=== PATIENT | female | born 1960 | race Two or more races ===

== ENCOUNTER 2017-05-04 17:28 | Emergency (ER) | payer SELFPAY, OTHER ==
[2017-05-04] MEDS: ASPIRIN CHEWABLE 81 MG TABLET. PO (17:45)
[2017-05-04 18:30] LABS: ADD MAN DIFF? NO
[2017-05-04 18:33] LABS: BASO # 0.1 x10^3/uL (0.0-0.2); BASO % 1 % (0-3); EOS # 0.3 x10^3/uL (0.0-0.7); EOS % 4 % (0-3); HEMATOCRIT 32.4 % (36.0-47.0); HEMOGLOBIN 11.3 g/dL (12.0-15.5); LYMPH # 1.3 x10^3/uL (1.0-4.8); LYMPH % 18 % (24-48); MEAN CORPUSCULAR HEMOGLOBIN 32 pg (25-35); MEAN CORPUSCULAR HGB CONC 35 g/dL (31-37); MEAN CORPUSCULAR VOLUME 91 fL (79-100); MONO # 0.4 x10^3/uL (0.0-1.1); MONO % 5 % (0-9); NEUT # 5.5 x10^3uL (1.8-7.7); NEUT % 72 % (31-73); PLATELET COUNT 215 x10^3/uL (140-400); RED BLOOD COUNT 3.54 x10^6/uL (3.50-5.40); WHITE BLOOD COUNT 7.6 x10^3/uL (4.0-11.0)
[2017-05-04 18:48] LABS: ANION GAP 10 (6-14); BLOOD UREA NITROGEN 53 mg/dL (7-20); BUN/CREATININE RATIO 44 (6-20); CALCIUM 8.2 mg/dL (8.5-10.1); CARBON DIOXIDE 27 mmol/L (21-32); CHLORIDE 103 mmol/L (98-107); CREATININE 1.2 mg/dL (0.6-1.0); GFR 46.5; GLUCOSE 301 mg/dL (70-99); POTASSIUM 4.1 mmol/L (3.5-5.1); SODIUM 140 mmol/L (136-145)
[2017-05-04 18:53] LABS: TROPONINI 0.022 ng/mL (0.000-0.055)
[2017-05-04 18:54] LABS: ALBUMIN 2.7 g/dL (3.4-5.0); ALBUMIN/GLOBULIN RATIO 0.9 (1.0-1.7); ALK PHOS 125 U/L (46-116); ALT (SGPT) 17 U/L (14-59); AST (SGOT) 15 U/L (15-37); TOTAL BILIRUBIN 0.2 mg/dL (0.2-1.0); TOTAL PROTEIN 5.6 g/dL (6.4-8.2)
[2017-05-04] MEDS: IV NORMAL SALINE 1000ML BAG 1,000 ML IV ×2 (19:06→20:45)
[2017-05-04] MEDS: INSULIN REGULAR 100 UNIT/ML 10ML VIAL. IV (20:44)
[2017-05-04] MEDS ORDERED: DEXTROSE 50% 25 GM / 50ML DISP.SYRIN. IV (22:14)
[2017-05-04] MEDS: DEXTROSE 50% 25 GM / 50ML DISP.SYRIN. IV (22:18)
[2017-05-05 04:47] LABS: POC GLUCOSE 52 mg/dL (70-99)
[2017-05-05 04:47] LABS: POC GLUCOSE 234 mg/dL (70-99)
== END 2017-05-04 22:53 | disposition home or self-care (01) ==
LOC: ER 17:28
DX: E86.0 Dehydration (principal); R05 Cough; R79.89 Other specified abnormal findings of blood chemistry; R07.89 Other chest pain; E11.65 Type 2 diabetes mellitus with hyperglycemia; F41.9 Anxiety disorder, unspecified; I25.10 Atherosclerotic heart disease of native coronary artery without angina pectoris; I11.0 Hypertensive heart disease with heart failure; I50.9 Heart failure, unspecified; E78.00 Pure hypercholesterolemia, unspecified; E03.9 Hypothyroidism, unspecified; F32.9 Major depressive disorder, single episode, unspecified; Z95.0 Presence of cardiac pacemaker; Z95.5 Presence of coronary angioplasty implant and graft; Z88.8 Allergy status to other drugs, medicaments and biological substances
CPT/HCPCS: 36415; 71045; 80053; 82962; 84484; 85025; 93005; 96361; 96374; 96375; 99285-25; J1815; J7030; J7042

== ENCOUNTER → 2017-06-05 | Outpatient (CLI) | payer OTHER | END | disposition home or self-care (01) | LOC: ECHO 07:59 | DX: I25.5 Ischemic cardiomyopathy (principal); I34.0 Nonrheumatic mitral (valve) insufficiency; I27.20 Pulmonary hypertension, unspecified; I51.7 Cardiomegaly | CPT/HCPCS: 93306 ==

== ENCOUNTER → 2018-01-01 | Outpatient (CLI) | payer OTHER ==
[2017-12-21 15:05] VITALS: BP 153/67
[~2018-01-01] MED LIST: ALBU2.5V5 NEB; AMOX1TAB61 PO; ASPI-612 PO; ATOR40TA59 PO; ATORVASTATIN CA80 MG PO; Aspirin PO; CARV3.12 PO; CARV6.252 PO; CHOL500045 PO; CLIN300C8 PO; CLOP75TA PO; FERR325T72 PO; FLUO20CA8 PO; FLUT16SP NS; FURO-68 PO; GABA-586 PO; GABA600T2; GLIM4TAB2 PO; HYDR-963 PO; INDO50CA5 PO; INSU100I13 SQ; LEVO150T5; LEVO175T2 PO; LEVO200T PO; LEVO200T5 PO; LOSA1TAB22 PO; LOSA25TA5 PO; Lisinopril PO; MELO15TA23 PO; METF10007 PO; METH4TAB2 PO; METO5TAB4 PO; NITR0.4T22 SL; PANT40TA5 PO; POTA10TA12; POTA10TA31 PO; PRAS10TA9 PO; SULF1TAB23 PO; TICA90TA PO
[2018-01-01 15:23] LABS: CALCIUM 8.1 mg/dL (8.5-10.1); CREATININE 1.4 mg/dL (0.6-1.0); GFR 38.8; POTASSIUM 4.6 mmol/L (3.5-5.1)
== END | disposition home or self-care (01) ==
LOC: LAB 14:37
PROVIDERS: ATTEND Nurse Practitioner
DX: I13.0 Hypertensive heart and chronic kidney disease with heart failure and stage 1 through stage 4 chronic kidney disease, or unspecified chronic kidney disease (principal); I50.43 Acute on chronic combined systolic (congestive) and diastolic (congestive) heart failure; N18.3 Chronic kidney disease, stage 3 (moderate); E11.649 Type 2 diabetes mellitus with hypoglycemia without coma; E11.42 Type 2 diabetes mellitus with diabetic polyneuropathy; E11.65 Type 2 diabetes mellitus with hyperglycemia; E11.40 Type 2 diabetes mellitus with diabetic neuropathy, unspecified; E11.22 Type 2 diabetes mellitus with diabetic chronic kidney disease; E78.5 Hyperlipidemia, unspecified; F32.9 Major depressive disorder, single episode, unspecified; F41.1 Generalized anxiety disorder; J44.0 Chronic obstructive pulmonary disease with (acute) lower respiratory infection; J44.1 Chronic obstructive pulmonary disease with (acute) exacerbation; Z82.49 Family history of ischemic heart disease and other diseases of the circulatory system; Z83.3 Family history of diabetes mellitus; Z88.8 Allergy status to other drugs, medicaments and biological substances; Z87.891 Personal history of nicotine dependence; Z79.84 Long term (current) use of oral hypoglycemic drugs; Z79.4 Long term (current) use of insulin; Z79.02 Long term (current) use of antithrombotics/antiplatelets
CPT/HCPCS: 36415; 80048; 83880

== ENCOUNTER → 2018-08-01 | Outpatient (CLI) | payer OTHER ==
[2018-06-07 11:00] VITALS: BP 146/70
[~2018-08-01] MED LIST changes: +APIX5TAB PO; +CARV25TA PO; +CARV6.2511 PO; -CARV6.252 PO; +CHOL100013 PO; +COLE1TAB PO; +FERR325T14 PO; +FOLI1TAB16 PO; -GABA-586 PO; +GABA300C18 PO; -GABA600T2; +GABA600T7; +HYDR-3135 PO; -HYDR-963 PO; -LOSA25TA5 PO; +LOSA25TA54 PO; +RIVA20TA2 PO; +SACU1TAB4 PO; +TORS20TA PO; +TRIA1TAB3 PO
[2018-08-01 16:08] LABS: BASO % 1 % (0-3); EOS # 0.2 x10^3/uL (0.0-0.7); EOS % 5 % (0-3); HEMATOCRIT 24.8 % (36.0-47.0); HEMOGLOBIN 8.4 g/dL (12.0-15.5); LYMPH % 27 % (24-48); MEAN CORPUSCULAR HEMOGLOBIN 30 pg (25-35); MEAN CORPUSCULAR HGB CONC 34 g/dL (31-37); MEAN CORPUSCULAR VOLUME 89 fL (79-100); MONO # 0.2 x10^3/uL (0.0-1.1); MONO % 6 % (0-9); NEUT # 2.3 x10^3uL (1.8-7.7); NEUT % 61 % (31-73); PLATELET COUNT 176 x10^3/uL (140-400); RED BLOOD COUNT 2.77 x10^6/uL (3.50-5.40); RED CELL DISTRIBUTION WIDTH 17.1 % (11.5-14.5); WHITE BLOOD COUNT 3.7 x10^3/uL (4.0-11.0)
[2018-08-01 16:22] LABS: CALCIUM 8.1 mg/dL (8.5-10.1); CREATININE 1.9 mg/dL (0.6-1.0); GFR 27.2; MAGNESIUM 2.1 mg/dL (1.8-2.4); POTASSIUM 3.9 mmol/L (3.5-5.1)
== END | disposition home or self-care (01) ==
LOC: LAB 15:41
PROVIDERS: ATTEND Family Medicine
DX: I13.0 Hypertensive heart and chronic kidney disease with heart failure and stage 1 through stage 4 chronic kidney disease, or unspecified chronic kidney disease (principal); N18.3 Chronic kidney disease, stage 3 (moderate); I50.42 Chronic combined systolic (congestive) and diastolic (congestive) heart failure
CPT/HCPCS: 36415; 80048; 83735; 85025

== ENCOUNTER 2018-08-10 17:20 | Inpatient (IN) | payer OTHER ==
[~2018-08-10] VITALS: Ht 165.1 cm; Wt 81.9 kg
[~2018-08-10 17:20] MED LIST changes: -RIVA20TA2 PO
--- NOTE | 2018-08-10 17:50 | RAD ---
CHEST AP ONLY History: CHEST PAIN Comparison: 06/04/2018 Findings: Single view of the chest is submitted. Pericardial cardiac silhouette is again enlarged. There is dual lead left electronic cardiac device. There is no pneumothorax. There is no lobar consolidation or significant pleural fluid. Impression: 1. There is again enlargement of the pericardial cardiac silhouette. Electronically signed by: Corey Wagner MD (08/10/2018 5:47 PM) [id number]
[2018-08-10 18:02] LABS: BASO % 1 % (0-3); EOS # 0.2 x10^3/uL (0.0-0.7); EOS % 5 % (0-3); HEMATOCRIT 25.2 % (36.0-47.0); HEMOGLOBIN 8.5 g/dL (12.0-15.5); LYMPH # 0.9 x10^3/uL (1.0-4.8); LYMPH % 23 % (24-48); MEAN CORPUSCULAR HEMOGLOBIN 31 pg (25-35); MEAN CORPUSCULAR HGB CONC 34 g/dL (31-37); MEAN CORPUSCULAR VOLUME 91 fL (79-100); MONO # 0.2 x10^3/uL (0.0-1.1); MONO % 4 % (0-9); NEUT # 2.6 x10^3uL (1.8-7.7); NEUT % 67 % (31-73); PLATELET COUNT 167 x10^3/uL (140-400); RED BLOOD COUNT 2.78 x10^6/uL (3.50-5.40); RED CELL DISTRIBUTION WIDTH 16.9 % (11.5-14.5); WHITE BLOOD COUNT 3.9 x10^3/uL (4.0-11.0)
[2018-08-10 18:11] LABS: CALCIUM 8.3 mg/dL (8.5-10.1); CREATININE 1.5 mg/dL (0.6-1.0); GFR 35.8; POTASSIUM 4.9 mmol/L (3.5-5.1); PROTHROMBIN TIME PATIENT 13.3 SEC (11.7-14.0)
[2018-08-10 18:16] LABS: ALBUMIN 2.2 g/dL (3.4-5.0); DIRECT BILIRUBIN 0.1 mg/dL (0.0-0.2); TOTAL BILIRUBIN 0.1 mg/dL (0.2-1.0); TOTAL PROTEIN 5.6 g/dL (6.4-8.2)
[2018-08-10] MEDS ORDERED: NITROGLYCERIN OINT 1 GM PACKET. TP ONE (19:15)
[2018-08-10] MEDS ORDERED: fentaNYL PF VIAL 100 MCG/2 ML VIAL IV ONE (19:15)
[2018-08-10] MEDS ORDERED: BUMETANIDE 1 MG/4 ML VIAL. IV ONE (19:15)
--- NOTE | 2018-08-10 19:24 | PHYS DOC ---
Past Medical History Past Medical History: Anxiety, CAD, CHF, Depression, Diabetes-Type II, High Cholesterol, Hypertension, Hypothyroid, Other Additional Past Medical Histor: cardiomyopathy, PACER/ DEFIB Past Surgical History: Angioplasty, , Pacemaker, Tubal ligation, Other Additional Past Surgical Histo: heart stents Alcohol Use: None Drug Use: None Adult General Chief Complaint Chief Complaint: CHEST PAIN HPI HPI Patient is a 57 year old female who presents with chest pain shortness of breath. She states the pain started this morning after she woke up and was doing some chores around her house. The chest pain is located substernally and is sharp in nature. There is no radiation. Throughout the day with chest pain has waxed and waned over this evening at the point where with becoming more constant nausea secondary to the emergency department. Nothing makes her chest pain better or worse. Her shortness of breath is worsened by exertion and lying down flat. Sitting up improves or shortness of breath. Patient denies any fevers , chills, lightheadedness, or dizziness. Patient is reporting a headache. Review of Systems Review of Systems Constitutional: Denies fever or chills Eyes: Denies change in vision or eye pain. HENT: Denies nasal congestion or sore throat Respiratory: Reports shortness of breath. Denies cough. Cardiovascular: Reports chest pain. Denies palpitations. GI: Denies abdominal pain, nausea, vomiting. : Denies dysuria or hematuria Musculoskeletal: Denies back pain or joint pain Integument: Denies rash or skin lesions Neurologic: Reports headache. Denies focal weakness. Complete systems were reviewed and found to be within normal limits, except as documented in this note. Current Medications Current Medications Current Medications Medications (Trade) Dose Ordered Sig/Carlos Start Time Stop Time Status Last Admin Dose Admin Bumetanide (Bumex) 0.5 mg 1X ONCE 08/10/18 19:15 08/10/18 19:16 DC 08/10/18 19:32 0.5 MG Fentanyl Citrate (Fentanyl 2ml Vial) 50 mcg 1X ONCE 08/10/18 19:15 08/10/18 19:16 DC 08/10/18 19:15 50 MCG Nitroglycerin (Nitro-Bid Oint) 0.5 inch 1X ONCE 08/10/18 19:15 08/10/18 19:16 DC 08/10/18 19:37 0.5 INCH Allergies Allergies Allergies Coded Allergies Type Severity Reaction Last Updated Verified lisinopril Adverse Reaction Mild COUGH 11/28/16 Yes Physical Exam Physical Exam Constitutional: Well developed, well nourished, no acute distress. HENT: Normocephalic, atraumatic, oropharynx moist. Eyes: EOMI, right eye conjunctival hemorrhage, no discharge Neck: Normal range of motion, supple. Cardiovascular:Heart rate regular rhythm, no murmur Lungs & Thorax: Crackles in right upper and lower lung field, left lung cooper clear to auscultation. Abdomen: Bowel sounds normal, soft, no tenderness. Skin: Warm, dry, no erythema. Back: No tenderness, no CVA tenderness. Extremities: Bilateral leg tenderness, bilateral 3+ pitting edema Neurologic: Alert and oriented X 3, normal motor function, normal sensory function, no focal deficits noted, cranial nerves II through XII grossly intact bilaterally. Psychologic: Affect normal, mood normal. Current Patient Data Vital Signs Vital Signs Date Time Temp Pulse Resp B/P (MAP) Pulse Ox O2 Delivery O2 Flow Rate FiO2 08/10/18 19:15 20 08/10/18 17:30 98.1 67 157/69 (98) 93 Room Air 98.1 Lab Values Laboratory Tests Test 08/10/18 17:48 White Blood Count 3.9 x10^3/uL (4.0-11.0) L Red Blood Count 2.78 x10^6/uL (3.50-5.40) L Hemoglobin 8.5 g/dL (12.0-15.5) L Hematocrit 25.2 % (36.0-47.0) L Mean Corpuscular Volume 91 fL (79-100) Mean Corpuscular Hemoglobin 31 pg (25-35) Mean Corpuscular Hemoglobin Concent 34 g/dL (31-37) Red Cell Distribution Width 16.9 % (11.5-14.5) H Platelet Count 167 x10^3/uL (140-400) Neutrophils (%) (Auto) 67 % (31-73) Lymphocytes (%) (Auto) 23 % (24-48) L Monocytes (%) (Auto) 4 % (0-9) Eosinophils (%) (Auto) 5 % (0-3) H Basophils (%) (Auto) 1 % (0-3) Neutrophils # (Auto) 2.6 x10^3uL (1.8-7.7) Lymphocytes # (Auto) 0.9 x10^3/uL (1.0-4.8) L Monocytes # (Auto) 0.2 x10^3/uL (0.0-1.1) Eosinophils # (Auto) 0.2 x10^3/uL (0.0-0.7) Basophils # (Auto) 0.0 x10^3/uL (0.0-0.2) Prothrombin Time 13.3 SEC (11.7-14.0) Prothrombin Time INR 1.0 (0.8-1.1) PTT 31 SEC (24-38) Sodium Level 134 mmol/L (136-145) L Potassium Level 4.9 mmol/L (3.5-5.1) Chloride Level 101 mmol/L (98-107) Carbon Dioxide Level 29 mmol/L (21-32) Anion Gap 4 (6-14) L Blood Urea Nitrogen 39 mg/dL (7-20) H Creatinine 1.5 mg/dL (0.6-1.0) H Estimated GFR (Cockcroft-Gault) 35.8 Glucose Level 372 mg/dL (70-99) H Calcium Level 8.3 mg/dL (8.5-10.1) L Total Bilirubin 0.1 mg/dL (0.2-1.0) L Direct Bilirubin 0.1 mg/dL (0.0-0.2) Aspartate Amino Transferase (AST) 22 U/L (15-37) Alanine Aminotransferase (ALT) 23 U/L (14-59) Alkaline Phosphatase 122 U/L (46-116) H Troponin I Quantitative 0.017 ng/mL (0.000-0.055) NL-Noy-L-Type Natriuretic Peptide 82434 pg/mL (0-124) H Total Protein 5.6 g/dL (6.4-8.2) L Albumin 2.2 g/dL (3.4-5.0) L Lipase 85 U/L (73-393) Laboratory Tests 08/10/18 17:48 Laboratory Tests 08/10/18 17:48 EKG EKG EKG at 1730, normal sinus rhythm with a rate of 70 bpm, no ST elevation or signs of ischemia. Radiology/Procedures Radiology/Procedures PROCEDURE: CHEST AP ONLY CHEST AP ONLY History: CHEST PAIN Comparison: 06/04/2018 Findings: Single view of the chest is submitted. Pericardial cardiac silhouette is again enlarged. There is dual lead left electronic cardiac device. There is no pneumothorax. There is no lobar consolidation or significant pleural fluid. Impression: 1. There is again enlargement of the pericardial cardiac silhouette. Electronically signed by: Maria Esther Miles MD (08/10/2018 5:47 PM) [place] [id number] DICTATED and SIGNED BY: MARIA ESTHER MILES MD PROCEDURE: CT HEAD WO CONTRAST CT head without contrast: Reason for examination: Headache. On blood thinners. Axial images were obtained through the brain. No contrast was administered. Exposure: One or more of the following individualized dose reduction techniques were utilized for this examination: 1. Automated exposure control 2. Adjustment of the mA and/or kV according to patient size 3. Use of iterative reconstruction technique. Ventricular systems are symmetric and not abnormally dilated. No midline shift is seen. There is no evidence of intracranial hemorrhage, infarct, mass or edema. No abnormalities of seen at the orbits. The paranasal sinuses and mastoid air cells are clear. No acute abnormality seen in the skull. IMPRESSION: No acute intracranial abnormality evident. Electronically signed by: Veronica Benjamin MD (08/10/2018 7:38 PM) [facility] DICTATED and SIGNED BY: VERONICA BENJAMIN MD Course & Med Decision Making Course & Med Decision Making 57-year-old female sent to the emergency department for chest pain shortness of breath. She does have history of CHF and PEs which she is currently on Xarelto. In addition she is complaining of a headache. Due to blood thinners and headache. CT of head was performed. On physical exam patient had 3+ bilateral pitting edema. Labs and imaging obtained and posted to chart. Symptomatically treatment provided with interval improvement. Chest x-ray demonstrated dilated heart. CT was negative for acute bleed. Due to shortness of breath and edema patient likely benefit from admission. Patient requiring admission for further evaluation and treatment. Discussed with (hospitalist) who is in agreement with admission. Discussed findings and plan with patient and family, who acknowledge understanding and agreement. [] Dragon Disclaimer Dragon Disclaimer This electronic medical record was generated, in whole or in part, using a voice recognition dictation system. Departure Departure Impression: Primary Impression: CHF exacerbation Disposition: 09 ADMITTED INPATIENT Condition: GUARDED Referrals: MELODIE VALLES MD (PCP) Problem Qualifiers Primary Impression: CHF exacerbation Heart failure type: unspecified Qualified Codes: I50.9 - Heart failure, unspecified MELODIE DUONG DO Aug 10, 2018 19:24
[2018-08-10] MEDS ORDERED: fentaNYL PF VIAL 100 MCG/2 ML VIAL IV PRN (19:30)
[2018-08-10] MEDS ORDERED: DEXTROSE 50% 25 GM / 50ML DISP.SYRIN. IV PRN ×2 (19:30→21:30)
[2018-08-10] MEDS ORDERED: ONDANSETRON PF 4 MG/2 ML VIAL. IV PRN (19:30)
--- NOTE | 2018-08-10 19:41 | RAD ---
CT head without contrast: Reason for examination: Headache. On blood thinners. Axial images were obtained through the brain. No contrast was administered. Exposure: One or more of the following individualized dose reduction techniques were utilized for this examination: 1. Automated exposure control 2. Adjustment of the mA and/or kV according to patient size 3. Use of iterative reconstruction technique. Ventricular systems are symmetric and not abnormally dilated. No midline shift is seen. There is no evidence of intracranial hemorrhage, infarct, mass or edema. No abnormalities of seen at the orbits. The paranasal sinuses and mastoid air cells are clear. No acute abnormality seen in the skull. IMPRESSION: No acute intracranial abnormality evident. Electronically signed by: Veronica Coleman MD (08/10/2018 7:38 PM) [facility]
--- NOTE | 2018-08-10 20:10 | NUR ---
Pt arrival to floor from ER at this time via bed. Pt oriented to unit settings, unit routines, plan of care, high fall risk precautions. Pt verbalizes understanding. Pt c/o shortness of air, increased lower extremity swelling for one week. Pt family at bedside. Pt denies pain. Pt items and call light in reach.
[2018-08-10 20:45] VITALS: BP 165/64
[2018-08-10] MEDS ORDERED: RIVA20TA2 PO (21:07)
[2018-08-10] MEDS ORDERED: VALSARTAN PO SCH (21:45)
[2018-08-10] MEDS ORDERED: SACUBITRIL PO SCH (21:45)
[2018-08-10] MEDS: CARVEDILOL 12.5 MG TABLET. PO SCH (22:00)
[2018-08-10] MEDS ORDERED: metFORMIN 500 MG TABLET PO SCH (22:00)
[2018-08-10] MEDS: COLESTIPOL HCL 1 GM TABLET PO SCH (22:04)
[2018-08-10] MEDS: POTASSIUM CHLORIDE 10 MEQ TABLET.ER. PO SCH (22:04)
[2018-08-10] MEDS: metFORMIN 500 MG TABLET PO SCH (22:04)
[2018-08-10] MEDS: SACUBITRIL/VALSARTAN 49/51MG TABLET. PO SCH (22:06)
[2018-08-10] MEDS: TORSEMIDE 20 MG TABLET. PO SCH (22:07)
[2018-08-10] MEDS: ATORVASTATIN CALCIUM 40 MG TABLET. PO SCH (22:07)
[2018-08-10] MEDS: GABAPENTIN 300 MG CAPSULE. PO SCH (22:07)
[2018-08-10] MEDS: INSULIN GLARGINE 300 UNITS/3 ML INSULN.PEN. SQ SCH (22:12)
[2018-08-10 23:39] VITALS: BP 153/78
[2018-08-11 03:50] VITALS: BP 145/64
[2018-08-11 07:42] VITALS: BP 139/66
[2018-08-11] MEDS ORDERED: POTASSIUM CHLORIDE 10 MEQ TABLET.ER. PO SCH (08:00)
[2018-08-11] MEDS: POTASSIUM CHLORIDE 10 MEQ TABLET.ER. PO SCH ×2 (08:00→17:22)
[2018-08-11] MEDS ORDERED: INSULIN LISPRO 300 UNITS/3 ML INSULN.PEN. SQ SCH (08:00)
[2018-08-11] MEDS ORDERED: metFORMIN 500 MG TABLET PO SCH (08:00)
[2018-08-11] MEDS ORDERED: CARVEDILOL 12.5 MG TABLET. PO SCH (08:00)
[2018-08-11] MEDS ORDERED: ALBUTEROL SULFATE 2.5 MG/3 ML NEBU. NEB PRN (08:30)
[2018-08-11] MEDS ORDERED: NITROGLYCERIN SUBLINGUAL 0.4 MG BOTTLE OF 25. SL PRN (08:30)
[2018-08-11] MEDS ORDERED: DEXTROSE 50% 25 GM / 50ML DISP.SYRIN. IV PRN (08:45)
[2018-08-11] MEDS ORDERED: FUROSEMIDE 40 MG/4 ML VIAL. IVP ONE (08:45)
--- NOTE | 2018-08-11 08:46 | PDOC1 ---
History and Physical Date of Admission Date of Admission 08/10/18 Identification/Chief Complaint Chief Complaint Shortness of breath Source Source: Patient History of Present Illness History of Present Illness Pt states that she has had increased shortness of breath over the past 2 days. She has had increased cough with clear sputum for the past week. Denies any significant swelling. She says that she "just hasn't felt good". Denies fevers or chills. Has slight sore throat and runny nose with clear drainage. Past Medical History Cardiovascular: CAD, CHF, HTN, Hyperlipidemia, Other Pulmonary: COPD CENTRAL NERVOUS SYSTEM: Periperal neuropathy GI: No pertinent hx Heme/Onc: Anemia NOS Hepatobiliary: No pertinent hx Psych: Anxiety, Depression Rheumatologic: No pertinent hx Infectious disease: No pertinent hx ENT: No pertinent hx Renal/: Chronic renal insuff Endocrine: Diabetes, Hypothyroidism Dermatology: No pertinent hx Past Surgical History Past Surgical History: Pacemaker, Cataract Removal, Other Family History Family History: Diabetes, Hypertension Social History Smoke: Quit ALCOHOL: none Drugs: None Current Medications Current Medications Current Medications Medications (Trade) Dose Ordered Sig/Carlos Start Time Stop Time Status Last Admin Dose Admin Atorvastatin Calcium (Lipitor) 80 mg QHS 08/10/18 22:00 08/10/18 22:07 80 MG Bumetanide (Bumex) 0.5 mg 1X ONCE 08/10/18 19:15 08/10/18 19:16 DC 08/10/18 19:32 0.5 MG Carvedilol (Coreg) 12.5 mg BIDWMEALS 08/10/18 22:00 08/10/18 22:00 12.5 MG Colestipol HCl (Colestid) 2 gm BID 08/10/18 22:00 08/10/18 22:04 2 GM Dextrose (Dextrose 50%-Water Syringe) 12.5 gm PRN Q15MIN PRN 08/10/18 21:30 UNV Fentanyl Citrate (Fentanyl 2ml Vial) 50 mcg Q2HR PRN 08/10/18 19:30 08/11/18 19:29 Gabapentin (Neurontin) 300 mg TID 08/10/18 22:00 08/10/18 22:07 300 MG Insulin Glargine (Lantus) 5 units QHS 08/10/18 22:00 08/10/18 22:12 5 UNITS Insulin Human Lispro (HumaLOG) 0-5 UNITS TIDWMEALS 08/11/18 08:00 Cancel Metformin HCl (Glucophage) 1,000 mg BIDWMEALS 08/10/18 22:00 08/10/18 22:04 1,000 MG Nitroglycerin (Nitro-Bid Oint) 0.5 inch 1X ONCE 08/10/18 19:15 08/10/18 19:16 DC 08/10/18 19:37 0.5 INCH Non-Formulary Medication (Sacubitril/ Valsartan (Entresto 97 mg-103 mg Tablet)) 1 each BID 08/10/18 21:45 UNV Ondansetron HCl (Zofran) 4 mg PRN Q8HRS PRN 08/10/18 19:30 08/11/18 19:29 Potassium Chloride (Klor-Con) 10 meq BIDWMEALS 08/10/18 22:00 08/10/18 22:04 10 MEQ Sacubitril/ Valsartan (Entresto 49 Mg-51 Mg) 2 tab BID 08/10/18 22:00 08/10/18 22:06 2 TAB Torsemide (Demadex) 20 mg [id number] 08/10/18 22:00 08/10/18 22:07 20 MG Allergies Allergies Allergies Coded Allergies Type Severity Reaction Last Updated Verified lisinopril Adverse Reaction Mild COUGH 11/28/16 Yes ROS Review of System CONSTITUTIONAL: No fever or chills EYES: No recent changes SKIN: No rash or itching CARDIOVASCULAR: No chest pain, syncope, palpitations, or edema RESPIRATORY: + SOB or cough GASTROINTESTINAL: No nausea, vomiting or abdominal pain NEUROLOGICAL: No weakness, +headaches ENDOCRINE: No cold or heat intolerance GENITOURINARY: No urgency or frequency of urination MUSCULOSKELETAL: No back pain or joint pain LYMPHATICS: No enlarged lymph nodes PSYCHIATRIC: No anxiety or depression Physical Exam Physical Exam GEN.: No apparent distress. Alert and oriented. Drowsy, falling asleep but arousable. HEENT: Head is normocephalic, atraumatic NECK: Supple. LUNGS: rhonchi throughout. HEART: RRR, S1, S2 present. Peripheral pulses intact ABDOMEN: Soft, nontender. Positive bowel sounds. EXTREMITIES: Without any cyanosis, 2+ pitting edema LE bilaterally NEUROLOGIC: Normal speech, normal tone PSYCHIATRIC: Normal affect, normal mood. SKIN: No ulcerations Vitals Vitals Vital Signs Date Time Temp Pulse Resp B/P (MAP) Pulse Ox O2 Delivery O2 Flow Rate FiO2 08/11/18 07:42 98.1 63 16 139/66 (90) 84 Room Air 98.1 08/10/18 23:39 2.0 Labs Labs Laboratory Tests Test 08/10/18 17:48 08/10/18 21:10 08/10/18 21:21 08/11/18 01:00 White Blood Count 3.9 x10^3/uL (4.0-11.0) Red Blood Count 2.78 x10^6/uL (3.50-5.40) Hemoglobin 8.5 g/dL (12.0-15.5) Hematocrit 25.2 % (36.0-47.0) Mean Corpuscular Volume 91 fL (79-100) Mean Corpuscular Hemoglobin 31 pg (25-35) Mean Corpuscular Hemoglobin Concent 34 g/dL (31-37) Red Cell Distribution Width 16.9 % (11.5-14.5) Platelet Count 167 x10^3/uL (140-400) Neutrophils (%) (Auto) 67 % (31-73) Lymphocytes (%) (Auto) 23 % (24-48) Monocytes (%) (Auto) 4 % (0-9) Eosinophils (%) (Auto) 5 % (0-3) Basophils (%) (Auto) 1 % (0-3) Neutrophils # (Auto) 2.6 x10^3uL (1.8-7.7) Lymphocytes # (Auto) 0.9 x10^3/uL (1.0-4.8) Monocytes # (Auto) 0.2 x10^3/uL (0.0-1.1) Eosinophils # (Auto) 0.2 x10^3/uL (0.0-0.7) Basophils # (Auto) 0.0 x10^3/uL (0.0-0.2) Prothrombin Time 13.3 SEC (11.7-14.0) Prothromb Time International Ratio 1.0 (0.8-1.1) Activated Partial Thromboplast Time 31 SEC (24-38) Sodium Level 134 mmol/L (136-145) Potassium Level 4.9 mmol/L (3.5-5.1) Chloride Level 101 mmol/L (98-107) Carbon Dioxide Level 29 mmol/L (21-32) Anion Gap 4 (6-14) Blood Urea Nitrogen 39 mg/dL (7-20) Creatinine 1.5 mg/dL (0.6-1.0) Estimated GFR (Cockcroft-Gault) 35.8 Glucose Level 372 mg/dL (70-99) Calcium Level 8.3 mg/dL (8.5-10.1) Total Bilirubin 0.1 mg/dL (0.2-1.0) Direct Bilirubin 0.1 mg/dL (0.0-0.2) Aspartate Amino Transf (AST/SGOT) 22 U/L (15-37) Alanine Aminotransferase (ALT/SGPT) 23 U/L (14-59) Alkaline Phosphatase 122 U/L (46-116) Troponin I Quantitative 0.017 ng/mL (0.000-0.055) < 0.017 ng/mL (0.000-0.055) 0.021 ng/mL (0.000-0.055) DE-Asq-E-Type Natriuretic Peptide 63233 pg/mL (0-124) Total Protein 5.6 g/dL (6.4-8.2) Albumin 2.2 g/dL (3.4-5.0) Lipase 85 U/L (73-393) Glucose (Fingerstick) 318 mg/dL (70-99) Test 08/11/18 07:38 Glucose (Fingerstick) 206 mg/dL (70-99) Laboratory Tests Test 08/10/18 17:48 08/10/18 21:10 08/10/18 21:21 08/11/18 01:00 White Blood Count 3.9 x10^3/uL (4.0-11.0) Red Blood Count 2.78 x10^6/uL (3.50-5.40) Hemoglobin 8.5 g/dL (12.0-15.5) Hematocrit 25.2 % (36.0-47.0) Mean Corpuscular Volume 91 fL (79-100) Mean Corpuscular Hemoglobin 31 pg (25-35) Mean Corpuscular Hemoglobin Concent 34 g/dL (31-37) Red Cell Distribution Width 16.9 % (11.5-14.5) Platelet Count 167 x10^3/uL (140-400) Neutrophils (%) (Auto) 67 % (31-73) Lymphocytes (%) (Auto) 23 % (24-48) Monocytes (%) (Auto) 4 % (0-9) Eosinophils (%) (Auto) 5 % (0-3) Basophils (%) (Auto) 1 % (0-3) Neutrophils # (Auto) 2.6 x10^3uL (1.8-7.7) Lymphocytes # (Auto) 0.9 x10^3/uL (1.0-4.8) Monocytes # (Auto) 0.2 x10^3/uL (0.0-1.1) Eosinophils # (Auto) 0.2 x10^3/uL (0.0-0.7) Basophils # (Auto) 0.0 x10^3/uL (0.0-0.2) Prothrombin Time 13.3 SEC (11.7-14.0) Prothromb Time International Ratio 1.0 (0.8-1.1) Activated Partial Thromboplast Time 31 SEC (24-38) Sodium Level 134 mmol/L (136-145) Potassium Level 4.9 mmol/L (3.5-5.1) Chloride Level 101 mmol/L (98-107) Carbon Dioxide Level 29 mmol/L (21-32) Anion Gap 4 (6-14) Blood Urea Nitrogen 39 mg/dL (7-20) Creatinine 1.5 mg/dL (0.6-1.0) Estimated GFR (Cockcroft-Gault) 35.8 Glucose Level 372 mg/dL (70-99) Calcium Level 8.3 mg/dL (8.5-10.1) Total Bilirubin 0.1 mg/dL (0.2-1.0) Direct Bilirubin 0.1 mg/dL (0.0-0.2) Aspartate Amino Transf (AST/SGOT) 22 U/L (15-37) Alanine Aminotransferase (ALT/SGPT) 23 U/L (14-59) Alkaline Phosphatase 122 U/L (46-116) Troponin I Quantitative 0.017 ng/mL (0.000-0.055) < 0.017 ng/mL (0.000-0.055) 0.021 ng/mL (0.000-0.055) WR-Dgl-E-Type Natriuretic Peptide 09420 pg/mL (0-124) Total Protein 5.6 g/dL (6.4-8.2) Albumin 2.2 g/dL (3.4-5.0) Lipase 85 U/L (73-393) Glucose (Fingerstick) 318 mg/dL (70-99) Test 08/11/18 07:38 Glucose (Fingerstick) 206 mg/dL (70-99) VTE Prophylaxis Ordered VTE Prophylaxis Devices: Yes VTE Pharmacological Prophylaxi: Yes Assessment/Plan Assessment/Plan Pt is a 57yo female admitted for acute respiratory failure 2/2 CHF exacerbation 1)Acute respiratory failure- 2/2 combined systolic/diastolic CHF exacerbation. Cardiology consulted in ER. Pt resumed on home medications of Entresto 97/ 103mg BID, Torsemide 20mg BID, Metolazone 5mg qday. Will give a dose of IV Lasix 2)COPD- pt started on albuterol treatments as needed 3)HTN- moderately controlled. Pt on above medications; will resume Carvedilol 12.5mg BID, Dyazide 25/37.5mg qday 4)Hx of PE- pt continued on Xarelto 20mg. Did not receive dose last night, will give dose this morning and then resume evening administration 5)DM2- poorly controlled. Pt currently resumed on Metformin 1000mg BID and Lantus 5units QHS. Will have SSI available. 6)HLD- pt continued on Atorvastatin 80mg 7)Hypothyroidism- recently not at goal. For now continue levothyroxine 200mcg daily 8)Anemia- chronic, stable. No active bleeding. Pt continued on Ferrous Sulfate 9)Hx CAD 10)Hyponatremia- mild, CTM 11)CKD- Cr essentially stable. CTM 12)PEM- moderate LORENZO MARTINES MD Aug 11, 2018 08:46
[2018-08-11] MEDS: PANTOPRAZOLE 40 MG TABLET.DR. PO SCH (08:57)
[2018-08-11] MEDS: FOLIC ACID 1 MG TABLET. PO SCH (08:57)
[2018-08-11] MEDS: GABAPENTIN 300 MG CAPSULE. PO SCH ×3 (08:57→21:07)
[2018-08-11] MEDS: ASPIRIN ENTERIC COATED 81 MG TABLET.DR. PO SCH (08:58)
[2018-08-11] MEDS: FERROUS SULFATE 325 MG TABLET. PO SCH (08:58)
[2018-08-11] MEDS ORDERED: COLESTIPOL HCL 1 GM TABLET PO SCH (09:00)
[2018-08-11] MEDS ORDERED: GABAPENTIN 300 MG CAPSULE. PO SCH (09:00)
[2018-08-11] MEDS: SACUBITRIL/VALSARTAN 49/51MG TABLET. PO SCH ×2 (09:00→21:08)
[2018-08-11] MEDS ORDERED: SACUBITRIL/VALSARTAN 49/51MG TABLET. PO SCH (09:00)
[2018-08-11] MEDS ORDERED: TORSEMIDE 20 MG TABLET. PO SCH (09:00)
[2018-08-11] MEDS: TORSEMIDE 20 MG TABLET. PO SCH (09:00)
[2018-08-11] MEDS: CARVEDILOL 12.5 MG TABLET. PO SCH ×2 (09:00→17:22)
[2018-08-11] MEDS: metFORMIN 500 MG TABLET PO SCH ×2 (09:01→17:21)
[2018-08-11] MEDS: metOLazone 2.5 MG TABLET PO SCH (09:01)
[2018-08-11] MEDS: LEVOTHYROXINE 100 MCG TABLET PO SCH (09:01)
[2018-08-11] MEDS: TRIAMTERENE/HCTZ 37.5/25MG TABLET. PO SCH (09:01)
[2018-08-11] MEDS: INSULIN LISPRO 300 UNITS/3 ML INSULN.PEN. SQ SCH ×3 (09:07→17:34)
[2018-08-11] MEDS: COLESTIPOL HCL 1 GM TABLET PO SCH ×2 (10:01→21:07)
--- NOTE | 2018-08-11 11:13 | NUR ---
FACULTY CO-SIGN I have reviewed the documentation by clinical nursing coordinator: Addendum: 08/11/18 at 1114 by GAL COREA RN Amended: Links added.
[2018-08-11 11:22] VITALS: BP 159/70
[2018-08-11] MEDS: ANTI-COAG MONITOR BY PHARMACY. MC PRN (13:09)
--- NOTE | 2018-08-11 14:58 | EKG ---
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
[2018-08-11 15:13] VITALS: BP 161/74
--- NOTE | 2018-08-11 16:15 | PDOC2 ---
CARDIOLOGY CONSULT NOTE CHEIF COMPLAINT: Shortness of air HPI: 57-year-old woman coming into the hospital with dyspnea. She has known multiple chronic comorbidities. Today upon examination she was quite somnolent but arousable and history was limited. She reported shortness of breath but otherwise denied any chest pain. PMHX: 1. Coronary artery disease status post PCI to the circumflex and LAD 2. Ischemic cardio myopathy with ejection fraction of 40-45% on echocardiogram in 2019 3. Hypertension 4. Dyslipidemia 5. COPD 6. History of pulmonary embolus on chronic anticoagulation SOCHX: Prior tobacco abuse. Has not smoked since 2016. No alcohol or illicit drug use. She has poor dietary compliance as she was noted to have fast food with high salt load in her room despite being admitted for acute heart failure. FAMHX: Noncontributory CURRENT MEDS: Pertinent medications include: 1. Metolazone 2. Maxide 3. Aspirin 81 mg daily 4.Rivaroxaban 20mg daily 5. Entresto 49/51 mg bid 6. Torsemide 20 g by mouth twice a day 7. Carvedilol 12.5 g twice a day 8. Atorvastatin 80 mg daily ALLERGIES: Allergies Coded Allergies Type Severity Reaction Last Updated Verified lisinopril Adverse Reaction Mild COUGH 11/28/16 Yes ROS: Unable to be obtained due to the patient's somnolence PHYSICAL EXAM: Vital Signs: Vital Signs Date Time Temp Pulse Resp B/P (MAP) Pulse Ox O2 Delivery O2 Flow Rate FiO2 08/11/18 15:13 95.1 65 16 161/74 (103) 95 Room Air 95.1 08/10/18 23:39 2.0 I & O Intake and Output 08/11/18 06:59 Output Total 1200 ml Balance -1200 ml Output Urine Total 1200 ml Physical Exam: GEN.: No apparent distress. Alert and oriented. HEENT: Head is normocephalic, atraumatic NECK: Supple. LUNGS: Bilateral and expiratory wheezing HEART: RRR, S1, S2 present. Peripheral pulses intact ABDOMEN: Soft, nontender. Positive bowel sounds. EXTREMITIES: Without any cyanosis., Notable for 2+ pitting edema SKIN: No ulcerations DIAGNOSTIC TESTING: Cardiac enzymes are negative Creatinine 1.5 Hemoglobin 8.5 BNP 10,000 ASSESSMENT: 1. Acute on chronic systolic and diastolic heart fair with elevated BNP and lower extremity edema: Likely related to dietary noncompliance 2. Probable acute on chronic COPD exacerbation, etiology is unclear 3. Uncontrolled hypertension 4. Dyslipidemia 5. Coronary artery disease status post PCI 6. Anemia of chronic disease with a hemoglobin of 8.5 7. History of pulmonary embolus on chronic anticoagulation 8. s/p dual chamber [employer] ICD for ICMP PLAN: 1. Change to IV diuretics, plan for lasix IV with metolazone. Close monitoring of renal function. 2. Continue metolazone and other meds. May need to uptitrate Entresto based on her BP's. 3. w/u of somnolence per PCP. Will f/u tomorrow. GIRISH DURAN MD Aug 11, 2018 16:15
[2018-08-11] MEDS: RIVAROXABAN 10 MG TABLET. PO SCH (17:22)
[2018-08-11] MEDS: FUROSEMIDE 40 MG/4 ML VIAL. IVP SCH (17:24)
[2018-08-11 19:55] VITALS: BP 169/74
[2018-08-11] MEDS ORDERED: ATORVASTATIN CALCIUM 40 MG TABLET. PO SCH (21:00)
[2018-08-11] MEDS ORDERED: INSULIN GLARGINE 300 UNITS/3 ML INSULN.PEN. SQ SCH (21:00)
[2018-08-11] MEDS: ATORVASTATIN CALCIUM 40 MG TABLET. PO SCH (21:07)
[2018-08-11] MEDS: INSULIN GLARGINE 300 UNITS/3 ML INSULN.PEN. SQ SCH (21:11)
[2018-08-11] MEDS ORDERED: ACETAMINOPHEN 325 MG TABLET. PO PRN (21:30)
[2018-08-11] MEDS: ACETAMINOPHEN 325 MG TABLET. PO PRN (21:40)
[2018-08-11 23:25] VITALS: BP 140/63
[2018-08-12 03:00] VITALS: BP 129/61
[2018-08-12 04:01] LABS: BASO % 1 % (0-3); EOS # 0.2 x10^3/uL (0.0-0.7); EOS % 5 % (0-3); HEMATOCRIT 23.6 % (36.0-47.0); LYMPH # 1.2 x10^3/uL (1.0-4.8); LYMPH % 25 % (24-48); MEAN CORPUSCULAR HEMOGLOBIN 31 pg (25-35); MEAN CORPUSCULAR HGB CONC 34 g/dL (31-37); MEAN CORPUSCULAR VOLUME 92 fL (79-100); MONO # 0.3 x10^3/uL (0.0-1.1); MONO % 6 % (0-9); NEUT # 3.1 x10^3uL (1.8-7.7); NEUT % 64 % (31-73); PLATELET COUNT 153 x10^3/uL (140-400); RED BLOOD COUNT 2.58 x10^6/uL (3.50-5.40); RED CELL DISTRIBUTION WIDTH 16.5 % (11.5-14.5); WHITE BLOOD COUNT 4.9 x10^3/uL (4.0-11.0)
[2018-08-12 04:19] LABS: ALBUMIN 1.8 g/dL (3.4-5.0); ALBUMIN/GLOBULIN RATIO 0.6 (1.0-1.7); CALCIUM 8.4 mg/dL (8.5-10.1); CREATININE 1.3 mg/dL (0.6-1.0); GFR 42.2; POTASSIUM 4.6 mmol/L (3.5-5.1); TOTAL BILIRUBIN 0.1 mg/dL (0.2-1.0); TOTAL PROTEIN 4.8 g/dL (6.4-8.2)
[2018-08-12] MEDS: LEVOTHYROXINE 100 MCG TABLET PO SCH (06:02)
[2018-08-12 07:51] VITALS: BP 145/67
[2018-08-12] MEDS: INSULIN LISPRO 300 UNITS/3 ML INSULN.PEN. SQ SCH ×3 (08:00→17:30)
[2018-08-12] MEDS: ANTI-COAG MONITOR BY PHARMACY. MC PRN (08:01)
[2018-08-12] MEDS: FOLIC ACID 1 MG TABLET. PO SCH (08:21)
[2018-08-12] MEDS: TRIAMTERENE/HCTZ 37.5/25MG TABLET. PO SCH (08:22)
[2018-08-12] MEDS: POTASSIUM CHLORIDE 10 MEQ TABLET.ER. PO SCH ×2 (08:22→17:22)
[2018-08-12] MEDS: COLESTIPOL HCL 1 GM TABLET PO SCH ×2 (08:22→21:17)
[2018-08-12] MEDS: metOLazone 2.5 MG TABLET PO SCH (08:23)
[2018-08-12] MEDS: metFORMIN 500 MG TABLET PO SCH ×2 (08:23→17:22)
[2018-08-12] MEDS: GABAPENTIN 300 MG CAPSULE. PO SCH ×3 (08:23→21:17)
[2018-08-12] MEDS: ASPIRIN ENTERIC COATED 81 MG TABLET.DR. PO SCH (08:24)
[2018-08-12] MEDS: FERROUS SULFATE 325 MG TABLET. PO SCH (08:24)
[2018-08-12] MEDS: SACUBITRIL/VALSARTAN 49/51MG TABLET. PO SCH ×2 (08:24→21:17)
[2018-08-12] MEDS: CARVEDILOL 12.5 MG TABLET. PO SCH ×2 (08:25→17:25)
[2018-08-12] MEDS: PANTOPRAZOLE 40 MG TABLET.DR. PO SCH (08:25)
[2018-08-12] MEDS: FUROSEMIDE 40 MG/4 ML VIAL. IVP SCH ×2 (08:27→14:34)
--- NOTE | 2018-08-12 09:00 | PDOC ---
SUBJECTIVE Subjective Pt feeling better this morning. Breathing has improved as has her cough. Swelling is still present but has improved some. Pt requesting to go home. Discussed that currently she is still on oxygen. Would need to get oxygen titrated and clearance from Cardiology before leaving. OBJECTIVE Vital Signs Vital Signs Date Time Temp Pulse Resp B/P (MAP) Pulse Ox O2 Delivery O2 Flow Rate FiO2 08/12/18 08:25 72 145/67 08/12/18 08:24 73 145/67 08/12/18 07:51 97.9 76 20 145/67 (93) 94 Room Air 97.9 08/12/18 05:17 Nasal Cannula 2.0 08/12/18 05:14 90 Nasal Cannula 2.0 08/12/18 03:00 97.7 78 22 129/61 (83) 85 Room Air 97.7 08/11/18 23:25 97.9 68 21 140/63 (88) 91 Nasal Cannula 2.0 97.9 08/11/18 21:08 70 169/74 08/11/18 20:00 Nasal Cannula 2.0 08/11/18 19:55 97.7 70 18 169/74 (105) 100 Room Air 97.7 08/11/18 17:22 66 163/72 08/11/18 15:13 95.1 65 16 161/74 (103) 95 Room Air 95.1 08/11/18 11:22 97.9 64 16 159/70 (99) 100 Room Air 97.9 08/11/18 09:00 64 174/77 08/11/18 09:00 64 174/77 I & O Intake and Output 08/12/18 06:59 Intake Total 490 ml Output Total 750 ml Balance -260 ml Intake Oral 490 ml Output Urine Total 750 ml PHYSICAL EXAM Physical Exam GEN.: No apparent distress. Alert and oriented HEENT: Head is normocephalic, atraumatic NECK: Supple. LUNGS: regular breathing rate and effort, CTAB HEART: RRR, S1, S2 present. Peripheral pulses intact ABDOMEN: Soft, nontender. Positive bowel sounds. EXTREMITIES: Without any cyanosis, 2+ pitting edema LE bilaterally NEUROLOGIC: Normal speech, normal tone PSYCHIATRIC: Normal affect, normal mood. SKIN: No ulcerations ASSESSMENT/PLAN Assessment/Plan Pt is a 57yo female admitted for acute respiratory failure 2/2 CHF exacerbation 1)Acute respiratory failure- 2/2 combined systolic/diastolic CHF exacerbation. Cardiology following. Improved. Pt currently getting IV Lasix 40mg BID and home medications of Entresto 97/103mg BID, Metolazone 5mg qday. Torsemide DC' d. 2)COPD- pt has albuterol as needed 3)HTN- moderately controlled with above medications and Carvedilol 12.5mg BID, Dyazide 25/37.5mg qday 4)Hx of PE- pt continued on Xarelto 20mg. Did not receive dose last night, will give dose this morning and then resume evening administration 5)DM2- recent HbA1C shows poor control but decent control of sugars during hospitalization. Resumed on Metformin 1000mg BID and Lantus 5units QHS. has SSI available. 6)HLD- pt continued on Atorvastatin 80mg 7)Hypothyroidism- recently not at goal. For now continue levothyroxine 200mcg daily 8)Anemia- chronic, stable. No active bleeding. Pt continued on Ferrous Sulfate 9)Hx CAD 10)Hyponatremia- mild, resolved 11)CKD- Cr essentially stable. CTM 12)PEM- moderate COMMENT Lab Laboratory Tests Test 08/11/18 10:43 08/11/18 16:41 08/11/18 20:47 08/12/18 03:15 Glucose (Fingerstick) 227 mg/dL (70-99) 266 mg/dL (70-99) 206 mg/dL (70-99) White Blood Count 4.9 x10^3/uL (4.0-11.0) Red Blood Count 2.58 x10^6/uL (3.50-5.40) Hemoglobin 8.0 g/dL (12.0-15.5) Hematocrit 23.6 % (36.0-47.0) Mean Corpuscular Volume 92 fL (79-100) Mean Corpuscular Hemoglobin 31 pg (25-35) Mean Corpuscular Hemoglobin Concent 34 g/dL (31-37) Red Cell Distribution Width 16.5 % (11.5-14.5) Platelet Count 153 x10^3/uL (140-400) Neutrophils (%) (Auto) 64 % (31-73) Lymphocytes (%) (Auto) 25 % (24-48) Monocytes (%) (Auto) 6 % (0-9) Eosinophils (%) (Auto) 5 % (0-3) Basophils (%) (Auto) 1 % (0-3) Neutrophils # (Auto) 3.1 x10^3uL (1.8-7.7) Lymphocytes # (Auto) 1.2 x10^3/uL (1.0-4.8) Monocytes # (Auto) 0.3 x10^3/uL (0.0-1.1) Eosinophils # (Auto) 0.2 x10^3/uL (0.0-0.7) Basophils # (Auto) 0.0 x10^3/uL (0.0-0.2) Sodium Level 142 mmol/L (136-145) Potassium Level 4.6 mmol/L (3.5-5.1) Chloride Level 107 mmol/L (98-107) Carbon Dioxide Level 32 mmol/L (21-32) Anion Gap 3 (6-14) Blood Urea Nitrogen 36 mg/dL (7-20) Creatinine 1.3 mg/dL (0.6-1.0) Estimated GFR (Cockcroft-Gault) 42.2 BUN/Creatinine Ratio 28 (6-20) Glucose Level 133 mg/dL (70-99) Calcium Level 8.4 mg/dL (8.5-10.1) Total Bilirubin 0.1 mg/dL (0.2-1.0) Aspartate Amino Transf (AST/SGOT) 17 U/L (15-37) Alanine Aminotransferase (ALT/SGPT) 15 U/L (14-59) Alkaline Phosphatase 99 U/L (46-116) Total Protein 4.8 g/dL (6.4-8.2) Albumin 1.8 g/dL (3.4-5.0) Albumin/Globulin Ratio 0.6 (1.0-1.7) Test 08/12/18 07:22 Glucose (Fingerstick) 123 mg/dL (70-99) LORENZO MARTINES MD Aug 12, 2018 09:00
[2018-08-12 11:08] VITALS: BP 171/77
--- NOTE | 2018-08-12 11:26 | PDOC ---
CARDIOLOGY PROGRESS NOTE SUBJECTIVE: Denies any chest pain. States she feels better and wants to go home. Does have dyspnea with exertion OBJECTIVE: Vital SIgns: Vital Signs Date Time Temp Pulse Resp B/P (MAP) Pulse Ox O2 Delivery O2 Flow Rate FiO2 08/12/18 11:08 98.4 69 16 171/77 (108) 88 Room Air 98.4 08/12/18 05:17 2.0 I & O Intake and Output 08/12/18 06:59 Intake Total 490 ml Output Total 750 ml Balance -260 ml Intake Oral 490 ml Output Urine Total 750 ml Objective: GEN.: No apparent distress. Alert and oriented. HEENT: Head is normocephalic, atraumatic NECK: Supple. LUNGS: Mild wheezing HEART: RRR, S1, S2 present. Peripheral pulses intact ABDOMEN: Soft, nontender. Positive bowel sounds. EXTREMITIES: 1+ edema bilaterally NEUROLOGIC: Normal speech, normal tone PSYCHIATRIC: Normal affect, normal mood. SKIN: No ulcerations CURRENT MEDICATIONS: Current Medications Medications (Trade) Dose Ordered Sig/Carlos Start Time Stop Time Status Last Admin Dose Admin Acetaminophen (Tylenol) 650 mg PRN Q6HRS PRN 08/11/18 21:30 08/11/18 21:40 650 MG Albuterol Sulfate (Ventolin Neb Soln) 2.5 mg PRN Q4HRS PRN 08/11/18 08:30 08/12/18 05:14 2.5 MG Aspirin (Ecotrin) 81 mg [id number] 08/11/18 09:00 08/12/18 08:24 81 MG Atorvastatin Calcium (Lipitor) 80 mg QHS 08/10/18 22:00 08/11/18 21:07 80 MG Bumetanide (Bumex) 0.5 mg 1X ONCE 08/10/18 19:15 08/10/18 19:16 DC 08/10/18 19:32 0.5 MG Carvedilol (Coreg) 12.5 mg BIDWMEALS 08/10/18 22:00 08/12/18 08:25 12.5 MG Colestipol HCl (Colestid) 2 gm BID 08/10/18 22:00 08/12/18 08:22 2 GM Dextrose (Dextrose 50%-Water Syringe) 12.5 gm PRN Q15MIN PRN 08/11/18 08:45 Fentanyl Citrate (Fentanyl 2ml Vial) 50 mcg Q2HR PRN 08/10/18 19:30 08/11/18 19:29 DC Ferrous Sulfate (Feosol) 325 mg DAILY 08/11/18 09:00 08/12/18 08:24 325 MG Folic Acid (Folic Acid) 1 mg DAILY 08/11/18 09:00 08/12/18 08:21 1 MG Furosemide (Lasix) 40 mg BID92 08/11/18 16:30 08/12/18 08:27 40 MG Gabapentin (Neurontin) 300 mg TID 08/10/18 22:00 08/12/18 08:23 300 MG Info (Anti-Coagulation Monitoring By Pharmacy) 1 each PRN DAILY PRN 08/11/18 13:15 08/12/18 08:01 1 EACH Insulin Glargine (Lantus) 5 units QHS 08/10/18 22:00 08/11/18 21:11 5 UNITS Insulin Human Lispro (HumaLOG) 0-5 UNITS TIDWMEALS 08/11/18 09:00 08/11/18 17:34 4 UNITS Levothyroxine Sodium (Synthroid) 200 mcg DAILY06 08/11/18 08:30 08/12/18 06:02 200 MCG Metformin HCl (Glucophage) 1,000 mg BIDWMEALS 08/10/18 22:00 08/12/18 08:23 1,000 MG Metolazone (Zaroxolyn) 5 mg DAILY 08/11/18 09:00 08/12/18 08:23 5 MG Nitroglycerin (Nitro-Bid Oint) 0.5 inch 1X ONCE 08/10/18 19:15 08/10/18 19:16 DC 08/10/18 19:37 0.5 INCH Nitroglycerin (Nitrostat) 0.4 mg PRN Q5MIN PRN 08/11/18 08:30 Non-Formulary Medication (Sacubitril/ Valsartan (Entresto 97 mg-103 mg Tablet)) 1 each BID 08/10/18 21:45 UNV Ondansetron HCl (Zofran) 4 mg PRN Q8HRS PRN 08/10/18 19:30 08/11/18 19:29 DC Pantoprazole Sodium (Protonix) 40 mg DAILYAC 08/11/18 09:00 08/12/18 08:25 40 MG Potassium Chloride (Klor-Con) 10 meq BIDWMEALS 08/10/18 22:00 08/12/18 08:22 10 MEQ Rivaroxaban (Xarelto) 20 mg DAILYWSUP 08/11/18 17:00 08/11/18 17:22 20 MG Sacubitril/ Valsartan (Entresto 49 Mg-51 Mg) 2 tab BID 08/10/18 22:00 08/12/18 08:24 2 TAB Torsemide (Demadex) 20 mg BID94 08/10/18 22:00 08/11/18 16:12 DC 08/11/18 09:00 20 MG Triamterene/HCTZ (Maxzide 37.5/ 25mg) 1 tab DAILY 08/11/18 09:00 08/12/18 08:22 1 TAB DIAGNOSTIC TESTING: Hemoglobin, creatinine are not significantly changed compared to admission. Chronic anemia noted ASSESSMENT: 1. Acute on chronic systolic and diastolic heart fair with elevated BNP and lower extremity edema: Likely related to dietary noncompliance 2. Probable acute on chronic COPD exacerbation, etiology is unclear 3. Uncontrolled hypertension 4. Dyslipidemia 5. Coronary artery disease status post PCI 6. Anemia of chronic disease with a hemoglobin of 8.5 7. History of pulmonary embolus on chronic anticoagulation 8. s/p dual chamber [employer] [place] ICD for ICMP PLAN: 1. Will continue current medical therapy with close monitoring of her blood pressure and volume status. If she really wants to go home later on would plan for ambulatory Pulse ox measurement and change back to torsemide 50 mg twice a day on discharge with close follow-up on an outpatient basis 2. May need addition BP agents depending on trends, she has labile BP's. May benefit from amlodipine 5mg daily upon discharge. Supportive care. GIRISH DURAN MD Aug 12, 2018 11:26
[2018-08-12 15:39] VITALS: BP 158/73
[2018-08-12] MEDS: RIVAROXABAN 10 MG TABLET. PO SCH (17:22)
[2018-08-12 20:06] VITALS: BP 178/79
[2018-08-12] MEDS: ATORVASTATIN CALCIUM 40 MG TABLET. PO SCH (21:17)
[2018-08-12] MEDS: INSULIN GLARGINE 300 UNITS/3 ML INSULN.PEN. SQ SCH (21:28)
[2018-08-12 23:00] VITALS: BP 145/67
[2018-08-13] MEDS: ACETAMINOPHEN 325 MG TABLET. PO PRN (02:33)
[2018-08-13 02:36] VITALS: BP 154/67
[2018-08-13] MEDS: LEVOTHYROXINE 100 MCG TABLET PO SCH (06:46)
[2018-08-13 07:00] VITALS: BP 177/72
[2018-08-13 07:49] LABS: CALCIUM 8.3 mg/dL (8.5-10.1); CREATININE 1.2 mg/dL (0.6-1.0); GFR 46.3; POTASSIUM 4.9 mmol/L (3.5-5.1)
[2018-08-13] MEDS: metOLazone 2.5 MG TABLET PO SCH (09:05)
[2018-08-13] MEDS: TRIAMTERENE/HCTZ 37.5/25MG TABLET. PO SCH (09:05)
[2018-08-13] MEDS: metFORMIN 500 MG TABLET PO SCH (09:05)
[2018-08-13] MEDS: ASPIRIN ENTERIC COATED 81 MG TABLET.DR. PO SCH (09:05)
[2018-08-13] MEDS: FERROUS SULFATE 325 MG TABLET. PO SCH (09:06)
[2018-08-13] MEDS: COLESTIPOL HCL 1 GM TABLET PO SCH (09:06)
[2018-08-13] MEDS: SACUBITRIL/VALSARTAN 49/51MG TABLET. PO SCH (09:06)
[2018-08-13] MEDS: GABAPENTIN 300 MG CAPSULE. PO SCH (09:07)
[2018-08-13] MEDS: FOLIC ACID 1 MG TABLET. PO SCH (09:07)
[2018-08-13] MEDS: PANTOPRAZOLE 40 MG TABLET.DR. PO SCH (09:07)
[2018-08-13] MEDS: CARVEDILOL 12.5 MG TABLET. PO SCH (09:07)
[2018-08-13] MEDS: POTASSIUM CHLORIDE 10 MEQ TABLET.ER. PO SCH (09:08)
[2018-08-13] MEDS: FUROSEMIDE 40 MG/4 ML VIAL. IVP SCH (09:09)
[2018-08-13] MEDS: INSULIN LISPRO 300 UNITS/3 ML INSULN.PEN. SQ SCH ×2 (09:15→12:00)
--- NOTE | 2018-08-13 09:54 | NUR ---
report given to COLETTE Santoyo
[2018-08-13 11:00] VITALS: BP 168/73
--- NOTE | 2018-08-13 12:36 | PDOC ---
COLLEEN MAURER ALANNA 08/13/18 1236: CARDIO Progress Notes Date and Time Date of Service 08/13/18 Time of Evaluation 1210 Subjective Subjective: No Chest Pain, No shortness of breath, No Palpitations Vitals Vitals Vital Signs Date Time Temp Pulse Resp B/P (MAP) Pulse Ox O2 Delivery O2 Flow Rate FiO2 08/13/18 11:00 98.0 73 18 168/73 (104) 99 Nasal Cannula 2.0 98.0 Weight Weight [ ] Input and Output Intake and Output Intake and Output 08/13/18 07:00 Intake Total 2300 ml Output Total 4900 ml Balance -2600 ml Intake Oral 2300 ml Output Urine Total 4900 ml Laboratory Labs Laboratory Tests Test 08/12/18 17:22 08/12/18 21:18 08/13/18 06:30 08/13/18 08:35 Glucose (Fingerstick) 178 mg/dL (70-99) 200 mg/dL (70-99) 221 mg/dL (70-99) Hemoglobin 8.1 g/dL (12.0-15.5) Sodium Level 140 mmol/L (136-145) Potassium Level 4.9 mmol/L (3.5-5.1) Chloride Level 105 mmol/L (98-107) Carbon Dioxide Level 29 mmol/L (21-32) Anion Gap 6 (6-14) Blood Urea Nitrogen 32 mg/dL (7-20) Creatinine 1.2 mg/dL (0.6-1.0) Estimated GFR (Cockcroft-Gault) 46.3 Glucose Level 239 mg/dL (70-99) Calcium Level 8.3 mg/dL (8.5-10.1) Physical Exam HEENT: Neck Supple W Full Motion Chest: Symmetric LUNGS: Clear to Auscultation Heart: S1S2, RRR Abdomen: Soft N/T Extremities: Other (trace bilateral LE edema ) Neurology: alert, oriented, follow commands Assessment Assessment 1. Acute on chronic systolic CHF; good UOP with Lasix/metolazone. Appears compensated 2. ICM s/p AICD ([employer] [place]) 3. CAD: stents in 06/2016, stable 4. Hypertension; labile 5. Diabetes, II; as per PCP 6. Hyperlipidemia; statin 7. CKD 8. History of PE on chronic anticoagulation Recommendations Increase Coreg Continue Entresto/ heart failure optimization Secondary prevention measures; ASA, Plavix, BB Continue with 2L FR and daily wt along with 2Gm Na diet Resume oral diuresis upon discharge Follow up with Dr. Darling as scheduled. ZEFERINO DARLING MD 08/13/182049: CARDIO Progress Notes Assessment Assessment Patient seen and examined. Agree with APPEALS COORDINATOR's assessment and plan. Acute on chronic systolic HF better compensated CAD status stable Continue current meds and follow up in one month COLLEEN MAURER APRN Aug 13, 2018 12:36 ZEFERINO DARLING MD Aug 13, 2018 20:50
[2018-08-13] MEDS: ANTI-COAG MONITOR BY PHARMACY. MC PRN (12:44)
--- NOTE | 2018-08-13 13:45 | NUR ---
DISCHARGE INSTRUCTIONS GIVEN TO PATIENT AND FAMILY. PIV AND HEART MONITOR REMOVED. ESCORTED PATIETNT PER WHEELCHAIR INTO A PRIVATE VEHICLE.
--- NOTE | 2018-08-13 13:52 | NUR ---
SS following for discharge planning. SS reviewed pt chart. Pt is from home. Discharge order on the chart for home with self care. No discharge needs noted at this time.
--- NOTE | 2018-08-13 18:24 | DS ---
DATE OF DISCHARGE: 08/13/2018 ADMIT DIAGNOSES: 1. Acute on chronic respiratory failure. 2. Acute on chronic combined systolic, diastolic congestive heart failure. 3. Pulmonary hypertension. 4. Type 2 diabetes. 5. Hypothyroidism. 6. Hypertension. HISTORY OF PRESENT ILLNESS AND HOSPITAL COURSE: This patient is a 57-year-old female with ongoing recurrent episodes of congestive heart failure, admitted with increasing shortness of breath and found to have a very high BNP and chest x-ray with evidence of cardiac enlargement and congestive heart failure. She was treated and diuresed well over 3 liters during hospital stay and was back to baseline; therefore, plan is to discharge the patient to home. No medication changes were made, although the patient was instructed to proceed with dietary discretion, avoiding high salt foods and excess water intake. The patient admits to dietary indiscretion prior to this admission. DISCHARGE MEDICATIONS: The patient will be discharged on the following medications: Aspirin 81 mg daily, atorvastatin 80 mg daily, Coreg 12.5 mg daily, vitamin D 2000 International Units daily, Colestid 2 grams b.i.d., iron 325 mg daily, folic acid 1 mg daily, gabapentin 300 mg t.i.d., Lantus 5 units at bedtime, Synthroid 200 mcg daily, metformin 1000 mg b.i.d., metolazone 5 mg daily, nitroglycerin p.r.n. sublingual, pantoprazole 40 mg daily, potassium 10 mEq daily, Xarelto 20 mg daily, Entresto 97/103 mg b.i.d., Demadex 20 mg b.i.d. Dyazide, triamterene/hydrochlorothiazide 37.5/25 one daily. DISCHARGE INSTRUCTIONS: She will follow up in the office in 1 week for continued care. Discharge weight is listed at 180 pounds. MELODIE VALLES MD DR: REESE/kit JOB#: [id number] / [id number]
== END 2018-08-13 13:35 | disposition home or self-care (01) | DRG 291 ==
LOC: ER 17:20 → 2 SOUTH 19:20
PROVIDERS: ADMIT Family Medicine; ATTEND Family Medicine
DX: I13.0 Hypertensive heart and chronic kidney disease with heart failure and stage 1 through stage 4 chronic kidney disease, or unspecified chronic kidney disease (principal); I50.43 Acute on chronic combined systolic (congestive) and diastolic (congestive) heart failure; J96.00 Acute respiratory failure, unspecified whether with hypoxia or hypercapnia; E87.1 Hypo-osmolality and hyponatremia; E44.0 Moderate protein-calorie malnutrition; I42.9 Cardiomyopathy, unspecified; D63.8 Anemia in other chronic diseases classified elsewhere; E03.9 Hypothyroidism, unspecified; E11.22 Type 2 diabetes mellitus with diabetic chronic kidney disease; E78.00 Pure hypercholesterolemia, unspecified; E78.5 Hyperlipidemia, unspecified; I25.10 Atherosclerotic heart disease of native coronary artery without angina pectoris; J44.9 Chronic obstructive pulmonary disease, unspecified; F32.9 Major depressive disorder, single episode, unspecified; F41.9 Anxiety disorder, unspecified; Z79.01 Long term (current) use of anticoagulants; N18.9 Chronic kidney disease, unspecified; Z79.84 Long term (current) use of oral hypoglycemic drugs; Z79.899 Other long term (current) drug therapy; Z82.49 Family history of ischemic heart disease and other diseases of the circulatory system; Z86.711 Personal history of pulmonary embolism; Z91.11 Patient's noncompliance with dietary regimen; Z95.5 Presence of coronary angioplasty implant and graft; Z95.810 Presence of automatic (implantable) cardiac defibrillator; Z83.3 Family history of diabetes mellitus; Z98.51 Tubal ligation status; Z88.8 Allergy status to other drugs, medicaments and biological substances; Z68.30 Body mass index [BMI] 30.0-30.9, adult; I27.20 Pulmonary hypertension, unspecified
CPT/HCPCS: 36415; 70450; 71045; 80048; 80053; 80076; 82962; 83690; 83880; 84484; 85018; 85025; 85610; 85730; 93005; 94640; 96374; 96375; J1815; J1940; J3010; J3490; J7613; 99285-25

== ENCOUNTER 2018-11-26 18:04 | Inpatient (IN) | payer OTHER ==
[~2018-11-26] VITALS: Ht 152.4 cm; Wt 82.1 kg
[~2018-11-26 18:04] MED LIST changes: -PANT40TA5 PO; +PANT40TA77 PO; +RIVA20TA2 PO
[2018-11-26] MEDS ORDERED: NITROGLYCERIN OINT 1 GM PACKET. TP ONE (19:15)
[2018-11-26] MEDS ORDERED: ASPIRIN CHEWABLE 81 MG TABLET. PO ONE (19:15)
[2018-11-26 19:32] LABS: BASO % 1 % (0-3); EOS # 0.2 x10^3/uL (0.0-0.7); EOS % 5 % (0-3); HEMATOCRIT 22.1 % (36.0-47.0); HEMOGLOBIN 7.6 g/dL (12.0-15.5); LYMPH % 31 % (24-48); MEAN CORPUSCULAR HEMOGLOBIN 31 pg (25-35); MEAN CORPUSCULAR HGB CONC 34 g/dL (31-37); MEAN CORPUSCULAR VOLUME 91 fL (79-100); MONO # 0.2 x10^3/uL (0.0-1.1); MONO % 5 % (0-9); NEUT % 59 % (31-73); PLATELET COUNT 159 x10^3/uL (140-400); RED BLOOD COUNT 2.43 x10^6/uL (3.50-5.40); RED CELL DISTRIBUTION WIDTH 16.9 % (11.5-14.5); WHITE BLOOD COUNT 3.4 x10^3/uL (4.0-11.0)
[2018-11-26 19:34] LABS: BILIRUBIN,URINE NEGATIVE (NEG); CLARITY,URINE CLEAR; COLOR,URINE YELLOW; NITRITE,URINE NEGATIVE (NEG); PH,URINE 7.5; PROTEIN,URINE >=300 mg/dL (NEG-TRACE); UROBILINOGEN,URINE 0.2 mg/dL (0.2 mg/dL)
[2018-11-26 19:42] LABS: BACTERIA,URINE FEW /HPF (0-FEW); SQUAMOUS EPITHELIAL CELL,UR MOD /LPF; WBC,URINE OCC /HPF (0-4)
[2018-11-26 19:45] LABS: CALCIUM 8.1 mg/dL (8.5-10.1); CREATININE 2.1 mg/dL (0.6-1.0); GFR 24.2; POTASSIUM 4.3 mmol/L (3.5-5.1)
[2018-11-26 19:59] LABS: ALBUMIN 2.2 g/dL (3.4-5.0); ALBUMIN/GLOBULIN RATIO 0.6 (1.0-1.7); TOTAL BILIRUBIN 0.2 mg/dL (0.2-1.0); TOTAL PROTEIN 5.7 g/dL (6.4-8.2)
--- NOTE | 2018-11-26 20:00 | RAD ---
RIGHT LOWER EXTREMITY ULTRASOUND WITH DOPPLER 11/26/2018 7:34 PM Clinical Information: Right leg injury 2 weeks 0. Comparison: November 27, 2017. Technique: Multiple grayscale, color Doppler, and spectral Doppler sonographic images of the lower extremity venous structures were obtained. Findings: The right common femoral, femoral, and popliteal veins exhibit normal compression, respiratory phasicity, and augmentation. No intraluminal thrombi are identified. Color Doppler flow is demonstrated in the right posterior tibial vein. Greater saphenous vein is patent. Extensive right lower extremity septation edema is identified. Impression: 1. No evidence of deep venous thrombosis. Electronically signed by: Luanne Cameron MD (11/26/2018 7:57 PM) [facility]
[2018-11-26] MEDS ORDERED: NITROGLYCERIN PREMIX 250 ML IV ONE (20:30)
[2018-11-26] MEDS ORDERED: BUMETANIDE 1 MG/4 ML VIAL. IV ONE (21:00)
--- NOTE | 2018-11-26 21:08 | PHYS DOC ---
Past Medical History Past Medical History: Anxiety, CAD, CHF, Depression, Diabetes-Type II, High Cholesterol, Hypertension, Hypothyroid, Other Additional Past Medical Histor: cardiomyopathy, PACER/ DEFIB (CAROL VILLEGAS APRN) Past Surgical History: Angioplasty, , Pacemaker, Tubal ligation, Other Additional Past Surgical Histo: heart stents (CAROL VILLEGAS APRN) Alcohol Use: None Drug Use: None (CAROL VILLEGAS APRN) Adult General Chief Complaint Chief Complaint: SHORTNESS OF BREATH HPI HPI 58-year-old female presents to ER for complaints of shortness of air, bilateral lower extremity swelling, and chest pain. Patient reports she's been having a nonproductive cough and mid chest pain which goes into her back. Patient reports symptoms have been gradually worsening over the past 2 weeks. She states she did have a mechanical fall 2 weeks ago and since has had right knee pain. Patient denies striking her head or having any head or neck pain. Patient states she has history of CHF and feels like the swelling in her upper and lower body has increased over the past week. Patient denies fever, urinary symptoms, nausea or vomiting, or recent travel. Patient states she is on Xarelto daily and has history of PE. Pt denies smoking hx. (CAROL VILLEGAS APRN) Review of Systems Review of Systems Constitutional: Denies fever or chills. Reports gen. fatigue/weakness Eyes: Denies change in visual acuity, redness, or eye pain [] HENT: Denies nasal congestion or sore throat [] Respiratory: Reports nonprod. cough with SOA Cardiovascular: Reports CP into mid back GI: Denies abdominal pain, nausea, vomiting, bloody stools or diarrhea [] : Denies dysuria or hematuria [] Musculoskeletal: Reports mid back pain with bilat. LE swelling. Rt knee pain Integument: Denies rash or skin lesions [] Neurologic: Denies headache, focal weakness or sensory changes [] Endocrine: Denies polyuria or polydipsia [] All other systems were reviewed and found to be within normal limits, except as documented in this note. (CAROL VILLEGAS APRN) Current Medications Current Medications Current Medications Medications (Trade) Dose Ordered Sig/Carlos Start Time Stop Time Status Last Admin Dose Admin Aspirin (Children'S Aspirin) 324 mg 1X ONCE 11/26/18 19:15 11/26/18 19:18 DC 11/26/18 19:34 324 MG Nitroglycerin (Nitro-Bid Oint) 1 inch 1X ONCE 11/26/18 19:15 11/26/18 19:18 DC 11/26/18 19:35 1 INCH (KATTY CHAPMAN MD) Allergies Allergies Allergies Coded Allergies Type Severity Reaction Last Updated Verified lisinopril Adverse Reaction Mild COUGH 11/28/16 Yes (KATTY CHAPMAN MD) Physical Exam Physical Exam Constitutional: Well developed, well nourished, moderate distress, non-toxic appearance. Fatigued appearance HENT: Normocephalic, atraumatic, mucous membranes pink/dry, no oral exudates, nose normal. [] Eyes: Pupils equal, conjunctiva normal, no discharge. [] Neck: Normal range of motion, no tenderness, supple, no stridor. [] Cardiovascular: Heart rate regular rhythm, no murmur [] Lungs & Thorax: Crackles/coarse lung sounds bilat. upper lung cooper- diminished in bases. Resp. labored/equal. Abdomen: Bowel sounds normal, soft, no tenderness/rigidity, no masses, no pulsatile masses. [] Skin: Warm, dry, no erythema, no rash. [] Back: No tenderness, no CVA tenderness. [] Extremities: No cyanosis, no clubbing, ROM intact decreased bilat. LEs with edema- 3+ bilat. Rt LE does appear >lt LE. Tender on palp. rt anterior/posterior knee- no palp. deformity/visible injury. Neurologic: Alert and oriented X 3, normal motor function, normal sensory function, no focal deficits noted. [] Psychologic: Affect normal, judgement normal, mood normal. [] (DELVINT,CAROL Barone APRN) Current Patient Data Vital Signs Vital Signs Date Time Temp Pulse Resp B/P (MAP) Pulse Ox O2 Delivery O2 Flow Rate FiO2 11/26/18 20:18 78 23 211/95 (133) 91 BiPAP/CPAP 11/26/18 19:55 2.0 11/26/18 18:28 99.2 99.2 (KATTY CHAPMAN MD) Lab Values Laboratory Tests Test 11/26/18 18:39 White Blood Count 3.4 x10^3/uL (4.0-11.0) L Red Blood Count 2.43 x10^6/uL (3.50-5.40) L Hemoglobin 7.6 g/dL (12.0-15.5) L Hematocrit 22.1 % (36.0-47.0) L Mean Corpuscular Volume 91 fL (79-100) Mean Corpuscular Hemoglobin 31 pg (25-35) Mean Corpuscular Hemoglobin Concent 34 g/dL (31-37) Red Cell Distribution Width 16.9 % (11.5-14.5) H Platelet Count 159 x10^3/uL (140-400) Neutrophils (%) (Auto) 59 % (31-73) Lymphocytes (%) (Auto) 31 % (24-48) Monocytes (%) (Auto) 5 % (0-9) Eosinophils (%) (Auto) 5 % (0-3) H Basophils (%) (Auto) 1 % (0-3) Neutrophils # (Auto) 2.0 x10^3/uL (1.8-7.7) Lymphocytes # (Auto) 1.0 x10^3/uL (1.0-4.8) Monocytes # (Auto) 0.2 x10^3/uL (0.0-1.1) Eosinophils # (Auto) 0.2 x10^3/uL (0.0-0.7) Basophils # (Auto) 0.0 x10^3/uL (0.0-0.2) D-Dimer (Jewell) 1.13 ug/mlFEU (0.00-0.50) H Urine Collection Type Void Urine Color Yellow Urine Clarity Clear Urine pH 7.5 Urine Specific [place] 1.020 Urine Protein >=300 mg/dL (NEG-TRACE) Urine Glucose (UA) 500 mg/dL (NEG) Urine Ketones (Stick) Negative mg/dL (NEG) Urine Blood Moderate (NEG) Urine Nitrite Negative (NEG) Urine Bilirubin Negative (NEG) Urine Urobilinogen Dipstick 0.2 mg/dL (0.2 mg/dL) Urine Leukocyte Esterase Negative (NEG) Urine RBC 6-10 /HPF (0-2) Urine WBC Occ /HPF (0-4) Urine Squamous Epithelial Cells Mod /LPF Urine Bacteria Few /HPF (0-FEW) Sodium Level 142 mmol/L (136-145) Potassium Level 4.3 mmol/L (3.5-5.1) Chloride Level 107 mmol/L (98-107) Carbon Dioxide Level 28 mmol/L (21-32) Anion Gap 7 (6-14) Blood Urea Nitrogen 37 mg/dL (7-20) H Creatinine 2.1 mg/dL (0.6-1.0) H Estimated GFR (Cockcroft-Gault) 24.2 BUN/Creatinine Ratio 18 (6-20) Glucose Level 331 mg/dL (70-99) H Lactic Acid Level 0.9 mmol/L (0.4-2.0) Calcium Level 8.1 mg/dL (8.5-10.1) L Total Bilirubin 0.2 mg/dL (0.2-1.0) Aspartate Amino Transferase (AST) 23 U/L (15-37) Alanine Aminotransferase (ALT) 22 U/L (14-59) Alkaline Phosphatase 135 U/L (46-116) H Troponin I Quantitative 0.026 ng/mL (0.000-0.055) FT-Vnm-X-Type Natriuretic Peptide 7678 pg/mL (0-124) H Total Protein 5.7 g/dL (6.4-8.2) L Albumin 2.2 g/dL (3.4-5.0) L Albumin/Globulin Ratio 0.6 (1.0-1.7) L Laboratory Tests 11/26/18 18:39 Laboratory Tests 11/26/18 18:39 (KATTY CHAPMAN MD) EKG EKG EKG obtained 11/26/18 at [address] Chapman Sinus rhythm T wave abnorm Rate 71 No STEMI (CAROL VILLEGAS APRN) Radiology/Procedures Radiology/Procedures PROCEDURE: VENOUS LOWER EXTREMITY RIGHT RIGHT LOWER EXTREMITY ULTRASOUND WITH DOPPLER 11/26/2018 7:34 PM Clinical Information: Right leg injury 2 weeks 0. Comparison: November 27, 2017. Technique: Multiple grayscale, color Doppler, and spectral Doppler sonographic images of the lower extremity venous structures were obtained. Findings: The right common femoral, femoral, and popliteal veins exhibit normal compression, respiratory phasicity, and augmentation. No intraluminal thrombi are identified. Color Doppler flow is demonstrated in the right posterior tibial vein. Greater saphenous vein is patent. Extensive right lower extremity septation edema is identified. Impression: 1. No evidence of deep venous thrombosis. Electronically signed by: Jennifer Lomeli MD (11/26/2018 7:57 PM) [facility] DICTATED and SIGNED BY: JENNIFER LOMELI MD DATE: 11/26/181956 (CAROL VILLEGAS APRN) Course & Med Decision Making Course & Med Decision Making Pertinent Labs and Imaging studies reviewed. (See chart for details) Dr. Chapman viewed pt's rt knee xray- concerns for nondisplaced patella fx vs bipartite patella final radiology read pending. Pt placed in knee immobilizer. Will consult orthopedics with admit orders. Neg. US for DVT. Pt's chest xray viewed by Dr. Chapman- increased pulm. congestion when compared to prior imaging in pt's records. Patient's BNP at 7678 which is improved [place] 08/[place] [address]. Pt's renal function elevated with Cr up at 2.1- last results from 08/13 was 1.2. EKG with no acute ST elevation/STEMI and troponin 0.026. Pt with chronic anemia. WBCs 3.4 lactic acid was normal limits 0.9. 2015: Staff report patient had sudden onset of increased labored breathing. Upon arrival to the patient's room found patient in moderate distress with labored respirations. Dr. Chapman came to room with this provider. Pt was placed on Bipap and had nitro gtt started with BP 210 systolic. Pt with Bipap on had improved breathing and was less distressed. Spoke with Dr. Cardenas, lunch wagon operator for pt's PCP Dr. Morgan. With pt's elevated renal function order placed for Bumex 1mg IV. Pt will be admitted to ICU for further monitoring/care. (CAROL VILLEGAS APRN) Course & Med Decision Making attestaition: i saw the patient at 2014 with patricia. bipap and nitrodrip ordered seems like flash pulm edema most likely. reeval 9 pm, improved resp effort on bipap, nitro at 10, titrating by home furnishings sales representative bp 190 down from 210, pt moer stable. patricia discussed further dx and tx lpan with primary team. Critical care time was 35 minutes exclusive of procedures. (KATTY CHAPMAN MD) Dragon Disclaimer Dragon Disclaimer This electronic medical record was generated, in whole or in part, using a voice recognition dictation system. (CAROL VILLEGAS APRN) Departure Departure Impression: Primary Impression: CHF exacerbation Additional Impression: Pulmonary edema Disposition: ADMITTED INPATIENT Admitting Physician: Bartolo Morgan (CAROL VILLEGAS APRN) Condition: GUARDED Referrals: BARTOLO MORGAN MD (PCP) Problem Qualifiers CAROL VILLEGAS APRN Nov 26, 2018 21:08 KATTY CHAPMAN MD Nov 26, 2018 21:11
[2018-11-26 22:00] VITALS: BP 183/86
[2018-11-26 22:15] VITALS: BP 165/89
[2018-11-26 22:30] VITALS: BP 176/97
[2018-11-26 22:45] VITALS: BP 156/87
[2018-11-26 23:00] VITALS: BP 157/95
[2018-11-26] MEDS ORDERED: NITROGLYCERIN PREMIX 250 ML IV PRN (23:45)
[2018-11-27] VITALS (17 sets, daily range): BP systolic 127–185; BP diastolic 62–89
[2018-11-27] MEDS: INSULIN GLARGINE 300 UNITS/3 ML INSULN.PEN. SQ SCH ×2 (00:15→20:35)
[2018-11-27 04:38] LABS: BASO % 1 % (0-3); EOS # 0.3 x10^3/uL (0.0-0.7); EOS % 5 % (0-3); LYMPH # 1.2 x10^3/uL (1.0-4.8); LYMPH % 20 % (24-48); MEAN CORPUSCULAR HEMOGLOBIN 31 pg (25-35); MEAN CORPUSCULAR HGB CONC 34 g/dL (31-37); MEAN CORPUSCULAR VOLUME 92 fL (79-100); MONO # 0.3 x10^3/uL (0.0-1.1); MONO % 4 % (0-9); NEUT # 4.3 x10^3/uL (1.8-7.7); NEUT % 70 % (31-73); PLATELET COUNT 139 x10^3/uL (140-400); RED BLOOD COUNT 2.23 x10^6/uL (3.50-5.40); RED CELL DISTRIBUTION WIDTH 17.3 % (11.5-14.5); WHITE BLOOD COUNT 6.1 x10^3/uL (4.0-11.0)
[2018-11-27 04:44] LABS: HEMATOCRIT 20.4 % (36.0-47.0); HEMOGLOBIN 6.9 g/dL (12.0-15.5)
--- NOTE | 2018-11-27 04:50 | NUR ---
Called Dr. Cardenas regarding critical Hgb of 6.9. Dr Cardenas alerted of above information and stated that she will look at it when she sees the pt in the AM. Pt currently stable will continue to monitor.
--- NOTE | 2018-11-27 07:24 | EKG ---
[facility] [address] [place] [address] Test Date: 2018-11-26 Test Time: 18:30:07 Pat Name: ALEXANDRE GONZALES Department: Room: Gender: F [employer]: : 1960 Requested By: CAROL VILLEGAS Order Number: [id number] Reading MD: Measurements Intervals [place] Rate: 71 P: 37 OK: 178 QRS: 26 QRSD: 90 T: -15 QT: 396 QTc: 435 Interpretive Statements SINUS RHYTHM T ABNORMALITY IN INFERIOR LEADS ABNORMAL ECG RI6.01 Unconfirmed report No previous ECG available for comparison
[2018-11-27 07:52] LABS: ALBUMIN 1.9 g/dL (3.4-5.0); ALBUMIN/GLOBULIN RATIO 0.6 (1.0-1.7); CALCIUM 7.9 mg/dL (8.5-10.1); CREATININE 1.7 mg/dL (0.6-1.0); GFR 30.9; POTASSIUM 4.4 mmol/L (3.5-5.1); TOTAL BILIRUBIN 0.2 mg/dL (0.2-1.0); TOTAL PROTEIN 5.2 g/dL (6.4-8.2)
--- NOTE | 2018-11-27 08:11 | RAD ---
CHEST AP ONLY Clinical Indication: Shortness of air, right leg swelling. Comparison: AP chest August 10, 2018. Findings: Stable left chest dual-chamber ICD. Moderate cardio medically stable. There are increased interstitial markings. No lobar consolidation. There is no pneumothorax. No obvious pleural effusion is appreciated. No acute bone abnormality. IMPRESSION: Findings suggest mild CHF. Electronically signed by: Kavon Harris MD (11/27/2018 8:08 AM) [id number]
[2018-11-27] MEDS ORDERED: ALBUTEROL SULFATE 2.5 MG/3 ML NEBU. NEB PRN ×2 (08:15)
[2018-11-27] MEDS ORDERED: IV DEXTROSE 5% 250 ML BAG. IV PRN ×2 (08:15)
[2018-11-27] MEDS ORDERED: DEXTROSE 50% 25 GM / 50ML DISP.SYRIN. IV PRN ×2 (08:15)
--- NOTE | 2018-11-27 08:21 | RAD ---
KNEE RIGHT 3V Clinical Indication: Right knee pain since fall 2 weeks ago. Comparison: None. Findings: There is tricompartmental arthropathy, severe in the patellofemoral compartment. There is vertical lucency of the patella, presumably a bipartite patella. A nondisplaced fracture would be unusual but cannot be entirely excluded. There is moderate joint effusion. Mild prepatellar soft tissue swelling. There is diffuse subcutaneous edema. Arterial calcifications are noted. IMPRESSION: 1. Moderate joint effusion. 2. Severe patellofemoral arthropathy. 3. 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 Nondisplaced fracture cannot be excluded. Electronically signed by: Kavon Harris MD (11/27/2018 8:18 AM) [id number]
[2018-11-27] MEDS: SACUBITRIL/VALSARTAN 49/51MG TABLET. PO SCH ×2 (08:56→20:31)
[2018-11-27] MEDS: CARVEDILOL 12.5 MG TABLET. PO SCH ×2 (08:57→18:01)
[2018-11-27] MEDS: GABAPENTIN 300 MG CAPSULE. PO SCH ×3 (08:57→20:31)
[2018-11-27] MEDS: FERROUS SULFATE 325 MG TABLET. PO SCH (08:57)
[2018-11-27] MEDS ORDERED: metOLazone 2.5 MG TABLET PO SCH (09:00)
[2018-11-27] MEDS ORDERED: TORSEMIDE 20 MG TABLET. PO SCH (09:00)
--- NOTE | 2018-11-27 09:20 | PDOC2 ---
IZZY MORENO BUSINESS OBJECTS CONSULTANT 11/27/18 0920: CARDIAC CONSULT DATE OF CONSULT Date of Consult DATE: 11/27/18 TIME: 09:00 REASON FOR CONSULT Reason for Consult: elevated trop, HTN REFERRING PHYSICIAN Referring Physician: Ronald SOURCE Source: Chart review, Patient HISTORY OF PRESENT ILLNESS HISTORY OF PRESENT ILLNESS This is a pleasant 58 yo female admitted for complains of shortness of breath. This has been more in the last 3-4 days with increased leg swelling. He has been having occasional wheeze and nonproductive cough. also has been having occasional chest tightness and some palpitations. No nausea or vomiting. She has not been checking her BG since her glucometer broke 5 days ago. She does not check her wt nor check her BP. She has been taking her medications regularly including her xarelto from past PE. She did fall over a week ago and has been noted with right patellar fracture. No associated syncope nor dizzy spells at that point. She is compliant with her fluid and Na intake. PAST MEDICAL HISTORY Past Medical History Cardiovascular: CAD (multiple PCI/NIGEL to OM, diagonal and LAD), CHF (systolic), HTN, Hyperlipidemia, Other (ischemic CMP with LVEF ~ 40%) Pulmonary: COPD, PE GI: No pertinent hx Heme/Onc: Anemia NOS Hepatobiliary: No pertinent hx Psych: Anxiety, Depression Musculoskeletal: Osteoarthritis Rheumatologic: No pertinent hx Infectious disease: No pertinent hx ENT: No pertinent hx Renal/: Chronic renal insuff Endocrine: Diabetes (with peripheral neuropathy), Hypothyroidism Dermatology: No pertinent hx PAST SURGICAL HISTORY Past Surgical History [facility] AICD, Cataract Removal, Other (I & D left buttock) FAMILY HISTORY Family History noncontributory SOCIAL HISTORY Smoke: Quit (2016) ALCOHOL: none Drugs: None Lives: with Family CURRENT MEDICATIONS CURRENT MEDICATIONS Current Medications Medications (Trade) Dose Ordered Sig/Carlos Route PRN Reason Start Time Stop Time Status Last Admin Dose Admin Aspirin (Children'S Aspirin) 324 mg 1X ONCE PO 11/26/18 19:15 11/26/18 19:18 DC 11/26/18 19:34 Nitroglycerin (Nitro-Bid Oint) 1 inch 1X ONCE TP 11/26/18 19:15 11/26/18 19:18 DC 11/26/18 19:35 Nitroglycerin/ Dextrose 250 ml @ 0 mls/hr 1X ONCE IV 11/26/18 20:30 11/26/18 20:31 DC 11/26/18 20:34 Bumetanide (Bumex) 1 mg 1X ONCE IV 11/26/18 21:00 11/26/18 21:01 DC 11/26/18 20:45 Insulin Glargine (Lantus) 5 units QHS SQ 11/27/18 00:15 11/27/18 00:15 Torsemide (Demadex) 20 mg [id number] PO 11/27/18 09:00 11/27/18 08:57 Metolazone (Zaroxolyn) 5 mg BID PO 11/27/18 09:00 11/27/18 08:57 Carvedilol (Coreg) 25 mg BIDWMEALS PO 11/27/18 09:00 11/27/18 08:57 Sacubitril/ Valsartan (Entresto 49 Mg-51 Mg) 2 tab BID PO 11/27/18 09:00 11/27/18 08:57 Gabapentin (Neurontin) 300 mg TID PO 11/27/18 09:00 11/27/18 08:57 Ferrous Sulfate (Feosol) 325 mg DAILYWBKFT PO 11/27/18 08:00 11/27/18 08:57 ALLERGIES ALLERGIES: Coded Allergies: lisinopril (Verified Adverse Reaction, Mild, COUGH, 11/28/16) caused cough ROS Review of System 14 point ROS evaluated with pertinent positives noted per HPI PHYSICAL EXAM General: Alert, Oriented X3, Cooperative, No acute distress HEENT: Atraumatic, Mucous membr. moist/pink Lungs: Other (diffuse expiratory wheeze) Heart: Regular rate (SR), Normal S1, Normal S2, Other (s4) Abdomen: Soft, No tenderness Extremities: No cyanosis, Other (3+ bilateral LE pitting edema) Skin: No breakdown, No significant lesion Neuro: Normal speech, Sensation intact Psych/Mental Status: Mental status NL, Other (flat affect) MUSCULOSKELETAL: Osteoarthritic changes both hands, Other (right leg immobilizer) VITALS/I&O VITALS/I&O: Vital Signs Date Time Temp Pulse Resp B/P (MAP) Pulse Ox O2 Delivery O2 Flow Rate FiO2 11/27/18 08:57 73 146/82 11/27/18 08:00 Nasal Cannula 3.0 11/27/18 08:00 18 96 11/27/18 07:00 98.8 98.8 I & O 11/26/18 11/26/18 11/27/18 15:00 23:00 07:00 Intake Total 32.24 ml Output Total 800 ml Balance -767.76 ml LABS Lab: Laboratory Tests Test 11/26/18 18:39 11/27/18 00:14 11/27/18 04:15 11/27/18 06:35 White Blood Count 3.4 x10^3/uL (4.0-11.0) L 6.1 x10^3/uL (4.0-11.0) Red Blood Count 2.43 x10^6/uL (3.50-5.40) L 2.23 x10^6/uL (3.50-5.40) L Hemoglobin 7.6 g/dL (12.0-15.5) L 6.9 g/dL (12.0-15.5) *L Hematocrit 22.1 % (36.0-47.0) L 20.4 % (36.0-47.0) *L Mean Corpuscular Volume 91 fL (79-100) 92 fL (79-100) Mean Corpuscular Hemoglobin 31 pg (25-35) 31 pg (25-35) Mean Corpuscular Hemoglobin Concent 34 g/dL (31-37) 34 g/dL (31-37) Red Cell Distribution Width 16.9 % (11.5-14.5) H 17.3 % (11.5-14.5) H Platelet Count 159 x10^3/uL (140-400) 139 x10^3/uL (140-400) L Neutrophils (%) (Auto) 59 % (31-73) 70 % (31-73) Lymphocytes (%) (Auto) 31 % (24-48) 20 % (24-48) L Monocytes (%) (Auto) 5 % (0-9) 4 % (0-9) Eosinophils (%) (Auto) 5 % (0-3) H 5 % (0-3) H Basophils (%) (Auto) 1 % (0-3) 1 % (0-3) Neutrophils # (Auto) 2.0 x10^3/uL (1.8-7.7) 4.3 x10^3/uL (1.8-7.7) Lymphocytes # (Auto) 1.0 x10^3/uL (1.0-4.8) 1.2 x10^3/uL (1.0-4.8) Monocytes # (Auto) 0.2 x10^3/uL (0.0-1.1) 0.3 x10^3/uL (0.0-1.1) Eosinophils # (Auto) 0.2 x10^3/uL (0.0-0.7) 0.3 x10^3/uL (0.0-0.7) Basophils # (Auto) 0.0 x10^3/uL (0.0-0.2) 0.0 x10^3/uL (0.0-0.2) D-Dimer (Jewell) 1.13 ug/mlFEU (0.00-0.50) H Urine Collection Type Void Urine Color Yellow Urine Clarity Clear Urine pH 7.5 Urine Specific [place] 1.020 Urine Protein >=300 mg/dL (NEG-TRACE) Urine Glucose (UA) 500 mg/dL (NEG) Urine Ketones (Stick) Negative mg/dL (NEG) Urine Blood Moderate (NEG) Urine Nitrite Negative (NEG) Urine Bilirubin Negative (NEG) Urine Urobilinogen Dipstick 0.2 mg/dL (0.2 mg/dL) Urine Leukocyte Esterase Negative (NEG) Urine RBC 6-10 /HPF (0-2) Urine WBC Occ /HPF (0-4) Urine Squamous Epithelial Cells Mod /LPF Urine Bacteria Few /HPF (0-FEW) Sodium Level 142 mmol/L (136-145) 140 mmol/L (136-145) Potassium Level 4.3 mmol/L (3.5-5.1) 4.4 mmol/L (3.5-5.1) Chloride Level 107 mmol/L (98-107) 109 mmol/L (98-107) H Carbon Dioxide Level 28 mmol/L (21-32) 22 mmol/L (21-32) Anion Gap 7 (6-14) 9 (6-14) Blood Urea Nitrogen 37 mg/dL (7-20) H 41 mg/dL (7-20) H Creatinine 2.1 mg/dL (0.6-1.0) H 1.7 mg/dL (0.6-1.0) H Estimated GFR (Cockcroft-Gault) 24.2 30.9 BUN/Creatinine Ratio 18 (6-20) 24 (6-20) H Glucose Level 331 mg/dL (70-99) H 240 mg/dL (70-99) H Lactic Acid Level 0.9 mmol/L (0.4-2.0) Calcium Level 8.1 mg/dL (8.5-10.1) L 7.9 mg/dL (8.5-10.1) L Total Bilirubin 0.2 mg/dL (0.2-1.0) 0.2 mg/dL (0.2-1.0) Aspartate Amino Transferase (AST) 23 U/L (15-37) 19 U/L (15-37) Alanine Aminotransferase (ALT) 22 U/L (14-59) 16 U/L (14-59) Alkaline Phosphatase 135 U/L (46-116) H 111 U/L (46-116) Troponin I Quantitative 0.026 ng/mL (0.000-0.055) CH-Rrz-T-Type Natriuretic Peptide 7678 pg/mL (0-124) H Total Protein 5.7 g/dL (6.4-8.2) L 5.2 g/dL (6.4-8.2) L Albumin 2.2 g/dL (3.4-5.0) L 1.9 g/dL (3.4-5.0) L Albumin/Globulin Ratio 0.6 (1.0-1.7) L 0.6 (1.0-1.7) L Glucose (Fingerstick) 320 mg/dL (70-99) H 206 mg/dL (70-99) H Laboratory Tests 11/26/18 18:39 11/27/18 04:15 Laboratory Tests 11/26/18 18:39 11/27/18 04:15 ASSESSMENT/PLAN ASSESSMENT/PLAN 1. Malignant HTN 2. Acute on chronic combined diastolic/systolic CHF: potentially induced by uncontrolled HTN 3. Chest pain: due to above and bronchospasm 4. Hx of ICM 5. BRAD on CKD: possibly stage 3 6. Protein malnutrition 7. Anemia of chronic disease: Hgb 6.9 possible contributing hemarthroses 8. Right patellar fracture and joint effusion: ortho consulted 9. Traumatic mechanical fall: as noted above. No definitive associated syncope/presyncope 10. CAD; prior stents. clinically stable. 11. DM2/HLP 12. Hx of PE: on home xarelto 13. Noncompliance: does not check BP, wt and glucometer broke 5 days ago. 14. AICD in situ: [facility] Recommendations 1. TTE, TSH, lipids 2. Continue secondary prevention measures 3. Will benefit from transfusion given her significant comorbid conditions 4. Continue BP regimen and lasix therapy. Supportive care 5. May need to hold xarelto. 6. Interrogate device ZEFERINO GOMEZ MD 11/28/18 1231: CARDIAC CONSULT ASSESSMENT/PLAN ASSESSMENT/PLAN Patient seen and examined 11/27/18. Agree with ADVERTISING SALES MANAGER's assessment and plan. Acute on chronic diastolic heart failure secondary to combination of u ncontrolled hypertension and anemia Continue diuresis CAD status clinically stable Agree with AICD interrogation Thank you for your consultation IZZY MORENO APRN Nov 27, 2018 09:20 ZEFERINO GOMEZ MD Nov 28, 2018 12:31
[2018-11-27] MEDS: metOLazone 2.5 MG TABLET PO SCH (09:30)
[2018-11-27 09:47] LABS: CHOLESTEROL/HDL RATIO 3.2
--- NOTE | 2018-11-27 09:49 | PDOC2 ---
CONSULT Date of Consult Date of Consult DATE: 11/27/18 TIME: 09:32 Reason for Consult Reason for Consult: "Acute CKD" Source Source: Chart review History of Present Illness Reason for Visit: Pt is a 56 yo female admitted for complains of shortness of breath. This has been more in the last 3-4 days with increased leg swelling. He has been having occasional wheeze and nonproductive cough. also has been having occasional chest tightness and some palpitations. No nausea or vomiting.She has been taking her medications regularly including her xarelto from past PE. She did fall over a week ago and has been noted with right patellar fracture. No associated syncope nor dizzy spells at that point. Per Home med list on multiple diuretics Triam/HCTZ, Torsemide, and Metolazone. On ARB as well PMhx significant for CAD s/p multiple stent placements,DM ,CKD 3 , HTN , Chronic combined systolic and diastolic congestive heart failure, Ischemic cardiomyopathy. Past Medical History Cardiovascular: CAD, CHF, HTN, Hyperlipidemia, Other Pulmonary: COPD CENTRAL NERVOUS SYSTEM: Periperal neuropathy GI: No pertinent hx Heme/Onc: Anemia NOS Hepatobiliary: No pertinent hx Psych: Anxiety, Depression Musculoskeletal: Osteoarthritis Rheumatologic: No pertinent hx Infectious disease: No pertinent hx Renal/: Chronic renal insuff Endocrine: Diabetes, Hypothyroidism Past Surgical History Past Surgical History: Pacemaker, Cataract Removal, Other Family History Family History: Diabetes, Hypertension Social History Quit (2016) ALCOHOL: none Drugs: None Lives: with Family Current Medications Current Medications Current Medications Aspirin (Children'S Aspirin) 324 mg 1X ONCE PO Last administered on 11/26/18at 19:34; Start 11/26/18 at 19:15; Stop 11/26/18 at 19:18; Status DC Nitroglycerin (Nitro-Bid Oint) 1 inch 1X ONCE TP Last administered on 11/26/18at 19:35; Start 11/26/18 at 19:15; Stop 11/26/18 at 19:18; Status DC Nitroglycerin/ Dextrose 250 ml @ 0 mls/hr 1X ONCE IV Last administered on 11/26/18at 20:34; Start 11/26/18 at 20:30; Stop 11/27/18 at 09:24; Status DC Bumetanide (Bumex) 1 mg 1X ONCE IV Last administered on 11/26/18at 20:45; Start 11/26/18 at 21:00; Stop 11/26/18 at 21:01; Status DC Nitroglycerin/ Dextrose 250 ml @ 1.5 mls/hr CONT PRN IV SEE I/O RECORD; Start 11/26/18 at 23:45 Acetaminophen/ Hydrocodone Bitart (Lortab 7.5/325) 1 tab PRN Q6HRS PRN PO SEVERE PAIN 7-10; Start 11/26/18 at 23:45 Insulin Glargine (Lantus) 5 units QHS SQ Last administered on 11/27/18 00:15; Start 11/27/18 at 00:15 Torsemide (Demadex) 20 mg BID94 PO Last administered on 11/27/18 08:57; Start 11/27/18 at 09:00; Stop 11/27/18 at 09:24; Status DC Metolazone (Zaroxolyn) 5 mg BID PO Last administered on 11/27/18 08:57; Start 11/27/18 at 09:00; Stop 11/27/18 at 09:24; Status DC Carvedilol (Coreg) 25 mg BIDWMEALS PO Last administered on 11/27/18 08:57; Start 11/27/18 at 09:00 Sacubitril/ Valsartan (Entresto 49 Mg-51 Mg) 2 tab BID PO Last administered on 11/27/18 08:57; Start 11/27/18 at 09:00 Rivaroxaban (Xarelto) 20 mg DAILYWSUP PO ; Start 11/27/18 at 17:00 Atorvastatin Calcium (Lipitor) 80 mg QHS PO ; Start 11/27/18 at 21:00 Gabapentin (Neurontin) 300 mg TID PO Last administered on 11/27/18 08:57; Start 11/27/18 at 09:00 Ferrous Sulfate (Feosol) 325 mg DAILYWBKFT PO Last administered on 11/27/18 08:57; Start 11/27/18 at 08:00 Albuterol Sulfate (Ventolin Neb Soln) 2.5 mg PRN Q6HRS PRN NEB SHORTNESS OF BREATH Last administered on 11/27/18 09:04; Start 11/27/18 at 08:15 Insulin Human Lispro (HumaLOG) 0-5 UNITS TIDWMEALS SQ ; Start 11/27/18 at 12:00 Dextrose (Dextrose 50%-Water Syringe) 12.5 gm PRN Q15MIN PRN IV SEE COMMENTS; Start 11/27/18 at 08:15 Dextrose 250 ml PRN Q15MIN PRN IV SEE COMMENTS; Start 11/27/18 at 08:15 Albuterol Sulfate (Ventolin Neb Soln) 2.5 mg PRN Q6HRS PRN NEB SHORTNESS OF BREATH; Start 11/27/18 at 08:15; Status UNV Insulin Human Lispro (HumaLOG) 0-5 UNITS TIDWMEALS SQ ; Start 11/27/18 at 12:00; Status UNV Dextrose (Dextrose 50%-Water Syringe) 12.5 gm PRN Q15MIN PRN IV SEE COMMENTS; Start 11/27/18 at 08:15; Status UNV Dextrose 250 ml PRN Q15MIN PRN IV SEE COMMENTS; Start 11/27/18 at 08:15; Status UNV Metolazone (Zaroxolyn) 5 mg DAILY PO ; Start 11/27/18 at 09:30 Furosemide (Lasix) 40 mg BID94 IVP ; Start 11/27/18 at 16:00 Hydralazine HCl (Apresoline Inj) 10 mg PRN Q4HRS PRN IVP ELEVATED BP, SEE COMMENTS; Start 11/27/18 at 09:30 Active Scripts Active Vitamin D (Cholecalciferol (Vitamin D3)) 1,000 Unit Capsule 2,000 Unit PO DAILY 30 Days Aspirin Ec (Aspirin) 81 Mg Tablet.dr 81 Mg PO DAILYWBKFT Lantus Solostar (Insulin Glargine,Hum.rec.anlog) 100 Unit/1 Ml Insuln.pen 5 Unit SQ QHS Synthroid (Levothyroxine Sodium) 200 Mcg Tablet 1 Tab PO DAILY Pantoprazole Sodium 40 Mg Tablet. 40 Mg PO DAILYAC Reported Xarelto (Rivaroxaban) 20 Mg Tablet 20 Mg PO DAILY Demadex (Torsemide) 20 Mg Tablet 20 Mg PO BID NITROGLYCERIN SubLingual (Nitroglycerin) 0.4 Mg Tab.subl 0.4 Mg SL PRN Q5MIN PRN Ferrous Sulfate 325 Mg Tablet 1 Tab PO DAILY Folic Acid 1 Mg Tablet 1 Tab PO DAILY Colestid (Colestipol Hcl) 1 Gm Tablet 2 Gm PO BID Metolazone 5 Mg Tablet 5 Mg PO DAILY Triamterene-Hctz 37.5-25 Mg Tb (Triamterene/Hydrochlorothiazid) 1 Each Tablet 1 Tab PO DAILY Coreg (Carvedilol) 25 Mg Tablet 12.5 Mg PO BIDWMEALS Entresto 97 mg-103 mg Tablet (Sacubitril/Valsartan) 1 Each Tablet 1 Each PO BID Atorvastatin Calcium 80 Mg Tablet 1 Tab PO QHS Gabapentin (Gabapentin) 300 Mg Capsule 300 Mg PO TID Potassium Chloride 10 Meq Tab.er.prt 1 Tab PO BID Metformin Hcl 1,000 Mg Tablet 1 Tab PO BID Allergies Allergies: Coded Allergies: lisinopril (Verified Adverse Reaction, Mild, COUGH, 11/28/16) caused cough ROS Review of System Per HPI Physical Exam Physical Exam General: Alert, Oriented X3, Cooperative, No acute distress HEENT: Atraumatic, Mucous membr. moist/pink Lungs: Other (diffuse expiratory wheeze) Heart: Regular rate (SR), Normal S1, Normal S2, Other (s4) Abdomen: Soft, No tenderness Skin: No rash Neuro: Normal speech, Sensation intact No mahmood Vital Signs Vital Signs Date Time Temp Pulse Resp B/P (MAP) Pulse Ox O2 Delivery O2 Flow Rate FiO2 11/27/18 09:05 94 Nasal Cannula 3.0 11/27/18 09:00 70 18 142/80 (100) 11/27/18 07:00 98.8 98.8 Assessment & Plan BARD - Cardiorenal Improving renal function Denies NSAID use Supportive care, monitor, Strict i/o, daily wt(standing if possible) CKD stage 3- baseline 1.3-1.5 Pt states has never seen a multifocal lens inspector Microscopic hematuria - No casts reported no prior UA in pmc records proteinuria +, suspect 2/2 to DM , also on Xarelto Will get renal US CHF- On IV Furosemide Mild congestion on Cxr Per cardiology DM-per primary HTN stable, home meds Anemia- Drop in Hgb Per primary Labs Labs Laboratory Tests Test 11/26/18 18:39 11/27/18 00:14 11/27/18 04:15 11/27/18 06:35 White Blood Count 3.4 x10^3/uL (4.0-11.0) 6.1 x10^3/uL (4.0-11.0) Red Blood Count 2.43 x10^6/uL (3.50-5.40) 2.23 x10^6/uL (3.50-5.40) Hemoglobin 7.6 g/dL (12.0-15.5) 6.9 g/dL (12.0-15.5) Hematocrit 22.1 % (36.0-47.0) 20.4 % (36.0-47.0) Mean Corpuscular Volume 91 fL (79-100) 92 fL (79-100) Mean Corpuscular Hemoglobin 31 pg (25-35) 31 pg (25-35) Mean Corpuscular Hemoglobin Concent 34 g/dL (31-37) 34 g/dL (31-37) Red Cell Distribution Width 16.9 % (11.5-14.5) 17.3 % (11.5-14.5) Platelet Count 159 x10^3/uL (140-400) 139 x10^3/uL (140-400) Neutrophils (%) (Auto) 59 % (31-73) 70 % (31-73) Lymphocytes (%) (Auto) 31 % (24-48) 20 % (24-48) Monocytes (%) (Auto) 5 % (0-9) 4 % (0-9) Eosinophils (%) (Auto) 5 % (0-3) 5 % (0-3) Basophils (%) (Auto) 1 % (0-3) 1 % (0-3) Neutrophils # (Auto) 2.0 x10^3/uL (1.8-7.7) 4.3 x10^3/uL (1.8-7.7) Lymphocytes # (Auto) 1.0 x10^3/uL (1.0-4.8) 1.2 x10^3/uL (1.0-4.8) Monocytes # (Auto) 0.2 x10^3/uL (0.0-1.1) 0.3 x10^3/uL (0.0-1.1) Eosinophils # (Auto) 0.2 x10^3/uL (0.0-0.7) 0.3 x10^3/uL (0.0-0.7) Basophils # (Auto) 0.0 x10^3/uL (0.0-0.2) 0.0 x10^3/uL (0.0-0.2) D-Dimer (Jewell) 1.13 ug/mlFEU (0.00-0.50) Urine Collection Type Void Urine Color Yellow Urine Clarity Clear Urine pH 7.5 Urine Specific [place] 1.020 Urine Protein >=300 mg/dL (NEG-TRACE) Urine Glucose (UA) 500 mg/dL (NEG) Urine Ketones (Stick) Negative mg/dL (NEG) Urine Blood Moderate (NEG) Urine Nitrite Negative (NEG) Urine Bilirubin Negative (NEG) Urine Urobilinogen Dipstick 0.2 mg/dL (0.2 mg/dL) Urine Leukocyte Esterase Negative (NEG) Urine RBC 6-10 /HPF (0-2) Urine WBC Occ /HPF (0-4) Urine Squamous Epithelial Cells Mod /LPF Urine Bacteria Few /HPF (0-FEW) Sodium Level 142 mmol/L (136-145) 140 mmol/L (136-145) Potassium Level 4.3 mmol/L (3.5-5.1) 4.4 mmol/L (3.5-5.1) Chloride Level 107 mmol/L (98-107) 109 mmol/L (98-107) Carbon Dioxide Level 28 mmol/L (21-32) 22 mmol/L (21-32) Anion Gap 7 (6-14) 9 (6-14) Blood Urea Nitrogen 37 mg/dL (7-20) 41 mg/dL (7-20) Creatinine 2.1 mg/dL (0.6-1.0) 1.7 mg/dL (0.6-1.0) Estimated GFR (Cockcroft-Gault) 24.2 30.9 BUN/Creatinine Ratio 18 (6-20) 24 (6-20) Glucose Level 331 mg/dL (70-99) 240 mg/dL (70-99) Lactic Acid Level 0.9 mmol/L (0.4-2.0) Calcium Level 8.1 mg/dL (8.5-10.1) 7.9 mg/dL (8.5-10.1) Total Bilirubin 0.2 mg/dL (0.2-1.0) 0.2 mg/dL (0.2-1.0) Aspartate Amino Transf (AST/SGOT) 23 U/L (15-37) 19 U/L (15-37) Alanine Aminotransferase (ALT/SGPT) 22 U/L (14-59) 16 U/L (14-59) Alkaline Phosphatase 135 U/L (46-116) 111 U/L (46-116) Troponin I Quantitative 0.026 ng/mL (0.000-0.055) VG-Udc-E-Type Natriuretic Peptide 7678 pg/mL (0-124) Total Protein 5.7 g/dL (6.4-8.2) 5.2 g/dL (6.4-8.2) Albumin 2.2 g/dL (3.4-5.0) 1.9 g/dL (3.4-5.0) Albumin/Globulin Ratio 0.6 (1.0-1.7) 0.6 (1.0-1.7) Glucose (Fingerstick) 320 mg/dL (70-99) 206 mg/dL (70-99) Thyroid Stimulating Hormone (TSH) 43.373 uIU/mL (0.358-3.74) Test 11/27/18 08:48 Glucose (Fingerstick) 171 mg/dL (70-99) Laboratory Tests Test 11/26/18 18:39 11/27/18 00:14 11/27/18 04:15 11/27/18 06:35 White Blood Count 3.4 x10^3/uL (4.0-11.0) 6.1 x10^3/uL (4.0-11.0) Red Blood Count 2.43 x10^6/uL (3.50-5.40) 2.23 x10^6/uL (3.50-5.40) Hemoglobin 7.6 g/dL (12.0-15.5) 6.9 g/dL (12.0-15.5) Hematocrit 22.1 % (36.0-47.0) 20.4 % (36.0-47.0) Mean Corpuscular Volume 91 fL (79-100) 92 fL (79-100) Mean Corpuscular Hemoglobin 31 pg (25-35) 31 pg (25-35) Mean Corpuscular Hemoglobin Concent 34 g/dL (31-37) 34 g/dL (31-37) Red Cell Distribution Width 16.9 % (11.5-14.5) 17.3 % (11.5-14.5) Platelet Count 159 x10^3/uL (140-400) 139 x10^3/uL (140-400) Neutrophils (%) (Auto) 59 % (31-73) 70 % (31-73) Lymphocytes (%) (Auto) 31 % (24-48) 20 % (24-48) Monocytes (%) (Auto) 5 % (0-9) 4 % (0-9) Eosinophils (%) (Auto) 5 % (0-3) 5 % (0-3) Basophils (%) (Auto) 1 % (0-3) 1 % (0-3) Neutrophils # (Auto) 2.0 x10^3/uL (1.8-7.7) 4.3 x10^3/uL (1.8-7.7) Lymphocytes # (Auto) 1.0 x10^3/uL (1.0-4.8) 1.2 x10^3/uL (1.0-4.8) Monocytes # (Auto) 0.2 x10^3/uL (0.0-1.1) 0.3 x10^3/uL (0.0-1.1) Eosinophils # (Auto) 0.2 x10^3/uL (0.0-0.7) 0.3 x10^3/uL (0.0-0.7) Basophils # (Auto) 0.0 x10^3/uL (0.0-0.2) 0.0 x10^3/uL (0.0-0.2) D-Dimer (Jewell) 1.13 ug/mlFEU (0.00-0.50) Urine Collection Type Void Urine Color Yellow Urine Clarity Clear Urine pH 7.5 Urine Specific [place] 1.020 Urine Protein >=300 mg/dL (NEG-TRACE) Urine Glucose (UA) 500 mg/dL (NEG) Urine Ketones (Stick) Negative mg/dL (NEG) Urine Blood Moderate (NEG) Urine Nitrite Negative (NEG) Urine Bilirubin Negative (NEG) Urine Urobilinogen Dipstick 0.2 mg/dL (0.2 mg/dL) Urine Leukocyte Esterase Negative (NEG) Urine RBC 6-10 /HPF (0-2) Urine WBC Occ /HPF (0-4) Urine Squamous Epithelial Cells Mod /LPF Urine Bacteria Few /HPF (0-FEW) Sodium Level 142 mmol/L (136-145) 140 mmol/L (136-145) Potassium Level 4.3 mmol/L (3.5-5.1) 4.4 mmol/L (3.5-5.1) Chloride Level 107 mmol/L (98-107) 109 mmol/L (98-107) Carbon Dioxide Level 28 mmol/L (21-32) 22 mmol/L (21-32) Anion Gap 7 (6-14) 9 (6-14) Blood Urea Nitrogen 37 mg/dL (7-20) 41 mg/dL (7-20) Creatinine 2.1 mg/dL (0.6-1.0) 1.7 mg/dL (0.6-1.0) Estimated GFR (Cockcroft-Gault) 24.2 30.9 BUN/Creatinine Ratio 18 (6-20) 24 (6-20) Glucose Level 331 mg/dL (70-99) 240 mg/dL (70-99) Lactic Acid Level 0.9 mmol/L (0.4-2.0) Calcium Level 8.1 mg/dL (8.5-10.1) 7.9 mg/dL (8.5-10.1) Total Bilirubin 0.2 mg/dL (0.2-1.0) 0.2 mg/dL (0.2-1.0) Aspartate Amino Transf (AST/SGOT) 23 U/L (15-37) 19 U/L (15-37) Alanine Aminotransferase (ALT/SGPT) 22 U/L (14-59) 16 U/L (14-59) Alkaline Phosphatase 135 U/L (46-116) 111 U/L (46-116) Troponin I Quantitative 0.026 ng/mL (0.000-0.055) MQ-Frr-A-Type Natriuretic Peptide 7678 pg/mL (0-124) Total Protein 5.7 g/dL (6.4-8.2) 5.2 g/dL (6.4-8.2) Albumin 2.2 g/dL (3.4-5.0) 1.9 g/dL (3.4-5.0) Albumin/Globulin Ratio 0.6 (1.0-1.7) 0.6 (1.0-1.7) Glucose (Fingerstick) 320 mg/dL (70-99) 206 mg/dL (70-99) Thyroid Stimulating Hormone (TSH) 43.373 uIU/mL (0.358-3.74) Test 11/27/18 08:48 Glucose (Fingerstick) 171 mg/dL (70-99) Review All relevant outside records, renal labs, imaging studies, telemetry/EKG's were reviewed. Images Images CxR-- Findings suggest mild CHF. JOSE EDUARDO MEJIA MD Nov 27, 2018 09:49
--- NOTE | 2018-11-27 10:31 | PDOC2 ---
CONSULT Date of Consult Date of Consult DATE: 11/27/18 TIME: 10:31 Reason for Consult Reason for Consult: right knee "crack" on x ray Identification/Chief Complaint Chief Complaint multiple reasons for hospitalization, mostly SOB. Source Source: Chart review, Patient History of Present Illness Reason for Visit: 58 year old admitted with CHF exacerbation. States that she bumped her knee recently and it's more swollen. No severe fall or injury to cause a fracture. Had had underlying chronic knee pain and notices valgus malalignment. In knee immobilizer initially for exam, but said she was much more comfortable when I removed the knee immobilizer. Past Medical History Cardiovascular: CAD, CHF, HTN, Hyperlipidemia, Other Pulmonary: COPD CENTRAL NERVOUS SYSTEM: Periperal neuropathy GI: No pertinent hx Heme/Onc: Anemia NOS Hepatobiliary: No pertinent hx Psych: Anxiety, Depression Musculoskeletal: Osteoarthritis Rheumatologic: No pertinent hx Infectious disease: No pertinent hx Renal/: Chronic renal insuff Endocrine: Diabetes, Hypothyroidism Past Surgical History Past Surgical History: Pacemaker, Cataract Removal, Other Family History Family History: Diabetes, Hypertension Social History Quit (2016) ALCOHOL: none Drugs: None Lives: with Family Current Medications Current Medications Current Medications Aspirin (Children'S Aspirin) 324 mg 1X ONCE PO Last administered on 11/26/18at 19:34; Start 11/26/18 at 19:15; Stop 11/26/18 at 19:18; Status DC Nitroglycerin (Nitro-Bid Oint) 1 inch 1X ONCE TP Last administered on 11/26/18at 19:35; Start 11/26/18 at 19:15; Stop 11/26/18 at 19:18; Status DC Nitroglycerin/ Dextrose 250 ml @ 0 mls/hr 1X ONCE IV Last administered on 11/26/18at 20:34; Start 11/26/18 at 20:30; Stop 11/27/18 at 09:24; Status DC Bumetanide (Bumex) 1 mg 1X ONCE IV Last administered on 11/26/18at 20:45; Start 11/26/18 at 21:00; Stop 11/26/18 at 21:01; Status DC Nitroglycerin/ Dextrose 250 ml @ 1.5 mls/hr CONT PRN IV SEE I/O RECORD; Start 11/26/18 at 23:45 Acetaminophen/ Hydrocodone Bitart (Lortab 7.5/325) 1 tab PRN Q6HRS PRN PO SEVERE PAIN 7-10; Start 11/26/18 at 23:45 Insulin Glargine (Lantus) 5 units QHS SQ Last administered on 11/27/18at 00:15; Start 11/27/18 at 00:15 Torsemide (Demadex) 20 mg BID94 PO Last administered on 11/27/18at 08:57; Start 11/27/18 at 09:00; Stop 11/27/18 at 09:24; Status DC Metolazone (Zaroxolyn) 5 mg BID PO Last administered on 11/27/18at 08:57; Start 11/27/18 at 09:00; Stop 11/27/18 at 09:24; Status DC Carvedilol (Coreg) 25 mg BIDWMEALS PO Last administered on 11/27/18at 08:57; Start 11/27/18 at 09:00 Sacubitril/ Valsartan (Entresto 49 Mg-51 Mg) 2 tab BID PO Last administered on 11/27/18at 08:57; Start 11/27/18 at 09:00 Rivaroxaban (Xarelto) 20 mg DAILYWSUP PO ; Start 11/27/18 at 17:00 Atorvastatin Calcium (Lipitor) 80 mg QHS PO ; Start 11/27/18 at 21:00 Gabapentin (Neurontin) 300 mg TID PO Last administered on 11/27/18at 08:57; Start 11/27/18 at 09:00 Ferrous Sulfate (Feosol) 325 mg DAILYWBKFT PO Last administered on 11/27/18at 08:57; Start 11/27/18 at 08:00 Albuterol Sulfate (Ventolin Neb Soln) 2.5 mg PRN Q6HRS PRN NEB SHORTNESS OF BREATH Last administered on 11/27/18at 09:04; Start 11/27/18 at 08:15 Insulin Human Lispro (HumaLOG) 0-5 UNITS TIDWMEALS SQ ; Start 11/27/18 at 12:00 Dextrose (Dextrose 50%-Water Syringe) 12.5 gm PRN Q15MIN PRN IV SEE COMMENTS; Start 11/27/18 at 08:15 Dextrose 250 ml PRN Q15MIN PRN IV SEE COMMENTS; Start 11/27/18 at 08:15 Albuterol Sulfate (Ventolin Neb Soln) 2.5 mg PRN Q6HRS PRN NEB SHORTNESS OF BREATH; Start 11/27/18 at 08:15; Status UNV Insulin Human Lispro (HumaLOG) 0-5 UNITS TIDWMEALS SQ ; Start 11/27/18 at 12:00; Status UNV Dextrose (Dextrose 50%-Water Syringe) 12.5 gm PRN Q15MIN PRN IV SEE COMMENTS; Start 11/27/18 at 08:15; Status UNV Dextrose 250 ml PRN Q15MIN PRN IV SEE COMMENTS; Start 11/27/18 at 08:15; Status UNV Metolazone (Zaroxolyn) 5 mg DAILY PO ; Start 11/27/18 at 09:30 Furosemide (Lasix) 40 mg BID94 IVP ; Start 11/27/18 at 16:00 Hydralazine HCl (Apresoline Inj) 10 mg PRN Q4HRS PRN IVP ELEVATED BP, SEE COMMENTS; Start 11/27/18 at 09:30 Active Scripts Active Vitamin D (Cholecalciferol (Vitamin D3)) 1,000 Unit Capsule 2,000 Unit PO DAILY 30 Days Aspirin Ec (Aspirin) 81 Mg Tablet. 81 Mg PO DAILYWBKFT Lantus Solostar (Insulin Glargine,Hum.rec.anlog) 100 Unit/1 Ml Insuln.pen 5 Unit SQ QHS Synthroid (Levothyroxine Sodium) 200 Mcg Tablet 1 Tab PO DAILY Pantoprazole Sodium 40 Mg Tablet. 40 Mg PO DAILYAC Reported Xarelto (Rivaroxaban) 20 Mg Tablet 20 Mg PO DAILY Demadex (Torsemide) 20 Mg Tablet 20 Mg PO BID NITROGLYCERIN SubLingual (Nitroglycerin) 0.4 Mg Tab.subl 0.4 Mg SL PRN Q5MIN PRN Ferrous Sulfate 325 Mg Tablet 1 Tab PO DAILY Folic Acid 1 Mg Tablet 1 Tab PO DAILY Colestid (Colestipol Hcl) 1 Gm Tablet 2 Gm PO BID Metolazone 5 Mg Tablet 5 Mg PO DAILY Triamterene-Hctz 37.5-25 Mg Tb (Triamterene/Hydrochlorothiazid) 1 Each Tablet 1 Tab PO DAILY Coreg (Carvedilol) 25 Mg Tablet 12.5 Mg PO BIDWMEALS Entresto 97 mg-103 mg Tablet (Sacubitril/Valsartan) 1 Each Tablet 1 Each PO BID Atorvastatin Calcium 80 Mg Tablet 1 Tab PO QHS Gabapentin (Gabapentin) 300 Mg Capsule 300 Mg PO TID Potassium Chloride 10 Meq Tab.er.prt 1 Tab PO BID Metformin Hcl 1,000 Mg Tablet 1 Tab PO BID Allergies Allergies: Coded Allergies: lisinopril (Verified Adverse Reaction, Mild, COUGH, 11/28/16) caused cough Physical Exam General: Alert, Cooperative, No acute distress, Other (resting in ICU bed. Appears fatigued, but no acute SOB currently.) HEENT: Atraumatic Lungs: Normal air movement Heart: Regular rate Extremities: Other (There is RLE edema greater than LLE edema. The right knee has mild valgus malalignment most consistent with chronic osteoarthritis. There is an abrasion at the distal lateral patella, superficial without drainage or bleeding and with hardly a break in the skin. Mostly mild ecchymosis and trace eschar. Knee effusion on exam, not particulary warm, most consistent with inflammatory effusion. The patella is minimally tender and the defect is slightly palpable but nontender consistent with bipartite patella. Distal cap refill normal. No knee erythema. Mild tenderness most consistent with hemarth rosis or possible OA flare. Distal motor function intact. ROM 0-90 degrees. Extensor mechanism intact. ) Neuro: Normal tone, Sensation intact Psych/Mental Status: Mood NL Vitals VITALS Vital Signs Date Time Temp Pulse Resp B/P (MAP) Pulse Ox O2 Delivery O2 Flow Rate FiO2 11/27/18 10:00 72 16 127/64 (85) 92 Nasal Cannula 3.0 11/27/18 07:00 98.8 98.8 Labs Labs Laboratory Tests Test 11/26/18 18:39 11/27/18 00:14 11/27/18 04:15 11/27/18 06:35 White Blood Count 3.4 x10^3/uL (4.0-11.0) 6.1 x10^3/uL (4.0-11.0) Red Blood Count 2.43 x10^6/uL (3.50-5.40) 2.23 x10^6/uL (3.50-5.40) Hemoglobin 7.6 g/dL (12.0-15.5) 6.9 g/dL (12.0-15.5) Hematocrit 22.1 % (36.0-47.0) 20.4 % (36.0-47.0) Mean Corpuscular Volume 91 fL (79-100) 92 fL (79-100) Mean Corpuscular Hemoglobin 31 pg (25-35) 31 pg (25-35) Mean Corpuscular Hemoglobin Concent 34 g/dL (31-37) 34 g/dL (31-37) Red Cell Distribution Width 16.9 % (11.5-14.5) 17.3 % (11.5-14.5) Platelet Count 159 x10^3/uL (140-400) 139 x10^3/uL (140-400) Neutrophils (%) (Auto) 59 % (31-73) 70 % (31-73) Lymphocytes (%) (Auto) 31 % (24-48) 20 % (24-48) Monocytes (%) (Auto) 5 % (0-9) 4 % (0-9) Eosinophils (%) (Auto) 5 % (0-3) 5 % (0-3) Basophils (%) (Auto) 1 % (0-3) 1 % (0-3) Neutrophils # (Auto) 2.0 x10^3/uL (1.8-7.7) 4.3 x10^3/uL (1.8-7.7) Lymphocytes # (Auto) 1.0 x10^3/uL (1.0-4.8) 1.2 x10^3/uL (1.0-4.8) Monocytes # (Auto) 0.2 x10^3/uL (0.0-1.1) 0.3 x10^3/uL (0.0-1.1) Eosinophils # (Auto) 0.2 x10^3/uL (0.0-0.7) 0.3 x10^3/uL (0.0-0.7) Basophils # (Auto) 0.0 x10^3/uL (0.0-0.2) 0.0 x10^3/uL (0.0-0.2) D-Dimer (Jewell) 1.13 ug/mlFEU (0.00-0.50) Urine Collection Type Void Urine Color Yellow Urine Clarity Clear Urine pH 7.5 Urine Specific Atkins 1.020 Urine Protein >=300 mg/dL (NEG-TRACE) Urine Glucose (UA) 500 mg/dL (NEG) Urine Ketones (Stick) Negative mg/dL (NEG) Urine Blood Moderate (NEG) Urine Nitrite Negative (NEG) Urine Bilirubin Negative (NEG) Urine Urobilinogen Dipstick 0.2 mg/dL (0.2 mg/dL) Urine Leukocyte Esterase Negative (NEG) Urine RBC 6-10 /HPF (0-2) Urine WBC Occ /HPF (0-4) Urine Squamous Epithelial Cells Mod /LPF Urine Bacteria Few /HPF (0-FEW) Sodium Level 142 mmol/L (136-145) 140 mmol/L (136-145) Potassium Level 4.3 mmol/L (3.5-5.1) 4.4 mmol/L (3.5-5.1) Chloride Level 107 mmol/L (98-107) 109 mmol/L (98-107) Carbon Dioxide Level 28 mmol/L (21-32) 22 mmol/L (21-32) Anion Gap 7 (6-14) 9 (6-14) Blood Urea Nitrogen 37 mg/dL (7-20) 41 mg/dL (7-20) Creatinine 2.1 mg/dL (0.6-1.0) 1.7 mg/dL (0.6-1.0) Estimated GFR (Cockcroft-Gault) 24.2 30.9 BUN/Creatinine Ratio 18 (6-20) 24 (6-20) Glucose Level 331 mg/dL (70-99) 240 mg/dL (70-99) Lactic Acid Level 0.9 mmol/L (0.4-2.0) Calcium Level 8.1 mg/dL (8.5-10.1) 7.9 mg/dL (8.5-10.1) Total Bilirubin 0.2 mg/dL (0.2-1.0) 0.2 mg/dL (0.2-1.0) Aspartate Amino Transf (AST/SGOT) 23 U/L (15-37) 19 U/L (15-37) Alanine Aminotransferase (ALT/SGPT) 22 U/L (14-59) 16 U/L (14-59) Alkaline Phosphatase 135 U/L (46-116) 111 U/L (46-116) Troponin I Quantitative 0.026 ng/mL (0.000-0.055) < 0.017 ng/mL (0.000-0.055) NI-Ncm-B-Type Natriuretic Peptide 7678 pg/mL (0-124) Total Protein 5.7 g/dL (6.4-8.2) 5.2 g/dL (6.4-8.2) Albumin 2.2 g/dL (3.4-5.0) 1.9 g/dL (3.4-5.0) Albumin/Globulin Ratio 0.6 (1.0-1.7) 0.6 (1.0-1.7) Glucose (Fingerstick) 320 mg/dL (70-99) 206 mg/dL (70-99) Triglycerides Level 61 mg/dL (0-150) Cholesterol Level 179 mg/dL (0-200) LDL Cholesterol, Calculated 111 mg/dL (0-100) VLDL Cholesterol, Calculated 12 mg/dL (0-40) Non-HDL Cholesterol Calculated 123 mg/dL (0-129) HDL Cholesterol 56 mg/dL (40-60) Cholesterol/HDL Ratio 3.2 Thyroid Stimulating Hormone (TSH) 43.373 uIU/mL (0.358-3.74) Test 11/27/18 08:48 Glucose (Fingerstick) 171 mg/dL (70-99) Laboratory Tests Test 11/26/18 18:39 11/27/18 00:14 11/27/18 04:15 11/27/18 06:35 White Blood Count 3.4 x10^3/uL (4.0-11.0) 6.1 x10^3/uL (4.0-11.0) Red Blood Count 2.43 x10^6/uL (3.50-5.40) 2.23 x10^6/uL (3.50-5.40) Hemoglobin 7.6 g/dL (12.0-15.5) 6.9 g/dL (12.0-15.5) Hematocrit 22.1 % (36.0-47.0) 20.4 % (36.0-47.0) Mean Corpuscular Volume 91 fL (79-100) 92 fL (79-100) Mean Corpuscular Hemoglobin 31 pg (25-35) 31 pg (25-35) Mean Corpuscular Hemoglobin Concent 34 g/dL (31-37) 34 g/dL (31-37) Red Cell Distribution Width 16.9 % (11.5-14.5) 17.3 % (11.5-14.5) Platelet Count 159 x10^3/uL (140-400) 139 x10^3/uL (140-400) Neutrophils (%) (Auto) 59 % (31-73) 70 % (31-73) Lymphocytes (%) (Auto) 31 % (24-48) 20 % (24-48) Monocytes (%) (Auto) 5 % (0-9) 4 % (0-9) Eosinophils (%) (Auto) 5 % (0-3) 5 % (0-3) Basophils (%) (Auto) 1 % (0-3) 1 % (0-3) Neutrophils # (Auto) 2.0 x10^3/uL (1.8-7.7) 4.3 x10^3/uL (1.8-7.7) Lymphocytes # (Auto) 1.0 x10^3/uL (1.0-4.8) 1.2 x10^3/uL (1.0-4.8) Monocytes # (Auto) 0.2 x10^3/uL (0.0-1.1) 0.3 x10^3/uL (0.0-1.1) Eosinophils # (Auto) 0.2 x10^3/uL (0.0-0.7) 0.3 x10^3/uL (0.0-0.7) Basophils # (Auto) 0.0 x10^3/uL (0.0-0.2) 0.0 x10^3/uL (0.0-0.2) D-Dimer (Jewell) 1.13 ug/mlFEU (0.00-0.50) Urine Collection Type Void Urine Color Yellow Urine Clarity Clear Urine pH 7.5 Urine Specific Atkins 1.020 Urine Protein >=300 mg/dL (NEG-TRACE) Urine Glucose (UA) 500 mg/dL (NEG) Urine Ketones (Stick) Negative mg/dL (NEG) Urine Blood Moderate (NEG) Urine Nitrite Negative (NEG) Urine Bilirubin Negative (NEG) Urine Urobilinogen Dipstick 0.2 mg/dL (0.2 mg/dL) Urine Leukocyte Esterase Negative (NEG) Urine RBC 6-10 /HPF (0-2) Urine WBC Occ /HPF (0-4) Urine Squamous Epithelial Cells Mod /LPF Urine Bacteria Few /HPF (0-FEW) Sodium Level 142 mmol/L (136-145) 140 mmol/L (136-145) Potassium Level 4.3 mmol/L (3.5-5.1) 4.4 mmol/L (3.5-5.1) Chloride Level 107 mmol/L (98-107) 109 mmol/L (98-107) Carbon Dioxide Level 28 mmol/L (21-32) 22 mmol/L (21-32) Anion Gap 7 (6-14) 9 (6-14) Blood Urea Nitrogen 37 mg/dL (7-20) 41 mg/dL (7-20) Creatinine 2.1 mg/dL (0.6-1.0) 1.7 mg/dL (0.6-1.0) Estimated GFR (Cockcroft-Gault) 24.2 30.9 BUN/Creatinine Ratio 18 (6-20) 24 (6-20) Glucose Level 331 mg/dL (70-99) 240 mg/dL (70-99) Lactic Acid Level 0.9 mmol/L (0.4-2.0) Calcium Level 8.1 mg/dL (8.5-10.1) 7.9 mg/dL (8.5-10.1) Total Bilirubin 0.2 mg/dL (0.2-1.0) 0.2 mg/dL (0.2-1.0) Aspartate Amino Transf (AST/SGOT) 23 U/L (15-37) 19 U/L (15-37) Alanine Aminotransferase (ALT/SGPT) 22 U/L (14-59) 16 U/L (14-59) Alkaline Phosphatase 135 U/L (46-116) 111 U/L (46-116) Troponin I Quantitative 0.026 ng/mL (0.000-0.055) < 0.017 ng/mL (0.000-0.055) YE-Lan-V-Type Natriuretic Peptide 7678 pg/mL (0-124) Total Protein 5.7 g/dL (6.4-8.2) 5.2 g/dL (6.4-8.2) Albumin 2.2 g/dL (3.4-5.0) 1.9 g/dL (3.4-5.0) Albumin/Globulin Ratio 0.6 (1.0-1.7) 0.6 (1.0-1.7) Glucose (Fingerstick) 320 mg/dL (70-99) 206 mg/dL (70-99) Triglycerides Level 61 mg/dL (0-150) Cholesterol Level 179 mg/dL (0-200) LDL Cholesterol, Calculated 111 mg/dL (0-100) VLDL Cholesterol, Calculated 12 mg/dL (0-40) Non-HDL Cholesterol Calculated 123 mg/dL (0-129) HDL Cholesterol 56 mg/dL (40-60) Cholesterol/HDL Ratio 3.2 Thyroid Stimulating Hormone (TSH) 43.373 uIU/mL (0.358-3.74) Test 11/27/18 08:48 Glucose (Fingerstick) 171 mg/dL (70-99) Images Images Report reviewed, images independently reviewed. Osteoarthritis and effusion. Probable bipartite patella. The edges of the lucency in the patella seemed well circumscribed. [facility] [address] [facility] [place] [address] IMAGING REPORT Signed PATIENT: ALEXANDRE GONZALES ACCOUNT: [id number] MRN#: [id number] : 1960 LOCATION: [address] [place] [address] AGE: 58 SEX: F EXAM STATUS: ADM IN ORD. PHYSICIAN: CAROL VILLEGAS APRN REASON: rt knee pain since fall 2 wks ago PROCEDURE: KNEE RIGHT 3V KNEE RIGHT 3V Clinical Indication: Right knee pain since fall 2 weeks ago. Comparison: None. Findings: There is tricompartmental arthropathy, severe in the patellofemoral compartment. There is vertical lucency of the patella, presumably a bipartite patella. A nondisplaced fracture would be unusual but cannot be entirely excluded. There is moderate joint effusion. Mild prepatellar soft tissue swelling. There is diffuse subcutaneous edema. Arterial calcifications are noted. IMPRESSION: 1. Moderate joint effusion. 2. Severe patellofemoral arthropathy. 3. 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 Nondisplaced fracture cannot be excluded. Electronically signed by: Kavon Harris MD (11/27/2018 8:18 AM) [id number] DICTATED and SIGNED BY: KAVON HARRIS MD DATE: 11/27/18 0818 Assessment/Plan Assessment/Plan Diagnosis: Right knee effusion, knee contusion, bipartite patella, osteoarthritis right knee, and probable hemarthrosis (vs inflammatory OA fluid) I recommend aspiration and likely cortisone injection. I will hold on injection if aspirated fluid shows fat droplets (fracture) or purulence (infection) but I suspect this will be a hemarthrosis. I will DC the knee immobilizer. I don't believe she has a patella fracture based on exam and my review of the x-rays. Procedure 11/27/18. Time out performed with RN. Written consent obtained. Skin of right knee joint prepared with alcohol, then chlorhexidine. Skin anesthesia with 1% lidocaine. Aspiration of joint with 16 gauge needle, retrieved 80 mL of yellow transparent synovial fluid (consistent with osteoarthritis flare), and then injected with 80 mg Depo Medrol and 2 mL of 1% lidocaine through the same needle. The patient tolerated the procedure well. A Band Aid was placed. She may WBAT and I gave a verbal order to DC knee immobilizer. SRINIVASA ALEJANDRE MD Nov 27, 2018 10:31
[2018-11-27] MEDS ORDERED: LIDOCAINE 1% Multi-Dose 20 ML VIAL. INJ ONE (11:00)
[2018-11-27] MEDS ORDERED: methylPREDNISolone ACETATE 80 MG/ML VIAL. IM ONE (11:00)
--- NOTE | 2018-11-27 11:22 | NUR ---
dr moreira seen pt. cancelled vq scan. dr osborne seen pt. . injected pts right knee after aspirating 80 cc from right knee. pt without any mobility restrictions. knee immobilizer removed.
--- NOTE | 2018-11-27 11:30 | CONS ---
DATE OF CONSULTATION: PULMONARY CONSULTATION ATTENDING PHYSICIAN: Bartolo Morgan MD REASON FOR CONSULTATION: Dyspnea and respiratory failure. HISTORY OF PRESENT ILLNESS: The patient is a 58-year-old female who has been a smoker for 30 years, quit about 3 years ago. She has history of bipdfrxd-pp-bpor probability V/Q scan in May of this year with no DVT and has been on Xarelto since then. She also has cardiomyopathy with an EF of 40-45%. She was brought into the hospital with increasing shortness of breath. She has a mild dry cough. No fever, no chills. She has increased lower extremity edema. The patient had some nonspecific chest pain as well. The patient had no headaches, no nausea, no vomiting, no diarrhea. She has more swelling in her right knee joint than the left. She states that she probably may have bumped her right knee. I have reviewed the patient's chest x-ray and it is consistent with mild interstitial edema and cardiomegaly. The patient remains on her Xarelto. Her hemoglobin was 6.9. D-dimer was 1.1. I have been asked to see her for further evaluation. Orthopedic has been consulted for joint effusion as well. PAST MEDICAL HISTORY: History of anxiety, history of CAD with stents in the past, history of cardiomyopathy, history of CHF, depression, type 2 diabetes, hypertension, dyslipidemia, hypothyroidism, history of pacemaker, history of defibrillator, history of pulmonary embolism with moderate to high probability V/Q scan in May of this year with no DVT. PAST SURGICAL HISTORY: Angioplasty, , pacemaker, tubal ligation, and stents. ALLERGIES: LISINOPRIL. REVIEW OF SYSTEMS: A 12-point review of systems obtained. Pertinent positives discussed in my history of present illness, otherwise noncontributory. All systems that were negative, were reviewed as well. MEDICATIONS: All reviewed, as listed in the MRAD. FAMILY HISTORY: Noncontributory to lungs. SOCIAL HISTORY: Smoked for 30 years before quitting 3 years ago. PHYSICAL EXAMINATION: VITAL SIGNS: Blood pressure is stable. She is on 3 liters with saturation 92%. HEENT: Sclerae nonicteric. NECK: Supple. LUNGS: With few crackles at the bases posteriorly. CARDIOVASCULAR: With a regular rate. ABDOMEN: Soft, obese. EXTREMITIES: Bilateral pitting edema. There is more swelling on the right knee joint than the left knee joint. LABORATORY DATA: Labs are reviewed. D-dimer 1.1. Her TSH is 43. BUN is 41 and a creatinine of 1.7, sodium 140. ProBNP 7678. Albumin is 1.9. White cell count 6.1, hemoglobin 6.9, and platelets are 139. IMPRESSION: 1. Acute hypoxic respiratory failure secondary to multifactorial etiologies and likely contributed by acute on chronic systolic heart failure. She has underlying chronic obstructive pulmonary disease without causing any exacerbation. She has anemia, which is probably contributed to her dyspnea as well. 2. The patient with cardiomyopathy with an ejection fraction of 40-45%. Cardiomegaly seen on chest x-ray. I suspect her ejection fraction may have decreased and a repeat echo has been ordered. 3. History of pulmonary embolism by abnormal V/Q scan, [id number] probability in May of this year with no deep venous thrombosis. She has been on Xarelto since then. Now, she has anemia while on Xarelto. I would hold off on repeating the V/Q scan until congestive heart failure is resolved. The indication for the repeat V/Q scan would be to document resolution of previously seen pulmonary embolism. 4. No evidence of deep venous thrombosis yesterday's venous Dopplers of the lower extremity. 5. Severe protein-calorie malnutrition. 6. Underlying suspected chronic obstructive pulmonary disease from 30 years of tobacco use. 7. Right knee joint effusion, suspect hemarthrosis. Ortho has been consulted for drainage. 8. Chronic kidney disease. May have an acute component. 9. Anemia, could be blood loss into the right knee joint. 10. Suspected obstructive sleep apnea. She does have dozing off during the day, never had formal sleep study. RECOMMENDATIONS: 1. Continue with present oxygen. 2. Diuresis and follow chest x-ray. 3. Obtain echocardiogram. 4. Follow Cardiology recommendations. 5. We will add scheduled DuoNebs. 6. Continue Xarelto while keeping a close eye on her hemoglobin. May have to hold it for 24 hours until knee drainage is done to rule out hemarthrosis. 7. Order a V/Q scan once chest x-ray has shown resolution of the CHF, just to document resolution of the previously seen PE. 8. Improved nutritional status. 9. Discussed with Dr. Regis Snow. Discussed with RN. We will follow along with you. 10. Sleep study as an outpatient. Critical care time 37 minutes. OWEN JACKSON MD DR: YAMILA/kit JOB#: [id number] / [id number]
[2018-11-27] MEDS ORDERED: INSULIN LISPRO 300 UNITS/3 ML INSULN.PEN. SQ SCH (12:00)
--- NOTE | 2018-11-27 12:29 | CARD ---
MR#: [id number] Date of Study: 11/27/2018 Ordering Physician: IZZY MORENO, Referring Physician: MELODIE VALLES Tech: Ainsley Santoyo RDCS APPROVED REPORT EXAM: Two-dimensional and M-mode echocardiogram with Doppler and color Doppler. Other Information Quality : Good INDICATION Cardiomyopathy Congestive Heart Failure Pacemaker 2D DIMENSIONS RVDd2.9 (2.9-3.5cm)Left Atrium(2D)3.9 (1.6-4.0cm) IVSd1.2 (0.7-1.1cm)Aortic Root(2D)2.9 (2.0-3.7cm) LVDd5.3 (3.9-5.9cm)LVOT Diameter2.1 (1.8-2.4cm) PWd1.0 (0.7-1.1cm)LVDs4.6 (2.5-4.0cm) FS (%) 20.0 %SV39.3 ml LVEF(%)40.0 (>50%) Aortic Valve AoV Peak Wes.209.4cm/sAoV VTI37.7cm AO Peak GR.17.5mmHgLVOT VTI 27.74cm AO Mean GR.9mmHgAVA (VTI)2.50cm2 AI P 1/2 Qizg404el Mitral Valve MV E Ubgvdzvy244.1cm/sMV DECEL [id number] MV A Mgkxonyi314.6cm/sE/A Ratio1.2 TDI Lateral E' P. V5.28cm/sMedial E' P. V4.76cm/s E/Lateral E'24.6E/Medial E'27.3 Tricuspid Valve TR P. Komckwkt892px/sRAP [id number] TR Peak Gr.44irBaCDYL27yaNp Pulmonary Vein S1 Qamrsxtq78.5cm/sS2 Vdgdwcyl15.97cm/s D2 Reckoxza74.0cm/s LEFT VENTRICLE The left ventricle is normal size. There is mild concentric left ventricular hypertrophy. Left ventri elizabet systolic function is mildly to moderately impaired. The Ejection Fraction is 40-45%. There is mathew bal hypokinesis of the left ventricle. Septal motion suggestive of conduction defect. Transmitral Dop pler flow pattern is Grade II-pseudonormal filling dynamics. RIGHT VENTRICLE The right ventricle is normal size. The right ventricular systolic function is normal. There is a pac emaker lead in the right ventricle. ATRIA The left atrium size is normal. The right atrium size is normal. A pacemaker is seen in the right atr ium consistent with history. The interatrial septum is intact with no evidence for an atrial septal d efect or patent foramen ovale as noted on 2-D or Doppler imaging. AORTIC VALVE The aortic valve is calcified but opens well. Doppler and Color Flow revealed trace aortic regurgitat ion. There is no significant aortic valvular stenosis. MITRAL VALVE The mitral valve is calcified but opens well. There is no evidence of mitral valve prolapse. There is no mitral valve stenosis. Doppler and Color-flow revealed mild mitral regurgitation. TRICUSPID VALVE The tricuspid valve is normal in structure and function. Doppler and Color Flow revealed mild to mode rate tricuspid regurgitation. There is moderate pulmonary hypertension. The PA pressure was estimated at 47 mmHg. There is no tricuspid valve stenosis. PULMONIC VALVE The pulmonic valve is not well visualized. Doppler and Color Flow revealed trace to mild pulmonic prince vular regurgitation. There is no pulmonic valvular stenosis. GREAT VESSELS The aortic root is normal in size. The ascending aorta is normal in size. The IVC is dilated and colette apses >50% with inspiration. PERICARDIAL EFFUSION There is a trace circumferential pericardial effusion. Critical Notification Critical Value: No <Conclusion> Left ventricle systolic function is mildly to moderately impaired. The Ejection Fraction is 40-45%. There is global hypokinesis of the left ventricle. Septal motion suggestive of conduction defect. There is a pacemaker lead in the right ventricle. Doppler and Color Flow revealed mild to moderate tricuspid regurgitation. There is moderate pulmonary hypertension. The PA pressure was estimated at 47 mmHg. There is a trace circumferential pericardial effusion. Signed by : Moisés Marquez, Electronically Approved : 11/27/2018 12:29:06
[2018-11-27] MEDS: INSULIN LISPRO 300 UNITS/3 ML INSULN.PEN. SQ SCH ×2 (12:38→18:14)
--- NOTE | 2018-11-27 14:39 | RAD ---
EXAM: Renal sonogram. HISTORY: Hematuria. TECHNIQUE: Sonographic imaging of the kidneys and bladder was performed. COMPARISON: None. FINDINGS: The right kidney measures 11.5 cm aplw-kn-iflb. Left kidney measures 11.0 cm qpba-df-npxs. There is a prominent right renal pelvis. No solid or cystic renal lesion is seen. The bladder is unremarkable. The ureteral jets are both seen. The inferior vena cava and aorta are partially obscured due to bowel gas. IMPRESSION: 1. Prominent right renal pelvis. This may be due to an extra renal pelvis or mild hydronephrosis. 2. Otherwise, sonographically unremarkable kidneys. Electronically signed by: Marysol Fenton MD (11/27/2018 2:36 PM) [facility]
--- NOTE | 2018-11-27 15:15 | NUR ---
SS following for discharge planning. SS reviewed pt chart. Pt is from home and is currently requiring oxygen. No discharge needs noted at this time. SS will continue to follow for discharge planning.
[2018-11-27] MEDS ORDERED: RIVAROXABAN 10 MG TABLET. PO SCH (17:00)
[2018-11-27] MEDS: FUROSEMIDE 40 MG/4 ML VIAL. IVP SCH (18:01)
[2018-11-27] MEDS: ATORVASTATIN CALCIUM 40 MG TABLET. PO SCH (20:31)
[2018-11-27] MEDS ORDERED: INSULIN LISPRO 300 UNITS/3 ML INSULN.PEN. SQ ONE (21:00)
[2018-11-27] MEDS ORDERED: INSULIN GLARGINE 300 UNITS/3 ML INSULN.PEN. SQ ONE (21:00)
[2018-11-27] MEDS: HYDROcodone/APAP 7.5/325MG 1 TAB TABLET PO PRN (22:09)
[2018-11-27 23:12] LABS: HEMOGLOBIN A1C 10.2 % (4.8-5.6)
[2018-11-28 03:30] VITALS: BP 144/67
[2018-11-28 06:57] LABS: RED BLOOD COUNT 2.29 x10^6/uL (3.50-5.40); RED CELL DISTRIBUTION WIDTH 16.9 % (11.5-14.5); WHITE BLOOD COUNT 5.2 x10^3/uL (4.0-11.0)
[2018-11-28 07:00] VITALS: BP 159/74
[2018-11-28 07:04] LABS: HEMATOCRIT 20.7 % (36.0-47.0)
[2018-11-28 07:11] LABS: CREATININE 1.6 mg/dL (0.6-1.0); GFR 33.1; POTASSIUM 4.2 mmol/L (3.5-5.1)
--- NOTE | 2018-11-28 08:59 | RAD ---
EXAM: Chest, single view. HISTORY: Congestive heart failure. COMPARISON: 11/26/2018 FINDINGS: A frontal view of the chest is obtained. There is stable diffuse infiltrate due to congestion. There are stable small left greater than right pleural effusions. There is stable cardia megaly. There is a cardiac pacemaker defibrillator with leads unchanged in position. No pneumothorax is seen. IMPRESSION: Stable pulmonary congestion with small pleural effusions and cardiomegaly. Electronically signed by: Marysol Fenton MD (11/28/2018 8:56 AM) [place] [id number]
[2018-11-28] MEDS: FUROSEMIDE 40 MG/4 ML VIAL. IVP SCH ×2 (09:00→17:25)
[2018-11-28] MEDS: GABAPENTIN 300 MG CAPSULE. PO SCH ×3 (09:00→21:14)
[2018-11-28] MEDS: SACUBITRIL/VALSARTAN 49/51MG TABLET. PO SCH ×2 (09:01→21:15)
[2018-11-28] MEDS: FERROUS SULFATE 325 MG TABLET. PO SCH (09:01)
[2018-11-28] MEDS: metOLazone 2.5 MG TABLET PO SCH (09:01)
[2018-11-28] MEDS: CARVEDILOL 12.5 MG TABLET. PO SCH ×2 (09:02→17:23)
--- NOTE | 2018-11-28 09:06 | PDOC1 ---
History and Physical Past Medical History Cardiovascular: CAD, CHF, HTN, Hyperlipidemia, Other Pulmonary: COPD CENTRAL NERVOUS SYSTEM: Periperal neuropathy GI: No pertinent hx Heme/Onc: Anemia NOS Hepatobiliary: No pertinent hx Psych: Anxiety, Depression Rheumatologic: No pertinent hx Infectious disease: No pertinent hx Renal/: Chronic renal insuff Endocrine: Diabetes, Hypothyroidism Past Surgical History Past Surgical History: Pacemaker, Cataract Removal, Other Family History Family History: Diabetes, Hypertension Social History Smoke: Quit (2016) ALCOHOL: none Drugs: None Current Problem List Problem List Problems Medical Problems: (1) Acute respiratory failure with hypoxia Status: Acute (2) Anemia Status: Chronic (3) Cardiomyopathy Status: Chronic (4) CKD (chronic kidney disease) Status: Chronic (5) Severe protein-calorie malnutrition Status: Chronic Current Medications Current Medications Current Medications Medications (Trade) Dose Ordered Sig/Carlos Start Time Stop Time Status Last Admin Dose Admin Acetaminophen/ Hydrocodone Bitart (Lortab 7.5/325) 1 tab PRN Q6HRS PRN 11/26/18 23:45 11/27/18 22:14 1 TAB Albuterol Sulfate (Ventolin Neb Soln) 2.5 mg PRN Q6HRS PRN 11/27/18 08:15 UNV Albuterol/ Ipratropium (Duoneb) 3 ml RTQID 11/28/18 09:00 Aspirin (Children'S Aspirin) 324 mg 1X ONCE 11/26/18 19:15 11/26/18 19:18 DC 11/26/18 19:34 324 MG Atorvastatin Calcium (Lipitor) 80 mg QHS 11/27/18 21:00 11/27/18 20:35 80 MG Bumetanide (Bumex) 1 mg 1X ONCE 11/26/18 21:00 11/26/18 21:01 DC 11/26/18 20:45 1 MG Carvedilol (Coreg) 25 mg BIDWMEALS 11/27/18 09:00 11/28/18 09:02 25 MG Dextrose 250 ml PRN Q15MIN PRN 11/27/18 08:15 UNV Dextrose (Dextrose 50%-Water Syringe) 12.5 gm PRN Q15MIN PRN 11/27/18 08:15 UNV Ferrous Sulfate (Feosol) 325 mg DAILYWBKFT 11/27/18 08:00 11/28/18 09:02 325 MG Furosemide (Lasix) 40 mg BID94 11/27/18 16:00 11/28/18 09:02 40 MG Gabapentin (Neurontin) 300 mg TID 11/27/18 09:00 11/28/18 09:02 300 MG Hydralazine HCl (Apresoline Inj) 10 mg PRN Q4HRS PRN 11/27/18 09:30 Insulin Glargine (Lantus) 10 units 1X ONCE 11/27/18 21:00 11/27/18 21:01 DC 11/27/18 22:14 10 UNITS Insulin Human Lispro (HumaLOG) 0-7 UNITS TIDWMEALS 11/28/18 08:00 Lidocaine HCl (Lidocaine 1% 20ml Vial) 20 ml 1X ONCE 11/27/18 11:00 11/27/18 11:01 DC 11/27/18 11:11 20 ML Methylprednisolone Acetate (DEPO-Medrol 80MG VIAL) 80 mg 1X ONCE 11/27/18 11:00 11/27/18 11:01 DC 11/27/18 11:11 80 MG Metolazone (Zaroxolyn) 5 mg DAILY 11/27/18 09:30 11/28/18 09:02 5 MG Nitroglycerin (Nitro-Bid Oint) 1 inch 1X ONCE 11/26/18 19:15 11/26/18 19:18 DC 11/26/18 19:35 1 INCH Nitroglycerin/ Dextrose 250 ml @ 1.5 mls/hr CONT PRN 11/26/18 23:45 Rivaroxaban (Xarelto) 20 mg DAILYWSUP 11/27/18 17:00 11/27/18 11:21 DC Sacubitril/ Valsartan (Entresto 49 Mg-51 Mg) 2 tab BID 11/27/18 09:00 11/28/18 09:02 2 TAB Torsemide (Demadex) 20 mg BID94 11/27/18 09:00 11/27/18 09:24 DC 11/27/18 08:57 20 MG Allergies Allergies Allergies Coded Allergies Type Severity Reaction Last Updated Verified lisinopril Adverse Reaction Mild COUGH 11/28/16 Yes ROS Review of System CONSTITUTIONAL: No fever or chills EYES: No recent changes SKIN: No rash or itching CARDIOVASCULAR: No chest pain, syncope, palpitations, or edema RESPIRATORY: No SOB or cough GASTROINTESTINAL: No nausea, vomiting or abdominal pain NEUROLOGICAL: No headaches or weakness ENDOCRINE: No cold or heat intolerance GENITOURINARY: No urgency or frequency of urination MUSCULOSKELETAL: No back pain or joint pain LYMPHATICS: No enlarged lymph nodes PSYCHIATRIC: No anxiety or depression Physical Exam Physical Exam GEN.: No apparent distress. Alert and oriented. HEENT: Head is normocephalic, atraumatic NECK: Supple. LUNGS: Clear to auscultation. HEART: RRR, S1, S2 present. Peripheral pulses intact ABDOMEN: Soft, nontender. Positive bowel sounds. EXTREMITIES: Without any cyanosis. NEUROLOGIC: Normal speech, normal tone PSYCHIATRIC: Normal affect, normal mood. SKIN: No ulcerations Vitals Vitals Vital Signs Date Time Temp Pulse Resp B/P (MAP) Pulse Ox O2 Delivery O2 Flow Rate FiO2 11/28/18 09:02 69 159/74 11/28/18 07:00 97.6 20 91 Nasal Cannula 3.0 97.6 Labs Labs Laboratory Tests Test 11/26/18 18:39 11/26/18 22:01 11/27/18 00:14 11/27/18 04:15 White Blood Count 3.4 x10^3/uL (4.0-11.0) 6.1 x10^3/uL (4.0-11.0) Red Blood Count 2.43 x10^6/uL (3.50-5.40) 2.23 x10^6/uL (3.50-5.40) Hemoglobin 7.6 g/dL (12.0-15.5) 6.9 g/dL (12.0-15.5) Hematocrit 22.1 % (36.0-47.0) 20.4 % (36.0-47.0) Mean Corpuscular Volume 91 fL (79-100) 92 fL (79-100) Mean Corpuscular Hemoglobin 31 pg (25-35) 31 pg (25-35) Mean Corpuscular Hemoglobin Concent 34 g/dL (31-37) 34 g/dL (31-37) Red Cell Distribution Width 16.9 % (11.5-14.5) 17.3 % (11.5-14.5) Platelet Count 159 x10^3/uL (140-400) 139 x10^3/uL (140-400) Neutrophils (%) (Auto) 59 % (31-73) 70 % (31-73) Lymphocytes (%) (Auto) 31 % (24-48) 20 % (24-48) Monocytes (%) (Auto) 5 % (0-9) 4 % (0-9) Eosinophils (%) (Auto) 5 % (0-3) 5 % (0-3) Basophils (%) (Auto) 1 % (0-3) 1 % (0-3) Neutrophils # (Auto) 2.0 x10^3/uL (1.8-7.7) 4.3 x10^3/uL (1.8-7.7) Lymphocytes # (Auto) 1.0 x10^3/uL (1.0-4.8) 1.2 x10^3/uL (1.0-4.8) Monocytes # (Auto) 0.2 x10^3/uL (0.0-1.1) 0.3 x10^3/uL (0.0-1.1) Eosinophils # (Auto) 0.2 x10^3/uL (0.0-0.7) 0.3 x10^3/uL (0.0-0.7) Basophils # (Auto) 0.0 x10^3/uL (0.0-0.2) 0.0 x10^3/uL (0.0-0.2) D-Dimer (Jewell) 1.13 ug/mlFEU (0.00-0.50) Urine Collection Type Void Urine Color Yellow Urine Clarity Clear Urine pH 7.5 Urine Specific Kiester 1.020 Urine Protein >=300 mg/dL (NEG-TRACE) Urine Glucose (UA) 500 mg/dL (NEG) Urine Ketones (Stick) Negative mg/dL (NEG) Urine Blood Moderate (NEG) Urine Nitrite Negative (NEG) Urine Bilirubin Negative (NEG) Urine Urobilinogen Dipstick 0.2 mg/dL (0.2 mg/dL) Urine Leukocyte Esterase Negative (NEG) Urine RBC 6-10 /HPF (0-2) Urine WBC Occ /HPF (0-4) Urine Squamous Epithelial Cells Mod /LPF Urine Bacteria Few /HPF (0-FEW) Sodium Level 142 mmol/L (136-145) 140 mmol/L (136-145) Potassium Level 4.3 mmol/L (3.5-5.1) 4.4 mmol/L (3.5-5.1) Chloride Level 107 mmol/L (98-107) 109 mmol/L (98-107) Carbon Dioxide Level 28 mmol/L (21-32) 22 mmol/L (21-32) Anion Gap 7 (6-14) 9 (6-14) Blood Urea Nitrogen 37 mg/dL (7-20) 41 mg/dL (7-20) Creatinine 2.1 mg/dL (0.6-1.0) 1.7 mg/dL (0.6-1.0) Estimated GFR (Cockcroft-Gault) 24.2 30.9 BUN/Creatinine Ratio 18 (6-20) 24 (6-20) Glucose Level 331 mg/dL (70-99) 240 mg/dL (70-99) Lactic Acid Level 0.9 mmol/L (0.4-2.0) Calcium Level 8.1 mg/dL (8.5-10.1) 7.9 mg/dL (8.5-10.1) Total Bilirubin 0.2 mg/dL (0.2-1.0) 0.2 mg/dL (0.2-1.0) Aspartate Amino Transf (AST/SGOT) 23 U/L (15-37) 19 U/L (15-37) Alanine Aminotransferase (ALT/SGPT) 22 U/L (14-59) 16 U/L (14-59) Alkaline Phosphatase 135 U/L (46-116) 111 U/L (46-116) Troponin I Quantitative 0.026 ng/mL (0.000-0.055) < 0.017 ng/mL (0.000-0.055) HS-Kck-T-Type Natriuretic Peptide 7678 pg/mL (0-124) Total Protein 5.7 g/dL (6.4-8.2) 5.2 g/dL (6.4-8.2) Albumin 2.2 g/dL (3.4-5.0) 1.9 g/dL (3.4-5.0) Albumin/Globulin Ratio 0.6 (1.0-1.7) 0.6 (1.0-1.7) Nasal Screen MRSA (PCR) Negative (Negative) Glucose (Fingerstick) 320 mg/dL (70-99) Hemoglobin A1c 10.2 % (4.8-5.6) Triglycerides Level 61 mg/dL (0-150) Cholesterol Level 179 mg/dL (0-200) LDL Cholesterol, Calculated 111 mg/dL (0-100) VLDL Cholesterol, Calculated 12 mg/dL (0-40) Non-HDL Cholesterol Calculated 123 mg/dL (0-129) HDL Cholesterol 56 mg/dL (40-60) Cholesterol/HDL Ratio 3.2 Thyroid Stimulating Hormone (TSH) 43.373 uIU/mL (0.358-3.74) Test 11/27/18 06:35 11/27/18 08:48 11/27/18 12:09 11/27/18 16:29 Glucose (Fingerstick) 206 mg/dL (70-99) 171 mg/dL (70-99) 212 mg/dL (70-99) 248 mg/dL (70-99) Test 11/27/18 20:30 11/28/18 05:40 11/28/18 08:17 Glucose (Fingerstick) 392 mg/dL (70-99) 283 mg/dL (70-99) White Blood Count 5.2 x10^3/uL (4.0-11.0) Red Blood Count 2.29 x10^6/uL (3.50-5.40) Hemoglobin 7.0 g/dL (12.0-15.5) Hematocrit 20.7 % (36.0-47.0) Mean Corpuscular Volume 91 fL (79-100) Mean Corpuscular Hemoglobin 31 pg (25-35) Mean Corpuscular Hemoglobin Concent 34 g/dL (31-37) Red Cell Distribution Width 16.9 % (11.5-14.5) Platelet Count 160 x10^3/uL (140-400) Sodium Level 143 mmol/L (136-145) Potassium Level 4.2 mmol/L (3.5-5.1) Chloride Level 108 mmol/L (98-107) Carbon Dioxide Level 26 mmol/L (21-32) Anion Gap 9 (6-14) Blood Urea Nitrogen 39 mg/dL (7-20) Creatinine 1.6 mg/dL (0.6-1.0) Estimated GFR (Cockcroft-Gault) 33.1 Glucose Level 261 mg/dL (70-99) Calcium Level 8.0 mg/dL (8.5-10.1) Iron Level 27 ug/dL (50-170) Total Iron Binding Capacity 249 ug/dL (250-450) Iron Saturation 11 % (15-34) Laboratory Tests Test 11/27/18 12:09 11/27/18 16:29 11/27/18 20:30 11/28/18 05:40 Glucose (Fingerstick) 212 mg/dL (70-99) 248 mg/dL (70-99) 392 mg/dL (70-99) White Blood Count 5.2 x10^3/uL (4.0-11.0) Red Blood Count 2.29 x10^6/uL (3.50-5.40) Hemoglobin 7.0 g/dL (12.0-15.5) Hematocrit 20.7 % (36.0-47.0) Mean Corpuscular Volume 91 fL (79-100) Mean Corpuscular Hemoglobin 31 pg (25-35) Mean Corpuscular Hemoglobin Concent 34 g/dL (31-37) Red Cell Distribution Width 16.9 % (11.5-14.5) Platelet Count 160 x10^3/uL (140-400) Sodium Level 143 mmol/L (136-145) Potassium Level 4.2 mmol/L (3.5-5.1) Chloride Level 108 mmol/L (98-107) Carbon Dioxide Level 26 mmol/L (21-32) Anion Gap 9 (6-14) Blood Urea Nitrogen 39 mg/dL (7-20) Creatinine 1.6 mg/dL (0.6-1.0) Estimated GFR (Cockcroft-Gault) 33.1 Glucose Level 261 mg/dL (70-99) Calcium Level 8.0 mg/dL (8.5-10.1) Iron Level 27 ug/dL (50-170) Total Iron Binding Capacity 249 ug/dL (250-450) Iron Saturation 11 % (15-34) Test 11/28/18 08:17 Glucose (Fingerstick) 283 mg/dL (70-99) VTE Prophylaxis Ordered VTE Prophylaxis Devices: Yes VTE Pharmacological Prophylaxi: Yes Assessment/Plan Assessment/Plan Pt was seen yesterday at 0600. H&P was written on paper and is in pt's paper chart, as well as [facility]. LORENZO MARTINES MD Nov 28, 2018 09:06
[2018-11-28] MEDS: HYDROcodone/APAP 7.5/325MG 1 TAB TABLET PO PRN ×2 (09:14→21:15)
[2018-11-28] MEDS: INSULIN LISPRO 300 UNITS/3 ML INSULN.PEN. SQ SCH ×4 (09:20→21:23)
[2018-11-28 11:00] VITALS: BP 123/62
--- NOTE | 2018-11-28 11:10 | PDOC ---
PULMONARY PROGRESS NOTES Subjective NO SOA Vitals Vital Signs Date Time Temp Pulse Resp B/P (MAP) Pulse Ox O2 Delivery O2 Flow Rate FiO2 11/28/18 09:20 91 Nasal Cannula 3.0 11/28/18 09:02 69 159/74 11/28/18 07:00 97.6 20 97.6 General: Alert, Oriented X4, No acute distress Lungs: Clear Cardiovascular: S1 Abdomen: Soft Extremities: Other Labs Laboratory Tests Test 11/26/18 18:39 11/26/18 22:01 11/27/18 00:14 11/27/18 04:15 White Blood Count 3.4 x10^3/uL (4.0-11.0) 6.1 x10^3/uL (4.0-11.0) Red Blood Count 2.43 x10^6/uL (3.50-5.40) 2.23 x10^6/uL (3.50-5.40) Hemoglobin 7.6 g/dL (12.0-15.5) 6.9 g/dL (12.0-15.5) Hematocrit 22.1 % (36.0-47.0) 20.4 % (36.0-47.0) Mean Corpuscular Volume 91 fL (79-100) 92 fL (79-100) Mean Corpuscular Hemoglobin 31 pg (25-35) 31 pg (25-35) Mean Corpuscular Hemoglobin Concent 34 g/dL (31-37) 34 g/dL (31-37) Red Cell Distribution Width 16.9 % (11.5-14.5) 17.3 % (11.5-14.5) Platelet Count 159 x10^3/uL (140-400) 139 x10^3/uL (140-400) Neutrophils (%) (Auto) 59 % (31-73) 70 % (31-73) Lymphocytes (%) (Auto) 31 % (24-48) 20 % (24-48) Monocytes (%) (Auto) 5 % (0-9) 4 % (0-9) Eosinophils (%) (Auto) 5 % (0-3) 5 % (0-3) Basophils (%) (Auto) 1 % (0-3) 1 % (0-3) Neutrophils # (Auto) 2.0 x10^3/uL (1.8-7.7) 4.3 x10^3/uL (1.8-7.7) Lymphocytes # (Auto) 1.0 x10^3/uL (1.0-4.8) 1.2 x10^3/uL (1.0-4.8) Monocytes # (Auto) 0.2 x10^3/uL (0.0-1.1) 0.3 x10^3/uL (0.0-1.1) Eosinophils # (Auto) 0.2 x10^3/uL (0.0-0.7) 0.3 x10^3/uL (0.0-0.7) Basophils # (Auto) 0.0 x10^3/uL (0.0-0.2) 0.0 x10^3/uL (0.0-0.2) D-Dimer (Jewell) 1.13 ug/mlFEU (0.00-0.50) Urine Collection Type Void Urine Color Yellow Urine Clarity Clear Urine pH 7.5 Urine Specific [place] 1.020 Urine Protein >=300 mg/dL (NEG-TRACE) Urine Glucose (UA) 500 mg/dL (NEG) Urine Ketones (Stick) Negative mg/dL (NEG) Urine Blood Moderate (NEG) Urine Nitrite Negative (NEG) Urine Bilirubin Negative (NEG) Urine Urobilinogen Dipstick 0.2 mg/dL (0.2 mg/dL) Urine Leukocyte Esterase Negative (NEG) Urine RBC 6-10 /HPF (0-2) Urine WBC Occ /HPF (0-4) Urine Squamous Epithelial Cells Mod /LPF Urine Bacteria Few /HPF (0-FEW) Sodium Level 142 mmol/L (136-145) 140 mmol/L (136-145) Potassium Level 4.3 mmol/L (3.5-5.1) 4.4 mmol/L (3.5-5.1) Chloride Level 107 mmol/L (98-107) 109 mmol/L (98-107) Carbon Dioxide Level 28 mmol/L (21-32) 22 mmol/L (21-32) Anion Gap 7 (6-14) 9 (6-14) Blood Urea Nitrogen 37 mg/dL (7-20) 41 mg/dL (7-20) Creatinine 2.1 mg/dL (0.6-1.0) 1.7 mg/dL (0.6-1.0) Estimated GFR (Cockcroft-Gault) 24.2 30.9 BUN/Creatinine Ratio 18 (6-20) 24 (6-20) Glucose Level 331 mg/dL (70-99) 240 mg/dL (70-99) Lactic Acid Level 0.9 mmol/L (0.4-2.0) Calcium Level 8.1 mg/dL (8.5-10.1) 7.9 mg/dL (8.5-10.1) Total Bilirubin 0.2 mg/dL (0.2-1.0) 0.2 mg/dL (0.2-1.0) Aspartate Amino Transf (AST/SGOT) 23 U/L (15-37) 19 U/L (15-37) Alanine Aminotransferase (ALT/SGPT) 22 U/L (14-59) 16 U/L (14-59) Alkaline Phosphatase 135 U/L (46-116) 111 U/L (46-116) Troponin I Quantitative 0.026 ng/mL (0.000-0.055) < 0.017 ng/mL (0.000-0.055) TO-Dvf-R-Type Natriuretic Peptide 7678 pg/mL (0-124) Total Protein 5.7 g/dL (6.4-8.2) 5.2 g/dL (6.4-8.2) Albumin 2.2 g/dL (3.4-5.0) 1.9 g/dL (3.4-5.0) Albumin/Globulin Ratio 0.6 (1.0-1.7) 0.6 (1.0-1.7) Nasal Screen MRSA (PCR) Negative (Negative) Glucose (Fingerstick) 320 mg/dL (70-99) Hemoglobin A1c 10.2 % (4.8-5.6) Triglycerides Level 61 mg/dL (0-150) Cholesterol Level 179 mg/dL (0-200) LDL Cholesterol, Calculated 111 mg/dL (0-100) VLDL Cholesterol, Calculated 12 mg/dL (0-40) Non-HDL Cholesterol Calculated 123 mg/dL (0-129) HDL Cholesterol 56 mg/dL (40-60) Cholesterol/HDL Ratio 3.2 Thyroid Stimulating Hormone (TSH) 43.373 uIU/mL (0.358-3.74) Test 11/27/18 06:35 11/27/18 08:48 11/27/18 12:09 11/27/18 16:29 Glucose (Fingerstick) 206 mg/dL (70-99) 171 mg/dL (70-99) 212 mg/dL (70-99) 248 mg/dL (70-99) Test 11/27/18 20:30 11/28/18 05:40 11/28/18 08:17 Glucose (Fingerstick) 392 mg/dL (70-99) 283 mg/dL (70-99) White Blood Count 5.2 x10^3/uL (4.0-11.0) Red Blood Count 2.29 x10^6/uL (3.50-5.40) Hemoglobin 7.0 g/dL (12.0-15.5) Hematocrit 20.7 % (36.0-47.0) Mean Corpuscular Volume 91 fL (79-100) Mean Corpuscular Hemoglobin 31 pg (25-35) Mean Corpuscular Hemoglobin Concent 34 g/dL (31-37) Red Cell Distribution Width 16.9 % (11.5-14.5) Platelet Count 160 x10^3/uL (140-400) Sodium Level 143 mmol/L (136-145) Potassium Level 4.2 mmol/L (3.5-5.1) Chloride Level 108 mmol/L (98-107) Carbon Dioxide Level 26 mmol/L (21-32) Anion Gap 9 (6-14) Blood Urea Nitrogen 39 mg/dL (7-20) Creatinine 1.6 mg/dL (0.6-1.0) Estimated GFR (Cockcroft-Gault) 33.1 Glucose Level 261 mg/dL (70-99) Calcium Level 8.0 mg/dL (8.5-10.1) Iron Level 27 ug/dL (50-170) Total Iron Binding Capacity 249 ug/dL (250-450) Iron Saturation 11 % (15-34) Laboratory Tests Test 11/27/18 12:09 11/27/18 16:29 11/27/18 20:30 11/28/18 05:40 Glucose (Fingerstick) 212 mg/dL (70-99) 248 mg/dL (70-99) 392 mg/dL (70-99) White Blood Count 5.2 x10^3/uL (4.0-11.0) Red Blood Count 2.29 x10^6/uL (3.50-5.40) Hemoglobin 7.0 g/dL (12.0-15.5) Hematocrit 20.7 % (36.0-47.0) Mean Corpuscular Volume 91 fL (79-100) Mean Corpuscular Hemoglobin 31 pg (25-35) Mean Corpuscular Hemoglobin Concent 34 g/dL (31-37) Red Cell Distribution Width 16.9 % (11.5-14.5) Platelet Count 160 x10^3/uL (140-400) Sodium Level 143 mmol/L (136-145) Potassium Level 4.2 mmol/L (3.5-5.1) Chloride Level 108 mmol/L (98-107) Carbon Dioxide Level 26 mmol/L (21-32) Anion Gap 9 (6-14) Blood Urea Nitrogen 39 mg/dL (7-20) Creatinine 1.6 mg/dL (0.6-1.0) Estimated GFR (Cockcroft-Gault) 33.1 Glucose Level 261 mg/dL (70-99) Calcium Level 8.0 mg/dL (8.5-10.1) Iron Level 27 ug/dL (50-170) Total Iron Binding Capacity 249 ug/dL (250-450) Iron Saturation 11 % (15-34) Test 11/28/18 08:17 Glucose (Fingerstick) 283 mg/dL (70-99) Medications Active Scripts Medications Dose Route/Sig Max Daily Dose Days Date Category Xarelto (Rivaroxaban) 20 Mg Tablet 20 Mg PO DAILY 08/10/18 Reported Vitamin D (Cholecalciferol (Vitamin D3)) 1,000 Unit Capsule 2,000 Unit PO DAILY 30 06/07/18 Rx Aspirin Ec (Aspirin) 81 Mg Tablet.dr 81 Mg PO DAILYWBKFT 06/07/18 Rx Lantus Solostar (Insulin Glargine,Hum.rec.anlog) 100 Unit/1 Ml Insuln.pen 5 Unit SQ QHS 06/07/18 Rx Demadex (Torsemide) 20 Mg Tablet 20 Mg PO BID 05/25/18 Reported NITROGLYCERIN SubLingual (Nitroglycerin) 0.4 Mg Tab.subl 0.4 Mg SL PRN Q5MIN PRN 05/25/18 Reported Ferrous Sulfate 325 Mg Tablet 1 Tab PO DAILY 05/25/18 Reported Folic Acid 1 Mg Tablet 1 Tab PO DAILY 05/25/18 Reported Colestid (Colestipol Hcl) 1 Gm Tablet 2 Gm PO BID 05/25/18 Reported Metolazone 5 Mg Tablet 5 Mg PO DAILY 05/25/18 Reported Triamterene-Hctz 37.5-25 Mg Tb (Triamterene/Hydrochlorothiazid) 1 Each Tablet 1 Tab PO DAILY 05/25/18 Reported Coreg (Carvedilol) 25 Mg Tablet 12.5 Mg PO BIDWMEALS 05/25/18 Reported Entresto 97 mg-103 mg Tablet (Sacubitril/Valsartan) 1 Each Tablet 1 Each PO BID 05/25/18 Reported Synthroid (Levothyroxine Sodium) 200 Mcg Tablet 1 Tab PO DAILY 09/02/17 Rx Atorvastatin Calcium 80 Mg Tablet 1 Tab PO QHS 08/19/16 Reported Pantoprazole Sodium 40 Mg Tablet.dr 40 Mg PO DAILYAC 03/25/16 Rx Gabapentin (Gabapentin) 300 Mg Capsule 300 Mg PO TID 03/23/16 Reported Potassium Chloride 10 Meq Tab.er.prt 1 Tab PO BID 07/04/14 Reported Metformin Hcl 1,000 Mg Tablet 1 Tab PO BID 07/02/14 Reported Impression . 1. Acute hypoxic respiratory failure secondary to multifactorial etiologies and likely contributed by acute on chronic systolic heart failure. She has underlying chronic obstructive pulmonary disease without causing any exacerbation. She has anemia, which is probably contributed to her dyspnea as well. 2. The patient with cardiomyopathy with an ejection fraction of 40-45%. 3. History of pulmonary embolism by abnormal V/Q scan, [id number] probability in May of this year with no deep venous thrombosis. She has been on Xarelto since then. Now, she has anemia while on Xarelto. I would hold off on repeating the V/Q scan until congestive heart failure is resolved. The indication for the repeat V/Q scan would be to document resolution of previously seen pulmonary embolism. 4. No evidence of deep venous thrombosis yesterday's venous Dopplers of the lower extremity. 5. Severe protein-calorie malnutrition. 6. Underlying suspected chronic obstructive pulmonary disease from 30 years of tobacco use. 7. Right knee joint effusion, NO hemarthrosis. s/p drainage. 8. Chronic kidney disease. May have an acute component. 9. Anemia, could be blood loss into the right knee joint. 10. Suspected obstructive sleep apnea. She does have dozing off during the day, never had formal sleep study. Plan . 1. Continue with present oxygen. 2. Diuresis and follow chest x-ray. still in CHF by 11/28 cxr 3. reviewed echocardiogram. 4. Follow Cardiology recommendations. 5. DuoNebs. 6. Xarelto on hold due to anemia 7. V/Q scan once chest x-ray has shown resolution of the CHF, just to document resolution of the previously seen PE. 8. Improved nutritional status. 9. Discussed with Dr. Regis Snow. Discussed with RN. We will follow along with you. OWEN JACKSON MD Nov 28, 2018 11:10
[2018-11-28] MEDS: IPRATRPIUM/ALBUTEROL 0.5/2.5MG 3 ML NEBU. NEB SCH ×4 (12:00→19:39)
--- NOTE | 2018-11-28 12:32 | PDOC ---
CARDIO Progress Notes Date and Time Date of Service 11/28/18 Time of Evaluation 1210 Subjective Subjective: No Chest Pain, No shortness of breath, Other (swelling improved ) Vitals Vitals Vital Signs Date Time Temp Pulse Resp B/P (MAP) Pulse Ox O2 Delivery O2 Flow Rate FiO2 11/28/18 11:09 3.0 11/28/18 11:00 98.1 67 20 123/62 (82) 90 Nasal Cannula 98.1 Weight Weight [ ] Input and Output Intake and Output Intake and Output 11/28/18 06:59 Intake Total 1025 ml Output Total 3100 ml Balance -2075 ml Intake Oral 1000 ml IV Total 25 ml Output Urine Total 3100 ml # Voids 3 Laboratory Labs Laboratory Tests Test 11/27/18 16:29 11/27/18 20:30 11/28/18 05:40 11/28/18 08:17 Glucose (Fingerstick) 248 mg/dL (70-99) 392 mg/dL (70-99) 283 mg/dL (70-99) White Blood Count 5.2 x10^3/uL (4.0-11.0) Red Blood Count 2.29 x10^6/uL (3.50-5.40) Hemoglobin 7.0 g/dL (12.0-15.5) Hematocrit 20.7 % (36.0-47.0) Mean Corpuscular Volume 91 fL (79-100) Mean Corpuscular Hemoglobin 31 pg (25-35) Mean Corpuscular Hemoglobin Concent 34 g/dL (31-37) Red Cell Distribution Width 16.9 % (11.5-14.5) Platelet Count 160 x10^3/uL (140-400) Sodium Level 143 mmol/L (136-145) Potassium Level 4.2 mmol/L (3.5-5.1) Chloride Level 108 mmol/L (98-107) Carbon Dioxide Level 26 mmol/L (21-32) Anion Gap 9 (6-14) Blood Urea Nitrogen 39 mg/dL (7-20) Creatinine 1.6 mg/dL (0.6-1.0) Estimated GFR (Cockcroft-Gault) 33.1 Glucose Level 261 mg/dL (70-99) Calcium Level 8.0 mg/dL (8.5-10.1) Iron Level 27 ug/dL (50-170) Total Iron Binding Capacity 249 ug/dL (250-450) Iron Saturation 11 % (15-34) Test 11/28/18 12:06 Glucose (Fingerstick) 405 mg/dL (70-99) Microbiology Micro Microbiology 11/26/18 Blood Culture - Preliminary, Resulted NO GROWTH AFTER 1 DAY Physical Exam HEENT: Neck Supple W Full Motion Chest: Symmetric LUNGS: Clear to Auscultation Heart: S1S2, RRR Abdomen: Soft N/T Extremities: Other (2+ bilateral LE edema ) Neurology: alert, oriented, follow commands Assessment Assessment 1. Malignant HTN; now controlled 2. Acute on chronic combined diastolic/systolic CHF: potentially induced by uncontrolled HTN 3. Chest pain: due to above and bronchospasm 4. ICM; s/p AICD. LVEF 40-45%. Device check with normal function. One episode of NSVT noted on 10/11/18. 5. BRAD on CKD; Cr stable with diuresis 6. Anemia of chronic disease: Hgb 7.0 7. Traumatic mechanical fall: as noted above. No definitive associated syncope/presyncope 8. CAD; prior stents. clinically stable. 9. Diabetes, II; uncontrolled. As per PCP 10. Hyperlipidemia 11. Hx of PE: on home Xarelto Recommendations Xarelto on hold with anemia Transfuse as warranted Lasix/ optimization therapy. Continue secondary prevention measures Supportive care COLLEEN MAURER APRN Nov 28, 2018 12:32
--- NOTE | 2018-11-28 13:17 | PDOC ---
PROGRESS NOTES Subjective Subjective Patient feeling better. Patient still requiring supplemental oxygen. Objective Objective Vital Signs Date Time Temp Pulse Resp B/P (MAP) Pulse Ox O2 Delivery O2 Flow Rate FiO2 11/28/18 12:31 94 Nasal Cannula 3.0 11/28/18 11:00 98.1 67 20 123/62 (82) 98.1 Intake and Output 11/28/18 06:59 Intake Total 1025 ml Output Total 3100 ml Balance -2075 ml Intake Oral 1000 ml IV Total 25 ml Output Urine Total 3100 ml # Voids 3 Physical Exam Abdomen: Normal bowel sounds Extremities: Other (2+ pitting edema) Lungs: Clear to auscultation Assessment Assessment Problems Medical Problems: (1) Acute respiratory failure with hypoxia Status: Acute (2) Anemia Status: Chronic (3) Cardiomyopathy Status: Chronic (4) CKD (chronic kidney disease) Status: Chronic (5) Severe protein-calorie malnutrition Status: Chronic Acute on chronic combined systolic and diastolic congestive heart failure. Type 2 diabetes out of control due to recent steroid knee injection. History of recurrent pulmonary emboli. COPD Plan Plan of Care Monitor diuresis. Increase activity. Monitor and assess O2 needs. Add insulin for hyperglycemia. Continue fluid and salt restrictions. Comment Review of Relevant I have reviewed the following items leandra (where applicable) has been applied. Labs Laboratory Tests Test 11/26/18 18:39 11/26/18 22:01 11/27/18 00:14 11/27/18 04:15 White Blood Count 3.4 x10^3/uL (4.0-11.0) 6.1 x10^3/uL (4.0-11.0) Red Blood Count 2.43 x10^6/uL (3.50-5.40) 2.23 x10^6/uL (3.50-5.40) Hemoglobin 7.6 g/dL (12.0-15.5) 6.9 g/dL (12.0-15.5) Hematocrit 22.1 % (36.0-47.0) 20.4 % (36.0-47.0) Mean Corpuscular Volume 91 fL (79-100) 92 fL (79-100) Mean Corpuscular Hemoglobin 31 pg (25-35) 31 pg (25-35) Mean Corpuscular Hemoglobin Concent 34 g/dL (31-37) 34 g/dL (31-37) Red Cell Distribution Width 16.9 % (11.5-14.5) 17.3 % (11.5-14.5) Platelet Count 159 x10^3/uL (140-400) 139 x10^3/uL (140-400) Neutrophils (%) (Auto) 59 % (31-73) 70 % (31-73) Lymphocytes (%) (Auto) 31 % (24-48) 20 % (24-48) Monocytes (%) (Auto) 5 % (0-9) 4 % (0-9) Eosinophils (%) (Auto) 5 % (0-3) 5 % (0-3) Basophils (%) (Auto) 1 % (0-3) 1 % (0-3) Neutrophils # (Auto) 2.0 x10^3/uL (1.8-7.7) 4.3 x10^3/uL (1.8-7.7) Lymphocytes # (Auto) 1.0 x10^3/uL (1.0-4.8) 1.2 x10^3/uL (1.0-4.8) Monocytes # (Auto) 0.2 x10^3/uL (0.0-1.1) 0.3 x10^3/uL (0.0-1.1) Eosinophils # (Auto) 0.2 x10^3/uL (0.0-0.7) 0.3 x10^3/uL (0.0-0.7) Basophils # (Auto) 0.0 x10^3/uL (0.0-0.2) 0.0 x10^3/uL (0.0-0.2) D-Dimer (Jewell) 1.13 ug/mlFEU (0.00-0.50) Urine Collection Type Void Urine Color Yellow Urine Clarity Clear Urine pH 7.5 Urine Specific [place] 1.020 Urine Protein >=300 mg/dL (NEG-TRACE) Urine Glucose (UA) 500 mg/dL (NEG) Urine Ketones (Stick) Negative mg/dL (NEG) Urine Blood Moderate (NEG) Urine Nitrite Negative (NEG) Urine Bilirubin Negative (NEG) Urine Urobilinogen Dipstick 0.2 mg/dL (0.2 mg/dL) Urine Leukocyte Esterase Negative (NEG) Urine RBC 6-10 /HPF (0-2) Urine WBC Occ /HPF (0-4) Urine Squamous Epithelial Cells Mod /LPF Urine Bacteria Few /HPF (0-FEW) Sodium Level 142 mmol/L (136-145) 140 mmol/L (136-145) Potassium Level 4.3 mmol/L (3.5-5.1) 4.4 mmol/L (3.5-5.1) Chloride Level 107 mmol/L (98-107) 109 mmol/L (98-107) Carbon Dioxide Level 28 mmol/L (21-32) 22 mmol/L (21-32) Anion Gap 7 (6-14) 9 (6-14) Blood Urea Nitrogen 37 mg/dL (7-20) 41 mg/dL (7-20) Creatinine 2.1 mg/dL (0.6-1.0) 1.7 mg/dL (0.6-1.0) Estimated GFR (Cockcroft-Gault) 24.2 30.9 BUN/Creatinine Ratio 18 (6-20) 24 (6-20) Glucose Level 331 mg/dL (70-99) 240 mg/dL (70-99) Lactic Acid Level 0.9 mmol/L (0.4-2.0) Calcium Level 8.1 mg/dL (8.5-10.1) 7.9 mg/dL (8.5-10.1) Total Bilirubin 0.2 mg/dL (0.2-1.0) 0.2 mg/dL (0.2-1.0) Aspartate Amino Transf (AST/SGOT) 23 U/L (15-37) 19 U/L (15-37) Alanine Aminotransferase (ALT/SGPT) 22 U/L (14-59) 16 U/L (14-59) Alkaline Phosphatase 135 U/L (46-116) 111 U/L (46-116) Troponin I Quantitative 0.026 ng/mL (0.000-0.055) < 0.017 ng/mL (0.000-0.055) LA-Ixw-L-Type Natriuretic Peptide 7678 pg/mL (0-124) Total Protein 5.7 g/dL (6.4-8.2) 5.2 g/dL (6.4-8.2) Albumin 2.2 g/dL (3.4-5.0) 1.9 g/dL (3.4-5.0) Albumin/Globulin Ratio 0.6 (1.0-1.7) 0.6 (1.0-1.7) Nasal Screen MRSA (PCR) Negative (Negative) Glucose (Fingerstick) 320 mg/dL (70-99) Hemoglobin A1c 10.2 % (4.8-5.6) Triglycerides Level 61 mg/dL (0-150) Cholesterol Level 179 mg/dL (0-200) LDL Cholesterol, Calculated 111 mg/dL (0-100) VLDL Cholesterol, Calculated 12 mg/dL (0-40) Non-HDL Cholesterol Calculated 123 mg/dL (0-129) HDL Cholesterol 56 mg/dL (40-60) Cholesterol/HDL Ratio 3.2 Thyroid Stimulating Hormone (TSH) 43.373 uIU/mL (0.358-3.74) Test 11/27/18 06:35 11/27/18 08:48 11/27/18 12:09 11/27/18 16:29 Glucose (Fingerstick) 206 mg/dL (70-99) 171 mg/dL (70-99) 212 mg/dL (70-99) 248 mg/dL (70-99) Test 11/27/18 20:30 11/28/18 05:40 11/28/18 08:17 11/28/18 12:06 Glucose (Fingerstick) 392 mg/dL (70-99) 283 mg/dL (70-99) 405 mg/dL (70-99) White Blood Count 5.2 x10^3/uL (4.0-11.0) Red Blood Count 2.29 x10^6/uL (3.50-5.40) Hemoglobin 7.0 g/dL (12.0-15.5) Hematocrit 20.7 % (36.0-47.0) Mean Corpuscular Volume 91 fL (79-100) Mean Corpuscular Hemoglobin 31 pg (25-35) Mean Corpuscular Hemoglobin Concent 34 g/dL (31-37) Red Cell Distribution Width 16.9 % (11.5-14.5) Platelet Count 160 x10^3/uL (140-400) Sodium Level 143 mmol/L (136-145) Potassium Level 4.2 mmol/L (3.5-5.1) Chloride Level 108 mmol/L (98-107) Carbon Dioxide Level 26 mmol/L (21-32) Anion Gap 9 (6-14) Blood Urea Nitrogen 39 mg/dL (7-20) Creatinine 1.6 mg/dL (0.6-1.0) Estimated GFR (Cockcroft-Gault) 33.1 Glucose Level 261 mg/dL (70-99) Calcium Level 8.0 mg/dL (8.5-10.1) Iron Level 27 ug/dL (50-170) Total Iron Binding Capacity 249 ug/dL (250-450) Iron Saturation 11 % (15-34) Laboratory Tests Test 11/27/18 16:29 11/27/18 20:30 11/28/18 05:40 11/28/18 08:17 Glucose (Fingerstick) 248 mg/dL (70-99) 392 mg/dL (70-99) 283 mg/dL (70-99) White Blood Count 5.2 x10^3/uL (4.0-11.0) Red Blood Count 2.29 x10^6/uL (3.50-5.40) Hemoglobin 7.0 g/dL (12.0-15.5) Hematocrit 20.7 % (36.0-47.0) Mean Corpuscular Volume 91 fL (79-100) Mean Corpuscular Hemoglobin 31 pg (25-35) Mean Corpuscular Hemoglobin Concent 34 g/dL (31-37) Red Cell Distribution Width 16.9 % (11.5-14.5) Platelet Count 160 x10^3/uL (140-400) Sodium Level 143 mmol/L (136-145) Potassium Level 4.2 mmol/L (3.5-5.1) Chloride Level 108 mmol/L (98-107) Carbon Dioxide Level 26 mmol/L (21-32) Anion Gap 9 (6-14) Blood Urea Nitrogen 39 mg/dL (7-20) Creatinine 1.6 mg/dL (0.6-1.0) Estimated GFR (Cockcroft-Gault) 33.1 Glucose Level 261 mg/dL (70-99) Calcium Level 8.0 mg/dL (8.5-10.1) Iron Level 27 ug/dL (50-170) Total Iron Binding Capacity 249 ug/dL (250-450) Iron Saturation 11 % (15-34) Test 11/28/18 12:06 Glucose (Fingerstick) 405 mg/dL (70-99) Microbiology 11/26/18 Blood Culture - Preliminary, Resulted NO GROWTH AFTER 1 DAY Medications Current Medications Aspirin (Children'S Aspirin) 324 mg 1X ONCE PO Last administered on 11/26/18 19:34; Start 11/26/18 at 19:15; Stop 11/26/18 at 19:18; Status DC Nitroglycerin (Nitro-Bid Oint) 1 inch 1X ONCE TP Last administered on 11/26/18 19:35; Start 11/26/18 at 19:15; Stop 11/26/18 at 19:18; Status DC Nitroglycerin/ Dextrose 250 ml @ 0 mls/hr 1X ONCE IV Last administered on 11/26/18 20:34; Start 11/26/18 at 20:30; Stop 11/27/18 at 09:24; Status DC Bumetanide (Bumex) 1 mg 1X ONCE IV Last administered on 11/26/18 20:45; Start 11/26/18 at 21:00; Stop 11/26/18 at 21:01; Status DC Nitroglycerin/ Dextrose 250 ml @ 1.5 mls/hr CONT PRN IV SEE I/O RECORD; Start 11/26/18 at 23:45 Acetaminophen/ Hydrocodone Bitart (Lortab 7.5/325) 1 tab PRN Q6HRS PRN PO SEVERE PAIN 7-10 Last administered on 11/28/18at 09:20; Start 11/26/18 at 23:45 Insulin Glargine (Lantus) 5 units QHS SQ Last administered on 11/27/18 20:35; Start 11/27/18 at 00:15 Torsemide (Demadex) 20 mg BID94 PO Last administered on 11/27/18 08:57; Start 11/27/18 at 09:00; Stop 11/27/18 at 09:24; Status DC Metolazone (Zaroxolyn) 5 mg BID PO Last administered on 11/27/18 08:57; Start 11/27/18 at 09:00; Stop 11/27/18 at 09:24; Status DC Carvedilol (Coreg) 25 mg BIDWMEALS PO Last administered on 11/28/18 09:02; Start 11/27/18 at 09:00 Sacubitril/ Valsartan (Entresto 49 Mg-51 Mg) 2 tab BID PO Last administered on 11/28/18at 09:02; Start 11/27/18 at 09:00 Rivaroxaban (Xarelto) 20 mg DAILYWSUP PO ; Start 11/27/18 at 17:00; Stop 11/27/18 at 11:21; Status DC Atorvastatin Calcium (Lipitor) 80 mg QHS PO Last administered on 11/27/18at 20:35; Start 11/27/18 at 21:00 Gabapentin (Neurontin) 300 mg TID PO Last administered on 11/28/18 09:02; Start 11/27/18 at 09:00 Ferrous Sulfate (Feosol) 325 mg DAILYWBKFT PO Last administered on 11/28/18at 09:02; Start 11/27/18 at 08:00 Albuterol Sulfate (Ventolin Neb Soln) 2.5 mg PRN Q6HRS PRN NEB SHORTNESS OF BREATH Last administered on 11/27/18at 09:04; Start 11/27/18 at 08:15 Insulin Human Lispro (HumaLOG) 0-5 UNITS TIDWMEALS SQ Last administered on 11/27/18at 18:14; Start 11/27/18 at 12:00; Stop 11/27/18 at 20:48; Status DC Dextrose (Dextrose 50%-Water Syringe) 12.5 gm PRN Q15MIN PRN IV SEE COMMENTS; Start 11/27/18 at 08:15 Dextrose 250 ml PRN Q15MIN PRN IV SEE COMMENTS; Start 11/27/18 at 08:15 Albuterol Sulfate (Ventolin Neb Soln) 2.5 mg PRN Q6HRS PRN NEB SHORTNESS OF BREATH; Start 11/27/18 at 08:15; Status UNV Insulin Human Lispro (HumaLOG) 0-5 UNITS TIDWMEALS SQ ; Start 11/27/18 at 12:00; Status UNV Dextrose (Dextrose 50%-Water Syringe) 12.5 gm PRN Q15MIN PRN IV SEE COMMENTS; Start 11/27/18 at 08:15; Status UNV Dextrose 250 ml PRN Q15MIN PRN IV SEE COMMENTS; Start 11/27/18 at 08:15; Status UNV Metolazone (Zaroxolyn) 5 mg DAILY PO Last administered on 11/28/18at 09:02; Start 11/27/18 at 09:30 Furosemide (Lasix) 40 mg BID94 IVP Last administered on 11/28/18at 09:02; Start 11/27/18 at 16:00 Hydralazine HCl (Apresoline Inj) 10 mg PRN Q4HRS PRN IVP ELEVATED BP, SEE COMMENTS; Start 11/27/18 at 09:30 Methylprednisolone Acetate (DEPO-Medrol 80MG VIAL) 80 mg 1X ONCE IM Last administered on 11/27/18at 11:11; Start 11/27/18 at 11:00; Stop 11/27/18 at 11:01; Status DC Lidocaine HCl (Lidocaine 1% 20ml Vial) 20 ml 1X ONCE INJ Last administered on 11/27/18at 11:11; Start 11/27/18 at 11:00; Stop 11/27/18 at 11:01; Status DC Insulin Human Lispro (HumaLOG) 5 units 1X ONCE SQ Last administered on 11/27/18at 22:14; Start 11/27/18 at 21:00; Stop 11/27/18 at 21:01; Status DC Insulin Glargine (Lantus) 10 units 1X ONCE SQ Last administered on 11/27/18at 22:14; Start 11/27/18 at 21:00; Stop 11/27/18 at 21:01; Status DC Insulin Human Lispro (HumaLOG) 0-7 UNITS TIDWMEALS SQ Last administered on 11/28/18at 09:20; Start 11/28/18 at 08:00 Albuterol/ Ipratropium (Duoneb) 3 ml RTQID NEB Last administered on 11/28/18at 12:28; Start 11/28/18 at 09:00 Active Scripts Active Vitamin D (Cholecalciferol (Vitamin D3)) 1,000 Unit Capsule 2,000 Unit PO DAILY 30 Days Aspirin Ec (Aspirin) 81 Mg Tablet. 81 Mg PO DAILYWBKFT Lantus Solostar (Insulin Glargine,Hum.rec.anlog) 100 Unit/1 Ml Insuln.pen 5 Unit SQ QHS Synthroid (Levothyroxine Sodium) 200 Mcg Tablet 1 Tab PO DAILY Pantoprazole Sodium 40 Mg Tablet.dr 40 Mg PO DAILYAC Reported Xarelto (Rivaroxaban) 20 Mg Tablet 20 Mg PO DAILY Demadex (Torsemide) 20 Mg Tablet 20 Mg PO BID NITROGLYCERIN SubLingual (Nitroglycerin) 0.4 Mg Tab.subl 0.4 Mg SL PRN Q5MIN PRN Ferrous Sulfate 325 Mg Tablet 1 Tab PO DAILY Folic Acid 1 Mg Tablet 1 Tab PO DAILY Colestid (Colestipol Hcl) 1 Gm Tablet 2 Gm PO BID Metolazone 5 Mg Tablet 5 Mg PO DAILY Triamterene-Hctz 37.5-25 Mg Tb (Triamterene/Hydrochlorothiazid) 1 Each Tablet 1 Tab PO DAILY Coreg (Carvedilol) 25 Mg Tablet 12.5 Mg PO BIDWMEALS Entresto 97 mg-103 mg Tablet (Sacubitril/Valsartan) 1 Each Tablet 1 Each PO BID Atorvastatin Calcium 80 Mg Tablet 1 Tab PO QHS Gabapentin (Gabapentin) 300 Mg Capsule 300 Mg PO TID Potassium Chloride 10 Meq Tab.er.prt 1 Tab PO BID Metformin Hcl 1,000 Mg Tablet 1 Tab PO BID Vitals/I & O Vital Sign - Last 24 Hours 11/27/18 11/27/18 11/27/18 11/27/18 15:00 15:25 15:30 18:14 Temp 98.3 98.0 98.3 98.0 Pulse 67 71 71 Resp 16 16 B/P (MAP) 138/62 (87) 182/84 (116) 182/84 Pulse Ox 96 93 O2 Delivery Nasal Cannula Nasal Cannula Nasal Cannula O2 Flow Rate 3.0 3.0 3.0 11/27/18 11/27/18 11/27/18 11/27/18 19:35 20:00 20:35 22:14 Temp 98.3 98.3 Pulse 75 75 Resp 20 20 B/P (MAP) 185/84 (117) 185/84 Pulse Ox 91 O2 Delivery Nasal Cannula Nasal Cannula Nasal Cannula O2 Flow Rate 3.0 3.0 3.0 11/27/18 11/28/18 11/28/18 11/28/18 22:45 03:30 07:00 09:02 Temp 97.9 97.8 97.6 97.9 97.8 97.6 Pulse 79 75 69 69 Resp 20 20 20 B/P (MAP) 169/78 (108) 144/67 (92) 159/74 (102) 159/74 Pulse Ox 96 95 91 O2 Delivery Nasal Cannula Nasal Cannula Nasal Cannula O2 Flow Rate 3.0 3.0 3.0 11/28/18 11/28/18 11/28/18 11/28/18 09:02 09:20 11:00 11:09 Temp 98.1 98.1 Pulse 69 67 Resp 20 B/P (MAP) 159/74 123/62 (82) Pulse Ox 91 90 O2 Delivery Nasal Cannula Nasal Cannula O2 Flow Rate 3.0 3.0 3.0 11/28/18 12:31 Pulse Ox 94 O2 Delivery Nasal Cannula O2 Flow Rate 3.0 Intake and Output 11/27/18 11/27/18 11/28/18 14:59 22:59 06:59 Intake Total 625 ml 400 ml Output Total 1750 ml 950 ml 400 ml Balance -1125 ml -950 ml 0 ml MELODIE VALLES MD Nov 28, 2018 13:17
--- NOTE | 2018-11-28 14:22 | PDOC ---
SUBJECTIVE ROS Feeling better OBJECTIVE Vital Signs Vital Signs Date Time Temp Pulse Resp B/P (MAP) Pulse Ox O2 Delivery O2 Flow Rate FiO2 11/28/18 12:31 94 Nasal Cannula 3.0 11/28/18 11:00 98.1 67 20 123/62 (82) 98.1 I & 0 Intake and Output 11/28/18 06:59 Intake Total 1025 ml Output Total 3100 ml Balance -2075 ml Intake Oral 1000 ml IV Total 25 ml Output Urine Total 3100 ml # Voids 3 PHYSICAL EXAM Physical Exam GEN: Awake, Oriented x [], In [] distress EYES: Vision Unchanged, Conjunctiva Normal EN: No EN Drainage, Mucous Membranes [] NECK: [] JVD, [] JVP, Supple, [] Thyromegaly CVS: S1S2, [] Murmur, No Gallop, No Rub,[] Edema RESP: [] Rales, [] Rhonchi,[] Acc. 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 Microscopic hematuria - No casts reported no prior UA in [facility] records proteinuria +, suspect 2/2 to DM , also on Xarelto renal US reviewed- extra renal pelvis, vs mild Hydronephrosis, improving renal function CHF- On IV Furosemide Mild congestion on Cxr Per cardiology DM-per primary HTN stable, home meds Anemia- stable Per primary COMMENT/RELEVANT DATA Meds Current Medications Medications (Trade) Dose Ordered Sig/Carlos Start Time Stop Time Status Last Admin Dose Admin Acetaminophen/ Hydrocodone Bitart (Lortab 7.5/325) 1 tab PRN Q6HRS PRN 11/26/18 23:45 11/28/18 09:20 1 TAB Albuterol Sulfate (Ventolin Neb Soln) 2.5 mg PRN Q6HRS PRN 11/27/18 08:15 UNV Albuterol/ Ipratropium (Duoneb) 3 ml RTQID 11/28/18 09:00 11/28/18 12:28 3 ML Aspirin (Children'S Aspirin) 324 mg 1X ONCE 8/5/19 19:15 11/26/18 19:18 DC 11/26/18 19:34 324 MG Atorvastatin Calcium (Lipitor) 80 mg QHS 11/27/18 21:00 11/27/18 20:35 80 MG Bumetanide (Bumex) 1 mg 1X ONCE 11/26/18 21:00 11/26/18 21:01 DC 11/26/18 20:45 1 MG Carvedilol (Coreg) 25 mg BIDWMEALS 11/27/18 09:00 11/28/18 09:02 25 MG Dextrose 250 ml PRN Q15MIN PRN 11/27/18 08:15 UNV Dextrose (Dextrose 50%-Water Syringe) 12.5 gm PRN Q15MIN PRN 11/27/18 08:15 UNV Ferrous Sulfate (Feosol) 325 mg DAILYWBKFT 11/27/18 08:00 11/28/18 09:02 325 MG Furosemide (Lasix) 40 mg BID94 11/27/18 16:00 11/28/18 09:02 40 MG Gabapentin (Neurontin) 300 mg TID 11/27/18 09:00 11/28/18 09:02 300 MG Hydralazine HCl (Apresoline Inj) 10 mg PRN Q4HRS PRN 11/27/18 09:30 Insulin Glargine (Lantus) 10 units 1X ONCE 11/27/18 21:00 11/27/18 21:01 DC 11/27/18 22:14 10 UNITS Insulin Human Lispro (HumaLOG) 0-7 UNITS TIDWMEALS 11/28/18 08:00 11/28/18 13:35 20 UNITS Lidocaine HCl (Lidocaine 1% 20ml Vial) 20 ml 1X ONCE 11/27/18 11:00 11/27/18 11:01 DC 11/27/18 11:11 20 ML Methylprednisolone Acetate (DEPO-Medrol 80MG VIAL) 80 mg 1X ONCE 11/27/18 11:00 11/27/18 11:01 DC 11/27/18 11:11 80 MG Metolazone (Zaroxolyn) 5 mg DAILY 11/27/18 09:30 11/28/18 09:02 5 MG Nitroglycerin (Nitro-Bid Oint) 1 inch 1X ONCE 11/26/18 19:15 11/26/18 19:18 DC 11/26/18 19:35 1 INCH Nitroglycerin/ Dextrose 250 ml @ 1.5 mls/hr CONT PRN 11/26/18 23:45 Rivaroxaban (Xarelto) 20 mg DAILYWSUP 11/27/18 17:00 11/27/18 11:21 DC Sacubitril/ Valsartan (Entresto 49 Mg-51 Mg) 2 tab BID 11/27/18 09:00 11/28/18 09:02 2 TAB Torsemide (Demadex) 20 mg BID94 11/27/18 09:00 11/27/18 09:24 DC 11/27/18 08:57 20 MG Lab Laboratory Tests Test 11/27/18 16:29 11/27/18 20:30 11/28/18 05:40 11/28/18 08:17 Glucose (Fingerstick) 248 mg/dL (70-99) 392 mg/dL (70-99) 283 mg/dL (70-99) White Blood Count 5.2 x10^3/uL (4.0-11.0) Red Blood Count 2.29 x10^6/uL (3.50-5.40) Hemoglobin 7.0 g/dL (12.0-15.5) Hematocrit 20.7 % (36.0-47.0) Mean Corpuscular Volume 91 fL (79-100) Mean Corpuscular Hemoglobin 31 pg (25-35) Mean Corpuscular Hemoglobin Concent 34 g/dL (31-37) Red Cell Distribution Width 16.9 % (11.5-14.5) Platelet Count 160 x10^3/uL (140-400) Sodium Level 143 mmol/L (136-145) Potassium Level 4.2 mmol/L (3.5-5.1) Chloride Level 108 mmol/L (98-107) Carbon Dioxide Level 26 mmol/L (21-32) Anion Gap 9 (6-14) Blood Urea Nitrogen 39 mg/dL (7-20) Creatinine 1.6 mg/dL (0.6-1.0) Estimated GFR (Cockcroft-Gault) 33.1 Glucose Level 261 mg/dL (70-99) Calcium Level 8.0 mg/dL (8.5-10.1) Iron Level 27 ug/dL (50-170) Total Iron Binding Capacity 249 ug/dL (250-450) Iron Saturation 11 % (15-34) Test 11/28/18 12:06 Glucose (Fingerstick) 405 mg/dL (70-99) Results All relevant outside records, renal labs, imaging studies, telemetry/EKG's were reviewed. Other right kidney measures 11.5 cm [id number]. Left kidney measures 11.0 cm [id number]. There is a prominent right renal pelvis. No solid or cystic renal lesion is seen. The bladder is unremarkable. The ureteral jets are both seen. The inferior vena cava and aorta are partially obscured due to bowel gas. IMPRESSION: 1. Prominent right renal pelvis. This may be due to an extra renal pelvis or mild hydronephrosis. 2. Otherwise, sonographically unremarkable kidneys. CxR-- : Stable pulmonary congestion with small pleural effusions and cardiomegaly. JOSE EDUARDO MEJIA MD Nov 28, 2018 14:22
[2018-11-28 15:00] VITALS: BP 162/67
--- NOTE | 2018-11-28 18:19 | NUR ---
dr dinh notified that pt was given 20 units at lunch per her request for a blood sugar of 405.
[2018-11-28 19:10] VITALS: BP 185/78
[2018-11-28] MEDS: ATORVASTATIN CALCIUM 40 MG TABLET. PO SCH (21:14)
[2018-11-28] MEDS: hydrALAZINE 20 MG/ML VIAL. IVP PRN (21:18)
[2018-11-28] MEDS: INSULIN GLARGINE 300 UNITS/3 ML INSULN.PEN. SQ SCH (21:24)
[2018-11-28 23:32] VITALS: BP 139/64
[2018-11-29 03:32] VITALS: BP 157/65
[2018-11-29 07:00] VITALS: BP 159/72
[2018-11-29] MEDS: INSULIN LISPRO 300 UNITS/3 ML INSULN.PEN. SQ SCH ×4 (07:30→22:10)
[2018-11-29] MEDS: IPRATRPIUM/ALBUTEROL 0.5/2.5MG 3 ML NEBU. NEB SCH ×4 (08:39→19:55)
[2018-11-29] MEDS: SACUBITRIL/VALSARTAN 49/51MG TABLET. PO SCH ×2 (08:49→22:08)
[2018-11-29] MEDS: metOLazone 2.5 MG TABLET PO SCH (08:49)
[2018-11-29] MEDS: GABAPENTIN 300 MG CAPSULE. PO SCH ×3 (08:50→22:09)
[2018-11-29] MEDS: FERROUS SULFATE 325 MG TABLET. PO SCH (08:50)
[2018-11-29] MEDS: CARVEDILOL 12.5 MG TABLET. PO SCH ×2 (08:50→17:20)
[2018-11-29] MEDS: FUROSEMIDE 40 MG/4 ML VIAL. IVP SCH ×2 (08:51→17:20)
--- NOTE | 2018-11-29 10:59 | PDOC ---
SUBJECTIVE ROS Feeling better OBJECTIVE Vital Signs Vital Signs Date Time Temp Pulse Resp B/P (MAP) Pulse Ox O2 Delivery O2 Flow Rate FiO2 11/29/18 08:53 72 159/72 11/29/18 08:41 93 Nasal Cannula 3.0 11/29/18 07:00 98.4 18 98.4 I & 0 Intake and Output 11/29/18 07:00 Intake Total 780 ml Output Total 1600 ml Balance -820 ml Intake Oral 780 ml Output Urine Total 1600 ml # Voids 3 PHYSICAL EXAM Physical Exam HEENT: Neck Supple W Full Motion Chest: Symmetric LUNGS: Clear to Auscultation Heart: S1S2, RRR Abdomen: Soft N/T Extremities: Neurology: alert, oriented, DIAGNOSIS/ASSESSMENT Assessment & Plan BRAD - Cardiorenal Improving renal function , No labs this am, ordered, will follow Denies NSAID use Supportive care, monitor, Strict i/o, CKD stage 3- baseline 1.3-1.5 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 Microscopic hematuria - No casts reported no prior UA in [facility] records proteinuria +, suspect 2/2 to DM , also on Xarelto renal US reviewed- extra renal pelvis, vs mild Hydronephrosis, improving renal function CHF- On IV Furosemide and metolazone Per cardiology DM-per primary HTN stable, home meds Anemia- stable Per primary COMMENT/RELEVANT DATA Meds Current Medications Medications (Trade) Dose Ordered Sig/Carlos Start Time Stop Time Status Last Admin Dose Admin Acetaminophen/ Hydrocodone Bitart (Lortab 7.5/325) 1 tab PRN Q6HRS PRN 11/26/18 23:45 11/28/18 21:24 1 TAB Albuterol Sulfate (Ventolin Neb Soln) 2.5 mg PRN Q6HRS PRN 11/27/18 08:15 UNV Albuterol/ Ipratropium (Duoneb) 3 ml RTQID 11/28/18 09:00 11/29/18 08:39 3 ML Aspirin (Children'S Aspirin) 324 mg 1X ONCE 11/26/18 19:15 11/26/18 19:18 DC 11/26/18 19:34 324 MG Atorvastatin Calcium (Lipitor) 80 mg QHS 11/27/18 21:00 11/28/18 21:24 80 MG Bumetanide (Bumex) 1 mg 1X ONCE 11/26/18 21:00 11/26/18 21:01 DC 11/26/18 20:45 1 MG Carvedilol (Coreg) 25 mg BIDWMEALS 11/27/18 09:00 11/29/18 08:53 25 MG Dextrose 250 ml PRN Q15MIN PRN 11/27/18 08:15 UNV Dextrose (Dextrose 50%-Water Syringe) 12.5 gm PRN Q15MIN PRN 11/27/18 08:15 UNV Ferrous Sulfate (Feosol) 325 mg DAILYWBKFT 11/27/18 08:00 11/29/18 08:53 325 MG Furosemide (Lasix) 40 mg BID94 11/27/18 16:00 11/29/18 08:53 40 MG Gabapentin (Neurontin) 300 mg TID 11/27/18 09:00 11/29/18 08:53 300 MG Hydralazine HCl (Apresoline Inj) 10 mg PRN Q4HRS PRN 11/27/18 09:30 11/28/18 21:24 10 MG Insulin Glargine (Lantus) 10 units 1X ONCE 11/27/18 21:00 11/27/18 21:01 DC 11/27/18 22:14 10 UNITS Insulin Human Lispro (HumaLOG) 0-12 UNITS QIDACHS 11/28/18 16:30 11/28/18 21:24 4 UNITS Lidocaine HCl (Lidocaine 1% 20ml Vial) 20 ml 1X ONCE 11/27/18 11:00 11/27/18 11:01 DC 11/27/18 11:11 20 ML Methylprednisolone Acetate (DEPO-Medrol 80MG VIAL) 80 mg 1X ONCE 11/27/18 11:00 11/27/18 11:01 DC 11/27/18 11:11 80 MG Metolazone (Zaroxolyn) 5 mg DAILY 11/27/18 09:30 11/29/18 08:53 5 MG Nitroglycerin (Nitro-Bid Oint) 1 inch 1X ONCE 11/26/18 19:15 11/26/18 19:18 DC 11/26/18 19:35 1 INCH Nitroglycerin/ Dextrose 250 ml @ 1.5 mls/hr CONT PRN 11/26/18 23:45 Rivaroxaban (Xarelto) 20 mg DAILYWSUP 11/27/18 17:00 11/27/18 11:21 DC Sacubitril/ Valsartan (Entresto 49 Mg-51 Mg) 2 tab BID 11/27/18 09:00 11/29/18 08:53 2 TAB Torsemide (Demadex) 20 mg [id number] 11/27/18 09:00 11/27/18 09:24 DC 11/27/18 08:57 20 MG Lab Laboratory Tests Test 11/28/18 12:06 11/28/18 17:13 11/28/18 21:03 11/29/18 07:41 Glucose (Fingerstick) 405 mg/dL (70-99) 240 mg/dL (70-99) 234 mg/dL (70-99) 130 mg/dL (70-99) Results All relevant outside records, renal labs, imaging studies, telemetry/EKG's were reviewed. JOSE EDUARDO MEJIA MD Nov 29, 2018 10:59
[2018-11-29 11:00] VITALS: BP 167/73
[2018-11-29 12:05] LABS: CALCIUM 7.8 mg/dL (8.5-10.1); CREATININE 1.5 mg/dL (0.6-1.0); GFR 35.7; POTASSIUM 4.4 mmol/L (3.5-5.1)
--- NOTE | 2018-11-29 13:24 | PDOC ---
COLLEEN MAURER ACADEMIC MANAGER 11/29/18 1324: CARDIO Progress Notes Date and Time Date of Service 11/29/18 Time of Evaluation 1310 Subjective Subjective: No Chest Pain, No shortness of breath, Other (swelling improved ) Vitals Vitals Vital Signs Date Time Temp Pulse Resp B/P (MAP) Pulse Ox O2 Delivery O2 Flow Rate FiO2 11/29/18 12:25 95 Nasal Cannula 3.0 11/29/18 11:00 98.0 70 18 167/73 (104) 98.0 Weight Weight [ ] Input and Output Intake and Output Intake and Output 11/29/18 07:00 Intake Total 780 ml Output Total 1600 ml Balance -820 ml Intake Oral 780 ml Output Urine Total 1600 ml # Voids 3 Laboratory Labs Laboratory Tests Test 11/28/18 17:13 11/28/18 21:03 11/29/18 07:41 11/29/18 11:40 Glucose (Fingerstick) 240 mg/dL (70-99) 234 mg/dL (70-99) 130 mg/dL (70-99) Sodium Level 142 mmol/L (136-145) Potassium Level 4.4 mmol/L (3.5-5.1) Chloride Level 106 mmol/L (98-107) Carbon Dioxide Level 30 mmol/L (21-32) Anion Gap 6 (6-14) Blood Urea Nitrogen 39 mg/dL (7-20) Creatinine 1.5 mg/dL (0.6-1.0) Estimated GFR (Cockcroft-Gault) 35.7 Glucose Level 160 mg/dL (70-99) Calcium Level 7.8 mg/dL (8.5-10.1) Microbiology Micro Microbiology 11/26/18 Blood Culture - Final, Complete Physical Exam HEENT: Neck Supple W Full Motion Chest: Symmetric LUNGS: Clear to Auscultation Heart: S1S2, RRR Abdomen: Soft N/T Extremities: Other (2+ bilateral LE edema ) Neurology: alert, oriented, follow commands Assessment Assessment 1. Malignant HTN; now controlled 2. Acute on chronic combined diastolic/systolic CHF: potentially induced by uncontrolled HTN 3. Chest pain: due to above and bronchospasm 4. ICM; s/p AICD. LVEF 40-45%. Device check with normal function. One episode of NSVT noted on 10/11/18. 5. BRAD on CKD; Cr stable with diuresis 6. Anemia of chronic disease: Hgb 7.0 7. Traumatic mechanical fall: as noted above. No definitive associated syncope/presyncope 8. CAD; prior stents. clinically stable. 9. Diabetes, II; uncontrolled. As per PCP 10. Hyperlipidemia 11. Hx of PE: on home Xarelto Recommendations Xarelto on hold with anemia Transfuse as warranted Lasix/ optimization therapy. Continue secondary prevention measures Supportive care ZEFERINO GOMEZ MD 11/29/181951: CARDIO Progress Notes Assessment Assessment Patient seen and examined. Agree with C 13 CATAPULT OPERATOR's assessment and plan, Acute on chr combined diast and syst HF better compensated. Continue diuretics BP better controlled CAD stable Continue management of anemia per IM COLLEEN MAURER APRN Nov 29, 2018 13:24 ZEFERINO GOMZE MD Nov 29, 2018 19:52
--- NOTE | 2018-11-29 13:46 | PDOC ---
PULMONARY PROGRESS NOTES Subjective NO SOA Vitals Vital Signs Date Time Temp Pulse Resp B/P (MAP) Pulse Ox O2 Delivery O2 Flow Rate FiO2 11/29/18 12:25 95 Nasal Cannula 3.0 11/29/18 11:00 98.0 70 18 167/73 (104) 98.0 General: Alert, Oriented X4, No acute distress Lungs: Clear Cardiovascular: S1 Abdomen: Soft Extremities: Other Labs Laboratory Tests Test 11/27/18 16:29 11/27/18 20:30 11/28/18 05:40 11/28/18 08:17 Glucose (Fingerstick) 248 mg/dL (70-99) 392 mg/dL (70-99) 283 mg/dL (70-99) White Blood Count 5.2 x10^3/uL (4.0-11.0) Red Blood Count 2.29 x10^6/uL (3.50-5.40) Hemoglobin 7.0 g/dL (12.0-15.5) Hematocrit 20.7 % (36.0-47.0) Mean Corpuscular Volume 91 fL (79-100) Mean Corpuscular Hemoglobin 31 pg (25-35) Mean Corpuscular Hemoglobin Concent 34 g/dL (31-37) Red Cell Distribution Width 16.9 % (11.5-14.5) Platelet Count 160 x10^3/uL (140-400) Sodium Level 143 mmol/L (136-145) Potassium Level 4.2 mmol/L (3.5-5.1) Chloride Level 108 mmol/L (98-107) Carbon Dioxide Level 26 mmol/L (21-32) Anion Gap 9 (6-14) Blood Urea Nitrogen 39 mg/dL (7-20) Creatinine 1.6 mg/dL (0.6-1.0) Estimated GFR (Cockcroft-Gault) 33.1 Glucose Level 261 mg/dL (70-99) Calcium Level 8.0 mg/dL (8.5-10.1) Iron Level 27 ug/dL (50-170) Total Iron Binding Capacity 249 ug/dL (250-450) Iron Saturation 11 % (15-34) Test 11/28/18 12:06 11/28/18 17:13 11/28/18 21:03 11/29/18 07:41 Glucose (Fingerstick) 405 mg/dL (70-99) 240 mg/dL (70-99) 234 mg/dL (70-99) 130 mg/dL (70-99) Test 11/29/18 11:40 11/29/18 12:04 Sodium Level 142 mmol/L (136-145) Potassium Level 4.4 mmol/L (3.5-5.1) Chloride Level 106 mmol/L (98-107) Carbon Dioxide Level 30 mmol/L (21-32) Anion Gap 6 (6-14) Blood Urea Nitrogen 39 mg/dL (7-20) Creatinine 1.5 mg/dL (0.6-1.0) Estimated GFR (Cockcroft-Gault) 35.7 Glucose Level 160 mg/dL (70-99) Calcium Level 7.8 mg/dL (8.5-10.1) Glucose (Fingerstick) 156 mg/dL (70-99) Laboratory Tests Test 11/28/18 17:13 11/28/18 21:03 11/29/18 07:41 11/29/18 11:40 Glucose (Fingerstick) 240 mg/dL (70-99) 234 mg/dL (70-99) 130 mg/dL (70-99) Sodium Level 142 mmol/L (136-145) Potassium Level 4.4 mmol/L (3.5-5.1) Chloride Level 106 mmol/L (98-107) Carbon Dioxide Level 30 mmol/L (21-32) Anion Gap 6 (6-14) Blood Urea Nitrogen 39 mg/dL (7-20) Creatinine 1.5 mg/dL (0.6-1.0) Estimated GFR (Cockcroft-Gault) 35.7 Glucose Level 160 mg/dL (70-99) Calcium Level 7.8 mg/dL (8.5-10.1) Test 11/29/18 12:04 Glucose (Fingerstick) 156 mg/dL (70-99) Medications Active Scripts Medications Dose Route/Sig Max Daily Dose Days Date Category Xarelto (Rivaroxaban) 20 Mg Tablet 20 Mg PO DAILY 08/10/18 Reported Vitamin D (Cholecalciferol (Vitamin D3)) 1,000 Unit Capsule 2,000 Unit PO DAILY 30 06/07/18 Rx Aspirin Ec (Aspirin) 81 Mg Tablet.dr 81 Mg PO DAILYWBKFT 06/07/18 Rx Lantus Solostar (Insulin Glargine,Hum.rec.anlog) 100 Unit/1 Ml Insuln.pen 5 Unit SQ QHS 06/07/18 Rx Demadex (Torsemide) 20 Mg Tablet 20 Mg PO BID 05/25/18 Reported NITROGLYCERIN SubLingual (Nitroglycerin) 0.4 Mg Tab.subl 0.4 Mg SL PRN Q5MIN PRN 05/25/18 Reported Ferrous Sulfate 325 Mg Tablet 1 Tab PO DAILY 05/25/18 Reported Folic Acid 1 Mg Tablet 1 Tab PO DAILY 05/25/18 Reported Colestid (Colestipol Hcl) 1 Gm Tablet 2 Gm PO BID 05/25/18 Reported Metolazone 5 Mg Tablet 5 Mg PO DAILY 05/25/18 Reported Triamterene-Hctz 37.5-25 Mg Tb (Triamterene/Hydrochlorothiazid) 1 Each Tablet 1 Tab PO DAILY 05/25/18 Reported Coreg (Carvedilol) 25 Mg Tablet 12.5 Mg PO BIDWMEALS 05/25/18 Reported Entresto 97 mg-103 mg Tablet (Sacubitril/Valsartan) 1 Each Tablet 1 Each PO BID 05/25/18 Reported Synthroid (Levothyroxine Sodium) 200 Mcg Tablet 1 Tab PO DAILY 09/02/17 Rx Atorvastatin Calcium 80 Mg Tablet 1 Tab PO QHS 08/19/16 Reported Pantoprazole Sodium 40 Mg Tablet.dr 40 Mg PO DAILYAC 03/25/16 Rx Gabapentin (Gabapentin) 300 Mg Capsule 300 Mg PO TID 03/23/16 Reported Potassium Chloride 10 Meq Tab.er.prt 1 Tab PO BID 07/04/14 Reported Metformin Hcl 1,000 Mg Tablet 1 Tab PO BID 07/02/14 Reported Impression . 1. Acute hypoxic respiratory failure secondary to multifactorial etiologies and likely contributed by acute on chronic systolic heart failure. She has underlying chronic obstructive pulmonary disease without causing any exacerbation. She has anemia, which is probably contributed to her dyspnea as well. 2. The patient with cardiomyopathy with an ejection fraction of 40-45%. 3. History of pulmonary embolism by abnormal V/Q scan, [id number] probability in May of this year with no deep venous thrombosis. She has been on Xarelto since then. Now, she has anemia while on Xarelto. on hold now 4. No evidence of deep venous thrombosis yesterday's venous Dopplers of the lower extremity. 5. Severe protein-calorie malnutrition. 6. Underlying suspected chronic obstructive pulmonary disease from 30 years of tobacco use. 7. Right knee joint effusion, NO hemarthrosis. s/p drainage. 8. Chronic kidney disease. May have an acute component. 9. Anemia, 10. Suspected obstructive sleep apnea. She does have dozing off during the day, never had formal sleep study. Plan . 1. Continue with present oxygen. 2. Diuresis and follow chest x-ray. still in CHF by 11/28 cxr 3. reviewed echocardiogram. 4. Follow Cardiology recommendations. 5. DuoNebs. 6. Xarelto on hold due to anemia 7. V/Q scan to document resolution of the previously seen PE. if resolved , no AC needed in future 8. Improved nutritional status. 9. Discussed with RN. We will follow along with you. OWEN JACKSON MD Nov 29, 2018 13:46
--- NOTE | 2018-11-29 14:30 | PDOC ---
Infectious Disease Note Vital Sign Vital Signs Vital Signs Date Time Temp Pulse Resp B/P (MAP) Pulse Ox O2 Delivery O2 Flow Rate FiO2 11/29/18 12:25 95 Nasal Cannula 3.0 11/29/18 11:00 98.0 70 18 167/73 (104) 98.0 Labs Lab Laboratory Tests Test 11/28/18 17:13 11/28/18 21:03 11/29/18 07:41 11/29/18 11:40 Glucose (Fingerstick) 240 mg/dL (70-99) 234 mg/dL (70-99) 130 mg/dL (70-99) Sodium Level 142 mmol/L (136-145) Potassium Level 4.4 mmol/L (3.5-5.1) Chloride Level 106 mmol/L (98-107) Carbon Dioxide Level 30 mmol/L (21-32) Anion Gap 6 (6-14) Blood Urea Nitrogen 39 mg/dL (7-20) Creatinine 1.5 mg/dL (0.6-1.0) Estimated GFR (Cockcroft-Gault) 35.7 Glucose Level 160 mg/dL (70-99) Calcium Level 7.8 mg/dL (8.5-10.1) Test 11/29/18 12:04 Glucose (Fingerstick) 156 mg/dL (70-99) Micro Microbiology 11/26/18 Blood Culture - Final, Complete Objective Assessment GPC bacteremia (1 of 4 bottles) from 11/27. ? contaminate Leukopenia - better Right knee joint effusion s/p aspiration and steroid injection, 11/27 BRAD on CKD - improved [id number]-[id number] CHF Anemia h/o PE. Xarelto on hold Plan Plan of Care Awaiting GPC ID CBC in am S/p steroid injection to knee D/w nursing Thank you D/w family - likely contamination 1/4 bottles- No F/Leukocytosis/open wounds and clinically improving but will dose Dapto times one with knee swelling Attending Co-Sign Attending Co-Sign The patient was seen and interviewed as well as examined at the bedside. The chart was reviewed. The case was discussed. Agree with the plan of care. SHANA CORONA APRN Nov 29, 2018 14:30 LAMONT DARLING MD Nov 29, 2018 17:50
[2018-11-29 14:48] LABS: HEMATOCRIT 21.3 % (36.0-47.0); HEMOGLOBIN 7.3 g/dL (12.0-15.5); RED BLOOD COUNT 2.36 x10^6/uL (3.50-5.40); RED CELL DISTRIBUTION WIDTH 17.2 % (11.5-14.5); WHITE BLOOD COUNT 5.4 x10^3/uL (4.0-11.0)
[2018-11-29 15:00] VITALS: BP 143/66
--- NOTE | 2018-11-29 17:34 | RAD ---
EXAM: VENTILATION/PERFUSION SCINTIGRAPHY. HISTORY: Pulmonary embolism, shortness of breath. Assess for pulmonary embolism. TECHNIQUE: 16.2 mCi Xe-133 was inhaled and ventilation images were obtained. 5.5 mCi Tc-99m MAA was injected intravenously and perfusion images were obtained in multiple projections. COMPARISON: 11/28/2018. FINDINGS: Ventilation images demonstrate diffusely decreased activity throughout the left lung. There is some radiotracer retention in the left costophrenic angle. There is also decreased ventilation in the right base to a lesser degree. Perfusion to the left lung an right base are also diffusely mildly decreased, likely reflecting autoregulation. There are no segmental defects. IMPRESSION: 1. Low probability for pulmonary embolism. 2. Decreased ventilation and perfusion to the left lung and right base may reflect mucous plugging or small airways disease. Electronically signed by: Su Williamson MD (11/29/2018 5:31 PM) [facility]
[2018-11-29] MEDS ORDERED: DAPTOmycin (GENERIC) IVPB 500 MG in IV NORMAL SALINE 50ML 50 ML IV ONE (18:30)
[2018-11-29] MEDS ORDERED: IPRA3AMP29 NEB (19:17)
[2018-11-29] MEDS ORDERED: ALBU2.5V8 NEB (19:17)
--- NOTE | 2018-11-29 19:24 | PDOC ---
PROGRESS NOTES Subjective Subjective Patient feeling much better. Patient states leg swelling is at baseline. Patient still requiring oxygen support. Objective Objective Vital Signs Date Time Temp Pulse Resp B/P (MAP) Pulse Ox O2 Delivery O2 Flow Rate FiO2 11/29/18 17:21 72 173/76 11/29/18 15:46 94 Room Air 11/29/18 15:00 98.1 18 3.0 98.1 Intake and Output 11/29/18 07:00 Intake Total 780 ml Output Total 1600 ml Balance -820 ml Intake Oral 780 ml Output Urine Total 1600 ml # Voids 3 Physical Exam Abdomen: Normal bowel sounds Heart: Regular rate, Other Extremities: Other (1+ pitting edema lower extremity) General: Alert Lungs: Clear to auscultation Assessment Assessment Problems Medical Problems: (1) Acute respiratory failure with hypoxia Status: Acute (2) Anemia Status: Chronic (3) Cardiomyopathy Status: Chronic (4) CKD (chronic kidney disease) Status: Chronic (5) Severe protein-calorie malnutrition Status: Chronic Acute on chronic combined systolic and diastolic congestive heart failure. Type 2 diabetes out of control due to recent steroid knee injection. History of recurrent pulmonary emboli. Negative VQ scan and lower extremity venous Dopplers at this time. COPD Cardiomyopathy with an ejection fraction of 40-45%. Severe protein-calorie malnutrition. Suspected obstructive sleep apnea. Plan Plan of Care Wean O2. Discontinue Xarelto Discharge to home in a.m. consider 6 minute walk and home O2 needs. Comment Review of Relevant I have reviewed the following items leandra (where applicable) has been applied. Labs Laboratory Tests Test 11/27/18 20:30 11/28/18 05:40 11/28/18 08:17 11/28/18 12:06 Glucose (Fingerstick) 392 mg/dL (70-99) 283 mg/dL (70-99) 405 mg/dL (70-99) White Blood Count 5.2 x10^3/uL (4.0-11.0) Red Blood Count 2.29 x10^6/uL (3.50-5.40) Hemoglobin 7.0 g/dL (12.0-15.5) Hematocrit 20.7 % (36.0-47.0) Mean Corpuscular Volume 91 fL (79-100) Mean Corpuscular Hemoglobin 31 pg (25-35) Mean Corpuscular Hemoglobin Concent 34 g/dL (31-37) Red Cell Distribution Width 16.9 % (11.5-14.5) Platelet Count 160 x10^3/uL (140-400) Sodium Level 143 mmol/L (136-145) Potassium Level 4.2 mmol/L (3.5-5.1) Chloride Level 108 mmol/L (98-107) Carbon Dioxide Level 26 mmol/L (21-32) Anion Gap 9 (6-14) Blood Urea Nitrogen 39 mg/dL (7-20) Creatinine 1.6 mg/dL (0.6-1.0) Estimated GFR (Cockcroft-Gault) 33.1 Glucose Level 261 mg/dL (70-99) Calcium Level 8.0 mg/dL (8.5-10.1) Iron Level 27 ug/dL (50-170) Total Iron Binding Capacity 249 ug/dL (250-450) Iron Saturation 11 % (15-34) Test 11/28/18 17:13 11/28/18 21:03 11/29/18 07:41 11/29/18 11:40 Glucose (Fingerstick) 240 mg/dL (70-99) 234 mg/dL (70-99) 130 mg/dL (70-99) White Blood Count 5.4 x10^3/uL (4.0-11.0) Red Blood Count 2.36 x10^6/uL (3.50-5.40) Hemoglobin 7.3 g/dL (12.0-15.5) Hematocrit 21.3 % (36.0-47.0) Mean Corpuscular Volume 90 fL (79-100) Mean Corpuscular Hemoglobin 31 pg (25-35) Mean Corpuscular Hemoglobin Concent 34 g/dL (31-37) Red Cell Distribution Width 17.2 % (11.5-14.5) Platelet Count 187 x10^3/uL (140-400) Sodium Level 142 mmol/L (136-145) Potassium Level 4.4 mmol/L (3.5-5.1) Chloride Level 106 mmol/L (98-107) Carbon Dioxide Level 30 mmol/L (21-32) Anion Gap 6 (6-14) Blood Urea Nitrogen 39 mg/dL (7-20) Creatinine 1.5 mg/dL (0.6-1.0) Estimated GFR (Cockcroft-Gault) 35.7 Glucose Level 160 mg/dL (70-99) Calcium Level 7.8 mg/dL (8.5-10.1) Test 11/29/18 12:04 11/29/18 17:33 Glucose (Fingerstick) 156 mg/dL (70-99) 297 mg/dL (70-99) Laboratory Tests Test 11/28/18 21:03 11/29/18 07:41 11/29/18 11:40 11/29/18 12:04 Glucose (Fingerstick) 234 mg/dL (70-99) 130 mg/dL (70-99) 156 mg/dL (70-99) White Blood Count 5.4 x10^3/uL (4.0-11.0) Red Blood Count 2.36 x10^6/uL (3.50-5.40) Hemoglobin 7.3 g/dL (12.0-15.5) Hematocrit 21.3 % (36.0-47.0) Mean Corpuscular Volume 90 fL (79-100) Mean Corpuscular Hemoglobin 31 pg (25-35) Mean Corpuscular Hemoglobin Concent 34 g/dL (31-37) Red Cell Distribution Width 17.2 % (11.5-14.5) Platelet Count 187 x10^3/uL (140-400) Sodium Level 142 mmol/L (136-145) Potassium Level 4.4 mmol/L (3.5-5.1) Chloride Level 106 mmol/L (98-107) Carbon Dioxide Level 30 mmol/L (21-32) Anion Gap 6 (6-14) Blood Urea Nitrogen 39 mg/dL (7-20) Creatinine 1.5 mg/dL (0.6-1.0) Estimated GFR (Cockcroft-Gault) 35.7 Glucose Level 160 mg/dL (70-99) Calcium Level 7.8 mg/dL (8.5-10.1) Test 11/29/18 17:33 Glucose (Fingerstick) 297 mg/dL (70-99) Microbiology 11/26/18 Blood Culture - Final, Complete Medications Current Medications Aspirin (Children'S Aspirin) 324 mg 1X ONCE PO Last administered on 11/26/18at 19:34; Start 11/26/18 at 19:15; Stop 11/26/18 at 19:18; Status DC Nitroglycerin (Nitro-Bid Oint) 1 inch 1X ONCE TP Last administered on 11/26/18at 19:35; Start 11/26/18 at 19:15; Stop 11/26/18 at 19:18; Status DC Nitroglycerin/ Dextrose 250 ml @ 0 mls/hr 1X ONCE IV Last administered on 11/26/18 20:34; Start 11/26/18 at 20:30; Stop 11/27/18 at 09:24; Status DC Bumetanide (Bumex) 1 mg 1X ONCE IV Last administered on 11/26/18 20:45; Start 11/26/18 at 21:00; Stop 11/26/18 at 21:01; Status DC Nitroglycerin/ Dextrose 250 ml @ 1.5 mls/hr CONT PRN IV SEE I/O RECORD; Start 11/26/18 at 23:45 Acetaminophen/ Hydrocodone Bitart (Lortab 7.5/325) 1 tab PRN Q6HRS PRN PO SEVERE PAIN 7-10 Last administered on 11/28/18 21:24; Start 11/26/18 at 23:45 Insulin Glargine (Lantus) 5 units QHS SQ Last administered on 11/28/18 21:24; Start 11/27/18 at 00:15 Torsemide (Demadex) 20 mg BID94 PO Last administered on 11/27/18 08:57; Start 11/27/18 at 09:00; Stop 11/27/18 at 09:24; Status DC Metolazone (Zaroxolyn) 5 mg BID PO Last administered on 11/27/18 08:57; Start 11/27/18 at 09:00; Stop 11/27/18 at 09:24; Status DC Carvedilol (Coreg) 25 mg BIDWMEALS PO Last administered on 11/29/18 17:21; Start 11/27/18 at 09:00 Sacubitril/ Valsartan (Entresto 49 Mg-51 Mg) 2 tab BID PO Last administered on 11/29/18 08:53; Start 11/27/18 at 09:00 Rivaroxaban (Xarelto) 20 mg DAILYWSUP PO ; Start 11/27/18 at 17:00; Stop 11/27/18 at 11:21; Status DC Atorvastatin Calcium (Lipitor) 80 mg QHS PO Last administered on 11/28/18 21:24; Start 11/27/18 at 21:00 Gabapentin (Neurontin) 300 mg TID PO Last administered on 11/29/18 14:52; Start 11/27/18 at 09:00 Ferrous Sulfate (Feosol) 325 mg DAILYWBKFT PO Last administered on 11/29/18 08:53; Start 11/27/18 at 08:00 Albuterol Sulfate (Ventolin Neb Soln) 2.5 mg PRN Q6HRS PRN NEB SHORTNESS OF BREATH Last administered on 11/27/18 09:04; Start 11/27/18 at 08:15 Insulin Human Lispro (HumaLOG) 0-5 UNITS TIDWMEALS SQ Last administered on 11/27/18at 18:14; Start 11/27/18 at 12:00; Stop 11/27/18 at 20:48; Status DC Dextrose (Dextrose 50%-Water Syringe) 12.5 gm PRN Q15MIN PRN IV SEE COMMENTS; Start 11/27/18 at 08:15 Dextrose 250 ml PRN Q15MIN PRN IV SEE COMMENTS; Start 11/27/18 at 08:15 Albuterol Sulfate (Ventolin Neb Soln) 2.5 mg PRN Q6HRS PRN NEB SHORTNESS OF BREATH; Start 11/27/18 at 08:15; Status UNV Insulin Human Lispro (HumaLOG) 0-5 UNITS TIDWMEALS SQ ; Start 11/27/18 at 12:00; Status UNV Dextrose (Dextrose 50%-Water Syringe) 12.5 gm PRN Q15MIN PRN IV SEE COMMENTS; Start 11/27/18 at 08:15; Status UNV Dextrose 250 ml PRN Q15MIN PRN IV SEE COMMENTS; Start 11/27/18 at 08:15; Status UNV Metolazone (Zaroxolyn) 5 mg DAILY PO Last administered on 11/29/18 08:53; Start 11/27/18 at 09:30 Furosemide (Lasix) 40 mg BID94 IVP Last administered on 11/29/18 17:21; Start 11/27/18 at 16:00 Hydralazine HCl (Apresoline Inj) 10 mg PRN Q4HRS PRN IVP ELEVATED BP, SEE COMMENTS Last administered on 11/28/18at 21:24; Start 11/27/18 at 09:30 Methylprednisolone Acetate (DEPO-Medrol 80MG VIAL) 80 mg 1X ONCE IM Last administered on 11/27/18at 11:11; Start 11/27/18 at 11:00; Stop 11/27/18 at 11:01; Status DC Lidocaine HCl (Lidocaine 1% 20ml Vial) 20 ml 1X ONCE INJ Last administered on 11/27/18at 11:11; Start 11/27/18 at 11:00; Stop 11/27/18 at 11:01; Status DC Insulin Human Lispro (HumaLOG) 5 units 1X ONCE SQ Last administered on 11/27/18at 22:14; Start 11/27/18 at 21:00; Stop 11/27/18 at 21:01; Status DC Insulin Glargine (Lantus) 10 units 1X ONCE SQ Last administered on 11/27/18at 22:14; Start 11/27/18 at 21:00; Stop 11/27/18 at 21:01; Status DC Insulin Human Lispro (HumaLOG) 0-7 UNITS TIDWMEALS SQ Last administered on 11/28/18at 13:35; Start 11/28/18 at 08:00; Stop 11/28/18 at 14:44; Status DC Albuterol/ Ipratropium (Duoneb) 3 ml RTQID NEB Last administered on 11/29/18at 15:46; Start 11/28/18 at 09:00 Insulin Human Lispro (HumaLOG) 0-12 UNITS QIDACHS SQ Last administered on 11/29/18 17:38; Start 11/28/18 at 16:30 Daptomycin 500 mg/ Sodium Chloride 50 ml @ 100 mls/hr ONCE ONCE IV ; Start 11/29/18 at 18:30; Stop 11/29/18 at 18:59; Status DC Active Scripts Active Proair Hfa (Albuterol Sulfate) 8.5 Gm Hfa.aer.ad 2.5 Mg NEB PRN Q6HRS PRN 30 Days Duoneb 0.5-3(2.5) Mg/3 Ml (Albuterol/Ipratropium) 3 Ml Ampul.neb 3 Ml NEB RTQID 30 Days Vitamin D (Cholecalciferol (Vitamin D3)) 1,000 Unit Capsule 2,000 Unit PO DAILY 30 Days Aspirin Ec (Aspirin) 81 Mg Tablet.dr 81 Mg PO DAILYWBKFT Lantus Solostar (Insulin Glargine,Hum.rec.anlog) 100 Unit/1 Ml Insuln.pen 5 Unit SQ QHS Synthroid (Levothyroxine Sodium) 200 Mcg Tablet 1 Tab PO DAILY Pantoprazole Sodium (Pantoprazole Sodium) 40 Mg Tablet.dr 40 Mg PO DAILYAC Reported Xarelto (Rivaroxaban) 20 Mg Tablet 20 Mg PO DAILY Demadex (Torsemide) 20 Mg Tablet 20 Mg PO BID NITROGLYCERIN SubLingual (Nitroglycerin) 0.4 Mg Tab.subl 0.4 Mg SL PRN Q5MIN PRN Ferrous Sulfate 325 Mg Tablet 1 Tab PO DAILY Folic Acid 1 Mg Tablet 1 Tab PO DAILY Colestid (Colestipol Hcl) 1 Gm Tablet 2 Gm PO BID Metolazone 5 Mg Tablet 5 Mg PO DAILY Triamterene-Hctz 37.5-25 Mg Tb (Triamterene/Hydrochlorothiazid) 1 Each Tablet 1 Tab PO DAILY Coreg (Carvedilol) 25 Mg Tablet 12.5 Mg PO BIDWMEALS Entresto 97 mg-103 mg Tablet (Sacubitril/Valsartan) 1 Each Tablet 1 Each PO BID Atorvastatin Calcium 80 Mg Tablet 1 Tab PO QHS Gabapentin (Gabapentin) 300 Mg Capsule 300 Mg PO TID Potassium Chloride 10 Meq Tab.er.prt 1 Tab PO BID Metformin Hcl 1,000 Mg Tablet 1 Tab PO BID Vitals/I & O Vital Sign - Last 24 Hours 11/28/18 11/28/18 11/28/18 11/28/18 19:41 19:45 21:24 21:24 Pulse 76 B/P (MAP) 185/78 O2 Delivery Nasal Cannula Nasal Cannula Nasal Cannula O2 Flow Rate 3.0 3.0 3.0 11/28/18 11/28/18 11/28/18 11/29/18 21:24 23:32 23:39 03:32 Temp 98.0 98.1 98.0 98.1 Pulse 77 74 74 Resp 16 16 B/P (MAP) 185/78 139/64 (89) 157/65 (95) Pulse Ox 97 96 O2 Delivery Nasal Cannula Nasal Cannula Nasal Cannula O2 Flow Rate 3.0 3.0 3.0 11/29/18 11/29/18 11/29/18 11/29/18 07:00 08:00 08:41 08:53 Temp 98.4 98.4 Pulse 72 72 Resp 18 B/P (MAP) 159/72 (101) 159/72 Pulse Ox 96 93 O2 Delivery Nasal Cannula Nasal Cannula Nasal Cannula O2 Flow Rate 3.0 3.0 3.0 11/29/18 11/29/18 11/29/18 11/29/18 08:53 11:00 12:25 15:00 Temp 98.0 98.1 98.0 98.1 Pulse 72 70 74 Resp 18 18 B/P (MAP) 159/72 167/73 (104) 143/66 (91) Pulse Ox 94 95 94 O2 Delivery Nasal Cannula Nasal Cannula Nasal Cannula O2 Flow Rate 3.0 3.0 3.0 11/29/18 11/29/18 15:46 17:21 Pulse 72 B/P (MAP) 173/76 Pulse Ox 94 O2 Delivery Room Air Intake and Output 11/28/18 11/28/18 11/29/18 15:00 23:00 07:00 Intake Total 380 ml 400 ml Output Total 400 ml 1200 ml Balance 380 ml -400 ml -800 ml MELODIE VALLES MD Nov 29, 2018 19:23
[2018-11-29 19:58] VITALS: BP 166/75
[2018-11-29] MEDS: ATORVASTATIN CALCIUM 40 MG TABLET. PO SCH (22:09)
[2018-11-29] MEDS: INSULIN GLARGINE 300 UNITS/3 ML INSULN.PEN. SQ SCH (22:12)
[2018-11-29 23:45] VITALS: BP 180/86
[2018-11-29] MEDS: hydrALAZINE 20 MG/ML VIAL. IVP PRN (23:48)
--- NOTE | 2018-11-30 03:12 | CONS ---
DATE OF CONSULTATION: 11/29/2018 REQUESTING PHYSICIAN: MELODIE MORGAN MD REASON FOR CONSULTATION: Positive blood cultures. HISTORY OF PRESENT ILLNESS: The patient is a 58-year-old female with a past medical history of cardiomyopathy, pulmonary embolus on Xarelto, COPD and coronary artery disease who presented with complaints of increased shortness of air, chest discomfort, dry cough and swelling in legs. She was admitted with acute on chronic congestive heart failure and treated with diuresis and supplemental oxygen. She x-ray had showed that had shown mild interstitial edema and cardiomegaly. She also was found to have a swollen right knee. An x-ray showed moderate joint effusion and severe patellofemoral arthropathy. The joint was aspirated on 11/27/2018 with 80 mL of yellow transparent synovial fluid removed. The fluid was considered consistent with osteoarthritis flare. She then received steroid injection. The patient says she is feeling better. She denies pain or difficulty walking. She says she is breathing better. She is now off oxygen supplementation. She denies fevers, chills, sweats, body ache or dysuria. PAST MEDICAL HISTORY: Coronary artery disease, chronic congestive heart failure, diabetes mellitus, peripheral neuropathy, valvular heart disease, cardiomyopathy, history of pulmonary embolus, on anticoagulation therapy, hypertension, history of DVT, osteoarthritis, vitamin D deficiency, hypothyroidism, depression, anxiety, cataracts, hyperlipidemia and COPD. PAST SURGICAL HISTORY: Teeth extraction, cataract extraction. AICD placement. I and D left buttock. SOCIAL HISTORY: The patient lives at home. She is a former smoker. FAMILY HISTORY: Diabetes and hypertension. ALLERGIES: LISINOPRIL. MEDICATIONS: Reviewed on JUN. She currently is not on any antibiotics. REVIEW OF SYSTEMS: Per HPI, otherwise all other review of systems are negative. PHYSICAL EXAMINATION: VITAL SIGNS: Temperature is 98, blood pressure 167/73, heart rate 70, respiratory rate 18, pulse oximetry 95% on 3 L oxygen, now off. GENERAL: The patient is sitting on side of the bed, alert, no apparent distress. HEENT: Pupils equally round, normal conjunctivae. Oropharynx pink and moist. Dentures in place. NECK: Supple. LUNGS: Clear to auscultation. HEART: S1, S2. ABDOMEN: Soft, nontender with bowel sounds present. EXTREMITIES: No gross edema or cyanosis. Right knee is swollen compared to the left. No redness and nontender. SKIN: Warm to touch. No signs of rash. NEUROLOGIC: Alert and oriented x 3. LABORATORY DATA: WBC 5.4 from 3.4 on admission, hemoglobin 7.3 from 6.9, hematocrit 21.3, platelets 187,000. Electrolytes are unremarkable. Creatinine 1.5 from 2.1 on admission, BUN 39, glucose 160, total bilirubin 0.2, AST 19, ALT 16. Troponin less than 0.017, albumin 1.9. TSH 43.373. Hemoglobin A1c 10.2. Lactic acid 0.9. Urinalysis unremarkable for infection. Blood cultures from 11/26/2018 show gram-positive cocci in clusters in 1 of 4 bottles. Recent chest x-ray showed stable pulmonary congestion with small pleural effusions and cardiomegaly. IMPRESSION: 1. Gram-positive cocci bacteremia 1 of 4 bottles from 11/26/2018, possibly a contaminant. 2. Leukopenia, improved. 3. Right knee joint effusion, status post aspiration and steroid injection on 11/27/2018. 4. Acute kidney injury on chronic kidney disease. 5. Acute on chronic congestive heart failure. 6. Anemia. 7. History of pulmonary embolism. Xarelto, currently on hold. PLAN: Awaiting GPC identification. Likely contamination with 1 of 4 bottles positive. She is asymptomatic with no open wound and is clinically improving. We will give a one-time dose of daptomycin with knee swelling. Labs have been ordered for the morning. Thank you, Dr. Morgan for asking us to participate in this patient's care. Should you have further questions or concerns, please call. The patient is seen and examined and plan of care implemented by Dr. Lamont Dorsey. LAMONT DORSEY MD DR: PIO/kit JOB#: [id number] / [id number]
[2018-11-30 03:37] VITALS: BP 129/64
[2018-11-30 05:07] LABS: HEMATOCRIT 21.1 % (36.0-47.0); HEMOGLOBIN 7.2 g/dL (12.0-15.5); RED BLOOD COUNT 2.36 x10^6/uL (3.50-5.40); RED CELL DISTRIBUTION WIDTH 16.9 % (11.5-14.5); WHITE BLOOD COUNT 5.1 x10^3/uL (4.0-11.0)
[2018-11-30] MEDS: HYDROcodone/APAP 7.5/325MG 1 TAB TABLET PO PRN (06:54)
[2018-11-30 07:00] VITALS: BP 184/80
[2018-11-30] MEDS: hydrALAZINE 20 MG/ML VIAL. IVP PRN (07:41)
[2018-11-30] MEDS: IPRATRPIUM/ALBUTEROL 0.5/2.5MG 3 ML NEBU. NEB SCH ×2 (08:00→12:07)
[2018-11-30] MEDS: FUROSEMIDE 40 MG/4 ML VIAL. IVP SCH (08:33)
[2018-11-30] MEDS: CARVEDILOL 12.5 MG TABLET. PO SCH (08:34)
[2018-11-30] MEDS: GABAPENTIN 300 MG CAPSULE. PO SCH (08:35)
[2018-11-30] MEDS: metOLazone 2.5 MG TABLET PO SCH (08:35)
[2018-11-30] MEDS: FERROUS SULFATE 325 MG TABLET. PO SCH (08:35)
[2018-11-30] MEDS: SACUBITRIL/VALSARTAN 49/51MG TABLET. PO SCH (08:35)
[2018-11-30] MEDS: INSULIN LISPRO 300 UNITS/3 ML INSULN.PEN. SQ SCH ×2 (08:50→12:36)
[2018-11-30 10:39] VITALS: BP 138/64
--- NOTE | 2018-11-30 12:39 | PDOC ---
Infectious Disease Note Subjective Subjective Comfortable, Says right knee is much better, no pain and the swelling is going down. Denies F/C/S/N/V/SOA ROS ROS per HPI Vital Sign Vital Signs Vital Signs Date Time Temp Pulse Resp B/P (MAP) Pulse Ox O2 Delivery O2 Flow Rate FiO2 11/30/18 12:09 97 Room Air 11/30/18 10:39 97.6 74 16 138/64 (88) 97.6 11/29/18 15:00 3.0 Physical Exam PHYSICAL EXAM GENERAL: Lying down, alert, NAD HEENT: Pupils equally round, normal conjunctivae. Oropharynx pink and moist. + dentures NECK: Supple. LUNGS: Clear to auscultation. HEART: S1, S2. ABDOMEN: Soft, nontender with bowel sounds present. EXTREMITIES: No gross edema or cyanosis. Right knee less swollen. No redness and nontender. SKIN: Warm to touch. No signs of rash. NEUROLOGIC: Alert and oriented x 3. Labs Lab Laboratory Tests Test 11/29/18 17:33 11/29/18 20:38 11/30/18 04:00 11/30/18 07:08 Glucose (Fingerstick) 297 mg/dL (70-99) 406 mg/dL (70-99) 344 mg/dL (70-99) White Blood Count 5.1 x10^3/uL (4.0-11.0) Red Blood Count 2.36 x10^6/uL (3.50-5.40) Hemoglobin 7.2 g/dL (12.0-15.5) Hematocrit 21.1 % (36.0-47.0) Mean Corpuscular Volume 90 fL (79-100) Mean Corpuscular Hemoglobin 31 pg (25-35) Mean Corpuscular Hemoglobin Concent 34 g/dL (31-37) Red Cell Distribution Width 16.9 % (11.5-14.5) Platelet Count 195 x10^3/uL (140-400) Magnesium Level 2.2 mg/dL (1.8-2.4) Test 11/30/18 11:44 Glucose (Fingerstick) 299 mg/dL (70-99) Micro BLOOD CULTURE Final GRAM POSITIVE COCCI IN CLUSTERS IN 1 OF 4 BOTTLES (2 SETS). CALLED TO JAVY ALVA ON 2S 11/29/18 AT 0819 BY Silver JEONG. CULTURE HAS BEEN SENT TO [facility] FOR FURTHER IDENTIFICATION. Objective Assessment GPC bacteremia (1 of 4 bottles) from 11/27. ? contaminate Leukopenia - better Right knee joint effusion s/p aspiration and steroid injection, 11/27 BRAD on CKD - improved [id number] CHF Anemia h/o PE. Xarelto on hold Plan Plan of Care Awaiting GPC ID Dapto x 1 on 11/29 S/p steroid injection to knee, 11/27 - states knee is doing well Currently doing well. Was feeling well prior to abx. No further cult bottles have turned Positive which reinforces likelihood of contamination. She is ready to go home. I explained that if the blood cult turns out to be significant she will have to come back but because she is feeling so well will try to avoid unne cessary abx and risk of C-diff. She understands D/w nursing Attending Co-Sign Attending Co-Sign The patient was seen and interviewed as well as examined at the bedside. The chart was reviewed. The case was discussed. Agree with the plan of care. SHANA CORONA APRN Nov 30, 2018 12:39 LAMONT DARLING MD Nov 30, 2018 14:23
--- NOTE | 2018-11-30 12:45 | NUR ---
SS following up with discharge planning. Pt is currently on room air. No discharge needs noted at this time. SS will continue to follow for discharge planning.
--- NOTE | 2018-11-30 12:50 | PDOC ---
PULMONARY PROGRESS NOTES Subjective NO SOA Vitals Vital Signs Date Time Temp Pulse Resp B/P (MAP) Pulse Ox O2 Delivery O2 Flow Rate FiO2 11/30/18 12:09 97 Room Air 11/30/18 10:39 97.6 74 16 138/64 (88) 97.6 11/29/18 15:00 3.0 General: Alert, Oriented X4, No acute distress Lungs: Clear Cardiovascular: S1 Abdomen: Soft Neuro Exam: Alert Extremities: Other Labs Laboratory Tests Test 11/28/18 17:13 11/28/18 21:03 11/29/18 07:41 11/29/18 11:40 Glucose (Fingerstick) 240 mg/dL (70-99) 234 mg/dL (70-99) 130 mg/dL (70-99) White Blood Count 5.4 x10^3/uL (4.0-11.0) Red Blood Count 2.36 x10^6/uL (3.50-5.40) Hemoglobin 7.3 g/dL (12.0-15.5) Hematocrit 21.3 % (36.0-47.0) Mean Corpuscular Volume 90 fL (79-100) Mean Corpuscular Hemoglobin 31 pg (25-35) Mean Corpuscular Hemoglobin Concent 34 g/dL (31-37) Red Cell Distribution Width 17.2 % (11.5-14.5) Platelet Count 187 x10^3/uL (140-400) Sodium Level 142 mmol/L (136-145) Potassium Level 4.4 mmol/L (3.5-5.1) Chloride Level 106 mmol/L (98-107) Carbon Dioxide Level 30 mmol/L (21-32) Anion Gap 6 (6-14) Blood Urea Nitrogen 39 mg/dL (7-20) Creatinine 1.5 mg/dL (0.6-1.0) Estimated GFR (Cockcroft-Gault) 35.7 Glucose Level 160 mg/dL (70-99) Calcium Level 7.8 mg/dL (8.5-10.1) Test 11/29/18 12:04 11/29/18 17:33 11/29/18 20:38 11/30/18 04:00 Glucose (Fingerstick) 156 mg/dL (70-99) 297 mg/dL (70-99) 406 mg/dL (70-99) White Blood Count 5.1 x10^3/uL (4.0-11.0) Red Blood Count 2.36 x10^6/uL (3.50-5.40) Hemoglobin 7.2 g/dL (12.0-15.5) Hematocrit 21.1 % (36.0-47.0) Mean Corpuscular Volume 90 fL (79-100) Mean Corpuscular Hemoglobin 31 pg (25-35) Mean Corpuscular Hemoglobin Concent 34 g/dL (31-37) Red Cell Distribution Width 16.9 % (11.5-14.5) Platelet Count 195 x10^3/uL (140-400) Magnesium Level 2.2 mg/dL (1.8-2.4) Test 11/30/18 07:08 11/30/18 11:44 Glucose (Fingerstick) 344 mg/dL (70-99) 299 mg/dL (70-99) Laboratory Tests Test 11/29/18 17:33 11/29/18 20:38 11/30/18 04:00 11/30/18 07:08 Glucose (Fingerstick) 297 mg/dL (70-99) 406 mg/dL (70-99) 344 mg/dL (70-99) White Blood Count 5.1 x10^3/uL (4.0-11.0) Red Blood Count 2.36 x10^6/uL (3.50-5.40) Hemoglobin 7.2 g/dL (12.0-15.5) Hematocrit 21.1 % (36.0-47.0) Mean Corpuscular Volume 90 fL (79-100) Mean Corpuscular Hemoglobin 31 pg (25-35) Mean Corpuscular Hemoglobin Concent 34 g/dL (31-37) Red Cell Distribution Width 16.9 % (11.5-14.5) Platelet Count 195 x10^3/uL (140-400) Magnesium Level 2.2 mg/dL (1.8-2.4) Test 11/30/18 11:44 Glucose (Fingerstick) 299 mg/dL (70-99) Medications Active Scripts Medications Dose Route/Sig Max Daily Dose Days Date Category Xarelto (Rivaroxaban) 20 Mg Tablet 20 Mg PO DAILY 08/10/18 Reported Vitamin D (Cholecalciferol (Vitamin D3)) 1,000 Unit Capsule 2,000 Unit PO DAILY 30 06/07/18 Rx Aspirin Ec (Aspirin) 81 Mg Tablet. 81 Mg PO DAILYWBKFT 06/07/18 Rx Lantus Solostar (Insulin Glargine,Hum.rec.anlog) 100 Unit/1 Ml Insuln.pen 5 Unit SQ QHS 06/07/18 Rx Demadex (Torsemide) 20 Mg Tablet 20 Mg PO BID 05/25/18 Reported NITROGLYCERIN SubLingual (Nitroglycerin) 0.4 Mg Tab.subl 0.4 Mg SL PRN Q5MIN PRN 05/25/18 Reported Ferrous Sulfate 325 Mg Tablet 1 Tab PO DAILY 05/25/18 Reported Folic Acid 1 Mg Tablet 1 Tab PO DAILY 05/25/18 Reported Colestid (Colestipol Hcl) 1 Gm Tablet 2 Gm PO BID 05/25/18 Reported Metolazone 5 Mg Tablet 5 Mg PO DAILY 05/25/18 Reported Triamterene-Hctz 37.5-25 Mg Tb (Triamterene/Hydrochlorothiazid) 1 Each Tablet 1 Tab PO DAILY 05/25/18 Reported Coreg (Carvedilol) 25 Mg Tablet 12.5 Mg PO BIDWMEALS 05/25/18 Reported Entresto 97 mg-103 mg Tablet (Sacubitril/Valsartan) 1 Each Tablet 1 Each PO BID 05/25/18 Reported Synthroid (Levothyroxine Sodium) 200 Mcg Tablet 1 Tab PO DAILY 09/02/17 Rx Atorvastatin Calcium 80 Mg Tablet 1 Tab PO QHS 08/19/16 Reported Pantoprazole Sodium 40 Mg Tablet. 40 Mg PO DAILYAC 03/25/16 Rx Gabapentin (Gabapentin) 300 Mg Capsule 300 Mg PO TID 03/23/16 Reported Potassium Chloride 10 Meq Tab.er.prt 1 Tab PO BID 07/04/14 Reported Metformin Hcl 1,000 Mg Tablet 1 Tab PO BID 07/02/14 Reported Impression . 1. Acute hypoxic respiratory failure secondary to multifactorial etiologies and likely contributed by acute on chronic systolic heart failure. She has underlying chronic obstructive pulmonary disease without causing any exacerbation. She has anemia, which is probably contributed to her dyspnea as well. 2. The patient with cardiomyopathy with an ejection fraction of 40-45%. 3. History of pulmonary embolism by abnormal V/Q scan, [id number] probability in May of this year with no deep venous thrombosis. She has been on Xarelto since then. Now, she has anemia while on Xarelto. on hold now 4. No evidence of deep venous thrombosis yesterday's venous Dopplers of the lower extremity. 5. Severe protein-calorie malnutrition. 6. Underlying suspected chronic obstructive pulmonary disease from 30 years of tobacco use. 7. Right knee joint effusion, NO hemarthrosis. s/p drainage. 8. Chronic kidney disease. May have an acute component. 9. Anemia, 10. Suspected obstructive sleep apnea. She does have dozing off during the day, never had formal sleep study. Plan . 1. Continue with present oxygen. 2. Diuresis and follow chest x-ray. still in CHF by 11/28 cxr 3. reviewed echocardiogram. 4. Follow Cardiology recommendations. 5. DuoNebs. 6. Xarelto on hold due to anemia 7. V/Q scan 11/29 with no PE. no AC needed in future from pulmonary standpoint due to ongoing anemia 8. Improved nutritional status. 9. Discussed with RN. dc plans per PCP OWEN JACKSON MD Nov 30, 2018 12:50
[2018-11-30] MEDS ORDERED: METF500T16 PO (13:14)
[2018-11-30 15:00] VITALS: BP 152/71
--- NOTE | 2018-11-30 15:07 | PDOC ---
PROGRESS NOTES Subjective Subjective Patient feeling much better today. Dyspnea and edema improved. Objective Objective Vital Signs Date Time Temp Pulse Resp B/P (MAP) Pulse Ox O2 Delivery O2 Flow Rate FiO2 11/30/18 12:09 97 Room Air 11/30/18 10:39 97.6 74 16 138/64 (88) 97.6 11/29/18 15:00 3.0 Intake and Output 11/30/18 06:59 Intake Total 880 ml Output Total 1950 ml Balance -1070 ml Intake Oral 880 ml Output Urine Total 1950 ml # Voids 2 # Bowel Movements 1 Physical Exam Abdomen: Normal bowel sounds Heart: Regular rate, Other Extremities: Other (1+ pitting edema lower extremity) General: Alert HEENT: Atraumatic Lungs: Clear to auscultation MUSCULOSKELETAL: Osteoarthritic changes both hands, Other (right leg immobilizer) Neuro: Normal tone, Sensation intact Psych/Mental Status: Mood NL Skin: No breakdown, No significant lesion Assessment Assessment 1. Malignant HTN; much better controlled 2. Acute on chronic combined diastolic/systolic CHF: potentially induced by uncontrolled HTN, resolved 3. Chest pain: due to above and bronchospasm 4. ICM; s/p AICD. LVEF 40-45%. Device check with normal function. One episode of NSVT noted on 10/11/18. 5. BRAD on CKD; Cr stable with diuresis 6. Anemia of chronic disease: Hgb 7.0 7. Traumatic mechanical fall: as noted above. No definitive associated syncope/presyncope 8. CAD; prior stents. clinically stable. 9. Diabetes, II; uncontrolled. As per PCP 10. Hyperlipidemia 11. Hx of PE: on home Xarelto Recommendations Xarelto on hold with anemia Change Lasix to by mouth Continue secondary prevention measures Okay for discharge from cardiac standpoint. Follow-up in 1 month. Plan Plan of Care Problems Medical Problems: (1) Acute kidney injury superimposed on CKD Status: Acute (2) Acute on chronic combined systolic and diastolic congestive heart failure Status: Acute (3) Acute respiratory failure with hypoxia Status: Acute (4) Anemia Status: Chronic (5) Anemia of chronic disease Status: Chronic (6) CAD (coronary artery disease) Status: Chronic (7) Cardiomyopathy Status: Chronic (8) CKD (chronic kidney disease) Status: Chronic (9) HLD (hyperlipidemia) Status: Chronic (10) Severe protein-calorie malnutrition Status: Chronic (11) Type 2 diabetes mellitus Status: Chronic Comment Review of Relevant I have reviewed the following items leandra (where applicable) has been applied. Labs Laboratory Tests Test 11/29/18 17:33 11/29/18 20:38 11/30/18 04:00 11/30/18 07:08 Glucose (Fingerstick) 297 mg/dL (70-99) 406 mg/dL (70-99) 344 mg/dL (70-99) White Blood Count 5.1 x10^3/uL (4.0-11.0) Red Blood Count 2.36 x10^6/uL (3.50-5.40) Hemoglobin 7.2 g/dL (12.0-15.5) Hematocrit 21.1 % (36.0-47.0) Mean Corpuscular Volume 90 fL (79-100) Mean Corpuscular Hemoglobin 31 pg (25-35) Mean Corpuscular Hemoglobin Concent 34 g/dL (31-37) Red Cell Distribution Width 16.9 % (11.5-14.5) Platelet Count 195 x10^3/uL (140-400) Magnesium Level 2.2 mg/dL (1.8-2.4) Test 11/30/18 11:44 Glucose (Fingerstick) 299 mg/dL (70-99) Microbiology 11/26/18 Blood Culture - Final, Complete Medications Current Medications Daptomycin 500 mg/ Sodium Chloride 50 ml @ 100 mls/hr ONCE ONCE IV Last administered on 11/29/18at 22:12; Start 11/29/18 at 18:30; Stop 11/29/18 at 18:59; Status DC Vitals/I & O Vital Sign - Last 24 Hours 11/29/18 11/29/18 11/29/18 11/29/18 15:46 17:21 19:56 19:58 Temp 98.2 98.2 Pulse 72 76 Resp 17 B/P (MAP) 173/76 166/75 (105) Pulse Ox 94 94 97 O2 Delivery Room Air Room Air Room Air 11/29/18 11/29/18 11/29/18 11/29/18 20:46 22:12 23:45 23:48 Temp 97.7 97.7 Pulse 80 78 78 Resp 17 B/P (MAP) 166/75 180/86 (117) 180/86 Pulse Ox 95 O2 Delivery Room Air Room Air 11/30/18 11/30/18 11/30/18 11/30/18 03:37 06:54 07:00 07:41 Temp 98.1 97.9 98.1 97.9 Pulse 82 74 74 Resp 16 18 B/P (MAP) 129/64 (85) 184/80 (114) 184/80 Pulse Ox 94 95 O2 Delivery Room Air Room Air Room Air 11/30/18 11/30/18 11/30/18 11/30/18 08:00 08:21 08:50 08:50 Pulse 78 B/P (MAP) 162/78 Pulse Ox 97 97 O2 Delivery Room Air Room Air Room Air 11/30/18 11/30/18 11/30/18 08:50 10:39 12:09 Temp 97.6 97.6 Pulse 78 74 Resp 16 B/P (MAP) 162/78 138/64 (88) Pulse Ox 98 97 O2 Delivery Room Air Room Air Intake and Output 11/29/18 11/29/18 11/30/18 14:59 22:59 06:59 Intake Total 280 ml 600 ml Output Total 850 ml 1100 ml Balance -570 ml -500 ml ZEFERINO GOMEZ MD Nov 30, 2018 15:07
--- NOTE | 2018-11-30 15:48 | NUR ---
Discharge Note: [facility] Discharge instructions and discharge home medications reviewed with Patient and a copy given. All questions have been answered and understanding verbalized. The following instructions and handouts were given: Heart Failure and Respiratory Failure. Discontinued iv lines and catheter intact. Patient discharged to home with self-care via private vehicle.
--- NOTE | 2018-11-30 21:41 | DS ---
DATE OF DISCHARGE: 11/30/2018 ADMITTING DIAGNOSIS: Acute on chronic combined systolic-diastolic congestive heart failure. SECONDARY DIAGNOSES: 1. Hypertensive emergency. 2. Type 2 diabetes. 3. Chronic obstructive pulmonary disease. 4. Anemia of chronic disease with hemoglobin of 7.2 at discharge. 5. Acute on chronic renal failure. Discharge creatinine of 1.5. HISTORY OF PRESENT ILLNESS AND HOSPITAL COURSE: This patient is a 58-year-old female with significant cardiomyopathy and ongoing recurrent CHF, admitted with increasing leg swelling and shortness of breath as well as severe hypertension. She was treated with antihypertensives and diuresis and improved dramatically throughout hospital stay. She did have swelling to her knee and was evaluated by Orthopedic Surgery and given an injection. This unfortunately caused hyperglycemia throughout hospital stay, which was controlled with insulin. The patient's knee pain did improve. The patient diuresed well and returned back to baseline and plans for discharge to home were made. DISCHARGE MEDICATIONS: The patient was discharged on the following medications: Albuterol ProAir treatments q. 6 via metered dose inhaler, DuoNeb nebulizer treatments q. 6 routinely, metformin 500 mg b.i.d., aspirin 81 mg daily, atorvastatin 80 mg daily, Coreg 12.5 mg b.i.d., vitamin D 1000 international units daily, Colestid 2 grams p.o. b.i.d., iron 325 mg daily, folic acid 1 mg daily, gabapentin 300 mg t.i.d., Lantus 5 units at bedtime, levothyroxine 200 mcg daily, metformin 1000 mg b.i.d., metolazone 5 mg daily, nitroglycerin 0.4 p.r.n., Protonix 40 mg daily, potassium 10 mEq b.i.d., Entresto 97/103 mg tablets b.i.d., Demadex 20 mg b.i.d., Dyazide 37.5/25 daily, Xarelto was held. MELODIE VALLES MD DR: REESE/kit JOB#: [id number] / [id number]
== END 2018-11-30 15:50 | disposition home or self-care (01) | DRG 291 ==
LOC: ER 18:04 → 1 WEST ICU 20:20 → 2 SOUTH 11-27 15:19
PROVIDERS: ADMIT Family Medicine; ATTEND Family Medicine
PROC: 5A09357 Assistance with Respiratory Ventilation, Less than 24 Consecutive Hours, Continuous Positive Airway Pressure (ICD-10-PCS; 2018-11-26)
PROC: 0S9C3ZZ Drainage of Right Knee Joint, Percutaneous Approach (ICD-10-PCS; principal; 2018-11-27)
PROC: 3E0U33Z Introduction of Anti-inflammatory into Joints, Percutaneous Approach (ICD-10-PCS; 2018-11-27)
PROC: 3E0U3BZ Introduction of Anesthetic Agent into Joints, Percutaneous Approach (ICD-10-PCS; 2018-11-27)
DX: I13.0 Hypertensive heart and chronic kidney disease with heart failure and stage 1 through stage 4 chronic kidney disease, or unspecified chronic kidney disease (principal); I50.43 Acute on chronic combined systolic (congestive) and diastolic (congestive) heart failure; J96.01 Acute respiratory failure with hypoxia; E43 Unspecified severe protein-calorie malnutrition; S82.001A Unspecified fracture of right patella, initial encounter for closed fracture; N17.9 Acute kidney failure, unspecified; I16.1 Hypertensive emergency; R78.81 Bacteremia; M25.461 Effusion, right knee; S80.01XA Contusion of right knee, initial encounter; J44.9 Chronic obstructive pulmonary disease, unspecified; F41.9 Anxiety disorder, unspecified; F32.9 Major depressive disorder, single episode, unspecified; E78.00 Pure hypercholesterolemia, unspecified; E03.9 Hypothyroidism, unspecified; I25.10 Atherosclerotic heart disease of native coronary artery without angina pectoris; M17.11 Unilateral primary osteoarthritis, right knee; E78.5 Hyperlipidemia, unspecified; E11.42 Type 2 diabetes mellitus with diabetic polyneuropathy; E11.22 Type 2 diabetes mellitus with diabetic chronic kidney disease; I25.5 Ischemic cardiomyopathy; D63.8 Anemia in other chronic diseases classified elsewhere; W18.39XA Other fall on same level, initial encounter; N18.3 Chronic kidney disease, stage 3 (moderate); R31.29 Other microscopic hematuria; G89.29 Other chronic pain; B96.89 Other specified bacterial agents as the cause of diseases classified elsewhere; D72.819 Decreased white blood cell count, unspecified; E11.65 Type 2 diabetes mellitus with hyperglycemia; J98.01 Acute bronchospasm; Z95.0 Presence of cardiac pacemaker; Z95.5 Presence of coronary angioplasty implant and graft; Z98.51 Tubal ligation status; Z98.891 History of uterine scar from previous surgery; Z86.711 Personal history of pulmonary embolism; Z79.01 Long term (current) use of anticoagulants; Z88.8 Allergy status to other drugs, medicaments and biological substances; Z83.3 Family history of diabetes mellitus; Z82.49 Family history of ischemic heart disease and other diseases of the circulatory system; Z91.19 Patient's noncompliance with other medical treatment and regimen; Z68.35 Body mass index [BMI] 35.0-35.9, adult; Y93.89 Activity, other specified; Y92.89 Other specified places as the place of occurrence of the external cause; Y99.8 Other external cause status; Z87.891 Personal history of nicotine dependence; Z86.718 Personal history of other venous thrombosis and embolism
CPT/HCPCS: 36415; 71045; 73562; 76770; 78582; 80048; 80053; 80061; 81001; 82962; 83036; 83540; 83550; 83605; 83735; 83880; 84443; 84484; 85025; 85027; 85379; 87040; 87205; 87641; 93005; 93306; 93971; 94640; 94760; 96365; 96374; 96375; A9540; A9558; J0360; J0878; J1040; J1815; J1940; J3490; J7613; J7620; 99285-25; G0378

== ENCOUNTER 2019-01-17 17:36 | Inpatient (IN) | payer OTHER ==
[~2019-01-17] VITALS: Ht 152.4 cm; Wt 77.3 kg
[~2019-01-17 17:36] MED LIST changes: +ALBU2.5V8 NEB; -GLIM4TAB2 PO; +GLIM4TAB4 PO; +INDO50CA15 PO; -INDO50CA5 PO; +IPRA3AMP29 NEB; +METF500T16 PO
[2019-01-17 18:43] LABS: BASO % 0 % (0-3); EOS # 0.3 x10^3/uL (0.0-0.7); EOS % 6 % (0-3); HEMATOCRIT 24.8 % (36.0-47.0); HEMOGLOBIN 8.6 g/dL (12.0-15.5); LYMPH # 1.2 x10^3/uL (1.0-4.8); LYMPH % 28 % (24-48); MEAN CORPUSCULAR HEMOGLOBIN 31 pg (25-35); MEAN CORPUSCULAR HGB CONC 35 g/dL (31-37); MEAN CORPUSCULAR VOLUME 89 fL (79-100); MONO # 0.3 x10^3/uL (0.0-1.1); MONO % 7 % (0-9); NEUT # 2.5 x10^3/uL (1.8-7.7); NEUT % 58 % (31-73); PLATELET COUNT 182 x10^3/uL (140-400); RED BLOOD COUNT 2.78 x10^6/uL (3.50-5.40); WHITE BLOOD COUNT 4.4 x10^3/uL (4.0-11.0)
--- NOTE | 2019-01-17 18:47 | RAD ---
Single view chest dated 01/17/2019. Comparison made to 11/28/2018. Clinical data indication: Chest pain. FINDINGS: Single upright portable exam performed. Heart size is mildly enlarged, stable. Left subclavian pacer/AICD in place, unchanged. Interval improvement in patchy perihilar opacities. There are prominent interstitial markings bilaterally, unchanged. Minimal blunting of left costophrenic sulcus. No pneumothorax. IMPRESSION: 1. Clinically and mild interstitial changes, overall improved from the 11/28/2018 exam. Findings could be chronic or related to recurrent low-grade edema. 2. Possible small left pleural effusion. Electronically signed by: Bartolo Mcintosh MD (01/17/2019 6:44 PM) [id number]
[2019-01-17 18:50] LABS: PROTHROMBIN TIME PATIENT 12.3 SEC (11.7-14.0)
[2019-01-17 18:56] LABS: CALCIUM 8.4 mg/dL (8.5-10.1); CREATININE 1.7 mg/dL (0.6-1.0); GFR 30.9
[2019-01-17 19:04] LABS: ALBUMIN 2.2 g/dL (3.4-5.0); ALBUMIN/GLOBULIN RATIO 0.6 (1.0-1.7); MAGNESIUM 2.3 mg/dL (1.8-2.4); TOTAL BILIRUBIN 0.3 mg/dL (0.2-1.0); TOTAL PROTEIN 6.2 g/dL (6.4-8.2)
[2019-01-17] MEDS ORDERED: FUROSEMIDE 40 MG/4 ML VIAL. IVP ONE (19:15)
[2019-01-17] MEDS ORDERED: NITROGLYCERIN SUBLINGUAL 0.4 MG BOTTLE OF 25. SL PRN (19:30)
[2019-01-17] MEDS ORDERED: NITROGLYCERIN OINT 1 GM PACKET. TP ONE (20:00)
[2019-01-17] MEDS ORDERED: LABETALOL 20 MG/4 ML DISP.SYRIN. IVP ONE (20:00)
--- NOTE | 2019-01-17 20:09 | PHYS DOC ---
Past Medical History Past Medical History: Anxiety, CAD, CHF, Depression, Diabetes-Type II, High Cholesterol, Hypertension, Hypothyroid, Other Additional Past Medical Histor: cardiomyopathy, PACER/ DEFIB Past Surgical History: Angioplasty, , Pacemaker, Tubal ligation, Other Additional Past Surgical Histo: heart stents Alcohol Use: None Drug Use: None Adult General Chief Complaint Chief Complaint: SHORTNESS OF BREATH HPI HPI Patient is a 58 year old female with history of CHF P/W SOB, CHEST PAIN AND LEG SWELLING. DECREASED PO INTAKE THE LAST COUPLE OF DAYS. SOB WORSE WITH EXERTION AND WITH LYING FLAT SON ENDORSES COMPLIANCE WITH ALL MEDICATIONS. NO FEVER. MINIMAL COUGH NOTED. Review of Systems Review of Systems Constitutional: Denies fever or chills [] Eyes: Denies change in visual acuity, redness, or eye pain [] HENT: Denies nasal congestion or sore throat [] Respiratory: GI: Denies abdominal pain, nausea, vomiting, bloody stools or diarrhea [] : Denies dysuria or hematuria [] Musculoskeletal: Denies back pain or joint pain [] Integument: Denies rash or skin lesions [] Neurologic: Denies headache, focal weakness or sensory changes [] All other systems were reviewed and found to be within normal limits, except as documented in this note. Current Medications Current Medications Current Medications Medications (Trade) Dose Ordered Sig/Carlos Start Time Stop Time Status Last Admin Dose Admin Furosemide (Lasix) 40 mg 1X ONCE 01/17/19 19:15 01/17/19 19:16 DC 01/17/19 19:42 40 MG Labetalol HCl (Normodyne Iv Push) 10 mg 1X ONCE 01/17/19 20:00 01/17/19 20:01 Nitroglycerin (Nitro-Bid Oint) 1 inch 1X ONCE 01/17/19 20:00 01/17/19 20:01 Nitroglycerin (Nitrostat) 0.4 mg PRN Q5MIN PRN 01/17/19 19:30 01/18/19 19:29 Allergies Allergies Allergies Coded Allergies Type Severity Reaction Last Updated Verified lisinopril Adverse Reaction Mild COUGH 11/28/16 Yes Physical Exam Physical Exam Constitutional: Well developed, well nourished, no acute distress, non-toxic appearance. [] HENT: Normocephalic, atraumatic, bilateral external ears normal, oropharynx moist, no oral exudates, nose normal. [] Eyes: PERRLA, EOMI, conjunctiva normal, no discharge. [] Neck: Normal range of motion, no tenderness, supple, no stridor. [] Cardiovascular:Heart rate regular rhythm, 3/6 RYAN NOTED. Lungs & Thorax: DECREASD BREATH SOUNDS B/L LUNG BASES. CRACKLES NOTED Abdomen: Bowel sounds normal, soft, no tenderness, no masses, no pulsatile masses. [] Skin: Warm, dry, no erythema, no rash. [] Extremities: No tenderness, no cyanosis, no clubbing, ROM intact, 3 TO FOUR PLUS EDEMA Neurologic: Alert and oriented X 3, normal motor function, normal sensory function, no focal deficits noted. [] Psychologic: Affect normal, judgement normal, mood normal. [] Current Patient Data Vital Signs Vital Signs Date Time Temp Pulse Resp B/P (MAP) Pulse Ox O2 Delivery O2 Flow Rate FiO2 01/17/19 18:38 98.2 71 12 152/71 (98) 95 Nasal Cannula 3.0 98.2 Lab Values Laboratory Tests Test 01/17/19 18:30 White Blood Count 4.4 x10^3/uL (4.0-11.0) Red Blood Count 2.78 x10^6/uL (3.50-5.40) L Hemoglobin 8.6 g/dL (12.0-15.5) L Hematocrit 24.8 % (36.0-47.0) L Mean Corpuscular Volume 89 fL (79-100) Mean Corpuscular Hemoglobin 31 pg (25-35) Mean Corpuscular Hemoglobin Concent 35 g/dL (31-37) Red Cell Distribution Width 16.0 % (11.5-14.5) H Platelet Count 182 x10^3/uL (140-400) Neutrophils (%) (Auto) 58 % (31-73) Lymphocytes (%) (Auto) 28 % (24-48) Monocytes (%) (Auto) 7 % (0-9) Eosinophils (%) (Auto) 6 % (0-3) H Basophils (%) (Auto) 0 % (0-3) Neutrophils # (Auto) 2.5 x10^3/uL (1.8-7.7) Lymphocytes # (Auto) 1.2 x10^3/uL (1.0-4.8) Monocytes # (Auto) 0.3 x10^3/uL (0.0-1.1) Eosinophils # (Auto) 0.3 x10^3/uL (0.0-0.7) Basophils # (Auto) 0.0 x10^3/uL (0.0-0.2) Prothrombin Time 12.3 SEC (11.7-14.0) Prothrombin Time INR 0.9 (0.8-1.1) Sodium Level 137 mmol/L (136-145) Potassium Level 4.0 mmol/L (3.5-5.1) Chloride Level 100 mmol/L (98-107) Carbon Dioxide Level 30 mmol/L (21-32) Anion Gap 7 (6-14) Blood Urea Nitrogen 36 mg/dL (7-20) H Creatinine 1.7 mg/dL (0.6-1.0) H Estimated GFR (Cockcroft-Gault) 30.9 BUN/Creatinine Ratio 21 (6-20) H Glucose Level 319 mg/dL (70-99) H Calcium Level 8.4 mg/dL (8.5-10.1) L Magnesium Level 2.3 mg/dL (1.8-2.4) Total Bilirubin 0.3 mg/dL (0.2-1.0) Aspartate Amino Transferase (AST) 17 U/L (15-37) Alanine Aminotransferase (ALT) 21 U/L (14-59) Alkaline Phosphatase 142 U/L (46-116) H Troponin I Quantitative < 0.017 ng/mL (0.000-0.055) ZC-Iet-G-Type Natriuretic Peptide 01968 pg/mL (0-124) H Total Protein 6.2 g/dL (6.4-8.2) L Albumin 2.2 g/dL (3.4-5.0) L Albumin/Globulin Ratio 0.6 (1.0-1.7) L Laboratory Tests 01/17/19 18:30 Laboratory Tests 01/17/19 18:30 EKG EKG []Normal sinus rhythm rate is 70 T-wave nonspecific lateral changes as well as inferior no STEMI QTC 448 Radiology/Procedures Radiology/Procedures [] Impressions: IMPRESSION: 1. Clinically and mild interstitial changes, overall improved from the 11/28/2018 exam. Findings could be chronic or related to recurrent low-grade edema. 2. Possible small left pleural effusion. Electronically signed by: Bartolo Mcintosh MD (01/17/2019 6:44 PM) [facility] Course & Med Decision Making Course & Med Decision Making Pertinent Labs and Imaging studies reviewed. (See chart for details) 58-year-old female with known CHF presenting with increasing shortness of breath patient appears weak probably slightly off his baseline based on chart review significant lower extremity edema as well as dyspnea patient is short of breath in the emergency room walking to the restroom. Son feels she really needs to be admitted she does endorse compliant with her medications I spoke with Dr. Morgan plan for admission for diuresis at this time. Noted blood pressure was elevated I ordered Nitropaste for now. WELL LAXSIX TROP NEG BNP ELEV HB BETTER THAN BEFORE CR SLIGHTL WORSE THAN BEFORE Dragon Disclaimer Dragon Disclaimer This electronic medical record was generated, in whole or in part, using a voice recognition dictation system. Departure Departure Impression: Primary Impression: Dyspnea Disposition: ADMITTED INPATIENT Admitting Physician: Bartolo Morgan Condition: STABLE Referrals: BARTOLO MORGAN MD (PCP) KATTY MCPHERSON MD Jan 17, 2019 20:09
[2019-01-17 22:00] VITALS: BP 178/83
[2019-01-17] MEDS ORDERED: TRAM50TA PO (22:21)
[2019-01-17] MEDS ORDERED: ALBUTEROL SULFATE 2.5 MG/3 ML NEBU. NEB PRN (22:45)
[2019-01-17] MEDS: traMADol 50 MG TABLET PO PRN (23:06)
[2019-01-17 23:12] VITALS: BP 137/76
[2019-01-17] MEDS: GABAPENTIN 300 MG CAPSULE. PO SCH (23:58)
[2019-01-17] MEDS: ATORVASTATIN CALCIUM 40 MG TABLET. PO SCH (23:58)
[2019-01-17] MEDS: SACUBITRIL/VALSARTAN 49/51MG TABLET. PO SCH (23:59)
[2019-01-18] MEDS ORDERED: ENOXAPARIN 40 MG/0.4 ML SYRINGE. SQ SCH
[2019-01-18] MEDS: INSULIN GLARGINE SYRINGE. SQ SCH ×2 (00:02→20:48)
[2019-01-18 03:00] VITALS: BP 149/70
[2019-01-18] MEDS ORDERED: DEXTROSE 50% 25 GM / 50ML DISP.SYRIN. IV PRN ×2 (03:30→13:00)
[2019-01-18 04:11] LABS: BASO % 1 % (0-3); EOS # 0.3 x10^3/uL (0.0-0.7); EOS % 6 % (0-3); HEMATOCRIT 21.2 % (36.0-47.0); HEMOGLOBIN 7.3 g/dL (12.0-15.5); LYMPH # 1.2 x10^3/uL (1.0-4.8); LYMPH % 27 % (24-48); MEAN CORPUSCULAR HEMOGLOBIN 30 pg (25-35); MEAN CORPUSCULAR HGB CONC 34 g/dL (31-37); MEAN CORPUSCULAR VOLUME 88 fL (79-100); MONO # 0.3 x10^3/uL (0.0-1.1); MONO % 6 % (0-9); NEUT # 2.7 x10^3/uL (1.8-7.7); NEUT % 60 % (31-73); PLATELET COUNT 161 x10^3/uL (140-400); RED BLOOD COUNT 2.41 x10^6/uL (3.50-5.40); RED CELL DISTRIBUTION WIDTH 15.9 % (11.5-14.5); WHITE BLOOD COUNT 4.4 x10^3/uL (4.0-11.0)
[2019-01-18 04:24] LABS: CALCIUM 7.8 mg/dL (8.5-10.1); CREATININE 1.6 mg/dL (0.6-1.0); GFR 33.1; POTASSIUM 3.8 mmol/L (3.5-5.1)
--- NOTE | 2019-01-18 06:06 | EKG ---
[facility] [address] [place] [address] Test Date: 2019-01-17 Test Time: 18:32:04 Pat Name: ALEXANDRE GONZALES Department: Room: 210 1 Gender: F Multimedia Educational Specialist: : [id number] Requested By: KATTY MCPHERSON Order Number: [id number] Reading MD: Moisés Marquez MD Measurements Intervals [place] Rate: 70 P: 45 MA: 172 QRS: 41 QRSD: 90 T: -12 QT: 412 QTc: 448 Interpretive Statements SINUS RHYTHM NON-SPECIFIC ST/T CHANGES Electronically Signed On 01-28-2019 14:41:18 CDT by Moisés Marquez MD
[2019-01-18 07:00] VITALS: BP 149/68
[2019-01-18] MEDS ORDERED: metFORMIN 500 MG TABLET PO SCH (08:00)
[2019-01-18] MEDS: IPRATRPIUM/ALBUTEROL 0.5/2.5MG 3 ML NEBU. NEB SCH ×4 (08:01→19:51)
[2019-01-18] MEDS ORDERED: SACUBITRIL/VALSARTAN 49/51MG TABLET. PO SCH (09:00)
[2019-01-18] MEDS ORDERED: TRIAMTERENE/HCTZ 37.5/25MG TABLET. PO SCH (09:00)
[2019-01-18] MEDS ORDERED: FLU VAX QS 2019-20 (36MOS+)/PF 0.5 ML SYRINGE. VAX IM ONE (09:00)
[2019-01-18] MEDS ORDERED: GABAPENTIN 300 MG CAPSULE. PO SCH (09:00)
[2019-01-18] MEDS: ENOXAPARIN 40 MG/0.4 ML SYRINGE. SQ SCH (09:47)
[2019-01-18] MEDS: PANTOPRAZOLE 40 MG TABLET.DR. PO SCH (09:47)
[2019-01-18] MEDS: POTASSIUM CHLORIDE 10 MEQ TABLET.ER. PO SCH ×2 (09:48→20:39)
[2019-01-18] MEDS: TORSEMIDE 20 MG TABLET. PO SCH ×2 (09:48→17:20)
[2019-01-18] MEDS: COLESTIPOL HCL 1 GM TABLET PO SCH ×2 (09:48→17:21)
[2019-01-18] MEDS: SACUBITRIL/VALSARTAN 49/51MG TABLET. PO SCH ×2 (09:48→20:39)
[2019-01-18] MEDS: ASPIRIN ENTERIC COATED 81 MG TABLET.DR. PO SCH (09:48)
[2019-01-18] MEDS: CHOLECALCIFEROL (VITAMIN D3) 1,000 UNIT TABLET PO SCH (09:49)
[2019-01-18] MEDS: GABAPENTIN 300 MG CAPSULE. PO SCH ×2 (09:49→20:38)
[2019-01-18] MEDS: LEVOTHYROXINE 100 MCG TABLET PO SCH (09:49)
[2019-01-18] MEDS: FERROUS SULFATE 325 MG TABLET. PO SCH (09:50)
[2019-01-18] MEDS: metOLazone 2.5 MG TABLET PO SCH ×2 (09:50→09:54)
[2019-01-18] MEDS: FOLIC ACID 1 MG TABLET. PO SCH (09:52)
[2019-01-18] MEDS: INSULIN LISPRO 300 UNITS/3 ML VIAL. SQ SCH ×3 (10:03→17:00)
[2019-01-18 11:00] VITALS: BP 149/77
--- NOTE | 2019-01-18 12:12 | PDOC2 ---
CONSULT Date of Consult Date of Consult DATE: 01/18/19 TIME: 12:06 History of Present Illness Reason for Visit: THIS IS A 58 YR OLD WITH SOB, CHEST PRESSURE AND LE SWELLING. STATES THAT THE SWELLING HAS BEEN PROGRESSIVE IN SOME TIME. HAS ORTHOPNEA WELL. CR OF 1.7 ON ADMIT. RECORDS HERE SHOW A BASELINE CR IN THIS RANGE OF 1.5-1.7. SHE HAS A LONG HX OF HTN AND DM II. UNABLE TO TELL ME IF ANY RELATED RETINOPATHY. NO HX OF ANY NSAIDS OR NEPHROTOXINS. HAS OCC NOCTURIA. HAS BEEN TAKING HER MEDS PER PT WHICH HAS INCLUDED ENTRESTO, AND DIURETICS Past Medical History Cardiovascular: CAD, CHF, HTN, Hyperlipidemia, Other Pulmonary: COPD CENTRAL NERVOUS SYSTEM: Periperal neuropathy GI: No pertinent hx Heme/Onc: Anemia NOS Hepatobiliary: No pertinent hx Psych: Anxiety, Depression Musculoskeletal: Osteoarthritis Rheumatologic: No pertinent hx Infectious disease: No pertinent hx Renal/: Chronic renal insuff Endocrine: Diabetes, Hypothyroidism Past Surgical History Past Surgical History: Pacemaker, Cataract Removal, Other Family History Family History: Diabetes, Hypertension Social History ALCOHOL: none Drugs: None Lives: with Family Current Problem List Problem List Problems Medical Problems: (1) Dyspnea Status: Acute Current Medications Current Medications Current Medications Furosemide (Lasix) 40 mg 1X ONCE IVP Last administered on 01/17/19at 19:42; Start 01/17/19 at 19:15; Stop 01/17/19 at 19:16; Status DC Nitroglycerin (Nitrostat) 0.4 mg PRN Q5MIN PRN SL CHEST PAIN Last administered on 01/17/19at 23:28; Start 01/17/19 at 19:30; Stop 01/18/19 at 19:29 Nitroglycerin (Nitro-Bid Oint) 1 inch 1X ONCE TP Last administered on at 20:10; Start 01/17/19 at 20:00; Stop 01/17/19 at 20:01; Status DC Labetalol HCl (Normodyne Iv Push) 10 mg 1X ONCE IVP Last administered on 01/17/19at 20:09; Start 01/17/19 at 20:00; Stop 01/17/19 at 20:01; Status DC Influenza Virus Vaccine Quadrival (Afluria Quad 2019-20 (3yr Up) Syringe) 0.5 ml ONCE ONCE VAX IM ; Start 01/18/19 at 09:00; Stop 01/18/19 at 09:01; Status DC Albuterol Sulfate (Ventolin Neb Soln) 2.5 mg PRN Q6HRS PRN NEB SHORTNESS OF BREATH; Start 01/17/19 at 22:45 Aspirin (Ecotrin) 81 mg DAILYWBKFT PO Last administered on 01/18/19at 09:48; Start 01/18/19 at 08:00 Colestipol HCl (Colestid) 2 gm BIDBFRMEAL PO Last administered on 01/18/19at 09:48; Start 01/18/19 at 07:30 Ferrous Sulfate (Feosol) 325 mg DAILY PO Last administered on 01/18/19at 09:50; Start 01/18/19 at 09:00 Folic Acid (Folic Acid) 1 mg DAILY PO Last administered on 01/18/19at 09:52; Start 01/18/19 at 09:00 Gabapentin (Neurontin) 300 mg BID PO ; Start 01/18/19 at 09:00; Stop 01/17/19 at 23:45; Status DC Albuterol/ Ipratropium (Duoneb) 3 ml RTQID NEB Last administered on 01/18/19at 08:01; Start 01/18/19 at 08:00 Metformin HCl (Glucophage) 500 mg BIDWMEALS PO ; Start 01/18/19 at 08:00; Status UNV Pantoprazole Sodium (Protonix) 40 mg DAILYAC PO Last administered on 01/18/19at 09:47; Start 01/18/19 at 07:30 Potassium Chloride (Klor-Con) 10 meq BID PO Last administered on 01/18/19at 09:48; Start 01/18/19 at 09:00 Torsemide (Demadex) 20 mg BID94 PO Last administered on 01/18/19at 09:48; Start 01/18/19 at 09:00 Tramadol HCl (Ultram) 50 mg PRN Q12HR PRN PO MODERATE PAIN 4-6 Last administered on 01/17/19at 23:06; Start 01/17/19 at 22:45 Triamterene/HCTZ (Maxzide 37.5/ 25mg) 1 tab DAILY PO ; Start 01/18/19 at 09:00 Atorvastatin Calcium (Lipitor) 80 mg QHS PO ; Start 01/18/19 at 21:00; Stop 01/17/19 at 23:45; Status DC Carvedilol (Coreg) 12.5 mg BIDWMEALS PO ; Start 01/18/19 at 08:00 Vitamin D (Vitamin D3) 2,000 unit DAILY PO Last administered on 01/18/19at 09:49; Start 01/18/19 at 09:00 Insulin Glargine (Lantus Syringe) 5 unit QHS SQ ; Start 01/18/19 at 21:00; Stop 01/17/19 at 23:45; Status DC Levothyroxine Sodium (Synthroid) 200 mcg DAILY06 PO Last administered on 01/18/19at 09:49; Start 01/18/19 at 06:00 Metolazone (Zaroxolyn) 5 mg DAILY PO Last administered on 01/18/19at 09:54; Start 01/18/19 at 09:00 Sacubitril/ Valsartan (Entresto 49 Mg-51 Mg) 2 tab BID PO ; Start 01/18/19 at 09:00; Stop 01/17/19 at 23:45; Status DC Atorvastatin Calcium (Lipitor) 80 mg QHS PO Last administered on 01/17/19at 23:58; Start 01/18/19 at 00:00 Gabapentin (Neurontin) 300 mg BID PO Last administered on 01/18/19at 09:49; Start 01/18/19 at 00:00 Insulin Glargine (Lantus Syringe) 5 unit QHS SQ Last administered on 01/18/19at 00:02; Start 01/18/19 at 00:00 Sacubitril/ Valsartan (Entresto 49 Mg-51 Mg) 2 tab BID PO Last administered on 01/18/19at 09:48; Start 01/18/19 at 00:00 Enoxaparin Sodium (Lovenox 40mg Syringe) 40 mg Q24H SQ ; Start 01/18/19 at 00:00; Stop 01/18/19 at 02:18; Status DC Enoxaparin Sodium (Lovenox 40mg Syringe) 40 mg Q24H SQ Last administered on 01/18/19at 09:47; Start 01/18/19 at 09:00 Insulin Glargine (Lantus Syringe) 5 unit QHS SQ ; Start 01/18/19 at 21:00; Status UNV Insulin Human Lispro (HumaLOG) 0-5 UNITS TIDWMEALS SQ Last administered on 01/18/19at 10:03; Start 01/18/19 at 08:00 Dextrose (Dextrose 50%-Water Syringe) 12.5 gm PRN Q15MIN PRN IV SEE COMMENTS; Start 01/18/19 at 03:30 Active Scripts Active Metformin Hcl 500 Mg Tablet 500 Mg PO BIDWMEALS 30 Days Proair Hfa (Albuterol Sulfate) 8.5 Gm Hfa.aer.ad 2.5 Mg NEB PRN Q6HRS PRN 30 Days Duoneb 0.5-3(2.5) Mg/3 Ml (Albuterol/Ipratropium) 3 Ml Ampul.neb 3 Ml NEB RTQID 30 Days Vitamin D (Cholecalciferol (Vitamin D3)) 1,000 Unit Capsule 2,000 Unit PO DAILY 30 Days Aspirin Ec (Aspirin) 81 Mg Tablet. 81 Mg PO DAILYWBKFT Lantus Solostar (Insulin Glargine,Hum.rec.anlog) 100 Unit/1 Ml Insuln.pen 5 Unit SQ QHS Synthroid (Levothyroxine Sodium) 200 Mcg Tablet 1 Tab PO DAILY Pantoprazole Sodium (Pantoprazole Sodium) 40 Mg Tablet. 40 Mg PO DAILYAC Reported Tramadol Hcl 50 Mg Tablet 50 Mg PO PRN Q12HR PRN Demadex (Torsemide) 20 Mg Tablet 20 Mg PO BID NITROGLYCERIN SubLingual (Nitroglycerin) 0.4 Mg Tab.subl 0.4 Mg SL PRN Q5MIN PRN Ferrous Sulfate 325 Mg Tablet 1 Tab PO DAILY Folic Acid 1 Mg Tablet 1 Tab PO DAILY Colestid (Colestipol Hcl) 1 Gm Tablet 2 Gm PO BID Metolazone 5 Mg Tablet 5 Mg PO DAILY Triamterene-Hctz 37.5-25 Mg Tb (Triamterene/Hydrochlorothiazid) 1 Each Tablet 1 Tab PO DAILY Coreg (Carvedilol) 25 Mg Tablet 12.5 Mg PO BIDWMEALS Entresto 97 mg-103 mg Tablet (Sacubitril/Valsartan) 1 Each Tablet 1 Each PO BID Atorvastatin Calcium 80 Mg Tablet 1 Tab PO QHS Gabapentin (Gabapentin) 300 Mg Capsule 300 Mg PO TID Potassium Chloride 10 Meq Tab.er.prt 1 Tab PO BID Allergies Allergies: Coded Allergies: lisinopril (Verified Adverse Reaction, Mild, COUGH, 11/28/16) caused cough ROS General: YES: Appetite PSYCHOLOGICAL ROS: YES: Anxiety, Depression Eyes: Yes Decreased vision HEENT: YES: Alonso ALLERGY AND IMMUNOLOGY: YES: Seasonal Allergies Respiratory: YES: Cough, Shortness of breath Cardiovascular: yes Orthopnea Gastrointestinal: Yes Constipation Genitourinary: YES Other (NOCTURIA) Musculoskeletal: Yes Muscular Weakness Neurological: Yes Weakness Skin: Yes Dry Skin Physical Exam General: Alert, Oriented X3, Cooperative, No acute distress HEENT: Atraumatic, PERRLA, EOMI, Mucous membr. moist/pink Lungs: Clear to auscultation Heart: Regular rate, Normal S1, Normal S2 Abdomen: Normal bowel sounds, Soft, No tenderness Extremities: No clubbing, No cyanosis, Other (3+ EDEMA) Neuro: Normal speech, Sensation intact Psych/Mental Status: Mental status NL, Mood NL MUSCULOSKELETAL: No joint tenderness, No deformity Vitals VITALS Vital Signs Date Time Temp Pulse Resp B/P (MAP) Pulse Ox O2 Delivery O2 Flow Rate FiO2 01/18/19 09:48 70 149/68 01/18/19 08:03 95 Nasal Cannula 3.0 01/18/19 07:00 98.2 20 98.2 Labs Labs Laboratory Tests Test 01/17/19 18:30 01/17/19 23:35 01/17/19 23:42 01/18/19 03:30 White Blood Count 4.4 x10^3/uL (4.0-11.0) 4.4 x10^3/uL (4.0-11.0) Red Blood Count 2.78 x10^6/uL (3.50-5.40) 2.41 x10^6/uL (3.50-5.40) Hemoglobin 8.6 g/dL (12.0-15.5) 7.3 g/dL (12.0-15.5) Hematocrit 24.8 % (36.0-47.0) 21.2 % (36.0-47.0) Mean Corpuscular Volume 89 fL (79-100) 88 fL (79-100) Mean Corpuscular Hemoglobin 31 pg (25-35) 30 pg (25-35) Mean Corpuscular Hemoglobin Concent 35 g/dL (31-37) 34 g/dL (31-37) Red Cell Distribution Width 16.0 % (11.5-14.5) 15.9 % (11.5-14.5) Platelet Count 182 x10^3/uL (140-400) 161 x10^3/uL (140-400) Neutrophils (%) (Auto) 58 % (31-73) 60 % (31-73) Lymphocytes (%) (Auto) 28 % (24-48) 27 % (24-48) Monocytes (%) (Auto) 7 % (0-9) 6 % (0-9) Eosinophils (%) (Auto) 6 % (0-3) 6 % (0-3) Basophils (%) (Auto) 0 % (0-3) 1 % (0-3) Neutrophils # (Auto) 2.5 x10^3/uL (1.8-7.7) 2.7 x10^3/uL (1.8-7.7) Lymphocytes # (Auto) 1.2 x10^3/uL (1.0-4.8) 1.2 x10^3/uL (1.0-4.8) Monocytes # (Auto) 0.3 x10^3/uL (0.0-1.1) 0.3 x10^3/uL (0.0-1.1) Eosinophils # (Auto) 0.3 x10^3/uL (0.0-0.7) 0.3 x10^3/uL (0.0-0.7) Basophils # (Auto) 0.0 x10^3/uL (0.0-0.2) 0.0 x10^3/uL (0.0-0.2) Prothrombin Time 12.3 SEC (11.7-14.0) Prothromb Time International Ratio 0.9 (0.8-1.1) Sodium Level 137 mmol/L (136-145) 141 mmol/L (136-145) Potassium Level 4.0 mmol/L (3.5-5.1) 3.8 mmol/L (3.5-5.1) Chloride Level 100 mmol/L (98-107) 104 mmol/L (98-107) Carbon Dioxide Level 30 mmol/L (21-32) 32 mmol/L (21-32) Anion Gap 7 (6-14) 5 (6-14) Blood Urea Nitrogen 36 mg/dL (7-20) 34 mg/dL (7-20) Creatinine 1.7 mg/dL (0.6-1.0) 1.6 mg/dL (0.6-1.0) Estimated GFR (Cockcroft-Gault) 30.9 33.1 BUN/Creatinine Ratio 21 (6-20) Glucose Level 319 mg/dL (70-99) 306 mg/dL (70-99) Calcium Level 8.4 mg/dL (8.5-10.1) 7.8 mg/dL (8.5-10.1) Magnesium Level 2.3 mg/dL (1.8-2.4) Total Bilirubin 0.3 mg/dL (0.2-1.0) Aspartate Amino Transf (AST/SGOT) 17 U/L (15-37) Alanine Aminotransferase (ALT/SGPT) 21 U/L (14-59) Alkaline Phosphatase 142 U/L (46-116) Troponin I Quantitative < 0.017 ng/mL (0.000-0.055) < 0.017 ng/mL (0.000-0.055) 0.019 ng/mL (0.000-0.055) RE-Kcx-B-Type Natriuretic Peptide 33445 pg/mL (0-124) Total Protein 6.2 g/dL (6.4-8.2) Albumin 2.2 g/dL (3.4-5.0) Albumin/Globulin Ratio 0.6 (1.0-1.7) Glucose (Fingerstick) 331 mg/dL (70-99) Test 01/18/19 08:26 Glucose (Fingerstick) 245 mg/dL (70-99) Laboratory Tests Test 01/17/19 18:30 01/17/19 23:35 01/17/19 23:42 01/18/19 03:30 White Blood Count 4.4 x10^3/uL (4.0-11.0) 4.4 x10^3/uL (4.0-11.0) Red Blood Count 2.78 x10^6/uL (3.50-5.40) 2.41 x10^6/uL (3.50-5.40) Hemoglobin 8.6 g/dL (12.0-15.5) 7.3 g/dL (12.0-15.5) Hematocrit 24.8 % (36.0-47.0) 21.2 % (36.0-47.0) Mean Corpuscular Volume 89 fL (79-100) 88 fL (79-100) Mean Corpuscular Hemoglobin 31 pg (25-35) 30 pg (25-35) Mean Corpuscular Hemoglobin Concent 35 g/dL (31-37) 34 g/dL (31-37) Red Cell Distribution Width 16.0 % (11.5-14.5) 15.9 % (11.5-14.5) Platelet Count 182 x10^3/uL (140-400) 161 x10^3/uL (140-400) Neutrophils (%) (Auto) 58 % (31-73) 60 % (31-73) Lymphocytes (%) (Auto) 28 % (24-48) 27 % (24-48) Monocytes (%) (Auto) 7 % (0-9) 6 % (0-9) Eosinophils (%) (Auto) 6 % (0-3) 6 % (0-3) Basophils (%) (Auto) 0 % (0-3) 1 % (0-3) Neutrophils # (Auto) 2.5 x10^3/uL (1.8-7.7) 2.7 x10^3/uL (1.8-7.7) Lymphocytes # (Auto) 1.2 x10^3/uL (1.0-4.8) 1.2 x10^3/uL (1.0-4.8) Monocytes # (Auto) 0.3 x10^3/uL (0.0-1.1) 0.3 x10^3/uL (0.0-1.1) Eosinophils # (Auto) 0.3 x10^3/uL (0.0-0.7) 0.3 x10^3/uL (0.0-0.7) Basophils # (Auto) 0.0 x10^3/uL (0.0-0.2) 0.0 x10^3/uL (0.0-0.2) Prothrombin Time 12.3 SEC (11.7-14.0) Prothromb Time International Ratio 0.9 (0.8-1.1) Sodium Level 137 mmol/L (136-145) 141 mmol/L (136-145) Potassium Level 4.0 mmol/L (3.5-5.1) 3.8 mmol/L (3.5-5.1) Chloride Level 100 mmol/L (98-107) 104 mmol/L (98-107) Carbon Dioxide Level 30 mmol/L (21-32) 32 mmol/L (21-32) Anion Gap 7 (6-14) 5 (6-14) Blood Urea Nitrogen 36 mg/dL (7-20) 34 mg/dL (7-20) Creatinine 1.7 mg/dL (0.6-1.0) 1.6 mg/dL (0.6-1.0) Estimated GFR (Cockcroft-Gault) 30.9 33.1 BUN/Creatinine Ratio 21 (6-20) Glucose Level 319 mg/dL (70-99) 306 mg/dL (70-99) Calcium Level 8.4 mg/dL (8.5-10.1) 7.8 mg/dL (8.5-10.1) Magnesium Level 2.3 mg/dL (1.8-2.4) Total Bilirubin 0.3 mg/dL (0.2-1.0) Aspartate Amino Transf (AST/SGOT) 17 U/L (15-37) Alanine Aminotransferase (ALT/SGPT) 21 U/L (14-59) Alkaline Phosphatase 142 U/L (46-116) Troponin I Quantitative < 0.017 ng/mL (0.000-0.055) < 0.017 ng/mL (0.000-0.055) 0.019 ng/mL (0.000-0.055) BU-Del-P-Type Natriuretic Peptide 69930 pg/mL (0-124) Total Protein 6.2 g/dL (6.4-8.2) Albumin 2.2 g/dL (3.4-5.0) Albumin/Globulin Ratio 0.6 (1.0-1.7) Glucose (Fingerstick) 331 mg/dL (70-99) Test 01/18/19 08:26 Glucose (Fingerstick) 245 mg/dL (70-99) Assessment/Plan Assessment/Plan IMP CKD STAGE 3 WITH CR STABLE AT 1.6 SEVERE LE EDEMA SUSPECT NEPHROTIC SYNDROME DM II HTN CHF-PROB SYSTOLIC SEVERE ANEMIA PLAN DIURETICS OK TO CONTINUE ENTRESTO IF NEEDED FROM RENAL STANDPOINT CARDIOLOGY EVAL ANEMIA WORK UP 24 HR URINE WILL FOLLOW MARY SANTIAGO MD Jan 18, 2019 12:12
--- NOTE | 2019-01-18 12:23 | PDOC2 ---
CARDIAC CONSULT DATE OF CONSULT Date of Consult DATE: 01/18/19 TIME: 12:03 REASON FOR CONSULT Reason for Consult: CHF REFERRING PHYSICIAN Referring Physician: Dr. Morgan SOURCE Source: Chart review, Patient HISTORY OF PRESENT ILLNESS HISTORY OF PRESENT ILLNESS This is a 58 yo female who presented secondary to shortness of breath, chest pain, and lower extremity edema. Patient reports she has been more dyspneic for the last week. Much worse in the last couple of days. With SOA, has experienced some tightness in her central chest. Feel like she cant get a deep breath. Lower extremities has also been more swollen for the last week. Denies any palpitations, dizziness, diaphoresis, or nausea/vomiting. No recent illness, fevers. Reports compliance with medications. Patient also reports that she tripped and feel into her chair the other day and had bruised right eye. PAST MEDICAL HISTORY Past Medical History Cardiovascular: CAD (multiple PCI/NIGEL to OM, diagonal and LAD), CHF (systolic), HTN, Hyperlipidemia, Other (ischemic CMP with LVEF ~ 40%) Pulmonary: COPD, PE GI: No pertinent hx Heme/Onc: Anemia NOS Hepatobiliary: No pertinent hx Psych: Anxiety, Depression Musculoskeletal: Osteoarthritis Rheumatologic: No pertinent hx Infectious disease: No pertinent hx ENT: No pertinent hx Renal/: Chronic renal insuff Endocrine: Diabetes (with peripheral neuropathy), Hypothyroidism Dermatology: No pertinent hx PAST SURGICAL HISTORY Past Surgical History [facility] [facility] AICD, Cataract Removal, Other (I & D left buttock) FAMILY HISTORY Family History noncontributory SOCIAL HISTORY Social History Smoke: Quit (2016) ALCOHOL: none Drugs: None Lives: with Family CURRENT MEDICATIONS CURRENT MEDICATIONS Current Medications Medications (Trade) Dose Ordered Sig/Carlos Route PRN Reason Start Time Stop Time Status Last Admin Dose Admin Furosemide (Lasix) 40 mg 1X ONCE IVP 01/17/19 19:15 01/17/19 19:16 DC 01/17/19 19:42 Nitroglycerin (Nitrostat) 0.4 mg PRN Q5MIN PRN SL CHEST PAIN 01/17/19 19:30 01/18/19 19:29 01/17/19 23:28 Nitroglycerin (Nitro-Bid Oint) 1 inch 1X ONCE TP 01/17/19 20:00 01/17/19 20:01 DC 01/17/19 20:10 Labetalol HCl (Normodyne Iv Push) 10 mg 1X ONCE IVP 01/17/19 20:00 01/17/19 20:01 DC 01/17/19 20:09 Aspirin (Ecotrin) 81 mg DAILYWBKFT PO 01/18/19 08:00 01/18/19 09:48 Colestipol HCl (Colestid) 2 gm BIDBFRMEAL PO 01/18/19 07:30 01/18/19 09:48 Ferrous Sulfate (Feosol) 325 mg DAILY PO 01/18/19 09:00 01/18/19 09:50 Folic Acid (Folic Acid) 1 mg DAILY PO 01/18/19 09:00 01/18/19 09:52 Albuterol/ Ipratropium (Duoneb) 3 ml RTQID NEB 01/18/19 08:00 01/18/19 08:01 Pantoprazole Sodium (Protonix) 40 mg DAILYAC PO 01/18/19 07:30 01/18/19 09:47 Potassium Chloride (Klor-Con) 10 meq BID PO 01/18/19 09:00 01/18/19 09:48 Torsemide (Demadex) 20 mg BID94 PO 01/18/19 09:00 01/18/19 09:48 Tramadol HCl (Ultram) 50 mg PRN Q12HR PRN PO MODERATE PAIN 4-6 01/17/19 22:45 01/17/19 23:06 Vitamin D (Vitamin D3) 2,000 unit DAILY PO 01/18/19 09:00 01/18/19 09:49 Levothyroxine Sodium (Synthroid) 200 mcg DAILY06 PO 01/18/19 06:00 01/18/19 09:49 Metolazone (Zaroxolyn) 5 mg DAILY PO 01/18/19 09:00 01/18/19 09:54 Atorvastatin Calcium (Lipitor) 80 mg QHS PO 01/18/19 00:00 01/17/19 23:58 Gabapentin (Neurontin) 300 mg BID PO 01/18/19 00:00 01/18/19 09:49 Insulin Glargine (Lantus Syringe) 5 unit QHS SQ 01/18/19 00:00 01/18/19 00:02 Sacubitril/ Valsartan (Entresto 49 Mg-51 Mg) 2 tab BID PO 01/18/19 00:00 01/18/19 09:48 Enoxaparin Sodium (Lovenox 40mg Syringe) 40 mg Q24H SQ 01/18/19 09:00 01/18/19 09:47 Insulin Human Lispro (HumaLOG) 0-5 UNITS TIDWMEALS SQ 01/18/19 08:00 01/18/19 10:03 ALLERGIES ALLERGIES: Coded Allergies: lisinopril (Verified Adverse Reaction, Mild, COUGH, 11/28/16) caused cough ROS Review of System 14 point ROS conducted with pertinent positives noted above in HPI. PHYSICAL EXAM PHYSICAL EXAM General: Alert, Oriented X3, Cooperative, No acute distress HEENT: Atraumatic, Mucous membr. moist/pink Lungs: Other (diffuse crackles ) Heart: Regular rate (SR), Normal S1, Normal S2, Abdomen: Soft, No tenderness Extremities: No cyanosis, Other (2+ bilateral LE pitting edema) Skin: No breakdown, No significant lesion Neuro: Normal speech, Sensation intact Psych/Mental Status: Mental status NL, Other (flat affect) MUSCULOSKELETAL: Osteoarthritic changes both hands VITALS/I&O VITALS/I&O: Vital Signs Date Time Temp Pulse Resp B/P (MAP) Pulse Ox O2 Delivery O2 Flow Rate FiO2 01/18/19 09:48 70 149/68 01/18/19 08:03 95 Nasal Cannula 3.0 01/18/19 07:00 98.2 20 98.2 I & O 01/17/19 01/17/19 01/18/19 14:59 22:59 06:59 Output Total 350 ml Balance -350 ml LABS Lab: Laboratory Tests Test 01/17/19 18:30 01/17/19 23:35 01/17/19 23:42 01/18/19 03:30 White Blood Count 4.4 x10^3/uL (4.0-11.0) 4.4 x10^3/uL (4.0-11.0) Red Blood Count 2.78 x10^6/uL (3.50-5.40) L 2.41 x10^6/uL (3.50-5.40) L Hemoglobin 8.6 g/dL (12.0-15.5) L 7.3 g/dL (12.0-15.5) L Hematocrit 24.8 % (36.0-47.0) L 21.2 % (36.0-47.0) L Mean Corpuscular Volume 89 fL (79-100) 88 fL (79-100) Mean Corpuscular Hemoglobin 31 pg (25-35) 30 pg (25-35) Mean Corpuscular Hemoglobin Concent 35 g/dL (31-37) 34 g/dL (31-37) Red Cell Distribution Width 16.0 % (11.5-14.5) H 15.9 % (11.5-14.5) H Platelet Count 182 x10^3/uL (140-400) 161 x10^3/uL (140-400) Neutrophils (%) (Auto) 58 % (31-73) 60 % (31-73) Lymphocytes (%) (Auto) 28 % (24-48) 27 % (24-48) Monocytes (%) (Auto) 7 % (0-9) 6 % (0-9) Eosinophils (%) (Auto) 6 % (0-3) H 6 % (0-3) H Basophils (%) (Auto) 0 % (0-3) 1 % (0-3) Neutrophils # (Auto) 2.5 x10^3/uL (1.8-7.7) 2.7 x10^3/uL (1.8-7.7) Lymphocytes # (Auto) 1.2 x10^3/uL (1.0-4.8) 1.2 x10^3/uL (1.0-4.8) Monocytes # (Auto) 0.3 x10^3/uL (0.0-1.1) 0.3 x10^3/uL (0.0-1.1) Eosinophils # (Auto) 0.3 x10^3/uL (0.0-0.7) 0.3 x10^3/uL (0.0-0.7) Basophils # (Auto) 0.0 x10^3/uL (0.0-0.2) 0.0 x10^3/uL (0.0-0.2) Prothrombin Time 12.3 SEC (11.7-14.0) Prothrombin Time INR 0.9 (0.8-1.1) Sodium Level 137 mmol/L (136-145) 141 mmol/L (136-145) Potassium Level 4.0 mmol/L (3.5-5.1) 3.8 mmol/L (3.5-5.1) Chloride Level 100 mmol/L (98-107) 104 mmol/L (98-107) Carbon Dioxide Level 30 mmol/L (21-32) 32 mmol/L (21-32) Anion Gap 7 (6-14) 5 (6-14) L Blood Urea Nitrogen 36 mg/dL (7-20) H 34 mg/dL (7-20) H Creatinine 1.7 mg/dL (0.6-1.0) H 1.6 mg/dL (0.6-1.0) H Estimated GFR (Cockcroft-Gault) 30.9 33.1 BUN/Creatinine Ratio 21 (6-20) H Glucose Level 319 mg/dL (70-99) H 306 mg/dL (70-99) H Calcium Level 8.4 mg/dL (8.5-10.1) L 7.8 mg/dL (8.5-10.1) L Magnesium Level 2.3 mg/dL (1.8-2.4) Total Bilirubin 0.3 mg/dL (0.2-1.0) Aspartate Amino Transferase (AST) 17 U/L (15-37) Alanine Aminotransferase (ALT) 21 U/L (14-59) Alkaline Phosphatase 142 U/L (46-116) H Troponin I Quantitative < 0.017 ng/mL (0.000-0.055) < 0.017 ng/mL (0.000-0.055) 0.019 ng/mL (0.000-0.055) IW-Ixo-G-Type Natriuretic Peptide 84384 pg/mL (0-124) H Total Protein 6.2 g/dL (6.4-8.2) L Albumin 2.2 g/dL (3.4-5.0) L Albumin/Globulin Ratio 0.6 (1.0-1.7) L Glucose (Fingerstick) 331 mg/dL (70-99) H Test 01/18/19 08:26 Glucose (Fingerstick) 245 mg/dL (70-99) H Laboratory Tests 9/26/19 18:30 01/18/19 03:30 Laboratory Tests 01/17/19 18:30 01/18/19 03:30 ECHOCARDIOGRAM ECHOCARDIOGRAM <Conclusion> Left ventricle systolic function is mildly to moderately impaired. The Ejection Fraction is 40-45%. There is global hypokinesis of the left ventricle. Septal motion suggestive of conduction defect. There is a pacemaker lead in the right ventricle. Doppler and Color Flow revealed mild to moderate tricuspid regurgitation. There is moderate pulmonary hypertension. The PA pressure was estimated at 47 mmHg. There is a trace circumferential pericardial effusion. DATE: 11/27/18 1229 STRESS TEST STRESS TEST Conclusion 1. Regadenoson cardioisotope stress test mixed perfusion defect involving the inferolateral wall consistent with small infarct and small amount of ischemia. 2. Normal left ventricular systolic function with ejection fraction calculated at 52%. 3. Low to intermediate risk for cardiac events. DATE: 09/01/17 1536 ASSESSMENT/PLAN ASSESSMENT/PLAN 1. Acute on chronic combined diastolic/systolic CHF 2. Chest pain, atypical. AMI ruled out. 3. Accelerated hypertension; better controlled 4. Ischemic cardiomyopathy; s/p AICD ([employer]). LVEF 40-45% per recent echo 5. CAD s/p previous PCI/stents. MPI 08/2017 with mixed perfusion defect as noted above. 6. BRAD on CKD 7. Anemia of chronic disease 8. Hyper;lipidemia 9. Diabetes, II; uncontrolled . 10. Hx of PE Recommendations Diuresis with monitoring of renal function HR optimization with Entresto, Coreg, and Lasix therapy Continue home antiHTN therapy Secondary prevention measures Consider further ischemic workup. COLLEEN MAURER APRN Jan 18, 2019 12:23
[2019-01-18] MEDS ORDERED: FUROSEMIDE 40 MG/4 ML VIAL. IVP ONE (12:30)
[2019-01-18] MEDS: CARVEDILOL 12.5 MG TABLET. PO SCH ×2 (12:39→17:21)
--- NOTE | 2019-01-18 12:52 | PDOC1 ---
History and Physical Date of Admission Date of Admission 01/17/19 Identification/Chief Complaint Chief Complaint SOA Source Source: Chart review, Patient History of Present Illness History of Present Illness She recently had a fall and hit her forehead and has a swollen right knee and sore shoulder, she has also been progressively SA over the past 4 days and has been seen in the ER and admitted. Cardiology and renal have seen her in consultation. He son tole the ER she has been compliant with meds but her blood sugar was over 300 Past Medical History Cardiovascular: CAD, CHF, HTN, Hyperlipidemia, Other Pulmonary: COPD CENTRAL NERVOUS SYSTEM: Periperal neuropathy GI: No pertinent hx Heme/Onc: Anemia NOS Hepatobiliary: No pertinent hx Psych: Anxiety, Depression Rheumatologic: No pertinent hx Infectious disease: No pertinent hx Renal/: Chronic renal insuff Endocrine: Diabetes, Hypothyroidism Past Surgical History Past Surgical History: Pacemaker, Cataract Removal, Other Family History Family History: Diabetes, Hypertension Social History ALCOHOL: none Drugs: None Current Problem List Problem List Problems Medical Problems: (1) Dyspnea Status: Acute Current Medications Current Medications Current Medications Medications (Trade) Dose Ordered Sig/Carlos Start Time Stop Time Status Last Admin Dose Admin Albuterol Sulfate (Ventolin Neb Soln) 2.5 mg PRN Q6HRS PRN 01/17/19 22:45 Albuterol/ Ipratropium (Duoneb) 3 ml RTQID 01/18/19 08:00 01/18/19 08:01 3 ML Aspirin (Ecotrin) 81 mg DAILYWBKFT 01/18/19 08:00 01/18/19 09:48 81 MG Atorvastatin Calcium (Lipitor) 80 mg QHS 01/18/19 00:00 01/17/19 23:58 80 MG Carvedilol (Coreg) 12.5 mg BIDWMEALS 01/18/19 08:00 Colestipol HCl (Colestid) 2 gm BIDBFRMEAL 01/18/19 07:30 01/18/19 09:48 2 GM Dextrose (Dextrose 50%-Water Syringe) 12.5 gm PRN Q15MIN PRN 01/18/19 03:30 Enoxaparin Sodium (Lovenox 40mg Syringe) 40 mg Q24H 01/18/19 09:00 01/18/19 09:47 40 MG Ferrous Sulfate (Feosol) 325 mg DAILY 01/18/19 09:00 01/18/19 09:50 325 MG Folic Acid (Folic Acid) 1 mg DAILY 01/18/19 09:00 01/18/19 09:52 1 MG Furosemide (Lasix) 40 mg 1X ONCE 01/18/19 12:30 01/18/19 12:31 DC Gabapentin (Neurontin) 300 mg BID 01/18/19 00:00 01/18/19 09:49 300 MG Influenza Virus Vaccine Quadrival (Afluria Quad 2019-20 (3yr Up) Syringe) 0.5 ml ONCE ONCE 01/18/19 09:00 01/18/19 09:01 DC Insulin Glargine (Lantus Syringe) 5 unit QHS 01/18/19 21:00 UNV Insulin Human Lispro (HumaLOG) 0-5 UNITS TIDWMEALS 01/18/19 08:00 01/18/19 10:03 3 UNITS Labetalol HCl (Normodyne Iv Push) 10 mg 1X ONCE 01/17/19 20:00 01/17/19 20:01 DC 01/17/19 20:09 10 MG Levothyroxine Sodium (Synthroid) 200 mcg DAILY06 01/18/19 06:00 01/18/19 09:49 200 MCG Metformin HCl (Glucophage) 500 mg BIDWMEALS 01/18/19 08:00 UNV Metolazone (Zaroxolyn) 5 mg DAILY 01/18/19 09:00 01/18/19 09:54 5 MG Nitroglycerin (Nitro-Bid Oint) 1 inch 1X ONCE 01/17/19 20:00 01/17/19 20:01 DC 01/17/19 20:10 1 INCH Nitroglycerin (Nitrostat) 0.4 mg PRN Q5MIN PRN 01/17/19 19:30 01/18/19 19:29 01/17/19 23:28 0.4 MG Pantoprazole Sodium (Protonix) 40 mg DAILYAC 01/18/19 07:30 01/18/19 09:47 40 MG Potassium Chloride (Klor-Con) 10 meq BID 01/18/19 09:00 01/18/19 09:48 10 MEQ Sacubitril/ Valsartan (Entresto 49 Mg-51 Mg) 2 tab BID 01/18/19 00:00 01/18/19 09:48 2 TAB Torsemide (Demadex) 20 mg BID94 01/18/19 09:00 01/18/19 09:48 20 MG Tramadol HCl (Ultram) 50 mg PRN Q12HR PRN 01/17/19 22:45 01/17/19 23:06 50 MG Triamterene/HCTZ (Maxzide 37.5/ 25mg) 1 tab DAILY 01/18/19 09:00 01/18/19 12:05 DC Vitamin D (Vitamin D3) 2,000 unit DAILY 01/18/19 09:00 01/18/19 09:49 2,000 UNIT Allergies Allergies Allergies Coded Allergies Type Severity Reaction Last Updated Verified lisinopril Adverse Reaction Mild COUGH 11/28/16 Yes ROS Review of System CONSTITUTIONAL: No fever or chills EYES: right eye hematoma SKIN: No rash or itching CARDIOVASCULAR: No chest pain, syncope, palpitations, or edema RESPIRATORY: + SOB, no cough GASTROINTESTINAL: No nausea, vomiting or abdominal pain NEUROLOGICAL: No headaches or weakness ENDOCRINE: No cold or heat intolerance GENITOURINARY: No urgency or frequency of urination MUSCULOSKELETAL: right knee effusion, right shoulder pain LYMPHATICS: No enlarged lymph nodes PSYCHIATRIC: No anxiety or depression Physical Exam Physical Exam GEN.: No apparent distress. Alert and oriented. HEENT: right forehead contusion, right eye bruising NECK: Supple. LUNGS: Clear to auscultation. HEART: RRR, S1, S2 present. Peripheral pulses intact ABDOMEN: Soft, nontender. Positive bowel sounds. EXTREMITIES: Without any cyanosis, 1+ edema present. NEUROLOGIC: Normal speech, normal tone PSYCHIATRIC: Normal affect, normal mood. SKIN: No ulcerations Vitals Vitals Vital Signs Date Time Temp Pulse Resp B/P (MAP) Pulse Ox O2 Delivery O2 Flow Rate FiO2 01/18/19 11:00 98.4 74 20 149/77 (101) 95 Nasal Cannula 4.0 98.4 Labs Labs Laboratory Tests Test 01/17/19 18:30 01/17/19 23:35 01/17/19 23:42 01/18/19 03:30 White Blood Count 4.4 x10^3/uL (4.0-11.0) 4.4 x10^3/uL (4.0-11.0) Red Blood Count 2.78 x10^6/uL (3.50-5.40) 2.41 x10^6/uL (3.50-5.40) Hemoglobin 8.6 g/dL (12.0-15.5) 7.3 g/dL (12.0-15.5) Hematocrit 24.8 % (36.0-47.0) 21.2 % (36.0-47.0) Mean Corpuscular Volume 89 fL (79-100) 88 fL (79-100) Mean Corpuscular Hemoglobin 31 pg (25-35) 30 pg (25-35) Mean Corpuscular Hemoglobin Concent 35 g/dL (31-37) 34 g/dL (31-37) Red Cell Distribution Width 16.0 % (11.5-14.5) 15.9 % (11.5-14.5) Platelet Count 182 x10^3/uL (140-400) 161 x10^3/uL (140-400) Neutrophils (%) (Auto) 58 % (31-73) 60 % (31-73) Lymphocytes (%) (Auto) 28 % (24-48) 27 % (24-48) Monocytes (%) (Auto) 7 % (0-9) 6 % (0-9) Eosinophils (%) (Auto) 6 % (0-3) 6 % (0-3) Basophils (%) (Auto) 0 % (0-3) 1 % (0-3) Neutrophils # (Auto) 2.5 x10^3/uL (1.8-7.7) 2.7 x10^3/uL (1.8-7.7) Lymphocytes # (Auto) 1.2 x10^3/uL (1.0-4.8) 1.2 x10^3/uL (1.0-4.8) Monocytes # (Auto) 0.3 x10^3/uL (0.0-1.1) 0.3 x10^3/uL (0.0-1.1) Eosinophils # (Auto) 0.3 x10^3/uL (0.0-0.7) 0.3 x10^3/uL (0.0-0.7) Basophils # (Auto) 0.0 x10^3/uL (0.0-0.2) 0.0 x10^3/uL (0.0-0.2) Prothrombin Time 12.3 SEC (11.7-14.0) Prothromb Time International Ratio 0.9 (0.8-1.1) Sodium Level 137 mmol/L (136-145) 141 mmol/L (136-145) Potassium Level 4.0 mmol/L (3.5-5.1) 3.8 mmol/L (3.5-5.1) Chloride Level 100 mmol/L (98-107) 104 mmol/L (98-107) Carbon Dioxide Level 30 mmol/L (21-32) 32 mmol/L (21-32) Anion Gap 7 (6-14) 5 (6-14) Blood Urea Nitrogen 36 mg/dL (7-20) 34 mg/dL (7-20) Creatinine 1.7 mg/dL (0.6-1.0) 1.6 mg/dL (0.6-1.0) Estimated GFR (Cockcroft-Gault) 30.9 33.1 BUN/Creatinine Ratio 21 (6-20) Glucose Level 319 mg/dL (70-99) 306 mg/dL (70-99) Calcium Level 8.4 mg/dL (8.5-10.1) 7.8 mg/dL (8.5-10.1) Magnesium Level 2.3 mg/dL (1.8-2.4) Total Bilirubin 0.3 mg/dL (0.2-1.0) Aspartate Amino Transf (AST/SGOT) 17 U/L (15-37) Alanine Aminotransferase (ALT/SGPT) 21 U/L (14-59) Alkaline Phosphatase 142 U/L (46-116) Troponin I Quantitative < 0.017 ng/mL (0.000-0.055) < 0.017 ng/mL (0.000-0.055) 0.019 ng/mL (0.000-0.055) TQ-Eor-E-Type Natriuretic Peptide 69696 pg/mL (0-124) Total Protein 6.2 g/dL (6.4-8.2) Albumin 2.2 g/dL (3.4-5.0) Albumin/Globulin Ratio 0.6 (1.0-1.7) Glucose (Fingerstick) 331 mg/dL (70-99) Test 01/18/19 08:26 01/18/19 11:51 Glucose (Fingerstick) 245 mg/dL (70-99) 193 mg/dL (70-99) Laboratory Tests Test 01/17/19 18:30 01/17/19 23:35 01/17/19 23:42 01/18/19 03:30 White Blood Count 4.4 x10^3/uL (4.0-11.0) 4.4 x10^3/uL (4.0-11.0) Red Blood Count 2.78 x10^6/uL (3.50-5.40) 2.41 x10^6/uL (3.50-5.40) Hemoglobin 8.6 g/dL (12.0-15.5) 7.3 g/dL (12.0-15.5) Hematocrit 24.8 % (36.0-47.0) 21.2 % (36.0-47.0) Mean Corpuscular Volume 89 fL (79-100) 88 fL (79-100) Mean Corpuscular Hemoglobin 31 pg (25-35) 30 pg (25-35) Mean Corpuscular Hemoglobin Concent 35 g/dL (31-37) 34 g/dL (31-37) Red Cell Distribution Width 16.0 % (11.5-14.5) 15.9 % (11.5-14.5) Platelet Count 182 x10^3/uL (140-400) 161 x10^3/uL (140-400) Neutrophils (%) (Auto) 58 % (31-73) 60 % (31-73) Lymphocytes (%) (Auto) 28 % (24-48) 27 % (24-48) Monocytes (%) (Auto) 7 % (0-9) 6 % (0-9) Eosinophils (%) (Auto) 6 % (0-3) 6 % (0-3) Basophils (%) (Auto) 0 % (0-3) 1 % (0-3) Neutrophils # (Auto) 2.5 x10^3/uL (1.8-7.7) 2.7 x10^3/uL (1.8-7.7) Lymphocytes # (Auto) 1.2 x10^3/uL (1.0-4.8) 1.2 x10^3/uL (1.0-4.8) Monocytes # (Auto) 0.3 x10^3/uL (0.0-1.1) 0.3 x10^3/uL (0.0-1.1) Eosinophils # (Auto) 0.3 x10^3/uL (0.0-0.7) 0.3 x10^3/uL (0.0-0.7) Basophils # (Auto) 0.0 x10^3/uL (0.0-0.2) 0.0 x10^3/uL (0.0-0.2) Prothrombin Time 12.3 SEC (11.7-14.0) Prothromb Time International Ratio 0.9 (0.8-1.1) Sodium Level 137 mmol/L (136-145) 141 mmol/L (136-145) Potassium Level 4.0 mmol/L (3.5-5.1) 3.8 mmol/L (3.5-5.1) Chloride Level 100 mmol/L (98-107) 104 mmol/L (98-107) Carbon Dioxide Level 30 mmol/L (21-32) 32 mmol/L (21-32) Anion Gap 7 (6-14) 5 (6-14) Blood Urea Nitrogen 36 mg/dL (7-20) 34 mg/dL (7-20) Creatinine 1.7 mg/dL (0.6-1.0) 1.6 mg/dL (0.6-1.0) Estimated GFR (Cockcroft-Gault) 30.9 33.1 BUN/Creatinine Ratio 21 (6-20) Glucose Level 319 mg/dL (70-99) 306 mg/dL (70-99) Calcium Level 8.4 mg/dL (8.5-10.1) 7.8 mg/dL (8.5-10.1) Magnesium Level 2.3 mg/dL (1.8-2.4) Total Bilirubin 0.3 mg/dL (0.2-1.0) Aspartate Amino Transf (AST/SGOT) 17 U/L (15-37) Alanine Aminotransferase (ALT/SGPT) 21 U/L (14-59) Alkaline Phosphatase 142 U/L (46-116) Troponin I Quantitative < 0.017 ng/mL (0.000-0.055) < 0.017 ng/mL (0.000-0.055) 0.019 ng/mL (0.000-0.055) BN-Qub-C-Type Natriuretic Peptide 83536 pg/mL (0-124) Total Protein 6.2 g/dL (6.4-8.2) Albumin 2.2 g/dL (3.4-5.0) Albumin/Globulin Ratio 0.6 (1.0-1.7) Glucose (Fingerstick) 331 mg/dL (70-99) Test 01/18/19 08:26 01/18/19 11:51 Glucose (Fingerstick) 245 mg/dL (70-99) 193 mg/dL (70-99) VTE Prophylaxis Ordered VTE Prophylaxis Devices: Yes VTE Pharmacological Prophylaxi: Yes Assessment/Plan Assessment/Plan acute on chronic diastolic heart failure - cardiology following, no ACS per enzymes CKD stage 3 - renal consult as she also has a low albumin, 24 hr urine ordered anemia of chronic disease - monitor, transfuse if drops under 7 uncontrolled type 2 diabetes - home meds, SSI right knee effusion - prior injection last month helpful - consult Dr. Gotti right shoulder pain - PT/OT fall at home head contusion - needs CT hypothyroidism, continue supplement, check TSH Helen LOBO MD Jan 18, 2019 12:52
--- NOTE | 2019-01-18 13:14 | NUR ---
SS following for discharge planning. SS reviewed pt chart. Pt is from home and is currently requiring oxygen. SS will continue to follow for discharge planning.
[2019-01-18 15:00] VITALS: BP 150/68
[2019-01-18] MEDS ORDERED: BUPIVACAINE MPF 0.25% 10 ML VIAL. IJ ONE (15:30)
[2019-01-18] MEDS ORDERED: methylPREDNISolone ACETATE 40 MG/ML VIAL. IM ONE (15:30)
[2019-01-18] MEDS ORDERED: methylPREDNISolone ACETATE 40 MG/ML VIAL. ONE (16:00)
[2019-01-18] MEDS ORDERED: BUPIVACAINE MPF 0.25% 10 ML VIAL. ONE (16:00)
--- NOTE | 2019-01-18 16:15 | RAD ---
CT head without contrast dated 01/18/2019. No comparison available. Clinical data indication: Pain after fall. TECHNIQUE: Contiguous axial imaging of the head was performed from skull base to vertex. No contrast administered. One or more of the following individualized dose reduction techniques were utilized for this examination: 1. Automated exposure control 2. Adjustment of the mA and/or kV according to patient size 3. Use of iterative reconstruction technique FINDINGS: Ventricles and sulci are within normal limits for age. No midline shift or mass effect. Brain parenchyma is of normal attenuation. No hemorrhage or extra-axial collection. Posterior fossa and brainstem unremarkable. Mild mucosal thickening of the bilateral ethmoid air cells and bilateral maxillary sinus. Visualized paranasal sinuses and mastoid air cells are otherwise clear. No apparent calvarial abnormality. IMPRESSION: 1. No evidence of acute intracranial abnormality. 2. Mild sinus disease. Electronically signed by: Bartolo Mcintosh MD (01/18/2019 4:12 PM) [id number]
[2019-01-18] MEDS: DICLOFENAC SODIUM 1% TOPICAL GEL 100GM TUBE. TP SCH (17:25)
[2019-01-18 19:00] VITALS: BP 157/70
[2019-01-18] MEDS: traMADol 50 MG TABLET PO PRN (19:31)
[2019-01-18] MEDS: ATORVASTATIN CALCIUM 40 MG TABLET. PO SCH (20:38)
[2019-01-18] MEDS ORDERED: ATORVASTATIN CALCIUM 40 MG TABLET. PO SCH (21:00)
[2019-01-18] MEDS ORDERED: INSULIN GLARGINE SYRINGE. SQ SCH ×2 (21:00)
--- NOTE | 2019-01-18 22:32 | CONS ---
DATE OF CONSULTATION: 01/18/2019 ATTENDING PHYSICIAN: Dr. Morgan. The patient was seen at the request of Dr. Evans for rehab evaluation about her right shoulder and right knee pain. HISTORY OF PRESENT ILLNESS: This is a 58-year-old female admitted on 01/17/2019 with increased shortness of breath. Also, complains of pain in right shoulder and right knee since she fell down earlier this week. The patient apparently has increasing shortness of breath for the last 4 days. She was seen in the Emergency Room. The patient is with known coronary artery disease, congestive heart failure, hypertension, hyperlipidemia, chronic obstructive pulmonary disease, peripheral neuropathy, anemia, anxiety, depression, chronic renal insufficiency, diabetes mellitus, hypothyroidism, status post pacemaker placement, and cataract surgery. FAMILY HISTORY: Diabetes mellitus and hypertension. ALLERGIES: SHE IS KNOWN ALLERGIC TO LISINOPRIL. SOCIAL HISTORY: She lives with her family, has stairs to manage without any railing. The patient had a cane and walker. She does not use them all the time. PHYSICAL EXAMINATION: On physical examination today revealed a middle-aged female. She is obese. She is alert and oriented to time, place, person, and circumstance. She had 5/5 grade muscle strength in her upper and lower extremities. Deep tendon reflexes are decreased overall. She had equal perception of touch and pinprick sensation bilaterally. She had tenderness to palpation over right shoulder, over right upper trapezius muscle area, and over medial knee joint line. She had crepitus on range of motion of both knee joints with knee joint effusion, right side more than left side. She had pain free range of motion of both hip joints. She had some pain on range of motion of right shoulder. Her skin is intact except she had a bruised area around right eye. She is using oxygen by nasal cannula. She is independent with bed mobility. I have not tested her transfers or ambulation skills at the present time. She had significant edema all over the body. ASSESSMENT: A middle-aged female with painful degenerative joints of right knee with knee joint effusion and degenerative joint disease of left knee without much pain, sprained right shoulder with associated right upper trapezius muscle strain from recent fall, diabetes mellitus with peripheral neuropathy, chronic renal insufficiency, congestive heart failure in a patient with known coronary artery disease, and hypertension. RECOMMENDATION: To try physical modality to her shoulder and to consider injecting painful right knee when her blood sugar is under better control to get her up with roller walker. Dr. Evans, I appreciate asking me to participate in the care of this interesting patient. I will be glad to see her for followup with you on an as needed basis. MALDONADO JACOBS MD DR: VIC/kit JOB#: [id number] / [id number]
[2019-01-18 23:00] VITALS: BP 139/67
[2019-01-19 02:51] VITALS: BP 121/60
[2019-01-19 03:53] LABS: BASO % 1 % (0-3); EOS # 0.3 x10^3/uL (0.0-0.7); EOS % 6 % (0-3); HEMATOCRIT 22.3 % (36.0-47.0); HEMOGLOBIN 7.6 g/dL (12.0-15.5); LYMPH # 0.7 x10^3/uL (1.0-4.8); LYMPH % 16 % (24-48); MEAN CORPUSCULAR HEMOGLOBIN 30 pg (25-35); MEAN CORPUSCULAR HGB CONC 34 g/dL (31-37); MEAN CORPUSCULAR VOLUME 88 fL (79-100); MONO # 0.3 x10^3/uL (0.0-1.1); MONO % 6 % (0-9); NEUT % 71 % (31-73); PLATELET COUNT 166 x10^3/uL (140-400); RED BLOOD COUNT 2.53 x10^6/uL (3.50-5.40); RED CELL DISTRIBUTION WIDTH 16.1 % (11.5-14.5); WHITE BLOOD COUNT 4.2 x10^3/uL (4.0-11.0)
[2019-01-19 04:35] LABS: CALCIUM 8.3 mg/dL (8.5-10.1); CREATININE 1.5 mg/dL (0.6-1.0); GFR 35.7; MAGNESIUM 2.1 mg/dL (1.8-2.4)
[2019-01-19] MEDS: LEVOTHYROXINE 100 MCG TABLET PO SCH (06:11)
[2019-01-19 07:00] VITALS: BP 136/67
[2019-01-19] MEDS: INSULIN LISPRO 300 UNITS/3 ML VIAL. SQ SCH ×3 (08:00→17:00)
[2019-01-19] MEDS: IPRATRPIUM/ALBUTEROL 0.5/2.5MG 3 ML NEBU. NEB SCH ×3 (08:30→16:25)
[2019-01-19] MEDS: FOLIC ACID 1 MG TABLET. PO SCH (08:41)
[2019-01-19] MEDS: ASPIRIN ENTERIC COATED 81 MG TABLET.DR. PO SCH (08:41)
[2019-01-19] MEDS: FERROUS SULFATE 325 MG TABLET. PO SCH (08:41)
[2019-01-19] MEDS: TORSEMIDE 20 MG TABLET. PO SCH ×2 (08:41→16:00)
[2019-01-19] MEDS: PANTOPRAZOLE 40 MG TABLET.DR. PO SCH (08:42)
[2019-01-19] MEDS: CARVEDILOL 12.5 MG TABLET. PO SCH ×2 (08:42→17:00)
[2019-01-19] MEDS: POTASSIUM CHLORIDE 10 MEQ TABLET.ER. PO SCH (08:42)
[2019-01-19] MEDS: CHOLECALCIFEROL (VITAMIN D3) 1,000 UNIT TABLET PO SCH (08:42)
[2019-01-19] MEDS: metOLazone 2.5 MG TABLET PO SCH (08:42)
[2019-01-19] MEDS: COLESTIPOL HCL 1 GM TABLET PO SCH ×2 (08:42→16:30)
[2019-01-19] MEDS: GABAPENTIN 300 MG CAPSULE. PO SCH (08:42)
[2019-01-19] MEDS: SACUBITRIL/VALSARTAN 49/51MG TABLET. PO SCH (08:43)
[2019-01-19] MEDS: ENOXAPARIN 40 MG/0.4 ML SYRINGE. SQ SCH (08:44)
[2019-01-19] MEDS: DICLOFENAC SODIUM 1% TOPICAL GEL 100GM TUBE. TP SCH (08:46)
[2019-01-19 11:00] VITALS: BP 117/55
--- NOTE | 2019-01-19 11:00 | PDOC ---
PROGRESS NOTES Subjective Subjective Patient states her breathing is some better. Still having knee pain. Objective Objective Vital Signs Date Time Temp Pulse Resp B/P (MAP) Pulse Ox O2 Delivery O2 Flow Rate FiO2 01/19/19 08:43 73 136/67 01/19/19 08:32 99 Nasal Cannula 3.0 01/19/19 07:00 98.4 16 98.4 Intake and Output 01/19/19 06:59 Intake Total 900 ml Output Total 4000 ml Balance -3100 ml Intake Oral 900 ml Output Urine Total 4000 ml # Voids 1 Physical Exam Abdomen: Normal bowel sounds, Soft, No tenderness Heart: Regular rate Extremities: No edema General: Alert, Oriented X3, No acute distress Lungs: Other (BS mildly decreased throughout, no wheezes heard) Assessment Assessment Problems Medical Problems: (1) Dyspnea Status: Acute Plan Plan of Care 1. Acute respiratory failure with hypoxia - improving, continue present treatme nts. 2. AE systolic and diastolic CHF with hx ischemic cardiomyopathy - I's<O's on chart but may not be accurate. Continue diuretics, Cardiology following. 3. BRAD with CKD III - stable, Renal following. 4. fall with contusion - CT head without acute injury. Continue therapies. 5. OA with joint pain - Dr Gotti plans injection to R knee today. Continue pain medication. 6. DM2 - patient had hyperglycemia at admission but FSBG much improved, continue home medications and SS insulin. 7. hypothyroidism - patient denies missing doses of her Levothyroxine. TSH mildly elevated, await T4 and adjust dose as indicated. 8. normocytic anemia - Hgb low but stable on lab. Suspect due, at least in part, to CKD. Continue to follow. Comment Review of Relevant I have reviewed the following items leandra (where applicable) has been applied. Labs Laboratory Tests Test 01/17/19 18:30 01/17/19 23:35 01/17/19 23:42 01/18/19 03:30 White Blood Count 4.4 x10^3/uL (4.0-11.0) 4.4 x10^3/uL (4.0-11.0) Red Blood Count 2.78 x10^6/uL (3.50-5.40) 2.41 x10^6/uL (3.50-5.40) Hemoglobin 8.6 g/dL (12.0-15.5) 7.3 g/dL (12.0-15.5) Hematocrit 24.8 % (36.0-47.0) 21.2 % (36.0-47.0) Mean Corpuscular Volume 89 fL (79-100) 88 fL (79-100) Mean Corpuscular Hemoglobin 31 pg (25-35) 30 pg (25-35) Mean Corpuscular Hemoglobin Concent 35 g/dL (31-37) 34 g/dL (31-37) Red Cell Distribution Width 16.0 % (11.5-14.5) 15.9 % (11.5-14.5) Platelet Count 182 x10^3/uL (140-400) 161 x10^3/uL (140-400) Neutrophils (%) (Auto) 58 % (31-73) 60 % (31-73) Lymphocytes (%) (Auto) 28 % (24-48) 27 % (24-48) Monocytes (%) (Auto) 7 % (0-9) 6 % (0-9) Eosinophils (%) (Auto) 6 % (0-3) 6 % (0-3) Basophils (%) (Auto) 0 % (0-3) 1 % (0-3) Neutrophils # (Auto) 2.5 x10^3/uL (1.8-7.7) 2.7 x10^3/uL (1.8-7.7) Lymphocytes # (Auto) 1.2 x10^3/uL (1.0-4.8) 1.2 x10^3/uL (1.0-4.8) Monocytes # (Auto) 0.3 x10^3/uL (0.0-1.1) 0.3 x10^3/uL (0.0-1.1) Eosinophils # (Auto) 0.3 x10^3/uL (0.0-0.7) 0.3 x10^3/uL (0.0-0.7) Basophils # (Auto) 0.0 x10^3/uL (0.0-0.2) 0.0 x10^3/uL (0.0-0.2) Prothrombin Time 12.3 SEC (11.7-14.0) Prothromb Time International Ratio 0.9 (0.8-1.1) Sodium Level 137 mmol/L (136-145) 141 mmol/L (136-145) Potassium Level 4.0 mmol/L (3.5-5.1) 3.8 mmol/L (3.5-5.1) Chloride Level 100 mmol/L (98-107) 104 mmol/L (98-107) Carbon Dioxide Level 30 mmol/L (21-32) 32 mmol/L (21-32) Anion Gap 7 (6-14) 5 (6-14) Blood Urea Nitrogen 36 mg/dL (7-20) 34 mg/dL (7-20) Creatinine 1.7 mg/dL (0.6-1.0) 1.6 mg/dL (0.6-1.0) Estimated GFR (Cockcroft-Gault) 30.9 33.1 BUN/Creatinine Ratio 21 (6-20) Glucose Level 319 mg/dL (70-99) 306 mg/dL (70-99) Calcium Level 8.4 mg/dL (8.5-10.1) 7.8 mg/dL (8.5-10.1) Magnesium Level 2.3 mg/dL (1.8-2.4) Total Bilirubin 0.3 mg/dL (0.2-1.0) Aspartate Amino Transf (AST/SGOT) 17 U/L (15-37) Alanine Aminotransferase (ALT/SGPT) 21 U/L (14-59) Alkaline Phosphatase 142 U/L (46-116) Troponin I Quantitative < 0.017 ng/mL (0.000-0.055) < 0.017 ng/mL (0.000-0.055) 0.019 ng/mL (0.000-0.055) XP-Vmm-Q-Type Natriuretic Peptide 36697 pg/mL (0-124) Total Protein 6.2 g/dL (6.4-8.2) Albumin 2.2 g/dL (3.4-5.0) Albumin/Globulin Ratio 0.6 (1.0-1.7) Glucose (Fingerstick) 331 mg/dL (70-99) Thyroid Stimulating Hormone (TSH) 5.379 uIU/mL (0.358-3.74) Test 01/18/19 08:26 01/18/19 11:51 01/18/19 16:50 01/18/19 20:45 Glucose (Fingerstick) 245 mg/dL (70-99) 193 mg/dL (70-99) 91 mg/dL (70-99) 133 mg/dL (70-99) Test 01/19/19 03:30 01/19/19 07:21 White Blood Count 4.2 x10^3/uL (4.0-11.0) Red Blood Count 2.53 x10^6/uL (3.50-5.40) Hemoglobin 7.6 g/dL (12.0-15.5) Hematocrit 22.3 % (36.0-47.0) Mean Corpuscular Volume 88 fL (79-100) Mean Corpuscular Hemoglobin 30 pg (25-35) Mean Corpuscular Hemoglobin Concent 34 g/dL (31-37) Red Cell Distribution Width 16.1 % (11.5-14.5) Platelet Count 166 x10^3/uL (140-400) Neutrophils (%) (Auto) 71 % (31-73) Lymphocytes (%) (Auto) 16 % (24-48) Monocytes (%) (Auto) 6 % (0-9) Eosinophils (%) (Auto) 6 % (0-3) Basophils (%) (Auto) 1 % (0-3) Neutrophils # (Auto) 3.0 x10^3/uL (1.8-7.7) Lymphocytes # (Auto) 0.7 x10^3/uL (1.0-4.8) Monocytes # (Auto) 0.3 x10^3/uL (0.0-1.1) Eosinophils # (Auto) 0.3 x10^3/uL (0.0-0.7) Basophils # (Auto) 0.0 x10^3/uL (0.0-0.2) Sodium Level 139 mmol/L (136-145) Potassium Level 4.0 mmol/L (3.5-5.1) Chloride Level 106 mmol/L (98-107) Carbon Dioxide Level 32 mmol/L (21-32) Anion Gap 1 (6-14) Blood Urea Nitrogen 36 mg/dL (7-20) Creatinine 1.5 mg/dL (0.6-1.0) Estimated GFR (Cockcroft-Gault) 35.7 Glucose Level 168 mg/dL (70-99) Calcium Level 8.3 mg/dL (8.5-10.1) Phosphorus Level 4.0 mg/dL (2.6-4.7) Magnesium Level 2.1 mg/dL (1.8-2.4) Glucose (Fingerstick) 144 mg/dL (70-99) Laboratory Tests Test 01/18/19 11:51 01/18/19 16:50 01/18/19 20:45 01/19/19 03:30 Glucose (Fingerstick) 193 mg/dL (70-99) 91 mg/dL (70-99) 133 mg/dL (70-99) White Blood Count 4.2 x10^3/uL (4.0-11.0) Red Blood Count 2.53 x10^6/uL (3.50-5.40) Hemoglobin 7.6 g/dL (12.0-15.5) Hematocrit 22.3 % (36.0-47.0) Mean Corpuscular Volume 88 fL (79-100) Mean Corpuscular Hemoglobin 30 pg (25-35) Mean Corpuscular Hemoglobin Concent 34 g/dL (31-37) Red Cell Distribution Width 16.1 % (11.5-14.5) Platelet Count 166 x10^3/uL (140-400) Neutrophils (%) (Auto) 71 % (31-73) Lymphocytes (%) (Auto) 16 % (24-48) Monocytes (%) (Auto) 6 % (0-9) Eosinophils (%) (Auto) 6 % (0-3) Basophils (%) (Auto) 1 % (0-3) Neutrophils # (Auto) 3.0 x10^3/uL (1.8-7.7) Lymphocytes # (Auto) 0.7 x10^3/uL (1.0-4.8) Monocytes # (Auto) 0.3 x10^3/uL (0.0-1.1) Eosinophils # (Auto) 0.3 x10^3/uL (0.0-0.7) Basophils # (Auto) 0.0 x10^3/uL (0.0-0.2) Sodium Level 139 mmol/L (136-145) Potassium Level 4.0 mmol/L (3.5-5.1) Chloride Level 106 mmol/L (98-107) Carbon Dioxide Level 32 mmol/L (21-32) Anion Gap 1 (6-14) Blood Urea Nitrogen 36 mg/dL (7-20) Creatinine 1.5 mg/dL (0.6-1.0) Estimated GFR (Cockcroft-Gault) 35.7 Glucose Level 168 mg/dL (70-99) Calcium Level 8.3 mg/dL (8.5-10.1) Phosphorus Level 4.0 mg/dL (2.6-4.7) Magnesium Level 2.1 mg/dL (1.8-2.4) Test 01/19/19 07:21 Glucose (Fingerstick) 144 mg/dL (70-99) Medications Current Medications Furosemide (Lasix) 40 mg 1X ONCE IVP Last administered on 01/17/19at 19:42; Start 01/17/19 at 19:15; Stop 01/17/19 at 19:16; Status DC Nitroglycerin (Nitrostat) 0.4 mg PRN Q5MIN PRN SL CHEST PAIN Last administered on 01/17/19at 23:28; Start 01/17/19 at 19:30; Stop 01/18/19 at 19:29; Status DC Nitroglycerin (Nitro-Bid Oint) 1 inch 1X ONCE TP Last administered on 01/17/19at 20:10; Start 01/17/19 at 20:00; Stop 01/17/19 at 20:01; Status DC Labetalol HCl (Normodyne Iv Push) 10 mg 1X ONCE IVP Last administered on 01/17/19at 20:09; Start 01/17/19 at 20:00; Stop 01/17/19 at 20:01; Status DC Influenza Virus Vaccine Quadrival (Afluria Quad 2019-20 (3yr Up) Syringe) 0.5 ml ONCE ONCE VAX IM Last administered on 01/18/19at 12:45; Start 01/18/19 at 09:00; Stop 01/18/19 at 09:01; Status DC Albuterol Sulfate (Ventolin Neb Soln) 2.5 mg PRN Q6HRS PRN NEB SHORTNESS OF BREATH; Start 01/17/19 at 22:45 Aspirin (Ecotrin) 81 mg DAILYWBKFT PO Last administered on 01/19/19 08:41; Start 01/18/19 at 08:00 Colestipol HCl (Colestid) 2 gm BIDBFRMEAL PO Last administered on 01/19/19 08:42; Start 01/18/19 at 07:30 Ferrous Sulfate (Feosol) 325 mg DAILY PO Last administered on 01/19/19 08:41; Start 01/18/19 at 09:00 Folic Acid (Folic Acid) 1 mg DAILY PO Last administered on 01/19/19 08:41; Start 01/18/19 at 09:00 Gabapentin (Neurontin) 300 mg BID PO ; Start 01/18/19 at 09:00; Stop 01/17/19 at 23:45; Status DC Albuterol/ Ipratropium (Duoneb) 3 ml RTQID NEB Last administered on 01/19/19 08:30; Start 01/18/19 at 08:00 Metformin HCl (Glucophage) 500 mg BIDWMEALS PO ; Start 01/18/19 at 08:00; Status UNV Pantoprazole Sodium (Protonix) 40 mg DAILYAC PO Last administered on 01/19/19 08:42; Start 01/18/19 at 07:30 Potassium Chloride (Klor-Con) 10 meq BID PO Last administered on 01/19/19 08:42; Start 01/18/19 at 09:00 Torsemide (Demadex) 20 mg BID94 PO Last administered on 01/19/19 08:41; Start 01/18/19 at 09:00 Tramadol HCl (Ultram) 50 mg PRN Q12HR PRN PO MODERATE PAIN 4-6 Last administered on 01/18/19 19:31; Start 01/17/19 at 22:45 Triamterene/HCTZ (Maxzide 37.5/ 25mg) 1 tab DAILY PO ; Start 01/18/19 at 09:00; Stop 01/18/19 at 12:05; Status DC Atorvastatin Calcium (Lipitor) 80 mg QHS PO ; Start 01/18/19 at 21:00; Stop 01/17/19 at 23:45; Status DC Carvedilol (Coreg) 12.5 mg BIDWMEALS PO Last administered on 01/19/19 08:42; Start 01/18/19 at 08:00 Vitamin D (Vitamin D3) 2,000 unit DAILY PO Last administered on 01/19/19 08:42; Start 01/18/19 at 09:00 Insulin Glargine (Lantus Syringe) 5 unit QHS SQ ; Start 01/18/19 at 21:00; Stop 01/17/19 at 23:45; Status DC Levothyroxine Sodium (Synthroid) 200 mcg DAILY06 PO Last administered on 01/19/19 06:11; Start 01/18/19 at 06:00 Metolazone (Zaroxolyn) 5 mg DAILY PO Last administered on 01/19/19 08:42; Start 01/18/19 at 09:00 Sacubitril/ Valsartan (Entresto 49 Mg-51 Mg) 2 tab BID PO ; Start 01/18/19 at 09:00; Stop 01/17/19 at 23:45; Status DC Atorvastatin Calcium (Lipitor) 80 mg QHS PO Last administered on 01/18/19 20:38; Start 01/18/19 at 00:00 Gabapentin (Neurontin) 300 mg BID PO Last administered on 01/19/19 08:42; Start 01/18/19 at 00:00 Insulin Glargine (Lantus Syringe) 5 unit QHS SQ Last administered on 01/18/19at 20:48; Start 01/18/19 at 00:00 Sacubitril/ Valsartan (Entresto 49 Mg-51 Mg) 2 tab BID PO Last administered on 01/19/19 08:43; Start 01/18/19 at 00:00 Enoxaparin Sodium (Lovenox 40mg Syringe) 40 mg Q24H SQ ; Start 01/18/19 at 00:00; Stop 01/18/19 at 02:18; Status DC Enoxaparin Sodium (Lovenox 40mg Syringe) 40 mg Q24H SQ Last administered on 01/19/19 08:44; Start 01/18/19 at 09:00 Insulin Glargine (Lantus Syringe) 5 unit QHS SQ ; Start 01/18/19 at 21:00; Status UNV Insulin Human Lispro (HumaLOG) 0-5 UNITS TIDWMEALS SQ Last administered on 01/18/19at 12:46; Start 01/18/19 at 08:00; Stop 01/18/19 at 12:56; Status DC Dextrose (Dextrose 50%-Water Syringe) 12.5 gm PRN Q15MIN PRN IV SEE COMMENTS; Start 01/18/19 at 03:30; Stop 01/18/19 at 13:35; Status DC Furosemide (Lasix) 40 mg 1X ONCE IVP Last administered on 01/18/19at 12:48; Start 01/18/19 at 12:30; Stop 01/18/19 at 12:31; Status DC Insulin Human Lispro (HumaLOG) 0-7 UNITS TIDWMEALS SQ ; Start 01/18/19 at 17:00 Dextrose (Dextrose 50%-Water Syringe) 12.5 gm PRN Q15MIN PRN IV SEE COMMENTS; Start 01/18/19 at 13:00 Diclofenac Sodium (Voltaren) 1 nas BID TP Last administered on 01/19/19at 08:46; Start 01/18/19 at 17:00 Bupivacaine HCl (Sensorcaine-Mpf 0.25%) 10 ml 1X ONCE IJ ; Start 01/18/19 at 15:30; Stop 01/18/19 at 15:31; Status DC Methylprednisolone Acetate (DEPO-Medrol 40MG VIAL) 40 mg 1X ONCE IM ; Start 01/18/19 at 15:30; Stop 01/18/19 at 15:31; Status DC Active Scripts Active Metformin Hcl 500 Mg Tablet 500 Mg PO BIDWMEALS 30 Days Proair Hfa (Albuterol Sulfate) 8.5 Gm Hfa.aer.ad 2.5 Mg NEB PRN Q6HRS PRN 30 Days Duoneb 0.5-3(2.5) Mg/3 Ml (Albuterol/Ipratropium) 3 Ml Ampul.neb 3 Ml NEB RTQID 30 Days Vitamin D (Cholecalciferol (Vitamin D3)) 1,000 Unit Capsule 2,000 Unit PO DAILY 30 Days Aspirin Ec (Aspirin) 81 Mg Tablet.dr 81 Mg PO DAILYWBKFT Lantus Solostar (Insulin Glargine,Hum.rec.anlog) 100 Unit/1 Ml Insuln.pen 5 Unit SQ QHS Synthroid (Levothyroxine Sodium) 200 Mcg Tablet 1 Tab PO DAILY Pantoprazole Sodium (Pantoprazole Sodium) 40 Mg Tablet.dr 40 Mg PO DAILYAC Reported Tramadol Hcl 50 Mg Tablet 50 Mg PO PRN Q12HR PRN Demadex (Torsemide) 20 Mg Tablet 20 Mg PO BID NITROGLYCERIN SubLingual (Nitroglycerin) 0.4 Mg Tab.subl 0.4 Mg SL PRN Q5MIN PRN Ferrous Sulfate 325 Mg Tablet 1 Tab PO DAILY Folic Acid 1 Mg Tablet 1 Tab PO DAILY Colestid (Colestipol Hcl) 1 Gm Tablet 2 Gm PO BID Metolazone 5 Mg Tablet 5 Mg PO DAILY Triamterene-Hctz 37.5-25 Mg Tb (Triamterene/Hydrochlorothiazid) 1 Each Tablet 1 Tab PO DAILY Coreg (Carvedilol) 25 Mg Tablet 12.5 Mg PO BIDWMEALS Entresto 97 mg-103 mg Tablet (Sacubitril/Valsartan) 1 Each Tablet 1 Each PO BID Atorvastatin Calcium 80 Mg Tablet 1 Tab PO QHS Gabapentin (Gabapentin) 300 Mg Capsule 300 Mg PO TID Potassium Chloride 10 Meq Tab.er.prt 1 Tab PO BID Vitals/I & O Vital Sign - Last 24 Hours 01/18/19 01/18/19 01/18/19 01/18/19 11:00 12:39 15:00 15:31 Temp 98.4 98.2 98.4 98.2 Pulse 74 74 67 Resp 20 20 B/P (MAP) 149/77 (101) 149/77 150/68 (95) Pulse Ox 95 95 95 O2 Delivery Nasal Cannula Nasal Cannula Nasal Cannula O2 Flow Rate 4.0 4.0 3.0 01/18/19 01/18/19 01/18/19 01/18/19 17:21 19:00 19:31 19:40 Temp 98.9 98.9 Pulse 67 73 Resp 20 20 B/P (MAP) 150/68 157/70 (99) Pulse Ox 97 O2 Delivery Nasal Cannula Nasal Cannula Nasal Cannula O2 Flow Rate 4.0 3.0 3.0 01/18/19 01/18/19 01/18/19 01/18/19 19:51 20:20 20:39 23:00 Temp 98.6 98.6 Pulse 83 77 Resp 20 20 B/P (MAP) 157/70 139/67 (91) Pulse Ox 95 92 O2 Delivery Nasal Cannula Nasal Cannula Nasal Cannula O2 Flow Rate 3.0 3.0 4.0 01/19/19 01/19/19 01/19/19 01/19/19 02:51 07:00 08:00 08:32 Temp 98.4 98.4 98.4 98.4 Pulse 81 73 Resp 20 16 B/P (MAP) 121/60 (80) 136/67 (90) Pulse Ox 93 94 99 O2 Delivery Nasal Cannula Nasal Cannula Nasal Cannula Nasal Cannula O2 Flow Rate 3.0 3.0 3.0 3.0 01/19/19 01/19/19 08:42 08:43 Pulse 73 73 B/P (MAP) 136/67 136/67 Intake and Output 01/18/19 01/18/19 01/19/19 14:59 22:59 06:59 Intake Total 450 ml 450 ml Output Total 2800 ml 1200 ml Balance 450 ml -2350 ml -1200 ml TOREY CHILDRESS MD Jan 19, 2019 11:00
--- NOTE | 2019-01-19 11:10 | PDOC ---
PROGRESS NOTES Subjective Subjective She admits continued right shoulder and right knee joint pain and some help with diclofenac gel. Objective Objective Vital Signs Date Time Temp Pulse Resp B/P (MAP) Pulse Ox O2 Delivery O2 Flow Rate FiO2 01/19/19 11:00 98.2 70 16 117/55 (75) 91 Nasal Cannula 3.0 98.2 Intake and Output 01/19/19 07:00 Intake Total 900 ml Output Total 4000 ml Balance -3100 ml Intake Oral 900 ml Output Urine Total 4000 ml # Voids 1 Physical Exam Physical Exam She is supine in bed nad continues with crepitus on ROM of her knees,with effusion,right >left and tenderness to palpation over medial knee joint line and right shoulder. Assessment Assessment Problems Medical Problems: (1) Dyspnea Status: Acute Plan Plan of Care At her request,I have injected her right knee joint after aspirating 15 ml of clear joint fluid, with 2 ml of bupivacaine 0.25% solution mixed with 1 ml of methylprednisone 40 mg/ 1 ml solution under aseptic skin technique using alcohol skin prep and she tolerated the procedure satisfactorily without any side effects. Comment Review of Relevant I have reviewed the following items leandra (where applicable) has been applied. Labs Laboratory Tests Test 01/17/19 18:30 01/17/19 23:35 01/17/19 23:42 01/18/19 03:30 White Blood Count 4.4 x10^3/uL (4.0-11.0) 4.4 x10^3/uL (4.0-11.0) Red Blood Count 2.78 x10^6/uL (3.50-5.40) 2.41 x10^6/uL (3.50-5.40) Hemoglobin 8.6 g/dL (12.0-15.5) 7.3 g/dL (12.0-15.5) Hematocrit 24.8 % (36.0-47.0) 21.2 % (36.0-47.0) Mean Corpuscular Volume 89 fL (79-100) 88 fL (79-100) Mean Corpuscular Hemoglobin 31 pg (25-35) 30 pg (25-35) Mean Corpuscular Hemoglobin Concent 35 g/dL (31-37) 34 g/dL (31-37) Red Cell Distribution Width 16.0 % (11.5-14.5) 15.9 % (11.5-14.5) Platelet Count 182 x10^3/uL (140-400) 161 x10^3/uL (140-400) Neutrophils (%) (Auto) 58 % (31-73) 60 % (31-73) Lymphocytes (%) (Auto) 28 % (24-48) 27 % (24-48) Monocytes (%) (Auto) 7 % (0-9) 6 % (0-9) Eosinophils (%) (Auto) 6 % (0-3) 6 % (0-3) Basophils (%) (Auto) 0 % (0-3) 1 % (0-3) Neutrophils # (Auto) 2.5 x10^3/uL (1.8-7.7) 2.7 x10^3/uL (1.8-7.7) Lymphocytes # (Auto) 1.2 x10^3/uL (1.0-4.8) 1.2 x10^3/uL (1.0-4.8) Monocytes # (Auto) 0.3 x10^3/uL (0.0-1.1) 0.3 x10^3/uL (0.0-1.1) Eosinophils # (Auto) 0.3 x10^3/uL (0.0-0.7) 0.3 x10^3/uL (0.0-0.7) Basophils # (Auto) 0.0 x10^3/uL (0.0-0.2) 0.0 x10^3/uL (0.0-0.2) Prothrombin Time 12.3 SEC (11.7-14.0) Prothromb Time International Ratio 0.9 (0.8-1.1) Sodium Level 137 mmol/L (136-145) 141 mmol/L (136-145) Potassium Level 4.0 mmol/L (3.5-5.1) 3.8 mmol/L (3.5-5.1) Chloride Level 100 mmol/L (98-107) 104 mmol/L (98-107) Carbon Dioxide Level 30 mmol/L (21-32) 32 mmol/L (21-32) Anion Gap 7 (6-14) 5 (6-14) Blood Urea Nitrogen 36 mg/dL (7-20) 34 mg/dL (7-20) Creatinine 1.7 mg/dL (0.6-1.0) 1.6 mg/dL (0.6-1.0) Estimated GFR (Cockcroft-Gault) 30.9 33.1 BUN/Creatinine Ratio 21 (6-20) Glucose Level 319 mg/dL (70-99) 306 mg/dL (70-99) Calcium Level 8.4 mg/dL (8.5-10.1) 7.8 mg/dL (8.5-10.1) Magnesium Level 2.3 mg/dL (1.8-2.4) Total Bilirubin 0.3 mg/dL (0.2-1.0) Aspartate Amino Transf (AST/SGOT) 17 U/L (15-37) Alanine Aminotransferase (ALT/SGPT) 21 U/L (14-59) Alkaline Phosphatase 142 U/L (46-116) Troponin I Quantitative < 0.017 ng/mL (0.000-0.055) < 0.017 ng/mL (0.000-0.055) 0.019 ng/mL (0.000-0.055) AA-Vdo-P-Type Natriuretic Peptide 74107 pg/mL (0-124) Total Protein 6.2 g/dL (6.4-8.2) Albumin 2.2 g/dL (3.4-5.0) Albumin/Globulin Ratio 0.6 (1.0-1.7) Glucose (Fingerstick) 331 mg/dL (70-99) Thyroid Stimulating Hormone (TSH) 5.379 uIU/mL (0.358-3.74) Test 01/18/19 08:26 01/18/19 11:51 01/18/19 16:50 01/18/19 20:45 Glucose (Fingerstick) 245 mg/dL (70-99) 193 mg/dL (70-99) 91 mg/dL (70-99) 133 mg/dL (70-99) Test 01/19/19 03:30 01/19/19 07:21 White Blood Count 4.2 x10^3/uL (4.0-11.0) Red Blood Count 2.53 x10^6/uL (3.50-5.40) Hemoglobin 7.6 g/dL (12.0-15.5) Hematocrit 22.3 % (36.0-47.0) Mean Corpuscular Volume 88 fL (79-100) Mean Corpuscular Hemoglobin 30 pg (25-35) Mean Corpuscular Hemoglobin Concent 34 g/dL (31-37) Red Cell Distribution Width 16.1 % (11.5-14.5) Platelet Count 166 x10^3/uL (140-400) Neutrophils (%) (Auto) 71 % (31-73) Lymphocytes (%) (Auto) 16 % (24-48) Monocytes (%) (Auto) 6 % (0-9) Eosinophils (%) (Auto) 6 % (0-3) Basophils (%) (Auto) 1 % (0-3) Neutrophils # (Auto) 3.0 x10^3/uL (1.8-7.7) Lymphocytes # (Auto) 0.7 x10^3/uL (1.0-4.8) Monocytes # (Auto) 0.3 x10^3/uL (0.0-1.1) Eosinophils # (Auto) 0.3 x10^3/uL (0.0-0.7) Basophils # (Auto) 0.0 x10^3/uL (0.0-0.2) Sodium Level 139 mmol/L (136-145) Potassium Level 4.0 mmol/L (3.5-5.1) Chloride Level 106 mmol/L (98-107) Carbon Dioxide Level 32 mmol/L (21-32) Anion Gap 1 (6-14) Blood Urea Nitrogen 36 mg/dL (7-20) Creatinine 1.5 mg/dL (0.6-1.0) Estimated GFR (Cockcroft-Gault) 35.7 Glucose Level 168 mg/dL (70-99) Calcium Level 8.3 mg/dL (8.5-10.1) Phosphorus Level 4.0 mg/dL (2.6-4.7) Magnesium Level 2.1 mg/dL (1.8-2.4) Glucose (Fingerstick) 144 mg/dL (70-99) Laboratory Tests Test 01/18/19 11:51 01/18/19 16:50 01/18/19 20:45 01/19/19 03:30 Glucose (Fingerstick) 193 mg/dL (70-99) 91 mg/dL (70-99) 133 mg/dL (70-99) White Blood Count 4.2 x10^3/uL (4.0-11.0) Red Blood Count 2.53 x10^6/uL (3.50-5.40) Hemoglobin 7.6 g/dL (12.0-15.5) Hematocrit 22.3 % (36.0-47.0) Mean Corpuscular Volume 88 fL (79-100) Mean Corpuscular Hemoglobin 30 pg (25-35) Mean Corpuscular Hemoglobin Concent 34 g/dL (31-37) Red Cell Distribution Width 16.1 % (11.5-14.5) Platelet Count 166 x10^3/uL (140-400) Neutrophils (%) (Auto) 71 % (31-73) Lymphocytes (%) (Auto) 16 % (24-48) Monocytes (%) (Auto) 6 % (0-9) Eosinophils (%) (Auto) 6 % (0-3) Basophils (%) (Auto) 1 % (0-3) Neutrophils # (Auto) 3.0 x10^3/uL (1.8-7.7) Lymphocytes # (Auto) 0.7 x10^3/uL (1.0-4.8) Monocytes # (Auto) 0.3 x10^3/uL (0.0-1.1) Eosinophils # (Auto) 0.3 x10^3/uL (0.0-0.7) Basophils # (Auto) 0.0 x10^3/uL (0.0-0.2) Sodium Level 139 mmol/L (136-145) Potassium Level 4.0 mmol/L (3.5-5.1) Chloride Level 106 mmol/L (98-107) Carbon Dioxide Level 32 mmol/L (21-32) Anion Gap 1 (6-14) Blood Urea Nitrogen 36 mg/dL (7-20) Creatinine 1.5 mg/dL (0.6-1.0) Estimated GFR (Cockcroft-Gault) 35.7 Glucose Level 168 mg/dL (70-99) Calcium Level 8.3 mg/dL (8.5-10.1) Phosphorus Level 4.0 mg/dL (2.6-4.7) Magnesium Level 2.1 mg/dL (1.8-2.4) Test 01/19/19 07:21 Glucose (Fingerstick) 144 mg/dL (70-99) Medications Current Medications Furosemide (Lasix) 40 mg 1X ONCE IVP Last administered on 01/17/19 19:42; Start 01/17/19 at 19:15; Stop 01/17/19 at 19:16; Status DC Nitroglycerin (Nitrostat) 0.4 mg PRN Q5MIN PRN SL CHEST PAIN Last administered on 01/17/19at 23:28; Start 01/17/19 at 19:30; Stop 01/18/19 at 19:29; Status DC Nitroglycerin (Nitro-Bid Oint) 1 inch 1X ONCE TP Last administered on 01/17/19at 20:10; Start 01/17/19 at 20:00; Stop 01/17/19 at 20:01; Status DC Labetalol HCl (Normodyne Iv Push) 10 mg 1X ONCE IVP Last administered on 01/17/19at 20:09; Start 01/17/19 at 20:00; Stop 01/17/19 at 20:01; Status DC Influenza Virus Vaccine Quadrival (Afluria Quad 2019-20 (3yr Up) Syringe) 0.5 ml ONCE ONCE VAX IM Last administered on 01/18/19at 12:45; Start 01/18/19 at 09:00; Stop 01/18/19 at 09:01; Status DC Albuterol Sulfate (Ventolin Neb Soln) 2.5 mg PRN Q6HRS PRN NEB SHORTNESS OF BREATH; Start 01/17/19 at 22:45 Aspirin (Ecotrin) 81 mg DAILYWBKFT PO Last administered on 01/19/19at 08:41; Start 01/18/19 at 08:00 Colestipol HCl (Colestid) 2 gm BIDBFRMEAL PO Last administered on 01/19/19 08:42; Start 01/18/19 at 07:30 Ferrous Sulfate (Feosol) 325 mg DAILY PO Last administered on 01/19/19at 08:41; Start 01/18/19 at 09:00 Folic Acid (Folic Acid) 1 mg DAILY PO Last administered on 01/19/19at 08:41; Start 01/18/19 at 09:00 Gabapentin (Neurontin) 300 mg BID PO ; Start 01/18/19 at 09:00; Stop 01/17/19 at 23:45; Status DC Albuterol/ Ipratropium (Duoneb) 3 ml RTQID NEB Last administered on 01/19/19 08:30; Start 01/18/19 at 08:00 Metformin HCl (Glucophage) 500 mg BIDWMEALS PO ; Start 01/18/19 at 08:00; Status UNV Pantoprazole Sodium (Protonix) 40 mg DAILYAC PO Last administered on 01/19/19 08:42; Start 01/18/19 at 07:30 Potassium Chloride (Klor-Con) 10 meq BID PO Last administered on 01/19/19 08:42; Start 01/18/19 at 09:00 Torsemide (Demadex) 20 mg BID94 PO Last administered on 01/19/19 08:41; Start 01/18/19 at 09:00 Tramadol HCl (Ultram) 50 mg PRN Q12HR PRN PO MODERATE PAIN 4-6 Last administered on 01/18/19 19:31; Start 01/17/19 at 22:45 Triamterene/HCTZ (Maxzide 37.5/ 25mg) 1 tab DAILY PO ; Start 01/18/19 at 09:00; Stop 01/18/19 at 12:05; Status DC Atorvastatin Calcium (Lipitor) 80 mg QHS PO ; Start 01/18/19 at 21:00; Stop 01/17/19 at 23:45; Status DC Carvedilol (Coreg) 12.5 mg BIDWMEALS PO Last administered on 01/19/19 08:42; Start 01/18/19 at 08:00 Vitamin D (Vitamin D3) 2,000 unit DAILY PO Last administered on 01/19/19 08:42; Start 01/18/19 at 09:00 Insulin Glargine (Lantus Syringe) 5 unit QHS SQ ; Start 01/18/19 at 21:00; Stop 01/17/19 at 23:45; Status DC Levothyroxine Sodium (Synthroid) 200 mcg DAILY06 PO Last administered on 01/19/19at 06:11; Start 01/18/19 at 06:00 Metolazone (Zaroxolyn) 5 mg DAILY PO Last administered on 01/19/19 08:42; Start 01/18/19 at 09:00 Sacubitril/ Valsartan (Entresto 49 Mg-51 Mg) 2 tab BID PO ; Start 01/18/19 at 09:00; Stop 01/17/19 at 23:45; Status DC Atorvastatin Calcium (Lipitor) 80 mg QHS PO Last administered on 01/18/19 20:38; Start 01/18/19 at 00:00 Gabapentin (Neurontin) 300 mg BID PO Last administered on 01/19/19 08:42; Start 01/18/19 at 00:00 Insulin Glargine (Lantus Syringe) 5 unit QHS SQ Last administered on 01/18/19 20:48; Start 01/18/19 at 00:00 Sacubitril/ Valsartan (Entresto 49 Mg-51 Mg) 2 tab BID PO Last administered on 01/19/19 08:43; Start 01/18/19 at 00:00 Enoxaparin Sodium (Lovenox 40mg Syringe) 40 mg Q24H SQ ; Start 01/18/19 at 00:00; Stop 01/18/19 at 02:18; Status DC Enoxaparin Sodium (Lovenox 40mg Syringe) 40 mg Q24H SQ Last administered on 01/19/19 08:44; Start 01/18/19 at 09:00 Insulin Glargine (Lantus Syringe) 5 unit QHS SQ ; Start 01/18/19 at 21:00; Status UNV Insulin Human Lispro (HumaLOG) 0-5 UNITS TIDWMEALS SQ Last administered on 01/18/19at 12:46; Start 01/18/19 at 08:00; Stop 01/18/19 at 12:56; Status DC Dextrose (Dextrose 50%-Water Syringe) 12.5 gm PRN Q15MIN PRN IV SEE COMMENTS; Start 01/18/19 at 03:30; Stop 01/18/19 at 13:35; Status DC Furosemide (Lasix) 40 mg 1X ONCE IVP Last administered on 01/18/19at 12:48; Start 01/18/19 at 12:30; Stop 01/18/19 at 12:31; Status DC Insulin Human Lispro (HumaLOG) 0-7 UNITS TIDWMEALS SQ ; Start 01/18/19 at 17:00 Dextrose (Dextrose 50%-Water Syringe) 12.5 gm PRN Q15MIN PRN IV SEE COMMENTS; Start 01/18/19 at 13:00 Diclofenac Sodium (Voltaren) 1 nas BID TP Last administered on 01/19/19at 08:46; Start 01/18/19 at 17:00 Bupivacaine HCl (Sensorcaine-Mpf 0.25%) 10 ml 1X ONCE IJ ; Start 01/18/19 at 15:30; Stop 01/18/19 at 15:31; Status DC Methylprednisolone Acetate (DEPO-Medrol 40MG VIAL) 40 mg 1X ONCE IM ; Start 01/18/19 at 15:30; Stop 01/18/19 at 15:31; Status DC Active Scripts Active Metformin Hcl 500 Mg Tablet 500 Mg PO BIDWMEALS 30 Days Proair Hfa (Albuterol Sulfate) 8.5 Gm Hfa.aer.ad 2.5 Mg NEB PRN Q6HRS PRN 30 Days Duoneb 0.5-3(2.5) Mg/3 Ml (Albuterol/Ipratropium) 3 Ml Ampul.neb 3 Ml NEB RTQID 30 Days Vitamin D (Cholecalciferol (Vitamin D3)) 1,000 Unit Capsule 2,000 Unit PO DAILY 30 Days Aspirin Ec (Aspirin) 81 Mg Tablet. 81 Mg PO DAILYWBKFT Lantus Solostar (Insulin Glargine,Hum.rec.anlog) 100 Unit/1 Ml Insuln.pen 5 Unit SQ QHS Synthroid (Levothyroxine Sodium) 200 Mcg Tablet 1 Tab PO DAILY Pantoprazole Sodium (Pantoprazole Sodium) 40 Mg Tablet. 40 Mg PO DAILYAC Reported Tramadol Hcl 50 Mg Tablet 50 Mg PO PRN Q12HR PRN Demadex (Torsemide) 20 Mg Tablet 20 Mg PO BID NITROGLYCERIN SubLingual (Nitroglycerin) 0.4 Mg Tab.subl 0.4 Mg SL PRN Q5MIN PRN Ferrous Sulfate 325 Mg Tablet 1 Tab PO DAILY Folic Acid 1 Mg Tablet 1 Tab PO DAILY Colestid (Colestipol Hcl) 1 Gm Tablet 2 Gm PO BID Metolazone 5 Mg Tablet 5 Mg PO DAILY Triamterene-Hctz 37.5-25 Mg Tb (Triamterene/Hydrochlorothiazid) 1 Each Tablet 1 Tab PO DAILY Coreg (Carvedilol) 25 Mg Tablet 12.5 Mg PO BIDWMEALS Entresto 97 mg-103 mg Tablet (Sacubitril/Valsartan) 1 Each Tablet 1 Each PO BID Atorvastatin Calcium 80 Mg Tablet 1 Tab PO QHS Gabapentin (Gabapentin) 300 Mg Capsule 300 Mg PO TID Potassium Chloride 10 Meq Tab.er.prt 1 Tab PO BID Vitals/I & O Vital Sign - Last 24 Hours 01/18/19 01/18/19 01/18/19 01/18/19 12:39 15:00 15:31 17:21 Temp 98.2 98.2 Pulse 74 67 67 Resp 20 B/P (MAP) 149/77 150/68 (95) 150/68 Pulse Ox 95 95 O2 Delivery Nasal Cannula Nasal Cannula O2 Flow Rate 4.0 3.0 01/18/19 01/18/19 01/18/19 01/18/19 19:00 19:31 19:40 19:51 Temp 98.9 98.9 Pulse 73 Resp 20 20 B/P (MAP) 157/70 (99) Pulse Ox 97 95 O2 Delivery Nasal Cannula Nasal Cannula Nasal Cannula Nasal Cannula O2 Flow Rate 4.0 3.0 3.0 3.0 01/18/19 01/18/19 01/18/19 01/19/19 20:20 20:39 23:00 02:51 Temp 98.6 98.4 98.6 98.4 Pulse 83 77 81 Resp 20 20 20 B/P (MAP) 157/70 139/67 (91) 121/60 (80) Pulse Ox 92 93 O2 Delivery Nasal Cannula Nasal Cannula Nasal Cannula O2 Flow Rate 3.0 4.0 3.0 01/19/19 01/19/19 01/19/19 01/19/19 07:00 08:00 08:32 08:42 Temp 98.4 98.4 Pulse 73 73 Resp 16 B/P (MAP) 136/67 (90) 136/67 Pulse Ox 94 99 O2 Delivery Nasal Cannula Nasal Cannula Nasal Cannula O2 Flow Rate 3.0 3.0 3.0 01/19/19 01/19/19 08:43 11:00 Temp 98.2 98.2 Pulse 73 70 Resp 16 B/P (MAP) 136/67 117/55 (75) Pulse Ox 91 O2 Delivery Nasal Cannula O2 Flow Rate 3.0 Intake and Output 01/18/19 01/18/19 01/19/19 15:00 23:00 07:00 Intake Total 450 ml 450 ml Output Total 1400 ml 1400 ml 1200 ml Balance -950 ml -950 ml -1200 ml MALDONADO JACOBS MD Jan 19, 2019 11:10
--- NOTE | 2019-01-19 13:05 | PDOC ---
PROGRESS NOTES Subjective Subjective Patient seen and examined The patient is feeling better today. Objective Objective Vital Signs Date Time Temp Pulse Resp B/P (MAP) Pulse Ox O2 Delivery O2 Flow Rate FiO2 01/19/19 12:54 Nasal Cannula 2.0 01/19/19 11:00 98.2 70 16 117/55 (75) 91 98.2 Intake and Output 01/19/19 07:00 Intake Total 900 ml Output Total 4000 ml Balance -3100 ml Intake Oral 900 ml Output Urine Total 4000 ml # Voids 1 Physical Exam Abdomen: Normal bowel sounds Heart: Regular rate General: mild distress Lungs: Other (mildly decreased breath sounds) Assessment Assessment Problems Medical Problems: (1) Dyspnea Status: Acute Acute on chronic heart failure. Continued improvement on present treatment. History of ischemic cardiomyopathy. Status post AICD with an ejection fraction of 40-45%. Rhythm stable. Probable outpatient ischemia evaluation. Atypical chest pain. Ruling out myocardial infarction. Accelerated hypertension. Improving control on present medications. History of coronary artery disease with previous stenting. MPI testing over a year ago with a mixed perfusion defect. Acute kidney injury. Monitoring lab. Hyperlipidemia. Continue present treatment. Diabetes mellitus as per the primary service. Comment Review of Relevant I have reviewed the following items leandra (where applicable) has been applied. Labs Laboratory Tests Test 01/17/19 18:30 01/17/19 23:35 01/17/19 23:42 01/18/19 03:30 White Blood Count 4.4 x10^3/uL (4.0-11.0) 4.4 x10^3/uL (4.0-11.0) Red Blood Count 2.78 x10^6/uL (3.50-5.40) 2.41 x10^6/uL (3.50-5.40) Hemoglobin 8.6 g/dL (12.0-15.5) 7.3 g/dL (12.0-15.5) Hematocrit 24.8 % (36.0-47.0) 21.2 % (36.0-47.0) Mean Corpuscular Volume 89 fL (79-100) 88 fL (79-100) Mean Corpuscular Hemoglobin 31 pg (25-35) 30 pg (25-35) Mean Corpuscular Hemoglobin Concent 35 g/dL (31-37) 34 g/dL (31-37) Red Cell Distribution Width 16.0 % (11.5-14.5) 15.9 % (11.5-14.5) Platelet Count 182 x10^3/uL (140-400) 161 x10^3/uL (140-400) Neutrophils (%) (Auto) 58 % (31-73) 60 % (31-73) Lymphocytes (%) (Auto) 28 % (24-48) 27 % (24-48) Monocytes (%) (Auto) 7 % (0-9) 6 % (0-9) Eosinophils (%) (Auto) 6 % (0-3) 6 % (0-3) Basophils (%) (Auto) 0 % (0-3) 1 % (0-3) Neutrophils # (Auto) 2.5 x10^3/uL (1.8-7.7) 2.7 x10^3/uL (1.8-7.7) Lymphocytes # (Auto) 1.2 x10^3/uL (1.0-4.8) 1.2 x10^3/uL (1.0-4.8) Monocytes # (Auto) 0.3 x10^3/uL (0.0-1.1) 0.3 x10^3/uL (0.0-1.1) Eosinophils # (Auto) 0.3 x10^3/uL (0.0-0.7) 0.3 x10^3/uL (0.0-0.7) Basophils # (Auto) 0.0 x10^3/uL (0.0-0.2) 0.0 x10^3/uL (0.0-0.2) Prothrombin Time 12.3 SEC (11.7-14.0) Prothromb Time International Ratio 0.9 (0.8-1.1) Sodium Level 137 mmol/L (136-145) 141 mmol/L (136-145) Potassium Level 4.0 mmol/L (3.5-5.1) 3.8 mmol/L (3.5-5.1) Chloride Level 100 mmol/L (98-107) 104 mmol/L (98-107) Carbon Dioxide Level 30 mmol/L (21-32) 32 mmol/L (21-32) Anion Gap 7 (6-14) 5 (6-14) Blood Urea Nitrogen 36 mg/dL (7-20) 34 mg/dL (7-20) Creatinine 1.7 mg/dL (0.6-1.0) 1.6 mg/dL (0.6-1.0) Estimated GFR (Cockcroft-Gault) 30.9 33.1 BUN/Creatinine Ratio 21 (6-20) Glucose Level 319 mg/dL (70-99) 306 mg/dL (70-99) Calcium Level 8.4 mg/dL (8.5-10.1) 7.8 mg/dL (8.5-10.1) Magnesium Level 2.3 mg/dL (1.8-2.4) Total Bilirubin 0.3 mg/dL (0.2-1.0) Aspartate Amino Transf (AST/SGOT) 17 U/L (15-37) Alanine Aminotransferase (ALT/SGPT) 21 U/L (14-59) Alkaline Phosphatase 142 U/L (46-116) Troponin I Quantitative < 0.017 ng/mL (0.000-0.055) < 0.017 ng/mL (0.000-0.055) 0.019 ng/mL (0.000-0.055) PK-Mkh-F-Type Natriuretic Peptide 41717 pg/mL (0-124) Total Protein 6.2 g/dL (6.4-8.2) Albumin 2.2 g/dL (3.4-5.0) Albumin/Globulin Ratio 0.6 (1.0-1.7) Glucose (Fingerstick) 331 mg/dL (70-99) Thyroid Stimulating Hormone (TSH) 5.379 uIU/mL (0.358-3.74) Test 01/18/19 08:26 01/18/19 11:51 01/18/19 16:50 01/18/19 20:45 Glucose (Fingerstick) 245 mg/dL (70-99) 193 mg/dL (70-99) 91 mg/dL (70-99) 133 mg/dL (70-99) Test 01/19/19 03:30 01/19/19 07:21 01/19/19 11:17 White Blood Count 4.2 x10^3/uL (4.0-11.0) Red Blood Count 2.53 x10^6/uL (3.50-5.40) Hemoglobin 7.6 g/dL (12.0-15.5) Hematocrit 22.3 % (36.0-47.0) Mean Corpuscular Volume 88 fL (79-100) Mean Corpuscular Hemoglobin 30 pg (25-35) Mean Corpuscular Hemoglobin Concent 34 g/dL (31-37) Red Cell Distribution Width 16.1 % (11.5-14.5) Platelet Count 166 x10^3/uL (140-400) Neutrophils (%) (Auto) 71 % (31-73) Lymphocytes (%) (Auto) 16 % (24-48) Monocytes (%) (Auto) 6 % (0-9) Eosinophils (%) (Auto) 6 % (0-3) Basophils (%) (Auto) 1 % (0-3) Neutrophils # (Auto) 3.0 x10^3/uL (1.8-7.7) Lymphocytes # (Auto) 0.7 x10^3/uL (1.0-4.8) Monocytes # (Auto) 0.3 x10^3/uL (0.0-1.1) Eosinophils # (Auto) 0.3 x10^3/uL (0.0-0.7) Basophils # (Auto) 0.0 x10^3/uL (0.0-0.2) Sodium Level 139 mmol/L (136-145) Potassium Level 4.0 mmol/L (3.5-5.1) Chloride Level 106 mmol/L (98-107) Carbon Dioxide Level 32 mmol/L (21-32) Anion Gap 1 (6-14) Blood Urea Nitrogen 36 mg/dL (7-20) Creatinine 1.5 mg/dL (0.6-1.0) Estimated GFR (Cockcroft-Gault) 35.7 Glucose Level 168 mg/dL (70-99) Calcium Level 8.3 mg/dL (8.5-10.1) Phosphorus Level 4.0 mg/dL (2.6-4.7) Magnesium Level 2.1 mg/dL (1.8-2.4) Free Thyroxine 1.30 ng/dL (0.76-1.46) Glucose (Fingerstick) 144 mg/dL (70-99) 179 mg/dL (70-99) Laboratory Tests Test 01/18/19 16:50 01/18/19 20:45 01/19/19 03:30 01/19/19 07:21 Glucose (Fingerstick) 91 mg/dL (70-99) 133 mg/dL (70-99) 144 mg/dL (70-99) White Blood Count 4.2 x10^3/uL (4.0-11.0) Red Blood Count 2.53 x10^6/uL (3.50-5.40) Hemoglobin 7.6 g/dL (12.0-15.5) Hematocrit 22.3 % (36.0-47.0) Mean Corpuscular Volume 88 fL (79-100) Mean Corpuscular Hemoglobin 30 pg (25-35) Mean Corpuscular Hemoglobin Concent 34 g/dL (31-37) Red Cell Distribution Width 16.1 % (11.5-14.5) Platelet Count 166 x10^3/uL (140-400) Neutrophils (%) (Auto) 71 % (31-73) Lymphocytes (%) (Auto) 16 % (24-48) Monocytes (%) (Auto) 6 % (0-9) Eosinophils (%) (Auto) 6 % (0-3) Basophils (%) (Auto) 1 % (0-3) Neutrophils # (Auto) 3.0 x10^3/uL (1.8-7.7) Lymphocytes # (Auto) 0.7 x10^3/uL (1.0-4.8) Monocytes # (Auto) 0.3 x10^3/uL (0.0-1.1) Eosinophils # (Auto) 0.3 x10^3/uL (0.0-0.7) Basophils # (Auto) 0.0 x10^3/uL (0.0-0.2) Sodium Level 139 mmol/L (136-145) Potassium Level 4.0 mmol/L (3.5-5.1) Chloride Level 106 mmol/L (98-107) Carbon Dioxide Level 32 mmol/L (21-32) Anion Gap 1 (6-14) Blood Urea Nitrogen 36 mg/dL (7-20) Creatinine 1.5 mg/dL (0.6-1.0) Estimated GFR (Cockcroft-Gault) 35.7 Glucose Level 168 mg/dL (70-99) Calcium Level 8.3 mg/dL (8.5-10.1) Phosphorus Level 4.0 mg/dL (2.6-4.7) Magnesium Level 2.1 mg/dL (1.8-2.4) Free Thyroxine 1.30 ng/dL (0.76-1.46) Test 01/19/19 11:17 Glucose (Fingerstick) 179 mg/dL (70-99) Medications Current Medications Furosemide (Lasix) 40 mg 1X ONCE IVP Last administered on 01/17/19at 19:42; Start 01/17/19 at 19:15; Stop 01/17/19 at 19:16; Status DC Nitroglycerin (Nitrostat) 0.4 mg PRN Q5MIN PRN SL CHEST PAIN Last administered on 01/17/19at 23:28; Start 01/17/19 at 19:30; Stop 01/18/19 at 19:29; Status DC Nitroglycerin (Nitro-Bid Oint) 1 inch 1X ONCE TP Last administered on 01/17/19at 20:10; Start 01/17/19 at 20:00; Stop 01/17/19 at 20:01; Status DC Labetalol HCl (Normodyne Iv Push) 10 mg 1X ONCE IVP Last administered on 01/17/19at 20:09; Start 01/17/19 at 20:00; Stop 01/17/19 at 20:01; Status DC Influenza Virus Vaccine Quadrival (Afluria Quad 2019-20 (3yr Up) Syringe) 0.5 ml ONCE ONCE VAX IM Last administered on 01/18/19at 12:45; Start 01/18/19 at 09:00; Stop 01/18/19 at 09:01; Status DC Albuterol Sulfate (Ventolin Neb Soln) 2.5 mg PRN Q6HRS PRN NEB SHORTNESS OF BREATH; Start 01/17/19 at 22:45 Aspirin (Ecotrin) 81 mg DAILYWBKFT PO Last administered on 01/19/19at 08:41; Start 01/18/19 at 08:00 Colestipol HCl (Colestid) 2 gm BIDBFRMEAL PO Last administered on 01/19/19at 08:42; Start 01/18/19 at 07:30 Ferrous Sulfate (Feosol) 325 mg DAILY PO Last administered on 01/19/19 08:41; Start 01/18/19 at 09:00 Folic Acid (Folic Acid) 1 mg DAILY PO Last administered on 01/19/19 08:41; Start 01/18/19 at 09:00 Gabapentin (Neurontin) 300 mg BID PO ; Start 01/18/19 at 09:00; Stop 01/17/19 at 23:45; Status DC Albuterol/ Ipratropium (Duoneb) 3 ml RTQID NEB Last administered on 01/19/19 12:53; Start 01/18/19 at 08:00 Metformin HCl (Glucophage) 500 mg BIDWMEALS PO ; Start 01/18/19 at 08:00; Status UNV Pantoprazole Sodium (Protonix) 40 mg DAILYAC PO Last administered on 01/19/19 08:42; Start 01/18/19 at 07:30 Potassium Chloride (Klor-Con) 10 meq BID PO Last administered on 01/19/19 08:42; Start 01/18/19 at 09:00 Torsemide (Demadex) 20 mg BID94 PO Last administered on 01/19/19 08:41; Start 01/18/19 at 09:00 Tramadol HCl (Ultram) 50 mg PRN Q12HR PRN PO MODERATE PAIN 4-6 Last administered on 01/18/19 19:31; Start 01/17/19 at 22:45 Triamterene/HCTZ (Maxzide 37.5/ 25mg) 1 tab DAILY PO ; Start 01/18/19 at 09:00; Stop 01/18/19 at 12:05; Status DC Atorvastatin Calcium (Lipitor) 80 mg QHS PO ; Start 01/18/19 at 21:00; Stop 01/17/19 at 23:45; Status DC Carvedilol (Coreg) 12.5 mg BIDWMEALS PO Last administered on 01/19/19 08:42; Start 01/18/19 at 08:00 Vitamin D (Vitamin D3) 2,000 unit DAILY PO Last administered on 01/19/19 08:42; Start 01/18/19 at 09:00 Insulin Glargine (Lantus Syringe) 5 unit QHS SQ ; Start 01/18/19 at 21:00; Stop 01/17/19 at 23:45; Status DC Levothyroxine Sodium (Synthroid) 200 mcg DAILY06 PO Last administered on 01/19/19 06:11; Start 01/18/19 at 06:00 Metolazone (Zaroxolyn) 5 mg DAILY PO Last administered on 01/19/19 08:42; Start 01/18/19 at 09:00 Sacubitril/ Valsartan (Entresto 49 Mg-51 Mg) 2 tab BID PO ; Start 01/18/19 at 09:00; Stop 01/17/19 at 23:45; Status DC Atorvastatin Calcium (Lipitor) 80 mg QHS PO Last administered on 01/18/19 20:38; Start 01/18/19 at 00:00 Gabapentin (Neurontin) 300 mg BID PO Last administered on 01/19/19at 08:42; Start 01/18/19 at 00:00 Insulin Glargine (Lantus Syringe) 5 unit QHS SQ Last administered on 01/18/19at 20:48; Start 01/18/19 at 00:00 Sacubitril/ Valsartan (Entresto 49 Mg-51 Mg) 2 tab BID PO Last administered on 01/19/19 08:43; Start 01/18/19 at 00:00 Enoxaparin Sodium (Lovenox 40mg Syringe) 40 mg Q24H SQ ; Start 01/18/19 at 00:00; Stop 01/18/19 at 02:18; Status DC Enoxaparin Sodium (Lovenox 40mg Syringe) 40 mg Q24H SQ Last administered on 01/19/19at 08:44; Start 01/18/19 at 09:00 Insulin Glargine (Lantus Syringe) 5 unit QHS SQ ; Start 01/18/19 at 21:00; Status UNV Insulin Human Lispro (HumaLOG) 0-5 UNITS TIDWMEALS SQ Last administered on 01/18/19at 12:46; Start 01/18/19 at 08:00; Stop 01/18/19 at 12:56; Status DC Dextrose (Dextrose 50%-Water Syringe) 12.5 gm PRN Q15MIN PRN IV SEE COMMENTS; Start 01/18/19 at 03:30; Stop 01/18/19 at 13:35; Status DC Furosemide (Lasix) 40 mg 1X ONCE IVP Last administered on 01/18/19at 12:48; Start 01/18/19 at 12:30; Stop 01/18/19 at 12:31; Status DC Insulin Human Lispro (HumaLOG) 0-7 UNITS TIDWMEALS SQ ; Start 01/18/19 at 17:00 Dextrose (Dextrose 50%-Water Syringe) 12.5 gm PRN Q15MIN PRN IV SEE COMMENTS; Start 01/18/19 at 13:00 Diclofenac Sodium (Voltaren) 1 nas BID TP Last administered on 01/19/19at 08:46; Start 01/18/19 at 17:00 Bupivacaine HCl (Sensorcaine-Mpf 0.25%) 10 ml 1X ONCE IJ ; Start 01/18/19 at 15:30; Stop 01/18/19 at 15:31; Status DC Methylprednisolone Acetate (DEPO-Medrol 40MG VIAL) 40 mg 1X ONCE IM ; Start 01/18/19 at 15:30; Stop 01/18/19 at 15:31; Status DC Active Scripts Active Metformin Hcl 500 Mg Tablet 500 Mg PO BIDWMEALS 30 Days Proair Hfa (Albuterol Sulfate) 8.5 Gm Hfa.aer.ad 2.5 Mg NEB PRN Q6HRS PRN 30 Days Duoneb 0.5-3(2.5) Mg/3 Ml (Albuterol/Ipratropium) 3 Ml Ampul.neb 3 Ml NEB RTQID 30 Days Vitamin D (Cholecalciferol (Vitamin D3)) 1,000 Unit Capsule 2,000 Unit PO DAILY 30 Days Aspirin Ec (Aspirin) 81 Mg Tablet. 81 Mg PO DAILYWBKFT Lantus Solostar (Insulin Glargine,Hum.rec.anlog) 100 Unit/1 Ml Insuln.pen 5 Unit SQ QHS Synthroid (Levothyroxine Sodium) 200 Mcg Tablet 1 Tab PO DAILY Pantoprazole Sodium (Pantoprazole Sodium) 40 Mg Tablet. 40 Mg PO DAILYAC Reported Tramadol Hcl 50 Mg Tablet 50 Mg PO PRN Q12HR PRN Demadex (Torsemide) 20 Mg Tablet 20 Mg PO BID NITROGLYCERIN SubLingual (Nitroglycerin) 0.4 Mg Tab.subl 0.4 Mg SL PRN Q5MIN PRN Ferrous Sulfate 325 Mg Tablet 1 Tab PO DAILY Folic Acid 1 Mg Tablet 1 Tab PO DAILY Colestid (Colestipol Hcl) 1 Gm Tablet 2 Gm PO BID Metolazone 5 Mg Tablet 5 Mg PO DAILY Triamterene-Hctz 37.5-25 Mg Tb (Triamterene/Hydrochlorothiazid) 1 Each Tablet 1 Tab PO DAILY Coreg (Carvedilol) 25 Mg Tablet 12.5 Mg PO BIDWMEALS Entresto 97 mg-103 mg Tablet (Sacubitril/Valsartan) 1 Each Tablet 1 Each PO BID Atorvastatin Calcium 80 Mg Tablet 1 Tab PO QHS Gabapentin (Gabapentin) 300 Mg Capsule 300 Mg PO TID Potassium Chloride 10 Meq Tab.er.prt 1 Tab PO BID Vitals/I & O Vital Sign - Last 24 Hours 01/18/19 01/18/19 01/18/19 01/18/19 15:00 15:31 17:21 19:00 Temp 98.2 98.9 98.2 98.9 Pulse 67 67 73 Resp 20 20 B/P (MAP) 150/68 (95) 150/68 157/70 (99) Pulse Ox 95 95 97 O2 Delivery Nasal Cannula Nasal Cannula Nasal Cannula O2 Flow Rate 4.0 3.0 4.0 01/18/19 01/18/19 01/18/19 01/18/19 19:31 19:40 19:51 20:20 Resp 20 20 Pulse Ox 95 O2 Delivery Nasal Cannula Nasal Cannula Nasal Cannula Nasal Cannula O2 Flow Rate 3.0 3.0 3.0 3.0 01/18/19 01/18/19 01/19/19 01/19/19 20:39 23:00 02:51 07:00 Temp 98.6 98.4 98.4 98.6 98.4 98.4 Pulse 83 77 81 73 Resp 20 20 16 B/P (MAP) 157/70 139/67 (91) 121/60 (80) 136/67 (90) Pulse Ox 92 93 94 O2 Delivery Nasal Cannula Nasal Cannula Nasal Cannula O2 Flow Rate 4.0 3.0 3.0 01/19/19 01/19/19 01/19/19 01/19/19 08:00 08:32 08:42 08:43 Pulse 73 73 B/P (MAP) 136/67 136/67 Pulse Ox 99 O2 Delivery Nasal Cannula Nasal Cannula O2 Flow Rate 3.0 3.0 01/19/19 01/19/19 11:00 12:54 Temp 98.2 98.2 Pulse 70 Resp 16 B/P (MAP) 117/55 (75) Pulse Ox 91 O2 Delivery Nasal Cannula Nasal Cannula O2 Flow Rate 3.0 2.0 Intake and Output 01/18/19 01/18/19 01/19/19 15:00 23:00 07:00 Intake Total 450 ml 450 ml Output Total 1400 ml 1400 ml 1200 ml Balance -950 ml -950 ml -1200 ml KELLEN TELLO MD Jan 19, 2019 13:05
--- NOTE | 2019-01-19 14:54 | PDOC ---
PROGRESS NOTES Subjective Subjective seen in follow up of ckd3 Objective Objective Vital Signs Date Time Temp Pulse Resp B/P (MAP) Pulse Ox O2 Delivery O2 Flow Rate FiO2 01/19/19 12:54 Nasal Cannula 2.0 01/19/19 11:00 98.2 70 16 117/55 (75) 91 98.2 Intake and Output 01/19/19 06:59 Intake Total 900 ml Output Total 4000 ml Balance -3100 ml Intake Oral 900 ml Output Urine Total 4000 ml # Voids 1 Physical Exam Abdomen: Normal bowel sounds, Soft, No tenderness, No hepatosplenomegaly, No masses Heart: Regular rate, Normal S1, Normal S2, No murmurs, Gallops Extremities: No clubbing, No cyanosis, No edema, Normal pulses, No tenderness/swelling General: Alert, Oriented X3, Cooperative, No acute distress Lungs: Clear to auscultation, Normal air movement Psych/Mental Status: Mental status NL, Mood NL Diagnosis RENAL FAILURE: Chronic (CKD stage III) Assessment Assessment Problems Medical Problems: (1) Dyspnea Status: Acute Plan Plan of Care RENAL FUNCTION IS STABLE. CHF IS IMPROVING. HOPEFULLY HOME SOON Comment Review of Relevant I have reviewed the following items leandra (where applicable) has been applied. Labs Laboratory Tests Test 01/17/19 18:30 01/17/19 23:35 01/17/19 23:42 01/18/19 03:30 White Blood Count 4.4 x10^3/uL (4.0-11.0) 4.4 x10^3/uL (4.0-11.0) Red Blood Count 2.78 x10^6/uL (3.50-5.40) 2.41 x10^6/uL (3.50-5.40) Hemoglobin 8.6 g/dL (12.0-15.5) 7.3 g/dL (12.0-15.5) Hematocrit 24.8 % (36.0-47.0) 21.2 % (36.0-47.0) Mean Corpuscular Volume 89 fL (79-100) 88 fL (79-100) Mean Corpuscular Hemoglobin 31 pg (25-35) 30 pg (25-35) Mean Corpuscular Hemoglobin Concent 35 g/dL (31-37) 34 g/dL (31-37) Red Cell Distribution Width 16.0 % (11.5-14.5) 15.9 % (11.5-14.5) Platelet Count 182 x10^3/uL (140-400) 161 x10^3/uL (140-400) Neutrophils (%) (Auto) 58 % (31-73) 60 % (31-73) Lymphocytes (%) (Auto) 28 % (24-48) 27 % (24-48) Monocytes (%) (Auto) 7 % (0-9) 6 % (0-9) Eosinophils (%) (Auto) 6 % (0-3) 6 % (0-3) Basophils (%) (Auto) 0 % (0-3) 1 % (0-3) Neutrophils # (Auto) 2.5 x10^3/uL (1.8-7.7) 2.7 x10^3/uL (1.8-7.7) Lymphocytes # (Auto) 1.2 x10^3/uL (1.0-4.8) 1.2 x10^3/uL (1.0-4.8) Monocytes # (Auto) 0.3 x10^3/uL (0.0-1.1) 0.3 x10^3/uL (0.0-1.1) Eosinophils # (Auto) 0.3 x10^3/uL (0.0-0.7) 0.3 x10^3/uL (0.0-0.7) Basophils # (Auto) 0.0 x10^3/uL (0.0-0.2) 0.0 x10^3/uL (0.0-0.2) Prothrombin Time 12.3 SEC (11.7-14.0) Prothromb Time International Ratio 0.9 (0.8-1.1) Sodium Level 137 mmol/L (136-145) 141 mmol/L (136-145) Potassium Level 4.0 mmol/L (3.5-5.1) 3.8 mmol/L (3.5-5.1) Chloride Level 100 mmol/L (98-107) 104 mmol/L (98-107) Carbon Dioxide Level 30 mmol/L (21-32) 32 mmol/L (21-32) Anion Gap 7 (6-14) 5 (6-14) Blood Urea Nitrogen 36 mg/dL (7-20) 34 mg/dL (7-20) Creatinine 1.7 mg/dL (0.6-1.0) 1.6 mg/dL (0.6-1.0) Estimated GFR (Cockcroft-Gault) 30.9 33.1 BUN/Creatinine Ratio 21 (6-20) Glucose Level 319 mg/dL (70-99) 306 mg/dL (70-99) Calcium Level 8.4 mg/dL (8.5-10.1) 7.8 mg/dL (8.5-10.1) Magnesium Level 2.3 mg/dL (1.8-2.4) Total Bilirubin 0.3 mg/dL (0.2-1.0) Aspartate Amino Transf (AST/SGOT) 17 U/L (15-37) Alanine Aminotransferase (ALT/SGPT) 21 U/L (14-59) Alkaline Phosphatase 142 U/L (46-116) Troponin I Quantitative < 0.017 ng/mL (0.000-0.055) < 0.017 ng/mL (0.000-0.055) 0.019 ng/mL (0.000-0.055) UT-Qec-Q-Type Natriuretic Peptide 01907 pg/mL (0-124) Total Protein 6.2 g/dL (6.4-8.2) Albumin 2.2 g/dL (3.4-5.0) Albumin/Globulin Ratio 0.6 (1.0-1.7) Glucose (Fingerstick) 331 mg/dL (70-99) Thyroid Stimulating Hormone (TSH) 5.379 uIU/mL (0.358-3.74) Test 01/18/19 08:26 01/18/19 11:51 01/18/19 16:50 01/18/19 20:45 Glucose (Fingerstick) 245 mg/dL (70-99) 193 mg/dL (70-99) 91 mg/dL (70-99) 133 mg/dL (70-99) Test 01/19/19 03:30 01/19/19 07:21 01/19/19 11:17 White Blood Count 4.2 x10^3/uL (4.0-11.0) Red Blood Count 2.53 x10^6/uL (3.50-5.40) Hemoglobin 7.6 g/dL (12.0-15.5) Hematocrit 22.3 % (36.0-47.0) Mean Corpuscular Volume 88 fL (79-100) Mean Corpuscular Hemoglobin 30 pg (25-35) Mean Corpuscular Hemoglobin Concent 34 g/dL (31-37) Red Cell Distribution Width 16.1 % (11.5-14.5) Platelet Count 166 x10^3/uL (140-400) Neutrophils (%) (Auto) 71 % (31-73) Lymphocytes (%) (Auto) 16 % (24-48) Monocytes (%) (Auto) 6 % (0-9) Eosinophils (%) (Auto) 6 % (0-3) Basophils (%) (Auto) 1 % (0-3) Neutrophils # (Auto) 3.0 x10^3/uL (1.8-7.7) Lymphocytes # (Auto) 0.7 x10^3/uL (1.0-4.8) Monocytes # (Auto) 0.3 x10^3/uL (0.0-1.1) Eosinophils # (Auto) 0.3 x10^3/uL (0.0-0.7) Basophils # (Auto) 0.0 x10^3/uL (0.0-0.2) Sodium Level 139 mmol/L (136-145) Potassium Level 4.0 mmol/L (3.5-5.1) Chloride Level 106 mmol/L (98-107) Carbon Dioxide Level 32 mmol/L (21-32) Anion Gap 1 (6-14) Blood Urea Nitrogen 36 mg/dL (7-20) Creatinine 1.5 mg/dL (0.6-1.0) Estimated GFR (Cockcroft-Gault) 35.7 Glucose Level 168 mg/dL (70-99) Calcium Level 8.3 mg/dL (8.5-10.1) Phosphorus Level 4.0 mg/dL (2.6-4.7) Magnesium Level 2.1 mg/dL (1.8-2.4) Free Thyroxine 1.30 ng/dL (0.76-1.46) Glucose (Fingerstick) 144 mg/dL (70-99) 179 mg/dL (70-99) Laboratory Tests Test 01/18/19 16:50 01/18/19 20:45 01/19/19 03:30 01/19/19 07:21 Glucose (Fingerstick) 91 mg/dL (70-99) 133 mg/dL (70-99) 144 mg/dL (70-99) White Blood Count 4.2 x10^3/uL (4.0-11.0) Red Blood Count 2.53 x10^6/uL (3.50-5.40) Hemoglobin 7.6 g/dL (12.0-15.5) Hematocrit 22.3 % (36.0-47.0) Mean Corpuscular Volume 88 fL (79-100) Mean Corpuscular Hemoglobin 30 pg (25-35) Mean Corpuscular Hemoglobin Concent 34 g/dL (31-37) Red Cell Distribution Width 16.1 % (11.5-14.5) Platelet Count 166 x10^3/uL (140-400) Neutrophils (%) (Auto) 71 % (31-73) Lymphocytes (%) (Auto) 16 % (24-48) Monocytes (%) (Auto) 6 % (0-9) Eosinophils (%) (Auto) 6 % (0-3) Basophils (%) (Auto) 1 % (0-3) Neutrophils # (Auto) 3.0 x10^3/uL (1.8-7.7) Lymphocytes # (Auto) 0.7 x10^3/uL (1.0-4.8) Monocytes # (Auto) 0.3 x10^3/uL (0.0-1.1) Eosinophils # (Auto) 0.3 x10^3/uL (0.0-0.7) Basophils # (Auto) 0.0 x10^3/uL (0.0-0.2) Sodium Level 139 mmol/L (136-145) Potassium Level 4.0 mmol/L (3.5-5.1) Chloride Level 106 mmol/L (98-107) Carbon Dioxide Level 32 mmol/L (21-32) Anion Gap 1 (6-14) Blood Urea Nitrogen 36 mg/dL (7-20) Creatinine 1.5 mg/dL (0.6-1.0) Estimated GFR (Cockcroft-Gault) 35.7 Glucose Level 168 mg/dL (70-99) Calcium Level 8.3 mg/dL (8.5-10.1) Phosphorus Level 4.0 mg/dL (2.6-4.7) Magnesium Level 2.1 mg/dL (1.8-2.4) Free Thyroxine 1.30 ng/dL (0.76-1.46) Test 01/19/19 11:17 Glucose (Fingerstick) 179 mg/dL (70-99) Medications Current Medications Furosemide (Lasix) 40 mg 1X ONCE IVP Last administered on 01/17/19at 19:42; S tart 01/17/19 at 19:15; Stop 01/17/19 at 19:16; Status DC Nitroglycerin (Nitrostat) 0.4 mg PRN Q5MIN PRN SL CHEST PAIN Last administered on 01/17/19at 23:28; Start 01/17/19 at 19:30; Stop 01/18/19 at 19:29; Status DC Nitroglycerin (Nitro-Bid Oint) 1 inch 1X ONCE TP Last administered on 01/17/19at 20:10; Start 01/17/19 at 20:00; Stop 01/17/19 at 20:01; Status DC Labetalol HCl (Normodyne Iv Push) 10 mg 1X ONCE IVP Last administered on 01/17/19at 20:09; Start 01/17/19 at 20:00; Stop 01/17/19 at 20:01; Status DC Influenza Virus Vaccine Quadrival (Afluria Quad 2019-20 (3yr Up) Syringe) 0.5 ml ONCE ONCE VAX IM Last administered on 01/18/19at 12:45; Start 01/18/19 at 09:00; Stop 01/18/19 at 09:01; Status DC Albuterol Sulfate (Ventolin Neb Soln) 2.5 mg PRN Q6HRS PRN NEB SHORTNESS OF BREATH; Start 01/17/19 at 22:45 Aspirin (Ecotrin) 81 mg DAILYWBKFT PO Last administered on 01/19/19at 08:41; Start 01/18/19 at 08:00 Colestipol HCl (Colestid) 2 gm BIDBFRMEAL PO Last administered on 01/19/19at 08:42; Start 01/18/19 at 07:30 Ferrous Sulfate (Feosol) 325 mg DAILY PO Last administered on 01/19/19 08:41; Start 01/18/19 at 09:00 Folic Acid (Folic Acid) 1 mg DAILY PO Last administered on 01/19/19 08:41; Start 01/18/19 at 09:00 Gabapentin (Neurontin) 300 mg BID PO ; Start 01/18/19 at 09:00; Stop 01/17/19 at 23:45; Status DC Albuterol/ Ipratropium (Duoneb) 3 ml RTQID NEB Last administered on 01/19/19 12:53; Start 01/18/19 at 08:00 Metformin HCl (Glucophage) 500 mg BIDWMEALS PO ; Start 01/18/19 at 08:00; Status UNV Pantoprazole Sodium (Protonix) 40 mg DAILYAC PO Last administered on 01/19/19 08:42; Start 01/18/19 at 07:30 Potassium Chloride (Klor-Con) 10 meq BID PO Last administered on 01/19/19 08:42; Start 01/18/19 at 09:00 Torsemide (Demadex) 20 mg BID94 PO Last administered on 01/19/19 08:41; Start 01/18/19 at 09:00 Tramadol HCl (Ultram) 50 mg PRN Q12HR PRN PO MODERATE PAIN 4-6 Last a dministered on 01/18/19 19:31; Start 01/17/19 at 22:45 Triamterene/HCTZ (Maxzide 37.5/ 25mg) 1 tab DAILY PO ; Start 01/18/19 at 09:00; Stop 01/18/19 at 12:05; Status DC Atorvastatin Calcium (Lipitor) 80 mg QHS PO ; Start 01/18/19 at 21:00; Stop 01/17/19 at 23:45; Status DC Carvedilol (Coreg) 12.5 mg BIDWMEALS PO Last administered on 01/19/19 08:42; Start 01/18/19 at 08:00 Vitamin D (Vitamin D3) 2,000 unit DAILY PO Last administered on 01/19/19 08:42; Start 01/18/19 at 09:00 Insulin Glargine (Lantus Syringe) 5 unit QHS SQ ; Start 01/18/19 at 21:00; Stop 01/17/19 at 23:45; Status DC Levothyroxine Sodium (Synthroid) 200 mcg DAILY06 PO Last administered on 01/19/19 06:11; Start 01/18/19 at 06:00 Metolazone (Zaroxolyn) 5 mg DAILY PO Last administered on 01/19/19 08:42; Start 01/18/19 at 09:00 Sacubitril/ Valsartan (Entresto 49 Mg-51 Mg) 2 tab BID PO ; Start 01/18/19 at 09:00; Stop 01/17/19 at 23:45; Status DC Atorvastatin Calcium (Lipitor) 80 mg QHS PO Last administered on 01/18/19 20:38; Start 01/18/19 at 00:00 Gabapentin (Neurontin) 300 mg BID PO Last administered on 01/19/19 08:42; Start 01/18/19 at 00:00 Insulin Glargine (Lantus Syringe) 5 unit QHS SQ Last administered on 01/18/19at 20:48; Start 01/18/19 at 00:00 Sacubitril/ Valsartan (Entresto 49 Mg-51 Mg) 2 tab BID PO Last administered on 01/19/19 08:43; Start 01/18/19 at 00:00 Enoxaparin Sodium (Lovenox 40mg Syringe) 40 mg Q24H SQ ; Start 01/18/19 at 00:00; Stop 01/18/19 at 02:18; Status DC Enoxaparin Sodium (Lovenox 40mg Syringe) 40 mg Q24H SQ Last administered on 01/19/19at 08:44; Start 01/18/19 at 09:00 Insulin Glargine (Lantus Syringe) 5 unit QHS SQ ; Start 01/18/19 at 21:00; Status UNV Insulin Human Lispro (HumaLOG) 0-5 UNITS TIDWMEALS SQ Last administered on 01/18/19at 12:46; Start 01/18/19 at 08:00; Stop 01/18/19 at 12:56; Status DC Dextrose (Dextrose 50%-Water Syringe) 12.5 gm PRN Q15MIN PRN IV SEE COMMENTS; Start 01/18/19 at 03:30; Stop 01/18/19 at 13:35; Status DC Furosemide (Lasix) 40 mg 1X ONCE IVP Last administered on 01/18/19at 12:48; Start 01/18/19 at 12:30; Stop 01/18/19 at 12:31; Status DC Insulin Human Lispro (HumaLOG) 0-7 UNITS TIDWMEALS SQ Last administered on 01/19/19at 13:12; Start 01/18/19 at 17:00 Dextrose (Dextrose 50%-Water Syringe) 12.5 gm PRN Q15MIN PRN IV SEE COMMENTS; Start 01/18/19 at 13:00 Diclofenac Sodium (Voltaren) 1 nas BID TP Last administered on 01/19/19at 08:46; Start 01/18/19 at 17:00 Bupivacaine HCl (Sensorcaine-Mpf 0.25%) 10 ml 1X ONCE IJ ; Start 01/18/19 at 15:30; Stop 01/18/19 at 15:31; Status DC Methylprednisolone Acetate (DEPO-Medrol 40MG VIAL) 40 mg 1X ONCE IM ; Start 01/18/19 at 15:30; Stop 01/18/19 at 15:31; Status DC Active Scripts Active Metformin Hcl 500 Mg Tablet 500 Mg PO BIDWMEALS 30 Days Proair Hfa (Albuterol Sulfate) 8.5 Gm Hfa.aer.ad 2.5 Mg NEB PRN Q6HRS PRN 30 Days Duoneb 0.5-3(2.5) Mg/3 Ml (Albuterol/Ipratropium) 3 Ml Ampul.neb 3 Ml NEB RTQID 30 Days Vitamin D (Cholecalciferol (Vitamin D3)) 1,000 Unit Capsule 2,000 Unit PO DAILY 30 Days Aspirin Ec (Aspirin) 81 Mg Tablet. 81 Mg PO DAILYWBKFT Lantus Solostar (Insulin Glargine,Hum.rec.anlog) 100 Unit/1 Ml Insuln.pen 5 Unit SQ QHS Synthroid (Levothyroxine Sodium) 200 Mcg Tablet 1 Tab PO DAILY Pantoprazole Sodium (Pantoprazole Sodium) 40 Mg Tablet. 40 Mg PO DAILYAC Reported Tramadol Hcl 50 Mg Tablet 50 Mg PO PRN Q12HR PRN Demadex (Torsemide) 20 Mg Tablet 20 Mg PO BID NITROGLYCERIN SubLingual (Nitroglycerin) 0.4 Mg Tab.subl 0.4 Mg SL PRN Q5MIN PRN Ferrous Sulfate 325 Mg Tablet 1 Tab PO DAILY Folic Acid 1 Mg Tablet 1 Tab PO DAILY Colestid (Colestipol Hcl) 1 Gm Tablet 2 Gm PO BID Metolazone 5 Mg Tablet 5 Mg PO DAILY Triamterene-Hctz 37.5-25 Mg Tb (Triamterene/Hydrochlorothiazid) 1 Each Tablet 1 Tab PO DAILY Coreg (Carvedilol) 25 Mg Tablet 12.5 Mg PO BIDWMEALS Entresto 97 mg-103 mg Tablet (Sacubitril/Valsartan) 1 Each Tablet 1 Each PO BID Atorvastatin Calcium 80 Mg Tablet 1 Tab PO QHS Gabapentin (Gabapentin) 300 Mg Capsule 300 Mg PO TID Potassium Chloride 10 Meq Tab.er.prt 1 Tab PO BID Vitals/I & O Vital Sign - Last 24 Hours 01/18/19 01/18/19 01/18/19 01/18/19 15:00 15:31 17:21 19:00 Temp 98.2 98.9 98.2 98.9 Pulse 67 67 73 Resp 20 20 B/P (MAP) 150/68 (95) 150/68 157/70 (99) Pulse Ox 95 95 97 O2 Delivery Nasal Cannula Nasal Cannula Nasal Cannula O2 Flow Rate 4.0 3.0 4.0 01/18/19 01/18/19 01/18/19 01/18/19 19:31 19:40 19:51 20:20 Resp 20 20 Pulse Ox 95 O2 Delivery Nasal Cannula Nasal Cannula Nasal Cannula Nasal Cannula O2 Flow Rate 3.0 3.0 3.0 3.0 01/18/19 01/18/19 01/19/19 01/19/19 20:39 23:00 02:51 07:00 Temp 98.6 98.4 98.4 98.6 98.4 98.4 Pulse 83 77 81 73 Resp 20 20 16 B/P (MAP) 157/70 139/67 (91) 121/60 (80) 136/67 (90) Pulse Ox 92 93 94 O2 Delivery Nasal Cannula Nasal Cannula Nasal Cannula O2 Flow Rate 4.0 3.0 3.0 01/19/19 01/19/19 01/19/19 01/19/19 08:00 08:32 08:42 08:43 Pulse 73 73 B/P (MAP) 136/67 136/67 Pulse Ox 99 O2 Delivery Nasal Cannula Nasal Cannula O2 Flow Rate 3.0 3.0 01/19/19 01/19/19 11:00 12:54 Temp 98.2 98.2 Pulse 70 Resp 16 B/P (MAP) 117/55 (75) Pulse Ox 91 O2 Delivery Nasal Cannula Nasal Cannula O2 Flow Rate 3.0 2.0 Intake and Output 01/18/19 01/18/19 01/19/19 14:59 22:59 06:59 Intake Total 450 ml 450 ml Output Total 2800 ml 1200 ml Balance 450 ml -2350 ml -1200 ml MELODIE VAZQUEZ MD Jan 19, 2019 14:54
[2019-01-19 15:00] VITALS: BP 146/71
[2019-01-19 17:00] VITALS: BP 146/71
[2019-01-19] MEDS ORDERED: INSULIN LISPRO 300 UNITS/3 ML VIAL. SQ ONE (17:15)
--- NOTE | 2019-01-19 18:54 | NUR ---
Patients left ama, risk explained security called.
--- NOTE | 2019-01-20 13:05 | DS ---
DATE OF DISCHARGE: 01/19/2019 CHIEF COMPLAINT: Shortness of air. HISTORY OF PRESENT ILLNESS: The patient is a 58-year-old female who presented to the Emergency Room with the above complaint. She reported a several-day history of increasing shortness of air. She does have a history of congestive heart failure. She is also diabetic and her blood sugar was found to be over 300 in the Emergency Department. Treatment was started and she was admitted for further care. HOSPITAL COURSE: The patient was seen in consultation by Cardiology, Nephrology and Rehabilitative Medicine. She was felt to be having an exacerbation of her congestive heart failure and this was treated with increased diuretics. Troponins continued negative. The patient has chronic kidney disease, stage 3. Nephrology saw her due to acute kidney injury. This seemed to be improving on lab and her creatinine was about at her baseline. She continued to have fluctuating blood sugars. She had a recent fall and continued to have pain in her right knee and her right shoulder. She received physical and occupational therapy. She was seen by Dr. Gotti who did an injection of the right knee while she was here as she did have some improvement from a previous injection she had received from him. The patient's condition was improving, but she was not ready for discharge on the afternoon of 01/19/2019. She became upset as there was some concern about her having eaten some snacks from home, which resulted in a blood sugar over 300. Despite efforts from the staff to reassure and accommodate her, she chose to leave the hospital against medical advice on 01/19/2019. FINAL DIAGNOSES: 1. Acute respiratory failure with hypoxia. 2. Acute exacerbation of systolic and diastolic congestive heart failure with ischemic cardiomyopathy. 3. Acute kidney injury with chronic kidney disease, stage 3. 4. Osteoarthritis with joint pain. 5. Diabetes mellitus type 2, not well controlled. 6. Hypothyroidism. 7. Normocytic anemia. DISCHARGE MEDICATIONS: Apparently remain the same as at admission as she left A and was not given any new prescriptions. The patient should follow up with Dr. Morgan as soon as possible. TOREY CHILDRESS MD DR: TYESHA/kit JOB#: [id number] / [id number] [facility]
== END 2019-01-19 18:39 | disposition left against medical advice (07) | DRG 682 ==
LOC: ER 17:36 → 2 NORTH 20:46
PROVIDERS: ADMIT Family Medicine; ATTEND Family Medicine
PROC: 0S9C3ZZ Drainage of Right Knee Joint, Percutaneous Approach (ICD-10-PCS; principal; 2019-01-18)
DX: N17.9 Acute kidney failure, unspecified (principal); J96.01 Acute respiratory failure with hypoxia; I50.43 Acute on chronic combined systolic (congestive) and diastolic (congestive) heart failure; I13.0 Hypertensive heart and chronic kidney disease with heart failure and stage 1 through stage 4 chronic kidney disease, or unspecified chronic kidney disease; D63.8 Anemia in other chronic diseases classified elsewhere; E03.9 Hypothyroidism, unspecified; E11.22 Type 2 diabetes mellitus with diabetic chronic kidney disease; E11.42 Type 2 diabetes mellitus with diabetic polyneuropathy; E78.00 Pure hypercholesterolemia, unspecified; E78.5 Hyperlipidemia, unspecified; F32.9 Major depressive disorder, single episode, unspecified; F41.9 Anxiety disorder, unspecified; I25.10 Atherosclerotic heart disease of native coronary artery without angina pectoris; I25.5 Ischemic cardiomyopathy; J44.9 Chronic obstructive pulmonary disease, unspecified; M17.12 Unilateral primary osteoarthritis, left knee; N18.3 Chronic kidney disease, stage 3 (moderate); S00.93XA Contusion of unspecified part of head, initial encounter; Z82.49 Family history of ischemic heart disease and other diseases of the circulatory system; W18.39XA Other fall on same level, initial encounter; Z83.3 Family history of diabetes mellitus; Z86.711 Personal history of pulmonary embolism; Z95.5 Presence of coronary angioplasty implant and graft; Z95.810 Presence of automatic (implantable) cardiac defibrillator; Z88.8 Allergy status to other drugs, medicaments and biological substances; Z79.899 Other long term (current) drug therapy; Y93.89 Activity, other specified; Y92.89 Other specified places as the place of occurrence of the external cause; Y99.8 Other external cause status; Z53.21 Procedure and treatment not carried out due to patient leaving prior to being seen by health care provider
CPT/HCPCS: 36415; 70450; 71045; 80048; 80053; 82962; 83735; 83880; 84100; 84439; 84443; 84484; 85025; 85610; 90471; 90686; 93005; 94640; 96374; 96375; J1030; J1650; J1815; J1940; J3490; J7620; 97116; 99285-25; G0378

== ENCOUNTER → 2019-03-12 | Outpatient (CLI) | payer OTHER ==
[2019-02-01 14:06] VITALS: BP 185/86
[~2019-03-12] MED LIST changes: +REGADENOSON 0.4 MG/5 ML DISP.SYRIN. IV ONE; +TRAM50TA PO
--- NOTE | 2019-03-12 13:13 | RAD ---
MR#: [id number] Date of Study: 03/12/2019 Ordering Physician: ZEFERINO GOMEZ, Referring Physician: MANNY RAMÍREZ Tech: MALKA Roy APPROVED REPORT Test Type: Pharmacological Stress Nurse/Tech: Belen Maldonado R.N. Test Indications: CAD Cardiac History: stents 3yrs ago, DM, htn, PPM Medications: See Electronic Medical Record Medical History: See Electronic Medical Record Resting ECG: SR w inverted T waves in leads II, III, AVF,V3-V6. very slight ST elevation in vivian d V2 Resting Heart Rate: 66 bpm Resting Blood Pressure: 137/68mmHg Pretest Chest Pain: No chest pain Nurse/Tech Notes S1S2, lungs CTA Consent: The procedure was explained to the patient in lay terms. Informed consent was witnessed. Yaw eout was entered into [employer]. History and Stress Test performed by RT Yusra (R) (N) Pharm. Details Pharmacologic stress testing was performed using 0.4mg per 5ml of regadenoson given intravenously ove r 7-10 seconds. Stress Symptoms SOB, lightheaded and dizziness- still a little dizzy post recovery period POST EXERCISE Reason for Termination: Infusion complete Max HR: 76 bpm Max Blood Pressure: 107/46mmHg Blood Pressure response to exercise: b/p dropped and did not come back up to baseline Heart Rate response to exercise: wnl Chest Pain: No. Arrhythmia: No. ST Change: No. INTERPRETATION Stress EKG Conclusion: Non-specific st/t wave changes. Imaging Protocol IMAGE PROTOCOL: Rest Tc-99m/stress Tc-99m 1 day Rest: Stress: Viability: Radiopharm.Tc99m [id number] Sestamibi Dose10.1mCi 33mCi Duration 15min. 10min. Img Date 03/12/2019 03/12/2019 Inj-Img [id number]. 60min. Rest Admin Site:IV - Right AntecubitalAdministrator:RT Yusra (R)(N) Stress Admin Site: IV - Right AntecubitalAdministrator: TRESSA Elizalde, ARRT (R)(N) STRESS DATA End Diast. Vol.203.0mlAv. Heart Rate66.0bpm End Syst. Vol.112.0mlCO Index BSA0.0L/min Myocardial Aurg612.0gEject. Rfchxmvq84.0% Stress Rates Pk. Fill Rate2.08EDV/secLVtime Pk. Fill 124.84msec Pk. Empty Rate1.92ESV/secLVtime Pk. Xolig492.71msec 04/26 Pk. Fill1.26EDV/sec Stress Scores Regional WT3.00Summed WT32.00 Regional WM0.00Summed WM7.00 LV Perfusion There is a large sized, basal to mid inferior, basal inferolateral severe perfusion defect that is mo stly reversible suggestive of prior infarct in the RCA distribution with mild to moderate residual is chemia. Wall Motion Moderate global hypokinesis with an EF of 40-45% LV Perf. Quant 17 Seg. SSS13.00 17 Seg. SRS5.00 17 Seg. SDS8.00 Stress Defect Extent (% LAD)3.10Rest Defect Extent (% LAD)0.00Rev. Defect Extent (% LAD)2.50 Stress Defect Extent (% LCX) 65.00Rest Defect Extent (% LCX)38.80Rev. Defect Extent (% LCX)28.80 Stress Defect Extent (% RCA)33.30Rest Defect Extent (% RCA)0.00Rev. Defect Extent (% RCA)33.30 Stress Defect Extent (% AFIA)24.80Rest Defect Extent (% AFIA)6.70Rev. Defect Extent (% AFIA)16.30 Other Information Quality:Average Risk Assessment: Moderate Risk Conclusion 1. Non-specific EKG changes, no clear evidence of ischemia. 2. Large inferior/lateral perfusion defect, mixed in nature with moderate reversibility suggestive of prior infarct with alison-infarct ischemia. 3. Moderate LV dysfunction. EF 40-45% 4. Moderate risk study Signed by : Moisés Marquez, Electronically Approved : 03/12/2019 13:12:41
== END | disposition home or self-care (01) ==
LOC: NM 09:05
PROVIDERS: ATTEND Internal Medicine Cardiovascular Disease
DX: I25.10 Atherosclerotic heart disease of native coronary artery without angina pectoris (principal); I13.0 Hypertensive heart and chronic kidney disease with heart failure and stage 1 through stage 4 chronic kidney disease, or unspecified chronic kidney disease; E11.22 Type 2 diabetes mellitus with diabetic chronic kidney disease; N18.3 Chronic kidney disease, stage 3 (moderate); I50.42 Chronic combined systolic (congestive) and diastolic (congestive) heart failure; Z95.5 Presence of coronary angioplasty implant and graft; Z95.0 Presence of cardiac pacemaker; Z79.01 Long term (current) use of anticoagulants; Z87.891 Personal history of nicotine dependence; Z88.8 Allergy status to other drugs, medicaments and biological substances
CPT/HCPCS: 78452; 93017; A9500; J2785

== ENCOUNTER → 2019-11-22 | Outpatient (CLI) | payer MEDICARE, OTHER ==
[2019-06-18 11:18] VITALS: BP 163/76
[~2019-11-22] MED LIST changes: -ASPI-612 PO; +ASPI-886 PO; +DICL100G54 TP; +ERGO2000 PO; +FLUO20CA20 PO; -FLUO20CA8 PO; -GLIM4TAB4 PO; +GLIM4TAB8 PO; +HYDR-2759 PO; +HYDR-2765 PO; +INSU100I11 SQ; -REGADENOSON 0.4 MG/5 ML DISP.SYRIN. IV ONE; +SPIR50TA PO
[2019-11-22 13:59] LABS: BASO % 1 % (0-3); EOS # 0.2 x10^3/uL (0.0-0.7); EOS % 4 % (0-3); HEMATOCRIT 22.7 % (36.0-47.0); HEMOGLOBIN 7.9 g/dL (12.0-15.5); LYMPH # 0.7 x10^3/uL (1.0-4.8); LYMPH % 15 % (24-48); MEAN CORPUSCULAR HEMOGLOBIN 32 pg (25-35); MEAN CORPUSCULAR HGB CONC 35 g/dL (31-37); MEAN CORPUSCULAR VOLUME 93 fL (79-100); MONO # 0.3 x10^3/uL (0.0-1.1); MONO % 5 % (0-9); NEUT # 3.8 x10^3/uL (1.8-7.7); NEUT % 75 % (31-73); PLATELET COUNT 178 x10^3/uL (140-400); RED BLOOD COUNT 2.44 x10^6/uL (3.50-5.40); RED CELL DISTRIBUTION WIDTH 14.7 % (11.5-14.5); WHITE BLOOD COUNT 5.1 x10^3/uL (4.0-11.0)
[2019-11-22 14:20] LABS: ALBUMIN 2.3 g/dL (3.4-5.0); ALBUMIN/GLOBULIN RATIO 0.7 (1.0-1.7); CALCIUM 7.9 mg/dL (8.5-10.1); CREATININE 2.5 mg/dL (0.6-1.0); GFR 19.7; MAGNESIUM 2.5 mg/dL (1.8-2.4); TOTAL BILIRUBIN 0.2 mg/dL (0.2-1.0); TOTAL PROTEIN 5.5 g/dL (6.4-8.2); URIC ACID 4.3 mg/dL (2.6-6.0)
[2019-11-22 14:41] LABS: CHOLESTEROL/HDL RATIO 2.4
[2019-11-22 14:43] LABS: POTASSIUM 6.2 mmol/L (3.5-5.1)
[2019-11-23 01:10] LABS: HEMOGLOBIN A1C 7.8 % (4.8-5.6)
== END | disposition home or self-care (01) ==
LOC: LAB 13:22
PROVIDERS: ATTEND Family Medicine
DX: I50.32 Chronic diastolic (congestive) heart failure (principal); E78.00 Pure hypercholesterolemia, unspecified; E11.9 Type 2 diabetes mellitus without complications; E83.42 Hypomagnesemia; M25.569 Pain in unspecified knee; E03.9 Hypothyroidism, unspecified
CPT/HCPCS: 36415; 80053; 80061; 83036; 83735; 84443; 84550; 85025

== ENCOUNTER → 2019-12-02 | Outpatient (CLI) | payer MEDICARE, OTHER ==
[2019-06-18 11:18] VITALS: BP 163/76
[2019-12-02 12:15] LABS: BASO # 0.1 x10^3/uL (0.0-0.2); BASO % 1 % (0-3); EOS # 0.2 x10^3/uL (0.0-0.7); EOS % 4 % (0-3); HEMATOCRIT 22.4 % (36.0-47.0); HEMOGLOBIN 7.8 g/dL (12.0-15.5); LYMPH # 0.9 x10^3/uL (1.0-4.8); LYMPH % 18 % (24-48); MEAN CORPUSCULAR HEMOGLOBIN 32 pg (25-35); MEAN CORPUSCULAR HGB CONC 35 g/dL (31-37); MEAN CORPUSCULAR VOLUME 93 fL (79-100); MONO # 0.2 x10^3/uL (0.0-1.1); MONO % 5 % (0-9); NEUT # 3.4 x10^3/uL (1.8-7.7); NEUT % 72 % (31-73); PLATELET COUNT 189 x10^3/uL (140-400); RED BLOOD COUNT 2.42 x10^6/uL (3.50-5.40); RED CELL DISTRIBUTION WIDTH 14.9 % (11.5-14.5); WHITE BLOOD COUNT 4.7 x10^3/uL (4.0-11.0)
[2019-12-02 12:31] LABS: CALCIUM 7.4 mg/dL (8.5-10.1); CREATININE 2.2 mg/dL (0.6-1.0); GFR 22.8; POTASSIUM 5.5 mmol/L (3.5-5.1)
== END | disposition home or self-care (01) ==
LOC: LAB 11:36
PROVIDERS: ATTEND Family Medicine
DX: E87.5 Hyperkalemia (principal); E78.5 Hyperlipidemia, unspecified
CPT/HCPCS: 36415; 80048; 85025

== ENCOUNTER 2019-12-16 00:16 | Inpatient (IN) | payer MEDICARE, OTHER ==
[~2019-12-16] VITALS: Ht 152.4 cm; Wt 83.2 kg
[2019-12-16 00:53] LABS: BASO % 1 % (0-3); EOS # 0.2 x10^3/uL (0.0-0.7); EOS % 5 % (0-3); HEMOGLOBIN 7.5 g/dL (12.0-15.5); LYMPH % 23 % (24-48); MEAN CORPUSCULAR HEMOGLOBIN 32 pg (25-35); MEAN CORPUSCULAR HGB CONC 34 g/dL (31-37); MEAN CORPUSCULAR VOLUME 94 fL (79-100); MONO # 0.3 x10^3/uL (0.0-1.1); MONO % 7 % (0-9); NEUT # 2.9 x10^3/uL (1.8-7.7); NEUT % 64 % (31-73); PLATELET COUNT 159 x10^3/uL (140-400); RED BLOOD COUNT 2.35 x10^6/uL (3.50-5.40); WHITE BLOOD COUNT 4.5 x10^3/uL (4.0-11.0)
[2019-12-16 01:02] LABS: CALCIUM 7.6 mg/dL (8.5-10.1); CREATININE 2.5 mg/dL (0.6-1.0); GFR 19.7; POTASSIUM 5.3 mmol/L (3.5-5.1)
[2019-12-16 01:08] LABS: ALBUMIN 2.2 g/dL (3.4-5.0); ALBUMIN/GLOBULIN RATIO 0.6 (1.0-1.7); C-REACTIVE PROTEIN 1.6 mg/L (0-3.3); TOTAL BILIRUBIN 0.2 mg/dL (0.2-1.0); TOTAL PROTEIN 5.6 g/dL (6.4-8.2)
[2019-12-16] MEDS ORDERED: MORPHINE SULFATE 10 MG/ML VIAL. IV ONE (02:30)
[2019-12-16] MEDS ORDERED: FUROSEMIDE 40 MG TABLET. PO ONE (02:30)
--- NOTE | 2019-12-16 02:43 | RAD ---
Study: CR CHEST AP ONLY Indication: Chest pain. Comparison: 06/16/2019 Findings: Unchanged enlargement of the cardiomediastinal silhouette. Vascular calcifications. Left chest wall pacer/AICD. No large effusion, lobar consolidation or pneumothorax. Improved visualization of the left costophrenic angle. Less pronounced interstitial markings and Jose B lines seen on the prior are less conspicuous on this exam. Impression: Unchanged cardiomegaly. Findings of interstitial edema on the 06/16/2019 comparison are less apparent on this study. Electronically signed by: SRAVANTHI POSADAS MD (12/16/2019 2:40 AM) [id number]
--- NOTE | 2019-12-16 04:38 | PHYS DOC ---
Past Medical History Past Medical History: Anxiety, CAD, CHF, Depression, Diabetes-Type II, High Cholesterol, Hypertension, Hypothyroid, Other Additional Past Medical Histor: cardiomyopathy, PACER/ DEFIB Past Surgical History: Angioplasty, , Pacemaker, Tubal ligation, Other Additional Past Surgical Histo: heart stents Smoking Status: Former Smoker Alcohol Use: None Drug Use: None General Adult EDM: Chief Complaint: CHEST PAIN HPI: HPI: Patient is a 59-year-old female with a past medical history of congestive heart failure and kidney disease who presents the emergency room complaining of chest pain, shortness of breath, edema. Patient states that a couple weeks ago she was taken off of her water pill because of her kidney function. She states since then her leg started swelling and then she developed shortness of breath and chest pain a couple of days ago. Shortness of breath is worse if she lays flat. She is requesting something for her chest pain. She states it feels like a chest tightness. Review of Systems: Review of Systems: General: Denies fever, chills, sweats, fatigue Eyes: Denies drainage, blurred vision, eye redness HENT: Denies rhinorrhea, sore throat, earache Respiratory: Reports cough, shortness of breath, wheezing Cardiac: Reports edema, chest pain GI: Denies abdominal pain, Nausea, vomiting MSK: Denies back pain, neck pain Skin: Denies rash, jaundice Neuro: Denies headache, dizziness Psychiatric: Denies SI/HI Heart Score: Risk Factors: Risk Factors: DM, Current or recent (<one month) smoker, HTN, HLP, family history of CAD, obesity. Risk Scores: Score 0 - 3: 2.5% MACE over next 6 weeks - Discharge Home Score 4 - 6: 20.3% MACE over next 6 weeks - Admit for Clinical Observation Score 7 - 10: 72.7% MACE over next 6 weeks - Early Invasive Strategies Current Medications: Current Medications Medications (Trade) Dose Ordered Sig/Carlos Start Time Stop Time Status Last Admin Dose Admin Furosemide (Lasix) 40 mg 1X ONCE 12/16/19 02:30 12/16/19 02:32 DC 12/16/19 03:01 40 MG Morphine Sulfate (Morphine Sulfate) 5 mg 1X ONCE 12/16/19 02:30 12/16/19 02:32 DC 8/24/20 03:03 5 MG Allergies: Allergies: Allergies Coded Allergies Type Severity Reaction Last Updated Verified lisinopril Adverse Reaction Intermediate COUGH 02/01/19 Yes Physical Exam: PE: Constitutional: Well developed, well nourished, no acute distress, non-toxic appearance. [] HENT: Normocephalic, atraumatic, bilateral external ears normal, oropharynx moist, no oral exudates, nose normal. [] Eyes: PERRLA, EOMI, conjunctiva normal, no discharge. [] Neck: Normal range of motion, no tenderness, supple, no stridor. [] Cardiovascular:Heart rate regular rhythm, no murmur [] Lungs & Thorax: Bilateral breath sounds clear to auscultation [] Abdomen: Bowel sounds normal, soft, no tenderness, no masses, no pulsatile masses. [] Skin: Warm, dry, no erythema, no rash. [] Back: No tenderness, no CVA tenderness. [] Extremities: No tenderness, no cyanosis, no clubbing, ROM intact, no edema. [] Neurologic: Alert and oriented X 3, normal motor function, normal sensory function, no focal deficits noted. [] Psychologic: Affect normal, judgement normal, mood normal. [] Current Patient Data: Labs: Laboratory Tests Test 12/16/19 00:30 White Blood Count 4.5 x10^3/uL (4.0-11.0) Red Blood Count 2.35 x10^6/uL (3.50-5.40) L Hemoglobin 7.5 g/dL (12.0-15.5) L Hematocrit 22.0 % (36.0-47.0) L Mean Corpuscular Volume 94 fL (79-100) Mean Corpuscular Hemoglobin 32 pg (25-35) Mean Corpuscular Hemoglobin Concent 34 g/dL (31-37) Red Cell Distribution Width 15.0 % (11.5-14.5) H Platelet Count 159 x10^3/uL (140-400) Neutrophils (%) (Auto) 64 % (31-73) Lymphocytes (%) (Auto) 23 % (24-48) L Monocytes (%) (Auto) 7 % (0-9) Eosinophils (%) (Auto) 5 % (0-3) H Basophils (%) (Auto) 1 % (0-3) Neutrophils # (Auto) 2.9 x10^3/uL (1.8-7.7) Lymphocytes # (Auto) 1.0 x10^3/uL (1.0-4.8) Monocytes # (Auto) 0.3 x10^3/uL (0.0-1.1) Eosinophils # (Auto) 0.2 x10^3/uL (0.0-0.7) Basophils # (Auto) 0.0 x10^3/uL (0.0-0.2) Sodium Level 142 mmol/L (136-145) Potassium Level 5.3 mmol/L (3.5-5.1) H Chloride Level 113 mmol/L (98-107) H Carbon Dioxide Level 21 mmol/L (21-32) Anion Gap 8 (6-14) Blood Urea Nitrogen 62 mg/dL (7-20) H Creatinine 2.5 mg/dL (0.6-1.0) H Estimated GFR (Cockcroft-Gault) 19.7 BUN/Creatinine Ratio 25 (6-20) H Glucose Level 184 mg/dL (70-99) H Calcium Level 7.6 mg/dL (8.5-10.1) L Total Bilirubin 0.2 mg/dL (0.2-1.0) Aspartate Amino Transferase (AST) 16 U/L (15-37) Alanine Aminotransferase (ALT) 21 U/L (14-59) Alkaline Phosphatase 101 U/L (46-116) Lactate Dehydrogenase 221 U/L (81-234) Troponin I Quantitative < 0.017 ng/mL (0.000-0.055) C-Reactive Protein, Quantitative 1.6 mg/L (0-3.3) EL-Clr-Q-Type Natriuretic Peptide 8790 pg/mL (0-124) H Total Protein 5.6 g/dL (6.4-8.2) L Albumin 2.2 g/dL (3.4-5.0) L Albumin/Globulin Ratio 0.6 (1.0-1.7) L Laboratory Tests 12/16/19 00:30 Laboratory Tests 12/16/19 00:30 Vital Signs: Vital Signs Date Time Temp Pulse Resp B/P (MAP) Pulse Ox O2 Delivery O2 Flow Rate FiO2 12/16/19 03:03 16 96 12/16/19 00:20 98.4 74 192/84 (120) Room Air 98.4 EKG: EKG: [] Radiology/Procedures: Radiology/Procedures: [] Course & Med Decision Making: Course & Med Decision Making Pertinent Labs and Imaging studies reviewed. (See chart for details) Patient is a 59-year-old female who presents to the emergency room complaining of chest pain, shortness of breath, edema. Patient has 2+ pitting edema in bilateral lower extremities. Patient's presentation is concerning for a congestive heart failure exacerbation. She does have an elevated creatinine as well as an elevated BUN at this time. We will give her dose of Lasix here in the emergency room. Patient will need to be admitted for evaluation by nephrology and cardiology to determine what medication she will need to be on to prevent heart failure exacerbations and protect her kidneys. Work up was reviewed and was remarkable for elevated creatinine, elevated BUN, elevated BNP. At this time, patient would benefit from further work up and management. Patient is not stable for discharge at this time. Results, vitals, interventions, and plan was discussed with the patient. Patient was given opportunity to ask any questions and are in agreement with plan for admission. Patient was discussed with admitting physician and bridge admission orders were placed. Further care will be managed by inpatient team. Dragon Disclaimer: Dragon Disclaimer: This electronic medical record was generated, in whole or in part, using a voice recognition dictation system. Departure Departure Impression: Primary Impression: CHF exacerbation Disposition: ADMITTED INPATIENT Condition: STABLE Referrals: MELODIE VALLES MD (PCP) Justicifation of Admission Dx: Justifications for Admission: Justification of Admission Dx: Yes FIDENCIO DE LEÓN MD Dec 16, 2019 04:38
[2019-12-16 04:57] VITALS: BP 159/67
[2019-12-16 07:00] VITALS: BP 126/58
--- NOTE | 2019-12-16 07:48 | NUR ---
This RN consulted Denise
--- NOTE | 2019-12-16 07:52 | EKG ---
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
[2019-12-16] MEDS ORDERED: NITROGLYCERIN SUBLINGUAL 0.4 MG BOTTLE OF 25. SL ONE (07:57)
[2019-12-16] MEDS ORDERED: traMADol 50 MG TABLET PO PRN (08:15)
[2019-12-16] MEDS ORDERED: MORPHINE SULFATE 2 MG/ML VIAL. IV PRN (08:15)
[2019-12-16] MEDS ORDERED: ASPIRIN CHEWABLE 81 MG TABLET. PO ONE (08:15)
[2019-12-16] MEDS: NITROGLYCERIN SUBLINGUAL 0.4 MG BOTTLE OF 25. SL PRN ×2 (08:23→08:33)
--- NOTE | 2019-12-16 08:25 | NUR ---
At shift change Pt complained of CP 12/01. At 0800 pt BP 149/64 Hr 64. Over-rode omnicell, gave 0.4SL nitro. BP 142/64 HR 64. Spoke with Grahn via phone. ASA 325 chewables administered, and morphine ordered. Morphine administered at 0820, after ASA. Pain re-evaluated 10/01 prior to morphine. Reevaluated CP is now a 6. Pt states pressure just over the size of her fist midsternal.
[2019-12-16] MEDS ORDERED: NITROGLYCERIN SUBLINGUAL 0.4 MG BOTTLE OF 25. SL PRN (08:30)
[2019-12-16] MEDS: POTASSIUM CHLORIDE 10 MEQ TABLET.ER. PO SCH ×2 (09:00→17:00)
--- NOTE | 2019-12-16 10:15 | PDOC2 ---
COLLEEN MAURER GRINDER OPERATOR TOOL 12/16/19 1015: CARDIAC CONSULT DATE OF CONSULT Date of Consult DATE: 12/16/19 TIME: 10:06 REASON FOR CONSULT Reason for Consult: CHF REFERRING PHYSICIAN Referring Physician: Dr. Trammell SOURCE Source: Chart review, Patient HISTORY OF PRESENT ILLNESS HISTORY OF PRESENT ILLNESS This is a 59 yo female who presented secondary to chest pain, shortness of breath, and edema. Patient reports Lasix therapy has been on hold this past week due to worsening renal function. Had some edema at that point, but has progressively worsened over the last week. Feels bloated in her abdomen and bilateral LE are edematous. Also reporting some stabbing pain in her central chest that is worse with deep breathing. No associated dizziness, diaphoresis, palpitations, or nausea/vomiting. Reports compliance with meds. PAST MEDICAL HISTORY Past Medical History Cardiovascular: CAD (multiple PCI/NIGEL to OM, diagonal and LAD), CHF (systolic), HTN, Hyperlipidemia, Other (ischemic CMP with LVEF ~ 40%) Pulmonary: COPD, PE GI: No pertinent hx Heme/Onc: Anemia NOS Hepatobiliary: No pertinent hx Psych: Anxiety, Depression Musculoskeletal: Osteoarthritis Rheumatologic: No pertinent hx Infectious disease: No pertinent hx ENT: No pertinent hx Renal/: Chronic renal insuff Endocrine: Diabetes (with peripheral neuropathy), Hypothyroidism Dermatology: No pertinent hx PAST SURGICAL HISTORY Past Surgical History [facility] AICD, Cataract Removal, Other (I & D left buttock) FAMILY HISTORY Family History Other (noncontributory ) SOCIAL HISTORY Social History Smoke: Quit (2016) ALCOHOL: none Drugs: None Lives: with Family CURRENT MEDICATIONS CURRENT MEDICATIONS Current Medications Medications (Trade) Dose Ordered Sig/Carlos Route PRN Reason Start Time Stop Time Status Last Admin Dose Admin Morphine Sulfate (Morphine Sulfate) 5 mg 1X ONCE IV 12/16/19 02:30 12/16/19 02:32 DC 12/16/19 03:03 Furosemide (Lasix) 40 mg 1X ONCE PO 12/16/19 02:30 12/16/19 02:32 DC 12/16/19 03:01 Nitroglycerin (Nitrostat) 0.4 mg PRN Q5MIN PRN SL CHEST PAIN 12/16/19 08:15 12/16/19 08:41 DC 12/16/19 08:33 Morphine Sulfate (Morphine Sulfate) 2 mg PRN Q2HR PRN IV PAIN 12/16/19 08:15 12/16/19 08:25 Aspirin (Aspirin Chewable) 324 mg 1X ONCE PO 12/16/19 08:15 12/16/19 08:16 DC 12/16/19 08:18 ALLERGIES ALLERGIES: Coded Allergies: lisinopril (Verified Adverse Reaction, Intermediate, COUGH, 02/01/19) caused cough ROS Review of System 14 point ROS conducted with pertinent positives noted above in HPI PHYSICAL EXAM PHYSICAL EXAM General: Alert, Oriented X3, Cooperative, No acute distress HEENT: Atraumatic, Mucous membr. moist/pink Lungs: Other (faint crackles ) Heart: Regular rate (SR), Normal S1, Normal S2, Abdomen: Soft, distended Extremities: No cyanosis, Other (2+ bilateral LE pitting edema) Skin: No breakdown, No significant lesion Neuro: Normal speech, Sensation intact Psych/Mental Status: Mental status NL, Mood NL MUSCULOSKELETAL: Osteoarthritic changes both hands VITALS/I&O VITALS/I&O: Vital Signs Date Time Temp Pulse Resp B/P (MAP) Pulse Ox O2 Delivery O2 Flow Rate FiO2 12/16/19 09:00 96 Room Air 12/16/19 08:33 63 134/63 12/16/19 07:00 97.5 18 97.5 I & O 12/15/19 12/15/19 12/16/19 15:00 23:00 07:00 Intake Total 0 ml Balance 0 ml LABS Lab: Laboratory Tests Test 12/16/19 00:30 12/16/19 07:50 White Blood Count 4.5 x10^3/uL (4.0-11.0) Red Blood Count 2.35 x10^6/uL (3.50-5.40) L Hemoglobin 7.5 g/dL (12.0-15.5) L Hematocrit 22.0 % (36.0-47.0) L Mean Corpuscular Volume 94 fL (79-100) Mean Corpuscular Hemoglobin 32 pg (25-35) Mean Corpuscular Hemoglobin Concent 34 g/dL (31-37) Red Cell Distribution Width 15.0 % (11.5-14.5) H Platelet Count 159 x10^3/uL (140-400) Neutrophils (%) (Auto) 64 % (31-73) Lymphocytes (%) (Auto) 23 % (24-48) L Monocytes (%) (Auto) 7 % (0-9) Eosinophils (%) (Auto) 5 % (0-3) H Basophils (%) (Auto) 1 % (0-3) Neutrophils # (Auto) 2.9 x10^3/uL (1.8-7.7) Lymphocytes # (Auto) 1.0 x10^3/uL (1.0-4.8) Monocytes # (Auto) 0.3 x10^3/uL (0.0-1.1) Eosinophils # (Auto) 0.2 x10^3/uL (0.0-0.7) Basophils # (Auto) 0.0 x10^3/uL (0.0-0.2) Sodium Level 142 mmol/L (136-145) Potassium Level 5.3 mmol/L (3.5-5.1) H Chloride Level 113 mmol/L (98-107) H Carbon Dioxide Level 21 mmol/L (21-32) Anion Gap 8 (6-14) Blood Urea Nitrogen 62 mg/dL (7-20) H Creatinine 2.5 mg/dL (0.6-1.0) H Estimated GFR (Cockcroft-Gault) 19.7 BUN/Creatinine Ratio 25 (6-20) H Glucose Level 184 mg/dL (70-99) H Calcium Level 7.6 mg/dL (8.5-10.1) L Total Bilirubin 0.2 mg/dL (0.2-1.0) Aspartate Amino Transferase (AST) 16 U/L (15-37) Alanine Aminotransferase (ALT) 21 U/L (14-59) Alkaline Phosphatase 101 U/L (46-116) Lactate Dehydrogenase 221 U/L (81-234) Troponin I Quantitative < 0.017 ng/mL (0.000-0.055) C-Reactive Protein, Quantitative 1.6 mg/L (0-3.3) PU-Pkf-H-Type Natriuretic Peptide 8790 pg/mL (0-124) H Total Protein 5.6 g/dL (6.4-8.2) L Albumin 2.2 g/dL (3.4-5.0) L Albumin/Globulin Ratio 0.6 (1.0-1.7) L Glucose (Fingerstick) 89 mg/dL (70-99) Laboratory Tests 12/16/19 00:30 Laboratory Tests 12/16/19 00:30 ECHOCARDIOGRAM ECHOCARDIOGRAM <Conclusion> Left ventricle systolic function is mildly to moderately impaired. The Ejection Fraction is 40-45%. There is global hypokinesis of the left ventricle. Septal motion suggestive of conduction defect. There is a pacemaker lead in the right ventricle. Doppler and Color Flow revealed mild to moderate tricuspid regurgitation. There is moderate pulmonary hypertension. The PA pressure was estimated at 47 mmHg. There is a trace circumferential pericardial effusion. DATE: 11/27/18 1229 HEART CATH HEART CATH FINDINGS 1. Hemodynamics: Left ventricular end-diastolic pressure of 26 mmHg. No pullb ack gradient across the aortic valve. 2. Coronary angiography: a. The left main coronary artery arose from the left sinus of Valsalva, gave rise to the left anterior descending and left circumflex arteries and did not show any significant stenosis. b. The left anterior descending artery showed widely patent previously placed stent in the midsegment. c. The left circumflex artery showed widely patent previous to placed stent in the proximal to midsegment extending into the obtuse marginal branch. The AV groove artery which is a small-caliber vessel showed 50% stenosis in the proximal segment. d. The right coronary artery was a large and dominant vessel arising from the right sinus of Valsalva that showed widely patent placed to placed stent in the proximal, mid and distal segments. Conclusion Widely patent previously placed stents in left anterior descending, left circumflex and right coronary arteries. No lesions needing intervention were noted. Recommendations Optimization of medical therapy DATE: 04/05/19 1305 ASSESSMENT/PLAN ASSESSMENT/PLAN 1. Acute on chronic combined diastolic/systolic CHF 2. Chest pain, atypical. initial trop negative. Recent cath with patent stents as noted above. 3. Accelerated hypertension; now controlled 4. Ischemic cardiomyopathy; s/p AICD ([employer]). LVEF 40-45% per echo 11/2018 5. CAD s/p previous PCI/stents. 6. BRAD on CKD, hyperkalemia 7. Anemia of chronic disease 8. Hyperlipidemia; statin 9. Diabetes, II; as per PCP 10. Hx of PE Recommendation Trend troponin Resume secondary prevention measures Mild diuresis with monitoring of renal function Follow renal recommendations Supportive care ZEFERINO GOMEZ MD 12/16/192037: CARDIAC CONSULT ASSESSMENT/PLAN ASSESSMENT/PLAN Patient seen and examined. Agree with RESOURCE TECHNICIAN's assessment and plan. Ac on chr syst HF prob because diuretics were held secondary to renal insuff Agree with resuming diuretics CP atypical. CAD stable BP better controlled Thank you for your consultation COLLEEN MAURER APRN Dec 16, 2019 10:15 ZEFERINO GOMEZ MD Dec 16, 2019 20:38
[2019-12-16] MEDS: GABAPENTIN 300 MG CAPSULE. PO SCH ×3 (10:40→21:13)
[2019-12-16] MEDS: LEVOTHYROXINE 100 MCG TABLET PO SCH (10:41)
[2019-12-16] MEDS: PANTOPRAZOLE 40 MG TABLET.DR. PO SCH (10:41)
[2019-12-16 11:00] VITALS: BP 138/62
--- NOTE | 2019-12-16 11:08 | PDOC1 ---
History and Physical Date of Admission Date of Admission 12/16/2019 Identification/Chief Complaint Chief Complaint I could not breathe Source Source: Chart review, Patient History of Present Illness History of Present Illness Patient is a 59-year-old female with past medical history of congestive heart failure with systolic dysfunction status post AICD who also has diabetes mellitus type 2 history of coronary artery disease with 2 prior RCA stents and also the left circumflex and LAD with drug-eluting stent placement. She was in her usual state of health until approximately 1 week prior to her admission when according to the patient she discontinued torsemide and metolazone reason why the patient started noticing couple days after generalized edema that started in her legs and has moved up even to her abdomen. The patient is unable to sleep on her back and is usually propped up and she has been having symptoms consistent with paroxysmal nocturnal dyspnea. The patient denies any increase in salt intake the only changes to her medications for the above-mentioned discontinuation of diuretic the day prior to her admission she started complaining of chest discomfort over the epigastrium 9 out of 10 intensity with no radiation no nausea vomiting no sensation of impending doom and no diaphoresis associated with the event. She was evaluated in the emergency department and foundTo have an elevated proBNP and due to renal dysfunction she was admitted at the request the ER for further evaluation and treatment. The patient does report decrease in her urinary output most likely secondary to the discontinuation of her diuretic therapy. She does not have palpitations no nausea vomiting no diarrhea no other symptoms were reported. The patient does not present history of angina she did feel better after 2 doses of nitroglycerin as expected. Further recommendations will be based on the clinical course plan of care explained in detail and all of her concerns addressed to the best of my abilities Past Medical History Cardiovascular: CAD, CHF, HTN, Hyperlipidemia, Other Pulmonary: COPD CENTRAL NERVOUS SYSTEM: Periperal neuropathy GI: No pertinent hx Heme/Onc: Anemia NOS Hepatobiliary: No pertinent hx Psych: Anxiety, Depression Rheumatologic: No pertinent hx Infectious disease: No pertinent hx Renal/: Chronic renal insuff Endocrine: Diabetes, Hypothyroidism Past Surgical History Past Surgical History: Pacemaker, Cataract Removal, Other Family History Family History: Other Social History ALCOHOL: none Drugs: None Current Medications Current Medications Current Medications Medications (Trade) Dose Ordered Sig/Carlos Start Time Stop Time Status Last Admin Dose Admin Aspirin (Aspirin Chewable) 324 mg 1X ONCE 12/16/19 08:15 12/16/19 08:16 DC 12/16/19 08:18 324 MG Aspirin (Ecotrin) 81 mg DAILYWBKFT 12/17/19 08:00 Atorvastatin Calcium (Lipitor) 80 mg QHS 12/16/19 21:00 Carvedilol (Coreg) 12.5 mg BIDWMEALS 12/16/19 09:00 Ergocalciferol (Vitamin D2) 50,000 unit QSU@0900 12/22/19 09:00 Ferrous Sulfate (Feosol) 325 mg DAILY08 12/16/19 09:00 Folic Acid (Folic Acid) 1 mg DAILY 12/16/19 09:00 Furosemide (Lasix) 40 mg 1X ONCE 12/16/19 02:30 12/16/19 02:32 DC 12/16/19 03:01 40 MG Gabapentin (Neurontin) 300 mg TID 12/16/19 09:00 12/16/19 10:40 300 MG Levothyroxine Sodium (Synthroid) 200 mcg DAILY06 12/16/19 09:00 12/16/19 10:41 200 MCG Metolazone (Zaroxolyn) 5 mg DAILY 12/16/19 09:00 Morphine Sulfate (Morphine Sulfate) 2 mg PRN Q2HR PRN 12/16/19 08:15 12/16/19 08:25 2 MG Nitroglycerin (Nitrostat) 0.4 mg PRN Q5MIN PRN 12/16/19 08:30 Pantoprazole Sodium (Protonix) 40 mg DAILYAC 12/16/19 09:00 12/16/19 10:41 40 MG Potassium Chloride (Klor-Con) 10 meq BIDWMEALS 12/16/19 09:00 Sacubitril/ Valsartan (Entresto 49 Mg-51 Mg) 2 tab BID 12/16/19 09:00 Spironolactone (Aldactone) 50 mg DAILY 12/16/19 09:00 Torsemide (Demadex) 20 mg BID92 12/16/19 09:00 Tramadol HCl (Ultram) 50 mg PRN Q12HR PRN 12/16/19 08:15 Allergies Allergies Allergies Coded Allergies Type Severity Reaction Last Updated Verified lisinopril Adverse Reaction Intermediate COUGH 02/01/19 Yes ROS Review of System CONSTITUTIONAL: No fever or chills EYES: No recent changes SKIN: No rash or itching CARDIOVASCULAR: No chest pain, syncope, palpitations, or edema RESPIRATORY: No SOB or cough GASTROINTESTINAL: No nausea, vomiting or abdominal pain NEUROLOGICAL: No headaches or weakness ENDOCRINE: No cold or heat intolerance GENITOURINARY: No urgency or frequency of urination MUSCULOSKELETAL: No back pain or joint pain LYMPHATICS: No enlarged lymph nodes PSYCHIATRIC: No anxiety or depression Physical Exam Physical Exam GEN.: No apparent distress. Alert and oriented. HEENT: Head is normocephalic, atraumatic NECK: Supple. LUNGS: Clear to auscultation. HEART: RRR, S1, S2 present. Peripheral pulses intact ABDOMEN: Soft, nontender. Positive bowel sounds. EXTREMITIES: Without any cyanosis. NEUROLOGIC: Normal speech, normal tone PSYCHIATRIC: Normal affect, normal mood. SKIN: No ulcerations Vitals Vitals Vital Signs Date Time Temp Pulse Resp B/P (MAP) Pulse Ox O2 Delivery O2 Flow Rate FiO2 12/16/19 09:00 96 Room Air 12/16/19 08:33 63 134/63 12/16/19 07:00 97.5 18 97.5 Labs Labs Laboratory Tests Test 12/16/19 00:30 12/16/19 07:50 12/16/19 08:30 White Blood Count 4.5 x10^3/uL (4.0-11.0) Red Blood Count 2.35 x10^6/uL (3.50-5.40) Hemoglobin 7.5 g/dL (12.0-15.5) Hematocrit 22.0 % (36.0-47.0) Mean Corpuscular Volume 94 fL (79-100) Mean Corpuscular Hemoglobin 32 pg (25-35) Mean Corpuscular Hemoglobin Concent 34 g/dL (31-37) Red Cell Distribution Width 15.0 % (11.5-14.5) Platelet Count 159 x10^3/uL (140-400) Neutrophils (%) (Auto) 64 % (31-73) Lymphocytes (%) (Auto) 23 % (24-48) Monocytes (%) (Auto) 7 % (0-9) Eosinophils (%) (Auto) 5 % (0-3) Basophils (%) (Auto) 1 % (0-3) Neutrophils # (Auto) 2.9 x10^3/uL (1.8-7.7) Lymphocytes # (Auto) 1.0 x10^3/uL (1.0-4.8) Monocytes # (Auto) 0.3 x10^3/uL (0.0-1.1) Eosinophils # (Auto) 0.2 x10^3/uL (0.0-0.7) Basophils # (Auto) 0.0 x10^3/uL (0.0-0.2) Sodium Level 142 mmol/L (136-145) Potassium Level 5.3 mmol/L (3.5-5.1) Chloride Level 113 mmol/L (98-107) Carbon Dioxide Level 21 mmol/L (21-32) Anion Gap 8 (6-14) Blood Urea Nitrogen 62 mg/dL (7-20) Creatinine 2.5 mg/dL (0.6-1.0) Estimated GFR (Cockcroft-Gault) 19.7 BUN/Creatinine Ratio 25 (6-20) Glucose Level 184 mg/dL (70-99) Calcium Level 7.6 mg/dL (8.5-10.1) Total Bilirubin 0.2 mg/dL (0.2-1.0) Aspartate Amino Transf (AST/SGOT) 16 U/L (15-37) Alanine Aminotransferase (ALT/SGPT) 21 U/L (14-59) Alkaline Phosphatase 101 U/L (46-116) Lactate Dehydrogenase 221 U/L (81-234) Troponin I Quantitative < 0.017 ng/mL (0.000-0.055) 0.021 ng/mL (0.000-0.055) C-Reactive Protein, Quantitative 1.6 mg/L (0-3.3) AA-Ljd-T-Type Natriuretic Peptide 8790 pg/mL (0-124) Total Protein 5.6 g/dL (6.4-8.2) Albumin 2.2 g/dL (3.4-5.0) Albumin/Globulin Ratio 0.6 (1.0-1.7) Glucose (Fingerstick) 89 mg/dL (70-99) Laboratory Tests Test 12/16/19 00:30 12/16/19 07:50 12/16/19 08:30 White Blood Count 4.5 x10^3/uL (4.0-11.0) Red Blood Count 2.35 x10^6/uL (3.50-5.40) Hemoglobin 7.5 g/dL (12.0-15.5) Hematocrit 22.0 % (36.0-47.0) Mean Corpuscular Volume 94 fL (79-100) Mean Corpuscular Hemoglobin 32 pg (25-35) Mean Corpuscular Hemoglobin Concent 34 g/dL (31-37) Red Cell Distribution Width 15.0 % (11.5-14.5) Platelet Count 159 x10^3/uL (140-400) Neutrophils (%) (Auto) 64 % (31-73) Lymphocytes (%) (Auto) 23 % (24-48) Monocytes (%) (Auto) 7 % (0-9) Eosinophils (%) (Auto) 5 % (0-3) Basophils (%) (Auto) 1 % (0-3) Neutrophils # (Auto) 2.9 x10^3/uL (1.8-7.7) Lymphocytes # (Auto) 1.0 x10^3/uL (1.0-4.8) Monocytes # (Auto) 0.3 x10^3/uL (0.0-1.1) Eosinophils # (Auto) 0.2 x10^3/uL (0.0-0.7) Basophils # (Auto) 0.0 x10^3/uL (0.0-0.2) Sodium Level 142 mmol/L (136-145) Potassium Level 5.3 mmol/L (3.5-5.1) Chloride Level 113 mmol/L (98-107) Carbon Dioxide Level 21 mmol/L (21-32) Anion Gap 8 (6-14) Blood Urea Nitrogen 62 mg/dL (7-20) Creatinine 2.5 mg/dL (0.6-1.0) Estimated GFR (Cockcroft-Gault) 19.7 BUN/Creatinine Ratio 25 (6-20) Glucose Level 184 mg/dL (70-99) Calcium Level 7.6 mg/dL (8.5-10.1) Total Bilirubin 0.2 mg/dL (0.2-1.0) Aspartate Amino Transf (AST/SGOT) 16 U/L (15-37) Alanine Aminotransferase (ALT/SGPT) 21 U/L (14-59) Alkaline Phosphatase 101 U/L (46-116) Lactate Dehydrogenase 221 U/L (81-234) Troponin I Quantitative < 0.017 ng/mL (0.000-0.055) 0.021 ng/mL (0.000-0.055) C-Reactive Protein, Quantitative 1.6 mg/L (0-3.3) QV-Feq-S-Type Natriuretic Peptide 8790 pg/mL (0-124) Total Protein 5.6 g/dL (6.4-8.2) Albumin 2.2 g/dL (3.4-5.0) Albumin/Globulin Ratio 0.6 (1.0-1.7) Glucose (Fingerstick) 89 mg/dL (70-99) Images Images ECHOCARDIOGRAM ECHOCARDIOGRAM <Conclusion> Left ventricle systolic function is mildly to moderately impaired. The Ejection Fraction is 40-45%. There is global hypokinesis of the left ventricle. Septal motion suggestive of conduction defect. There is a pacemaker lead in the right ventricle. Doppler and Color Flow revealed mild to moderate tricuspid regurgitation. There is moderate pulmonary hypertension. The PA pressure was estimated at 47 mmHg. There is a trace circumferential pericardial effusion. DATE: 11/27/18 1229 HEART CATH HEART CATH FINDINGS 1. Hemodynamics: Left ventricular end-diastolic pressure of 26 mmHg. No pullback gradient across the aortic valve. 2. Coronary angiography: a. The left main coronary artery arose from the left sinus of Valsalva, gave rise to the left anterior descending and left circumflex arteries and did not show any significant stenosis. b. The left anterior descending artery showed widely patent previously placed stent in the midsegment. c. The left circumflex artery showed widely patent previous to placed stent in the proximal to midsegment extending into the obtuse marginal branch. The AV groove artery which is a small-caliber vessel showed 50% stenosis in the proximal segment. d. The right coronary artery was a large and dominant vessel arising from the right sinus of Valsalva that showed widely patent placed to placed stent in the proximal, mid and distal segments. Conclusion Widely patent previously placed stents in left anterior descending, left circumflex and right coronary arteries. No lesions needing intervention were noted. Recommendations Optimization of medical therapy DATE: 04/05/19 1305 VTE Prophylaxis Ordered VTE Prophylaxis Devices: No VTE Pharmacological Prophylaxi: Yes Assessment/Plan Assessment/Plan Acute exacerbation of chronic systolic dysfunction History of chronic combined diastolic and systolic congestive heart failure last ejection fraction recorded at 40 to 45% Ischemic cardiomyopathy Coronary artery disease Hypertensive urgency currently asymptomatic Acute renal failure secondary to cardiorenal syndrome most likely Normocytic anemia of chronic inflammation History of dyslipidemia Diabetes mellitus type 2 insulin requiring History of PE Plan Resume home medication Trend troponins, unlikely this is an acute coronary syndrome event. Most likely is related to fluid overload secondary to stopping diuretics Further recommendations will be based on the clinical course Consult cardiology and follow recommendations from the market research consultant DVT prophylaxis heparin ROSHAN BRANCH MD Dec 16, 2019 11:08
--- NOTE | 2019-12-16 12:35 | NUR ---
SS following for discharge planning. SS reviewed pt chart and discussed with pt RN. Pt is from home and is currently on room air. Cardiology following. SS will continue to follow for discharge planning.
[2019-12-16] MEDS: SPIRONOLACTONE 25 MG TABLET PO SCH (12:55)
[2019-12-16] MEDS: metOLazone 2.5 MG TABLET PO SCH (12:55)
[2019-12-16] MEDS: TORSEMIDE 20 MG TABLET. PO SCH ×2 (12:55→14:00)
[2019-12-16] MEDS: FOLIC ACID 1 MG TABLET. PO SCH (12:56)
[2019-12-16] MEDS: CARVEDILOL 12.5 MG TABLET. PO SCH ×2 (12:56→17:32)
[2019-12-16] MEDS: FERROUS SULFATE 325 MG TABLET. PO SCH (12:56)
[2019-12-16] MEDS: SACUBITRIL/VALSARTAN 49/51MG TABLET. PO SCH ×2 (12:57→21:13)
--- NOTE | 2019-12-16 13:00 | PDOC2 ---
CONSULT Date of Consult Date of Consult DATE: 12/16/19 TIME: 12:52 Reason for Consult Reason for Consult: RENAL FAILURE Referring Physician Referring Physician: SARINA Identification/Chief Complaint Chief Complaint SOB AND CHEST PAIN Source Source: Chart review, Patient History of Present Illness Reason for Visit: THIS IS A 59 YR OLD WITH CHEST PAIN AND SOB. CURRENTLY UNDERGOING CARDIOLOGY EVALUATION. NO KNOW HX. LABS HERE SHOWED CR OF 1.7-2.0 FOR LAST SEVERAL YEARS C/W STAGE 4 CKD. SHE IS AWARE OF CKD. HAS BEEN TOLD THIS BY HER PCP DR VALLES. NO NSAIDS OR NEPHROTOXIN HX NOTED. HAS HX OF CHF WITH SYSTOLIC DYSFUNCTION. HEMODYNAMICALLY SHE IS STABLE. HER PRO BNP IS ELEVATED. NO HX OF ANY KIDNEY OR BLADDER SURGERIES HEMATURIA DYSURIA OR FREQUENCY NOTED. MILD HYPERKALEMIA AND SEVERE ANEMIA IS ALSO NOTED. Past Medical History Cardiovascular: CAD, CHF, HTN, Hyperlipidemia, Other Pulmonary: COPD CENTRAL NERVOUS SYSTEM: Periperal neuropathy GI: No pertinent hx Heme/Onc: Anemia NOS Hepatobiliary: No pertinent hx Psych: Anxiety, Depression Musculoskeletal: Osteoarthritis Rheumatologic: No pertinent hx Infectious disease: No pertinent hx Renal/: Chronic renal insuff Endocrine: Diabetes, Hypothyroidism Past Surgical History Past Surgical History: Pacemaker, Cataract Removal, Other Family History Family History: Other Social History ALCOHOL: none Drugs: None Lives: with Family Current Medications Current Medications Current Medications Morphine Sulfate (Morphine Sulfate) 5 mg 1X ONCE IV Last administered on 12/16/19at 03:03; Start 12/16/19 at 02:30; Stop 12/16/19 at 02:32; Status DC Furosemide (Lasix) 40 mg 1X ONCE PO Last administered on 12/16/19at 03:01; Start 12/16/19 at 02:30; Stop 12/16/19 at 02:32; Status DC Nitroglycerin (Nitrostat) 0.4 mg STK-MED ONCE SL ; Start 12/16/19 at 07:57; Stop 12/16/19 at 07:57; Status DC Nitroglycerin (Nitrostat) 0.4 mg PRN Q5MIN PRN SL CHEST PAIN Last administered on 12/16/19at 08:33; Start 12/16/19 at 08:15; Stop 12/16/19 at 08:41; Status DC Morphine Sulfate (Morphine Sulfate) 2 mg PRN Q2HR PRN IV PAIN Last administered on 12/16/19at 08:25; Start 12/16/19 at 08:15 Aspirin (Aspirin Chewable) 324 mg 1X ONCE PO Last administered on 12/16/19at 08:18; Start 12/16/19 at 08:15; Stop 12/16/19 at 08:16; Status DC Aspirin (Ecotrin) 81 mg DAILYWBKFT PO ; Start 12/17/19 at 08:00 Ferrous Sulfate (Feosol) 325 mg DAILY08 PO ; Start 12/16/19 at 09:00 Folic Acid (Folic Acid) 1 mg DAILY PO ; Start 12/16/19 at 09:00 Gabapentin (Neurontin) 300 mg TID PO Last administered on 12/16/19at 10:40; Start 12/16/19 at 09:00 Pantoprazole Sodium (Protonix) 40 mg DAILYAC PO Last administered on 12/16/19at 10:41; Start 12/16/19 at 09:00 Potassium Chloride (Klor-Con) 10 meq BIDWMEALS PO ; Start 12/16/19 at 09:00 Torsemide (Demadex) 20 mg BID92 PO ; Start 12/16/19 at 09:00 Tramadol HCl (Ultram) 50 mg PRN Q12HR PRN PO Chest wall pain; Start 12/16/19 at 08:15 Atorvastatin Calcium (Lipitor) 80 mg QHS PO ; Start 12/16/19 at 21:00 Carvedilol (Coreg) 12.5 mg BIDWMEALS PO ; Start 12/16/19 at 09:00 Ergocalciferol (Vitamin D2) 50,000 unit QSU@0900 PO ; Start 12/22/19 at 09:00 Levothyroxine Sodium (Synthroid) 200 mcg DAILY06 PO Last administered on 12/16/19at 10:41; Start 12/16/19 at 09:00 Metolazone (Zaroxolyn) 5 mg DAILY PO ; Start 12/16/19 at 09:00 Sacubitril/ Valsartan (Entresto 49 Mg-51 Mg) 2 tab BID PO ; Start 12/16/19 at 09:00 Spironolactone (Aldactone) 50 mg DAILY PO ; Start 12/16/19 at 09:00 Nitroglycerin (Nitrostat) 0.4 mg PRN Q5MIN PRN SL CHEST PAIN; Start 12/16/19 at 08:30 Heparin Sodium (Porcine) (Heparin Sodium) 5,000 unit Q8HRS SQ ; Start 12/16/19 at 14:00 Active Scripts Active Tramadol Hcl 50 Mg Tablet 50 Mg PO PRN Q12HR PRN 6 Days Humalog (Insulin Lispro) 100 Unit/1 Ml Insuln.pen 0 Units SQ TIDACHC 30 Days Lantus Solostar (Insulin Glargine,Hum.rec.anlog) 100 Unit/1 Ml Insuln.pen 12 Unit SQ QHS 30 Days Proair Hfa (Albuterol Sulfate) 8.5 Gm Hfa.aer.ad 2.5 Mg NEB PRN Q6HRS PRN 30 Days Duoneb 0.5-3(2.5) Mg/3 Ml (Albuterol/Ipratropium) 3 Ml Ampul.neb 3 Ml NEB RTQID 30 Days Aspirin Ec (Aspirin) 81 Mg Tablet.dr 81 Mg PO DAILYWBKFT Synthroid (Levothyroxine Sodium) 200 Mcg Tablet 1 Tab PO DAILY Reported Aldactone (Spironolactone) 50 Mg Tablet 1 Tab PO DAILY Voltaren (Diclofenac Sodium) 100 Gm Gel..gram. 1 Gm TP PRN Q4HRS PRN 30 Days apply to affected area(s) Vitamin D2 (Ergocalciferol (Vitamin D2)) 2,000 Unit Tablet 50,000 Unit PO QSU 30 Days Pantoprazole Sodium (Pantoprazole Sodium) 40 Mg Tablet.dr 40 Mg PO DAILYAC Demadex (Torsemide) 20 Mg Tablet 20 Mg PO BID NITROGLYCERIN SubLingual (Nitroglycerin) 0.4 Mg Tab.subl 0.4 Mg SL PRN Q5MIN PRN Ferrous Sulfate 325 Mg Tablet 1 Tab PO DAILY Folic Acid 1 Mg Tablet 1 Tab PO DAILY Colestid (Colestipol Hcl) 1 Gm Tablet 2 Gm PO BID Metolazone 5 Mg Tablet 5 Mg PO DAILY Coreg (Carvedilol) 25 Mg Tablet 12.5 Mg PO BIDWMEALS Entresto 97 mg-103 mg Tablet (Sacubitril/Valsartan) 1 Each Tablet 1 Each PO BID Atorvastatin Calcium 80 Mg Tablet 1 Tab PO QHS Gabapentin (Gabapentin) 300 Mg Capsule 300 Mg PO TID Potassium Chloride 10 Meq Tab.er.prt 1 Tab PO BID Allergies Allergies: Coded Allergies: lisinopril (Verified Adverse Reaction, Intermediate, COUGH, 02/01/19) caused cough ROS General: YES: Fatigue, Malaise, Appetite PSYCHOLOGICAL ROS: YES: Anxiety, Depression Eyes: Yes Decreased vision HEENT: YES: Heacaches, Snoring ALLERGY AND IMMUNOLOGY: YES: Seasonal Allergies Respiratory: YES: Cough, Shortness of breath Cardiovascular: yes Chest Pain Gastrointestinal: Yes Constipation Genitourinary: YES Other (NOCTURIA) Musculoskeletal: Yes Muscular Weakness Neurological: Yes Weakness Skin: Yes Dry Skin Physical Exam General: Alert, Oriented X3, Cooperative, No acute distress, moderate distress HEENT: Atraumatic, PERRLA, Mucous membr. moist/pink Lungs: Clear to auscultation Heart: Regular rate, Normal S1, Normal S2 Abdomen: Normal bowel sounds, No tenderness Extremities: No clubbing Skin: No breakdown, No significant lesion Neuro: Normal speech, Sensation intact Psych/Mental Status: Mental status NL, Mood NL MUSCULOSKELETAL: No joint tenderness, No deformity Vitals VITALS Vital Signs Date Time Temp Pulse Resp B/P (MAP) Pulse Ox O2 Delivery O2 Flow Rate FiO2 12/16/19 11:00 97.4 62 16 138/62 (87) 90 Room Air 97.4 Labs Labs Laboratory Tests Test 12/16/19 00:30 12/16/19 07:50 12/16/19 08:30 12/16/19 12:15 White Blood Count 4.5 x10^3/uL (4.0-11.0) Red Blood Count 2.35 x10^6/uL (3.50-5.40) Hemoglobin 7.5 g/dL (12.0-15.5) Hematocrit 22.0 % (36.0-47.0) Mean Corpuscular Volume 94 fL (79-100) Mean Corpuscular Hemoglobin 32 pg (25-35) Mean Corpuscular Hemoglobin Concent 34 g/dL (31-37) Red Cell Distribution Width 15.0 % (11.5-14.5) Platelet Count 159 x10^3/uL (140-400) Neutrophils (%) (Auto) 64 % (31-73) Lymphocytes (%) (Auto) 23 % (24-48) Monocytes (%) (Auto) 7 % (0-9) Eosinophils (%) (Auto) 5 % (0-3) Basophils (%) (Auto) 1 % (0-3) Neutrophils # (Auto) 2.9 x10^3/uL (1.8-7.7) Lymphocytes # (Auto) 1.0 x10^3/uL (1.0-4.8) Monocytes # (Auto) 0.3 x10^3/uL (0.0-1.1) Eosinophils # (Auto) 0.2 x10^3/uL (0.0-0.7) Basophils # (Auto) 0.0 x10^3/uL (0.0-0.2) Sodium Level 142 mmol/L (136-145) Potassium Level 5.3 mmol/L (3.5-5.1) Chloride Level 113 mmol/L (98-107) Carbon Dioxide Level 21 mmol/L (21-32) Anion Gap 8 (6-14) Blood Urea Nitrogen 62 mg/dL (7-20) Creatinine 2.5 mg/dL (0.6-1.0) Estimated GFR (Cockcroft-Gault) 19.7 BUN/Creatinine Ratio 25 (6-20) Glucose Level 184 mg/dL (70-99) Calcium Level 7.6 mg/dL (8.5-10.1) Total Bilirubin 0.2 mg/dL (0.2-1.0) Aspartate Amino Transf (AST/SGOT) 16 U/L (15-37) Alanine Aminotransferase (ALT/SGPT) 21 U/L (14-59) Alkaline Phosphatase 101 U/L (46-116) Lactate Dehydrogenase 221 U/L (81-234) Troponin I Quantitative < 0.017 ng/mL (0.000-0.055) 0.021 ng/mL (0.000-0.055) C-Reactive Protein, Quantitative 1.6 mg/L (0-3.3) GK-Dqo-Z-Type Natriuretic Peptide 8790 pg/mL (0-124) Total Protein 5.6 g/dL (6.4-8.2) Albumin 2.2 g/dL (3.4-5.0) Albumin/Globulin Ratio 0.6 (1.0-1.7) Glucose (Fingerstick) 89 mg/dL (70-99) 59 mg/dL (70-99) Laboratory Tests Test 12/16/19 00:30 12/16/19 07:50 12/16/19 08:30 12/16/19 12:15 White Blood Count 4.5 x10^3/uL (4.0-11.0) Red Blood Count 2.35 x10^6/uL (3.50-5.40) Hemoglobin 7.5 g/dL (12.0-15.5) Hematocrit 22.0 % (36.0-47.0) Mean Corpuscular Volume 94 fL (79-100) Mean Corpuscular Hemoglobin 32 pg (25-35) Mean Corpuscular Hemoglobin Concent 34 g/dL (31-37) Red Cell Distribution Width 15.0 % (11.5-14.5) Platelet Count 159 x10^3/uL (140-400) Neutrophils (%) (Auto) 64 % (31-73) Lymphocytes (%) (Auto) 23 % (24-48) Monocytes (%) (Auto) 7 % (0-9) Eosinophils (%) (Auto) 5 % (0-3) Basophils (%) (Auto) 1 % (0-3) Neutrophils # (Auto) 2.9 x10^3/uL (1.8-7.7) Lymphocytes # (Auto) 1.0 x10^3/uL (1.0-4.8) Monocytes # (Auto) 0.3 x10^3/uL (0.0-1.1) Eosinophils # (Auto) 0.2 x10^3/uL (0.0-0.7) Basophils # (Auto) 0.0 x10^3/uL (0.0-0.2) Sodium Level 142 mmol/L (136-145) Potassium Level 5.3 mmol/L (3.5-5.1) Chloride Level 113 mmol/L (98-107) Carbon Dioxide Level 21 mmol/L (21-32) Anion Gap 8 (6-14) Blood Urea Nitrogen 62 mg/dL (7-20) Creatinine 2.5 mg/dL (0.6-1.0) Estimated GFR (Cockcroft-Gault) 19.7 BUN/Creatinine Ratio 25 (6-20) Glucose Level 184 mg/dL (70-99) Calcium Level 7.6 mg/dL (8.5-10.1) Total Bilirubin 0.2 mg/dL (0.2-1.0) Aspartate Amino Transf (AST/SGOT) 16 U/L (15-37) Alanine Aminotransferase (ALT/SGPT) 21 U/L (14-59) Alkaline Phosphatase 101 U/L (46-116) Lactate Dehydrogenase 221 U/L (81-234) Troponin I Quantitative < 0.017 ng/mL (0.000-0.055) 0.021 ng/mL (0.000-0.055) C-Reactive Protein, Quantitative 1.6 mg/L (0-3.3) ZQ-Eud-A-Type Natriuretic Peptide 8790 pg/mL (0-124) Total Protein 5.6 g/dL (6.4-8.2) Albumin 2.2 g/dL (3.4-5.0) Albumin/Globulin Ratio 0.6 (1.0-1.7) Glucose (Fingerstick) 89 mg/dL (70-99) 59 mg/dL (70-99) Assessment/Plan Assessment/Plan IMP CKD STAGE 4-CR OF 1.8-2.1 AT BASELINE MILD BRAD WITH CR OF 2.5 ANEMIA OF CKD ACUTE ON CHRONIC SYSTOLIC CHF HX OF CAD AND PTCA/STENT S/P AICD HX ISCHEMIC CM HX DM II HTN PLAN CARDIOLOGY EVAL AND TX VERY POOR SENSE OF HER PMH HAS CKD DUE TO DM II AND HTN RELATED END ORGAN DAMAGE NEEDS TO SEE RENAL IN FOLLOW UP CHECK PO4 CHECK IRON STORES MAY ALSO NEED TO HAVE YONATHAN STARTED CONT WITH AFTERLOAD REDUCTION CONT ALDACTONE MAY NEED TO STOP METOLAZONE CONT ENTRESTO D/W PT IMPORTANCE OF DM II CONTROL AND FL RESTRICTION WILL FOLLOW MARY SANTIAGO MD Dec 16, 2019 13:00
[2019-12-16] MEDS: HEPARIN for SUB-Q USE 5,000 UNIT/ML VIAL. SQ SCH ×2 (14:03→21:16)
[2019-12-16 15:00] VITALS: BP 137/59
--- NOTE | 2019-12-16 15:00 | NUR ---
At 0847 BP 122/56 HR 63 Pain decreased 4/10, pressure still there, yet decreased. At 0832 134/63 Hr62 Pt rates pain 6/10 appears slightly more comfortable, obvious facial expressions of pain still. +2 edema. At 1032 BP 132/62 Hr 63 rates pain 3/10. Pt restiung comfortably.
--- NOTE | 2019-12-16 16:17 | NUR ---
Pt was given her gabapentin with her heparin. Scanner did not pick it up when scanned. Was not reading it.
[2019-12-16] MEDS ORDERED: DEXTROSE 50% 25 GM / 50ML DISP.SYRIN. IV PRN (16:30)
[2019-12-16] MEDS: INSULIN LISPRO 300 UNITS/3 ML VIAL. SQ SCH (17:00)
[2019-12-16 18:17] LABS: BILIRUBIN,URINE NEGATIVE (NEG); CLARITY,URINE CLOUDY; COLOR,URINE YELLOW; NITRITE,URINE NEGATIVE (NEG); PH,URINE 7.5 (<5.0-8.0); PROTEIN,URINE >=300 mg/dL (NEG-TRACE); UROBILINOGEN,URINE 0.2 mg/dL (0.2 mg/dL)
[2019-12-16 18:24] LABS: RBC,URINE OCC /HPF (0-2); WBC,URINE >40 /HPF (0-4)
[2019-12-16 18:25] LABS: BACTERIA,URINE MANY /HPF (0-FEW); SQUAMOUS EPITHELIAL CELL,UR FEW /LPF
[2019-12-16 19:32] VITALS: BP 121/60
[2019-12-16] MEDS: ATORVASTATIN CALCIUM 40 MG TABLET. PO SCH (21:12)
[2019-12-16 22:59] VITALS: BP 128/61
[2019-12-17] VITALS (10 sets, daily range): BP systolic 107–187; BP diastolic 51–81
[2019-12-17 05:16] LABS: RED BLOOD COUNT 2.17 x10^6/uL (3.50-5.40); RED CELL DISTRIBUTION WIDTH 15.1 % (11.5-14.5); WHITE BLOOD COUNT 4.4 x10^3/uL (4.0-11.0)
[2019-12-17 05:42] LABS: CALCIUM 7.5 mg/dL (8.5-10.1); CREATININE 2.5 mg/dL (0.6-1.0); GFR 19.7; PHOSPHORUS 5.7 mg/dL (2.6-4.7); POTASSIUM 5.6 mmol/L (3.5-5.1)
[2019-12-17] MEDS: LEVOTHYROXINE 100 MCG TABLET PO SCH (05:57)
[2019-12-17] MEDS: HEPARIN for SUB-Q USE 5,000 UNIT/ML VIAL. SQ SCH ×3 (05:58→20:31)
[2019-12-17 06:00] LABS: HEMATOCRIT 20.4 % (36.0-47.0); HEMOGLOBIN 6.9 g/dL (12.0-15.5)
[2019-12-17] MEDS: metOLazone 2.5 MG TABLET PO SCH (07:57)
[2019-12-17] MEDS: FOLIC ACID 1 MG TABLET. PO SCH (07:57)
[2019-12-17] MEDS: GABAPENTIN 300 MG CAPSULE. PO SCH ×3 (07:57→20:30)
[2019-12-17] MEDS: TORSEMIDE 20 MG TABLET. PO SCH ×2 (07:57→15:11)
[2019-12-17] MEDS: SACUBITRIL/VALSARTAN 49/51MG TABLET. PO SCH (07:57)
[2019-12-17] MEDS: FERROUS SULFATE 325 MG TABLET. PO SCH (07:57)
[2019-12-17] MEDS: CARVEDILOL 12.5 MG TABLET. PO SCH ×2 (07:58→17:24)
[2019-12-17] MEDS: POTASSIUM CHLORIDE 10 MEQ TABLET.ER. PO SCH (07:58)
[2019-12-17] MEDS: PANTOPRAZOLE 40 MG TABLET.DR. PO SCH (07:58)
[2019-12-17] MEDS: ASPIRIN ENTERIC COATED 81 MG TABLET.DR. PO SCH (07:58)
[2019-12-17] MEDS: INSULIN LISPRO 300 UNITS/3 ML VIAL. SQ SCH ×3 (08:00→17:30)
[2019-12-17] MEDS: SPIRONOLACTONE 25 MG TABLET PO SCH (08:03)
--- NOTE | 2019-12-17 10:50 | NUR ---
SS following up with discharge planning. SS reviewed pt chart and discussed with pt RN. Pt is currently on room air. Hemoglobin low and pt received unit of blood today. Discharge plan is to home when medically ready. SS will continue to follow for discharge planning.
--- NOTE | 2019-12-17 12:42 | PDOC2 ---
GI CONSULT Date of Service: DATE: 12/17/19 TIME: 12:42 Reason For Consult: GI bleeding? HPI: HPI: 59 y/o female admitted 12/15 w/ CHF and BRAD/CKD. Has been more short of breath. We are asked to see her re: anemia. No obvious bleeding per nurse. Dr. Paz saw her for anemia here at [facility] in 03/2016. Mix of anemia of chronic disease and iron deficiency. At that time, we set up an office visit per family's request to discuss EGD and colonoscopy. She was seen in the office but did not schedule 'scopes - she says due to financial reasons. In the past reported occasional reflux and constipation - she denies these currently along w/ dysphagia, n/v, abd pain, hematemesis, hematochezia, melena, change in appetite, weight loss, and diarrhea. Pantoprazole is included on summary list. She says she takes iron BID and B12 QD. Cholelithiasis noted on chest CTA in 2018. No liver, pancreas, or PUD history. H/o CAD on ASA. PMH: PMH: CAD w/ stents, CHF, HTN, HLD, ICM, COPD, PE, anxiety, depression, CKD, DM, peripheral neuropathy, hypothyroidism AICD, cataract removal, I&D left buttock FH: Family History: No pertinent hx, DM, Hypertension Social History: ALCOHOL: none Drugs: None ROS: GEN: Denies fevers, chills, sweats HEENT: Denies blurred vision, sore throat CV: Denies chest pain RESP: +SOA GI: Per HPI : Denies hematuria, dysuria ENDO: Denies weight changes NEURO: Denies confusion, dizziness MSK: Denies weakness, joint pain/swelling SKIN: Denies jaundice, pruritus Vitals: Vitals: Vital Signs Date Time Temp Pulse Resp B/P (MAP) Pulse Ox O2 Delivery O2 Flow Rate FiO2 12/17/19 11:00 97.6 68 16 123/52 (75) 91 Room Air 97.6 Labs: Labs: Laboratory Tests Test 12/16/19 13:03 12/16/19 17:03 12/16/19 18:00 12/16/19 20:39 Troponin I Quantitative < 0.017 ng/mL (0.000-0.055) Glucose (Fingerstick) 112 mg/dL (70-99) 139 mg/dL (70-99) Urine Collection Type Unknown Urine Color Yellow Urine Clarity Cloudy Urine pH 7.5 (<5.0-8.0) Urine Specific [place] 1.010 (1.000-1.030) Urine Protein >=300 mg/dL (NEG-TRACE) Urine Glucose (UA) Negative mg/dL (NEG) Urine Ketones (Stick) Negative mg/dL (NEG) Urine Blood Small (NEG) Urine Nitrite Negative (NEG) Urine Bilirubin Negative (NEG) Urine Urobilinogen Dipstick 0.2 mg/dL (0.2 mg/dL) Urine Leukocyte Esterase Large (NEG) Urine RBC Occ /HPF (0-2) Urine WBC >40 /HPF (0-4) Urine Squamous Epithelial Cells Few /LPF Urine Bacteria Many /HPF (0-FEW) Test 12/17/19 04:40 12/17/19 07:45 12/17/19 12:03 White Blood Count 4.4 x10^3/uL (4.0-11.0) Red Blood Count 2.17 x10^6/uL (3.50-5.40) Hemoglobin 6.9 g/dL (12.0-15.5) Hematocrit 20.4 % (36.0-47.0) Mean Corpuscular Volume 94 fL (79-100) Mean Corpuscular Hemoglobin 32 pg (25-35) Mean Corpuscular Hemoglobin Concent 34 g/dL (31-37) Red Cell Distribution Width 15.1 % (11.5-14.5) Platelet Count 162 x10^3/uL (140-400) Sodium Level 139 mmol/L (136-145) Potassium Level 5.6 mmol/L (3.5-5.1) Chloride Level 112 mmol/L (98-107) Carbon Dioxide Level 20 mmol/L (21-32) Anion Gap 7 (6-14) Blood Urea Nitrogen 65 mg/dL (7-20) Creatinine 2.5 mg/dL (0.6-1.0) Estimated GFR (Cockcroft-Gault) 19.7 Glucose Level 126 mg/dL (70-99) Calcium Level 7.5 mg/dL (8.5-10.1) Phosphorus Level 5.7 mg/dL (2.6-4.7) Iron Level 30 ug/dL (50-170) Total Iron Binding Capacity 186 ug/dL (250-450) Iron Saturation 16 % (15-34) Lactate Dehydrogenase 214 U/L (81-234) Vitamin B12 Level 260 pg/mL (247-911) Glucose (Fingerstick) 100 mg/dL (70-99) 163 mg/dL (70-99) Allergies: Coded Allergies: lisinopril (Verified Adverse Reaction, Intermediate, COUGH, 02/01/19) caused cough Medications: Current Medications Medications (Trade) Dose Ordered Sig/Carlos Route PRN Reason Start Time Stop Time Status Last Admin Dose Admin Aspirin (Ecotrin) 81 mg DAILYWBKFT PO 12/17/19 08:00 12/17/19 07:58 Atorvastatin Calcium (Lipitor) 80 mg QHS PO 12/16/19 21:00 12/16/19 21:12 Heparin Sodium (Porcine) (Heparin Sodium) 5,000 unit Q8HRS SQ 12/16/19 14:00 12/17/19 05:58 Imaging: Imaging: CXR Impression: Unchanged cardiomegaly. Findings of interstitial edema on the 06/16/2019 comparison are less apparent on this study. PE: GEN: NAD - eating grilled cheese and fries HEENT: Atraumatic, PERRL LUNGS: CTAB anteriorly HEART: RRR ABD: NABS, S/ND/NT EXTREMITY: BLE edema SKIN: No rashes, no jaundice NEURO/PSYCH: A & O 3 A/P: A/P: CHF, BRAD/CKD, ?UTI Chronic anemia - baseline in 7-8 range for the past year; lower today (6.9) w/ transfusion planned - iron profile c/w ACD, did have iron deficiency in the past and has low-normal B12 now CAD on ASA ?h/o GERD CRC screen - none Cholelithiasis - incidental findings on past imaging -- Agree w/ transfusion, also note orders for Hemoccult and haptoglobin. Will review timing of 'scopes w/ Dr. Paz but would assume could pursue as outpt. Continue iron, PPI, and B12. LUPE CRUZ Dec 17, 2019 12:42
--- NOTE | 2019-12-17 13:10 | PDOC ---
IZZY MORENO PIVOT MAKER 12/17/19 1310: CARDIO Progress Notes Date and Time Date of Service 12/17/2019 Time of Evaluation 1015 Subjective Subjective: No Chest Pain, No shortness of breath, No Palpitations Vitals Vitals Vital Signs Date Time Temp Pulse Resp B/P (MAP) Pulse Ox O2 Delivery O2 Flow Rate FiO2 12/17/19 11:00 97.6 68 16 123/52 (75) 91 Room Air 97.6 Weight Weight [ ] Input and Output Intake and Output Intake and Output 12/17/19 07:00 Intake Total 300 ml Output Total 2800 ml Balance -2500 ml Intake Oral 300 ml Output Urine Total 2800 ml # Voids 2 Laboratory Labs Laboratory Tests Test 12/16/19 13:03 12/16/19 17:03 12/16/19 18:00 12/16/19 20:39 Troponin I Quantitative < 0.017 ng/mL (0.000-0.055) Glucose (Fingerstick) 112 mg/dL (70-99) 139 mg/dL (70-99) Urine Collection Type Unknown Urine Color Yellow Urine Clarity Cloudy Urine pH 7.5 (<5.0-8.0) Urine Specific [place] 1.010 (1.000-1.030) Urine Protein >=300 mg/dL (NEG-TRACE) Urine Glucose (UA) Negative mg/dL (NEG) Urine Ketones (Stick) Negative mg/dL (NEG) Urine Blood Small (NEG) Urine Nitrite Negative (NEG) Urine Bilirubin Negative (NEG) Urine Urobilinogen Dipstick 0.2 mg/dL (0.2 mg/dL) Urine Leukocyte Esterase Large (NEG) Urine RBC Occ /HPF (0-2) Urine WBC >40 /HPF (0-4) Urine Squamous Epithelial Cells Few /LPF Urine Bacteria Many /HPF (0-FEW) Test 12/17/19 04:40 12/17/19 07:45 12/17/19 12:03 White Blood Count 4.4 x10^3/uL (4.0-11.0) Red Blood Count 2.17 x10^6/uL (3.50-5.40) Hemoglobin 6.9 g/dL (12.0-15.5) Hematocrit 20.4 % (36.0-47.0) Mean Corpuscular Volume 94 fL (79-100) Mean Corpuscular Hemoglobin 32 pg (25-35) Mean Corpuscular Hemoglobin Concent 34 g/dL (31-37) Red Cell Distribution Width 15.1 % (11.5-14.5) Platelet Count 162 x10^3/uL (140-400) Sodium Level 139 mmol/L (136-145) Potassium Level 5.6 mmol/L (3.5-5.1) Chloride Level 112 mmol/L (98-107) Carbon Dioxide Level 20 mmol/L (21-32) Anion Gap 7 (6-14) Blood Urea Nitrogen 65 mg/dL (7-20) Creatinine 2.5 mg/dL (0.6-1.0) Estimated GFR (Cockcroft-Gault) 19.7 Glucose Level 126 mg/dL (70-99) Calcium Level 7.5 mg/dL (8.5-10.1) Phosphorus Level 5.7 mg/dL (2.6-4.7) Iron Level 30 ug/dL (50-170) Total Iron Binding Capacity 186 ug/dL (250-450) Iron Saturation 16 % (15-34) Lactate Dehydrogenase 214 U/L (81-234) Vitamin B12 Level 260 pg/mL (247-911) Glucose (Fingerstick) 100 mg/dL (70-99) 163 mg/dL (70-99) Physical Exam HEENT: Neck Supple W Full Motion Chest: Symmetric LUNGS: Other (faint basilar crackles) Heart: RRR (SR) Abdomen: Soft N/T Extremities: Other (2-3+ bilateral LE pitting edema) Neurology: alert, oriented, follow commands Assessment Assessment 1. Acute on chronic combined diastolic/systolic CHF: appears better 2. Atypical CP: possibly GI 3. Accelerated hypertension; now controlled 4. Ischemic cardiomyopathy; s/p AICD ([employer]). LVEF 40-45% per echo 11/2018 5. CAD s/p previous PCI/stents. 6. BRAD on CKD, hyperkalemia nephrology following 7. Anemia of chronic disease Hgb at 6.9 8. Hyperlipidemia; statin 9. Diabetes, II; as per PCP 10. Hx of PE Recommendations 1. TTE today. Cr at 2.5 and K at 5.6, aldactone and entresto was given, will possibly hold for now. recheck K 2. DC zaroxylyn. Continue torsemide.Addl diuretic after transfusion 3. Secondary prevention measures. Will hold ASA if any obvious bleed. GI consult pending Justicifation of Admission Dx: Justifications for Admission: Justification of Admission Dx: Yes ZEFERINO GOMEZ MD 12/17/19 1341: CARDIO Progress Notes Assessment Assessment Patient seen and examined. Agree with LINE WALKER's assessment and plan. Ac on chr syst HF prob because diuretics were held secondary to renal insuff - better compensated since admission. Agree with holding Entresto and Aldactone secondary to renal insufficiency and hyperkalemia. Continue torsemide. CP atypical. CAD stable BP better controlled Nephrology following for renal insuff IZZY MORENO APRN Dec 17, 2019 13:10 ZEFERINO GOMEZ MD Dec 17, 2019 13:41
--- NOTE | 2019-12-17 13:26 | PDOC ---
PROGRESS NOTES Date of Service: DATE: 12/17/19 TIME: 13:23 Chief Complaint Chief Complaint Acute exacerbation of chronic systolic dysfunction History of chronic combined diastolic and systolic congestive heart failure last ejection fraction recorded at 40 to 45% Ischemic cardiomyopathy Coronary artery disease Hypertensive urgency currently asymptomatic Acute renal failure secondary to cardiorenal syndrome most likely Normocytic anemia of chronic inflammation now with acute drop below 7, patient has not had colorectal cancer screening. History of dyslipidemia Diabetes mellitus type 2 insulin requiring History of PE Plan Transfuse 1 unit of packed red blood cells Anemia work-up Fecal occult blood test GI consultation Further recommendations will be based on the clinical course Consult cardiology and follow recommendations from the engagement quality consultant Recommendations 1. TTE today. Cr at 2.5 and K at 5.6, aldactone and entresto was given, will possibly hold for now. recheck K 2. DC zaroxylyn. Continue torsemide.Addl diuretic after transfusion 3. Secondary prevention measures. Will hold ASA if any obvious bleed. GI consult pending DVT prophylaxis heparin will be placed on hold given anemia History of Present Illness History of Present Illness 12/16: No acute events reported overnight, case discussed with nursing staff patient in no acute distress no complaints during my visit Vitals Vitals Vital Signs Date Time Temp Pulse Resp B/P (MAP) Pulse Ox O2 Delivery O2 Flow Rate FiO2 12/17/19 11:00 97.6 68 16 123/52 (75) 91 Room Air 97.6 Physical Exam General: Alert, Oriented X3, Cooperative, No acute distress, moderate distress Heart: Regular rate, Normal S1, Normal S2 Lungs: Clear Abdomen: Normal bowel sounds, No tenderness Extremities: No clubbing Skin: No breakdown, No significant lesion Labs LABS Laboratory Tests Test 12/16/19 17:03 12/16/19 18:00 12/16/19 20:39 12/17/19 04:40 Glucose (Fingerstick) 112 mg/dL (70-99) 139 mg/dL (70-99) Urine Collection Type Unknown Urine Color Yellow Urine Clarity Cloudy Urine pH 7.5 (<5.0-8.0) Urine Specific [place] 1.010 (1.000-1.030) Urine Protein >=300 mg/dL (NEG-TRACE) Urine Glucose (UA) Negative mg/dL (NEG) Urine Ketones (Stick) Negative mg/dL (NEG) Urine Blood Small (NEG) Urine Nitrite Negative (NEG) Urine Bilirubin Negative (NEG) Urine Urobilinogen Dipstick 0.2 mg/dL (0.2 mg/dL) Urine Leukocyte Esterase Large (NEG) Urine RBC Occ /HPF (0-2) Urine WBC >40 /HPF (0-4) Urine Squamous Epithelial Cells Few /LPF Urine Bacteria Many /HPF (0-FEW) White Blood Count 4.4 x10^3/uL (4.0-11.0) Red Blood Count 2.17 x10^6/uL (3.50-5.40) Hemoglobin 6.9 g/dL (12.0-15.5) Hematocrit 20.4 % (36.0-47.0) Mean Corpuscular Volume 94 fL (79-100) Mean Corpuscular Hemoglobin 32 pg (25-35) Mean Corpuscular Hemoglobin Concent 34 g/dL (31-37) Red Cell Distribution Width 15.1 % (11.5-14.5) Platelet Count 162 x10^3/uL (140-400) Sodium Level 139 mmol/L (136-145) Potassium Level 5.6 mmol/L (3.5-5.1) Chloride Level 112 mmol/L (98-107) Carbon Dioxide Level 20 mmol/L (21-32) Anion Gap 7 (6-14) Blood Urea Nitrogen 65 mg/dL (7-20) Creatinine 2.5 mg/dL (0.6-1.0) Estimated GFR (Cockcroft-Gault) 19.7 Glucose Level 126 mg/dL (70-99) Calcium Level 7.5 mg/dL (8.5-10.1) Phosphorus Level 5.7 mg/dL (2.6-4.7) Iron Level 30 ug/dL (50-170) Total Iron Binding Capacity 186 ug/dL (250-450) Iron Saturation 16 % (15-34) Lactate Dehydrogenase 214 U/L (81-234) Vitamin B12 Level 260 pg/mL (247-911) Test 12/17/19 07:45 12/17/19 12:03 Glucose (Fingerstick) 100 mg/dL (70-99) 163 mg/dL (70-99) Review of Systems Review of Systems Review of systems pertinent as per HPI otherwise 14 point review of system is negative Comment Review of Relevant I have reviewed the following items leandra (where applicable) has been applied. Labs Laboratory Tests Test 12/16/19 00:30 12/16/19 07:50 12/16/19 08:30 12/16/19 12:15 White Blood Count 4.5 x10^3/uL (4.0-11.0) Red Blood Count 2.35 x10^6/uL (3.50-5.40) Hemoglobin 7.5 g/dL (12.0-15.5) Hematocrit 22.0 % (36.0-47.0) Mean Corpuscular Volume 94 fL (79-100) Mean Corpuscular Hemoglobin 32 pg (25-35) Mean Corpuscular Hemoglobin Concent 34 g/dL (31-37) Red Cell Distribution Width 15.0 % (11.5-14.5) Platelet Count 159 x10^3/uL (140-400) Neutrophils (%) (Auto) 64 % (31-73) Lymphocytes (%) (Auto) 23 % (24-48) Monocytes (%) (Auto) 7 % (0-9) Eosinophils (%) (Auto) 5 % (0-3) Basophils (%) (Auto) 1 % (0-3) Neutrophils # (Auto) 2.9 x10^3/uL (1.8-7.7) Lymphocytes # (Auto) 1.0 x10^3/uL (1.0-4.8) Monocytes # (Auto) 0.3 x10^3/uL (0.0-1.1) Eosinophils # (Auto) 0.2 x10^3/uL (0.0-0.7) Basophils # (Auto) 0.0 x10^3/uL (0.0-0.2) Sodium Level 142 mmol/L (136-145) Potassium Level 5.3 mmol/L (3.5-5.1) Chloride Level 113 mmol/L (98-107) Carbon Dioxide Level 21 mmol/L (21-32) Anion Gap 8 (6-14) Blood Urea Nitrogen 62 mg/dL (7-20) Creatinine 2.5 mg/dL (0.6-1.0) Estimated GFR (Cockcroft-Gault) 19.7 BUN/Creatinine Ratio 25 (6-20) Glucose Level 184 mg/dL (70-99) Calcium Level 7.6 mg/dL (8.5-10.1) Total Bilirubin 0.2 mg/dL (0.2-1.0) Aspartate Amino Transf (AST/SGOT) 16 U/L (15-37) Alanine Aminotransferase (ALT/SGPT) 21 U/L (14-59) Alkaline Phosphatase 101 U/L (46-116) Lactate Dehydrogenase 221 U/L (81-234) Troponin I Quantitative < 0.017 ng/mL (0.000-0.055) 0.021 ng/mL (0.000-0.055) C-Reactive Protein, Quantitative 1.6 mg/L (0-3.3) YL-Clj-I-Type Natriuretic Peptide 8790 pg/mL (0-124) Total Protein 5.6 g/dL (6.4-8.2) Albumin 2.2 g/dL (3.4-5.0) Albumin/Globulin Ratio 0.6 (1.0-1.7) Glucose (Fingerstick) 89 mg/dL (70-99) 59 mg/dL (70-99) Test 12/16/19 13:03 12/16/19 17:03 12/16/19 18:00 12/16/19 20:39 Troponin I Quantitative < 0.017 ng/mL (0.000-0.055) Glucose (Fingerstick) 112 mg/dL (70-99) 139 mg/dL (70-99) Urine Collection Type Unknown Urine Color Yellow Urine Clarity Cloudy Urine pH 7.5 (<5.0-8.0) Urine Specific [place] 1.010 (1.000-1.030) Urine Protein >=300 mg/dL (NEG-TRACE) Urine Glucose (UA) Negative mg/dL (NEG) Urine Ketones (Stick) Negative mg/dL (NEG) Urine Blood Small (NEG) Urine Nitrite Negative (NEG) Urine Bilirubin Negative (NEG) Urine Urobilinogen Dipstick 0.2 mg/dL (0.2 mg/dL) Urine Leukocyte Esterase Large (NEG) Urine RBC Occ /HPF (0-2) Urine WBC >40 /HPF (0-4) Urine Squamous Epithelial Cells Few /LPF Urine Bacteria Many /HPF (0-FEW) Test 12/17/19 04:40 12/17/19 07:45 12/17/19 12:03 White Blood Count 4.4 x10^3/uL (4.0-11.0) Red Blood Count 2.17 x10^6/uL (3.50-5.40) Hemoglobin 6.9 g/dL (12.0-15.5) Hematocrit 20.4 % (36.0-47.0) Mean Corpuscular Volume 94 fL (79-100) Mean Corpuscular Hemoglobin 32 pg (25-35) Mean Corpuscular Hemoglobin Concent 34 g/dL (31-37) Red Cell Distribution Width 15.1 % (11.5-14.5) Platelet Count 162 x10^3/uL (140-400) Sodium Level 139 mmol/L (136-145) Potassium Level 5.6 mmol/L (3.5-5.1) Chloride Level 112 mmol/L (98-107) Carbon Dioxide Level 20 mmol/L (21-32) Anion Gap 7 (6-14) Blood Urea Nitrogen 65 mg/dL (7-20) Creatinine 2.5 mg/dL (0.6-1.0) Estimated GFR (Cockcroft-Gault) 19.7 Glucose Level 126 mg/dL (70-99) Calcium Level 7.5 mg/dL (8.5-10.1) Phosphorus Level 5.7 mg/dL (2.6-4.7) Iron Level 30 ug/dL (50-170) Total Iron Binding Capacity 186 ug/dL (250-450) Iron Saturation 16 % (15-34) Lactate Dehydrogenase 214 U/L (81-234) Vitamin B12 Level 260 pg/mL (247-911) Glucose (Fingerstick) 100 mg/dL (70-99) 163 mg/dL (70-99) Laboratory Tests Test 12/16/19 17:03 12/16/19 18:00 12/16/19 20:39 12/17/19 04:40 Glucose (Fingerstick) 112 mg/dL (70-99) 139 mg/dL (70-99) Urine Collection Type Unknown Urine Color Yellow Urine Clarity Cloudy Urine pH 7.5 (<5.0-8.0) Urine Specific [place] 1.010 (1.000-1.030) Urine Protein >=300 mg/dL (NEG-TRACE) Urine Glucose (UA) Negative mg/dL (NEG) Urine Ketones (Stick) Negative mg/dL (NEG) Urine Blood Small (NEG) Urine Nitrite Negative (NEG) Urine Bilirubin Negative (NEG) Urine Urobilinogen Dipstick 0.2 mg/dL (0.2 mg/dL) Urine Leukocyte Esterase Large (NEG) Urine RBC Occ /HPF (0-2) Urine WBC >40 /HPF (0-4) Urine Squamous Epithelial Cells Few /LPF Urine Bacteria Many /HPF (0-FEW) White Blood Count 4.4 x10^3/uL (4.0-11.0) Red Blood Count 2.17 x10^6/uL (3.50-5.40) Hemoglobin 6.9 g/dL (12.0-15.5) Hematocrit 20.4 % (36.0-47.0) Mean Corpuscular Volume 94 fL (79-100) Mean Corpuscular Hemoglobin 32 pg (25-35) Mean Corpuscular Hemoglobin Concent 34 g/dL (31-37) Red Cell Distribution Width 15.1 % (11.5-14.5) Platelet Count 162 x10^3/uL (140-400) Sodium Level 139 mmol/L (136-145) Potassium Level 5.6 mmol/L (3.5-5.1) Chloride Level 112 mmol/L (98-107) Carbon Dioxide Level 20 mmol/L (21-32) Anion Gap 7 (6-14) Blood Urea Nitrogen 65 mg/dL (7-20) Creatinine 2.5 mg/dL (0.6-1.0) Estimated GFR (Cockcroft-Gault) 19.7 Glucose Level 126 mg/dL (70-99) Calcium Level 7.5 mg/dL (8.5-10.1) Phosphorus Level 5.7 mg/dL (2.6-4.7) Iron Level 30 ug/dL (50-170) Total Iron Binding Capacity 186 ug/dL (250-450) Iron Saturation 16 % (15-34) Lactate Dehydrogenase 214 U/L (81-234) Vitamin B12 Level 260 pg/mL (247-911) Test 12/17/19 07:45 12/17/19 12:03 Glucose (Fingerstick) 100 mg/dL (70-99) 163 mg/dL (70-99) Medications Current Medications Morphine Sulfate (Morphine Sulfate) 5 mg 1X ONCE IV Last administered on 12/16/19 03:03; Start 12/16/19 at 02:30; Stop 12/16/19 at 02:32; Status DC Furosemide (Lasix) 40 mg 1X ONCE PO Last administered on 12/16/19at 03:01; Start 12/16/19 at 02:30; Stop 12/16/19 at 02:32; Status DC Nitroglycerin (Nitrostat) 0.4 mg STK-MED ONCE SL ; Start 12/16/19 at 07:57; Stop 12/16/19 at 07:57; Status DC Nitroglycerin (Nitrostat) 0.4 mg PRN Q5MIN PRN SL CHEST PAIN Last administered on 12/16/19at 08:33; Start 12/16/19 at 08:15; Stop 12/16/19 at 08:41; Status DC Morphine Sulfate (Morphine Sulfate) 2 mg PRN Q2HR PRN IV PAIN Last administered on 12/16/19 08:25; Start 12/16/19 at 08:15 Aspirin (Aspirin Chewable) 324 mg 1X ONCE PO Last administered on 12/16/19at 08:18; Start 12/16/19 at 08:15; Stop 12/16/19 at 08:16; Status DC Aspirin (Ecotrin) 81 mg DAILYWBKFT PO Last administered on 12/17/19 07:58; Start 12/17/19 at 08:00 Ferrous Sulfate (Feosol) 325 mg DAILY08 PO Last administered on 12/17/19 07:57; Start 12/16/19 at 09:00 Folic Acid (Folic Acid) 1 mg DAILY PO Last administered on 12/17/19 07:57; Start 12/16/19 at 09:00 Gabapentin (Neurontin) 300 mg TID PO Last administered on 12/17/19 07:57; Start 12/16/19 at 09:00 Pantoprazole Sodium (Protonix) 40 mg DAILYAC PO Last administered on 12/17/19 07:58; Start 12/16/19 at 09:00 Potassium Chloride (Klor-Con) 10 meq BIDWMEALS PO Last administered on 12/17/19 07:58; Start 12/16/19 at 09:00 Torsemide (Demadex) 20 mg BID92 PO Last administered on 12/17/19 07:57; Start 12/16/19 at 09:00 Tramadol HCl (Ultram) 50 mg PRN Q12HR PRN PO Chest wall pain; Start 12/16/19 at 08:15 Atorvastatin Calcium (Lipitor) 80 mg QHS PO Last administered on 12/16/19at 21:12; Start 12/16/19 at 21:00 Carvedilol (Coreg) 12.5 mg BIDWMEALS PO Last administered on 12/17/19 07:58; Start 12/16/19 at 09:00 Ergocalciferol (Vitamin D2) 50,000 unit QSU@0900 PO ; Start 12/22/19 at 09:00 Levothyroxine Sodium (Synthroid) 200 mcg DAILY06 PO Last administered on 12/17/19 05:57; Start 12/16/19 at 09:00 Metolazone (Zaroxolyn) 5 mg DAILY PO Last administered on 12/17/19 07:57; Start 12/16/19 at 09:00 Sacubitril/ Valsartan (Entresto 49 Mg-51 Mg) 2 tab BID PO Last administered on 12/17/19 07:57; Start 12/16/19 at 09:00 Spironolactone (Aldactone) 50 mg DAILY PO Last administered on 12/17/19at 08:03; Start 12/16/19 at 09:00 Nitroglycerin (Nitrostat) 0.4 mg PRN Q5MIN PRN SL CHEST PAIN; Start 12/16/19 at 08:30 Heparin Sodium (Porcine) (Heparin Sodium) 5,000 unit Q8HRS SQ Last administered on 12/17/19 05:58; Start 12/16/19 at 14:00 Insulin Human Lispro (HumaLOG) 0-5 UNITS TIDWMEALS SQ Last administered on 12/17/19 12:52; Start 12/16/19 at 17:00 Dextrose (Dextrose 50%-Water Syringe) 12.5 gm PRN Q15MIN PRN IV SEE COMMENTS; Start 12/16/19 at 16:30 Active Scripts Active Tramadol Hcl 50 Mg Tablet 50 Mg PO PRN Q12HR PRN 6 Days Humalog (Insulin Lispro) 100 Unit/1 Ml Insuln.pen 0 Units SQ TIDACHC 30 Days Lantus Solostar (Insulin Glargine,Hum.rec.anlog) 100 Unit/1 Ml Insuln.pen 12 Unit SQ QHS 30 Days Proair Hfa (Albuterol Sulfate) 8.5 Gm Hfa.aer.ad 2.5 Mg NEB PRN Q6HRS PRN 30 Da ys Duoneb 0.5-3(2.5) Mg/3 Ml (Albuterol/Ipratropium) 3 Ml Ampul.neb 3 Ml NEB RTQID 30 Days Aspirin Ec (Aspirin) 81 Mg Tablet.dr 81 Mg PO DAILYWBKFT Synthroid (Levothyroxine Sodium) 200 Mcg Tablet 1 Tab PO DAILY Reported Aldactone (Spironolactone) 50 Mg Tablet 1 Tab PO DAILY Voltaren (Diclofenac Sodium) 100 Gm Gel..gram. 1 Gm TP PRN Q4HRS PRN 30 Days apply to affected area(s) Vitamin D2 (Ergocalciferol (Vitamin D2)) 2,000 Unit Tablet 50,000 Unit PO QSU 30 Days Pantoprazole Sodium (Pantoprazole Sodium) 40 Mg Tablet.dr 40 Mg PO DAILYAC Demadex (Torsemide) 20 Mg Tablet 20 Mg PO BID NITROGLYCERIN SubLingual (Nitroglycerin) 0.4 Mg Tab.subl 0.4 Mg SL PRN Q5MIN PRN Ferrous Sulfate 325 Mg Tablet 1 Tab PO DAILY Folic Acid 1 Mg Tablet 1 Tab PO DAILY Colestid (Colestipol Hcl) 1 Gm Tablet 2 Gm PO BID Metolazone 5 Mg Tablet 5 Mg PO DAILY Coreg (Carvedilol) 25 Mg Tablet 12.5 Mg PO BIDWMEALS Entresto 97 mg-103 mg Tablet (Sacubitril/Valsartan) 1 Each Tablet 1 Each PO BID Atorvastatin Calcium 80 Mg Tablet 1 Tab PO QHS Gabapentin (Gabapentin) 300 Mg Capsule 300 Mg PO TID Potassium Chloride 10 Meq Tab.er.prt 1 Tab PO BID Vitals/I & O Vital Sign - Last 24 Hours 12/16/19 12/16/19 12/16/19 12/16/19 15:00 17:32 19:32 20:00 Temp 98.2 98.1 98.2 98.1 Pulse 66 66 69 Resp 16 16 B/P (MAP) 137/59 (85) 137/59 121/60 (80) Pulse Ox 96 97 O2 Delivery Room Air Room Air Room Air 12/16/19 12/16/19 12/17/19 12/17/19 21:13 22:59 02:34 07:00 Temp 98.2 98.5 97.7 98.2 98.5 97.7 Pulse 69 73 70 67 Resp 16 18 16 B/P (MAP) 121/60 128/61 (83) 125/51 (75) 107/68 (81) Pulse Ox 91 91 94 O2 Delivery Room Air Room Air Room Air 12/17/19 12/17/19 12/17/19 12/17/19 07:57 07:58 08:00 11:00 Temp 97.6 97.6 Pulse 70 70 68 Resp 16 B/P (MAP) 125/51 125/51 123/52 (75) Pulse Ox 91 O2 Delivery Room Air Room Air Intake and Output 12/16/19 12/16/19 12/17/19 14:59 22:59 06:59 Intake Total 180 ml 120 ml 0 ml Output Total 0 ml 1800 ml 1000 ml Balance 180 ml -1680 ml -1000 ml Justicifation of Admission Dx: Justifications for Admission: Justification of Admission Dx: Yes ROSHAN BRANCH MD Dec 17, 2019 13:26
--- NOTE | 2019-12-17 13:28 | PDOC ---
Renal-Progress Notes Subjective Notes Notes NOTHING NEW History of Present Illness Hx of present illness STABLE Vitals Vitals Vital Signs Date Time Temp Pulse Resp B/P (MAP) Pulse Ox O2 Delivery O2 Flow Rate FiO2 12/17/19 13:21 97.6 68 16 123/52 97.6 12/17/19 11:00 91 Room Air Weight Weight [ ] I.O. Intake and Output Intake and Output 12/17/19 07:00 Intake Total 300 ml Output Total 2800 ml Balance -2500 ml Intake Oral 300 ml Output Urine Total 2800 ml # Voids 2 Labs Labs Laboratory Tests Test 12/16/19 17:03 12/16/19 18:00 12/16/19 20:39 12/17/19 04:40 Glucose (Fingerstick) 112 mg/dL (70-99) 139 mg/dL (70-99) Urine Collection Type Unknown Urine Color Yellow Urine Clarity Cloudy Urine pH 7.5 (<5.0-8.0) Urine Specific [place] 1.010 (1.000-1.030) Urine Protein >=300 mg/dL (NEG-TRACE) Urine Glucose (UA) Negative mg/dL (NEG) Urine Ketones (Stick) Negative mg/dL (NEG) Urine Blood Small (NEG) Urine Nitrite Negative (NEG) Urine Bilirubin Negative (NEG) Urine Urobilinogen Dipstick 0.2 mg/dL (0.2 mg/dL) Urine Leukocyte Esterase Large (NEG) Urine RBC Occ /HPF (0-2) Urine WBC >40 /HPF (0-4) Urine Squamous Epithelial Cells Few /LPF Urine Bacteria Many /HPF (0-FEW) White Blood Count 4.4 x10^3/uL (4.0-11.0) Red Blood Count 2.17 x10^6/uL (3.50-5.40) Hemoglobin 6.9 g/dL (12.0-15.5) Hematocrit 20.4 % (36.0-47.0) Mean Corpuscular Volume 94 fL (79-100) Mean Corpuscular Hemoglobin 32 pg (25-35) Mean Corpuscular Hemoglobin Concent 34 g/dL (31-37) Red Cell Distribution Width 15.1 % (11.5-14.5) Platelet Count 162 x10^3/uL (140-400) Sodium Level 139 mmol/L (136-145) Potassium Level 5.6 mmol/L (3.5-5.1) Chloride Level 112 mmol/L (98-107) Carbon Dioxide Level 20 mmol/L (21-32) Anion Gap 7 (6-14) Blood Urea Nitrogen 65 mg/dL (7-20) Creatinine 2.5 mg/dL (0.6-1.0) Estimated GFR (Cockcroft-Gault) 19.7 Glucose Level 126 mg/dL (70-99) Calcium Level 7.5 mg/dL (8.5-10.1) Phosphorus Level 5.7 mg/dL (2.6-4.7) Iron Level 30 ug/dL (50-170) Total Iron Binding Capacity 186 ug/dL (250-450) Iron Saturation 16 % (15-34) Lactate Dehydrogenase 214 U/L (81-234) Vitamin B12 Level 260 pg/mL (247-911) Test 12/17/19 07:45 12/17/19 12:03 Glucose (Fingerstick) 100 mg/dL (70-99) 163 mg/dL (70-99) Review of Systems Constitutional: yes: alert Ears/Nose/Throat: Yes: no symptom reported Eyes: Yes: no symptom reported Pulmonary: Yes no symptom reported Gastrointestional: Yes: no symptom reported Genitourinary: Yes: no symptom reported Musculoskeletal: Yes: no symptom reported Skin: Yes no symptom reported Psychiatric/Neurological: Yes: no symptom reported Endocrine: Yes: no symptom reported Physical Exam General Appearance: no apparent distress Skin: warm Respiratory: bilateral CTA Heart: S1S2 Abdomen: soft, bowel sounds present Genitourinary: bladder flat Extremities: pulses present Neurology: alert, oriented, follow commands Assessment Assessment MP CKD STAGE 4-CR OF 1.8-2.1 AT BASELINE MILD BRAD WITH CR OF 2.5 ANEMIA OF CKD IRON DEFICIENCY ACUTE ON CHRONIC SYSTOLIC CHF HX OF CAD AND PTCA/STENT S/P AICD HX ISCHEMIC CM HX-EF OF 40-45% LAST YEAR DM II HTN PLAN CARDIOLOGY EVAL AND TX GI EVALUATION IV VENOFER VERY POOR SENSE OF HER PMH HAS CKD DUE TO DM II AND HTN RELATED END ORGAN DAMAGE NEEDS TO SEE RENAL IN FOLLOW UP MAY ALSO NEED TO HAVE YONATHAN STARTED CONT WITH AFTERLOAD REDUCTION STOP ALDACTONE MAY NEED TO STOP METOLAZONE CONT ENTRESTO D/W PT IMPORTANCE OF DM II CONTROL AND FL RESTRICTION WILL FOLLOW SANTIAGO,MARY S MD Dec 17, 2019 13:28
[2019-12-17] MEDS ORDERED: IRON SUCROSE COMPLEX 500 MG in IV NORMAL SALINE 250ML 250 ML IV ONE (14:30)
[2019-12-17] MEDS ORDERED: FUROSEMIDE 20 MG/2 ML VIAL. IVP ONE (17:15)
[2019-12-17] MEDS ORDERED: hydrALAZINE 20 MG/ML VIAL. IVP PRN (17:15)
[2019-12-17] MEDS: ATORVASTATIN CALCIUM 40 MG TABLET. PO SCH (20:30)
[2019-12-18 03:06] VITALS: BP 172/73
[2019-12-18 04:17] LABS: HEMATOCRIT 23.3 % (36.0-47.0); HEMOGLOBIN 8.1 g/dL (12.0-15.5); RED BLOOD COUNT 2.53 x10^6/uL (3.50-5.40); RED CELL DISTRIBUTION WIDTH 15.2 % (11.5-14.5); WHITE BLOOD COUNT 4.3 x10^3/uL (4.0-11.0)
[2019-12-18 04:29] LABS: CREATININE 2.5 mg/dL (0.6-1.0); GFR 19.7; POTASSIUM 5.5 mmol/L (3.5-5.1)
[2019-12-18] MEDS: LEVOTHYROXINE 100 MCG TABLET PO SCH (06:05)
[2019-12-18] MEDS: HEPARIN for SUB-Q USE 5,000 UNIT/ML VIAL. SQ SCH ×2 (06:05→15:59)
[2019-12-18 07:00] VITALS: BP 173/74
[2019-12-18] MEDS ORDERED: hydrALAZINE 20 MG/ML VIAL. IVP ONE (08:00)
[2019-12-18] MEDS: INSULIN LISPRO 300 UNITS/3 ML VIAL. SQ SCH ×3 (08:00→17:20)
[2019-12-18] MEDS ORDERED: ISOSORBIDE MONONITRATE ER 30 MG TAB.ER.24H PO ONE (08:00)
[2019-12-18] MEDS: TORSEMIDE 20 MG TABLET. PO SCH ×2 (08:43→15:47)
[2019-12-18] MEDS: ASPIRIN ENTERIC COATED 81 MG TABLET.DR. PO SCH (08:43)
[2019-12-18] MEDS: FERROUS SULFATE 325 MG TABLET. PO SCH ×3 (08:43→17:17)
[2019-12-18] MEDS: GABAPENTIN 300 MG CAPSULE. PO SCH ×3 (08:44→21:15)
[2019-12-18] MEDS: FOLIC ACID 1 MG TABLET. PO SCH (08:44)
[2019-12-18] MEDS: PANTOPRAZOLE 40 MG TABLET.DR. PO SCH (08:44)
[2019-12-18] MEDS: CARVEDILOL 12.5 MG TABLET. PO SCH ×2 (08:44→17:17)
--- NOTE | 2019-12-18 09:17 | PDOC ---
Date of Service: DATE: 12/18/19 TIME: 09:13 Subjective: Subjective: No GI complaints. Objective: Vital Signs: Vital Signs Date Time Temp Pulse Resp B/P (MAP) Pulse Ox O2 Delivery O2 Flow Rate FiO2 12/18/19 08:45 72 173/74 12/18/19 07:00 97.8 18 91 Room Air 97.8 Labs: Laboratory Tests Test 12/17/19 12:03 12/17/19 13:37 12/17/19 17:09 12/17/19 19:40 Glucose (Fingerstick) 163 mg/dL 257 mg/dL Potassium Level 5.8 mmol/L 5.2 mmol/L Test 12/17/19 20:56 12/18/19 03:42 12/18/19 07:18 Glucose (Fingerstick) 191 mg/dL 145 mg/dL White Blood Count 4.3 x10^3/uL Red Blood Count 2.53 x10^6/uL Hemoglobin 8.1 g/dL Hematocrit 23.3 % Mean Corpuscular Volume 92 fL Mean Corpuscular Hemoglobin 32 pg Mean Corpuscular Hemoglobin Concent 35 g/dL Red Cell Distribution Width 15.2 % Platelet Count 140 x10^3/uL Sodium Level 139 mmol/L Potassium Level 5.5 mmol/L Chloride Level 109 mmol/L Carbon Dioxide Level 22 mmol/L Anion Gap 8 Blood Urea Nitrogen 64 mg/dL Creatinine 2.5 mg/dL Estimated GFR (Cockcroft-Gault) 19.7 Glucose Level 157 mg/dL Calcium Level 8.0 mg/dL PE: GEN: NAD LUNGS: CTAB HEART: RRR ABD: NABS, S/ND/NT NEURO/PSYCH: A & O 3 A/P: CHF, BRAD/CKD, CAD, HTN, ?UTI Chronic anemia - ACD/ACD?b12 deficiency -- Continue PPI, iron, B12. Plan for outpt scopes as previously discussed. Justicifation of Admission Dx: Justifications for Admission: Justification of Admission Dx: Yes LUPE CRUZ Dec 18, 2019 09:16
[2019-12-18] MEDS ORDERED: POLYETHYLENE GLYCOL 3350 17 GM PACKET. PO PRN (09:30)
--- NOTE | 2019-12-18 09:58 | NUR ---
Non administered 0900 dose of ferrous sulfate, med given at 0843 from prior order
[2019-12-18] MEDS: CYANOCOBALAMIN (VITAMIN B-12) 1,000 MCG/ML VIAL IM SCH (10:05)
[2019-12-18 11:07] VITALS: BP 142/64
--- NOTE | 2019-12-18 12:38 | CARD ---
MR#: [id number] Date of Study: 12/18/2019 Ordering Physician: IZZY MORENO, Referring Physician: IZZY MORENO, Tech: Ainsley Santoyo [facility] APPROVED REPORT EXAM: Two-dimensional and M-mode echocardiogram with Doppler and color Doppler. Other Information Quality : Good INDICATION Cardiomyopathy Congestive Heart Failure 2D DIMENSIONS RVDd3.3 (2.9-3.5cm)Left Atrium(2D)3.9 (1.6-4.0cm) IVSd1.2 (0.7-1.1cm)Aortic Root(2D)3.1 (2.0-3.7cm) LVDd5.5 (3.9-5.9cm)LVOT Diameter2.0 (1.8-2.4cm) PWd1.1 (0.7-1.1cm)LVDs4.4 (2.5-4.0cm) FS (%) 19.7 %SV58.8 ml LVEF(%)40.0 (>50%) Aortic Valve AoV Peak Wes.199.5cm/sAoV VTI41.6cm AO Peak GR.15.9mmHgLVOT VTI 28.88cm AO Mean GR.9mmHgAVA (VTI)2.20cm2 AI P 1/2 [id number] Mitral Valve MV E Rwwycqhk012.9cm/sMV DECEL GOUY857zp MV A Mmuqqjpe513.0cm/sE/A Ratio1.1 TDI Lateral E' P. V7.02cm/sMedial E' P. V5.66cm/s E/Lateral E'17.4E/Medial E'21.5 Tricuspid Valve TR P. Lgiegcye537tk/sRAP [id number] TR Peak Gr.15niFlOTNC95hkXs Pulmonary Vein S1 Tquegfea72.2cm/sS2 Sytghmer46.91cm/s D2 Lqopgpwn82.9cm/s LEFT VENTRICLE The left ventricle is normal size. There is mild concentric left ventricular hypertrophy. Left ventri elizabet systolic function is mildly impaired. The Ejection Fraction is 45-50%. Septal motion consistent w ith conduction abnormality. Transmitral Doppler flow pattern is Grade II-pseudonormal filling dynamic s. RIGHT VENTRICLE The right ventricle is normal size. The right ventricular systolic function is normal. There is a pac emaker lead in the right ventricle. ATRIA The left atrium size is normal. The right atrium size is normal. A pacemaker is seen in the right atr ium consistent with history. The interatrial septum is intact with no evidence for an atrial septal d efect or patent foramen ovale as noted on 2-D or Doppler imaging. AORTIC VALVE The aortic valve is calcified but opens well. Doppler and Color Flow revealed trace to mild aortic re gurgitation. There is no significant aortic valvular stenosis. MITRAL VALVE The mitral valve is normal in structure and function. There is no evidence of mitral valve prolapse. There is no mitral valve stenosis. Doppler and Color-flow revealed mild mitral regurgitation. TRICUSPID VALVE The tricuspid valve is normal in structure and function. Doppler and Color Flow revealed mild to mode rate tricuspid regurgitation. There is moderate pulmonary hypertension. The PA pressure was estimated at 54 mmHg. There is no tricuspid valve stenosis. PULMONIC VALVE The pulmonic valve is not well visualized. Doppler and Color Flow revealed mild pulmonic valvular reg urgitation. There is no pulmonic valvular stenosis. GREAT VESSELS The aortic root is normal in size. The ascending aorta is not well seen. The IVC is dilated and colla pses >50% with inspiration. PERICARDIAL EFFUSION There is no evidence of significant pericardial effusion. Critical Notification Critical Value: No <Conclusion> Left ventricle systolic function is mildly impaired. The Ejection Fraction is 45-50%. Transmitral Doppler flow pattern is Grade II-pseudonormal filling dynamics. There is a pacemaker lead in the right atrium and ventricle. Trace to mild aortic regurgitation. Mild mitral regurgitation. Mild to moderate tricuspid regurgitation. There is moderate pulmonary hypertension. The PA pressure was estimated at 54 mmHg. There is no evidence of significant pericardial effusion. Signed by : Dami Darling, Electronically Approved : 12/18/2019 12:37:55
--- NOTE | 2019-12-18 13:34 | PDOC ---
IZZY MORENO [employer] 12/18/19 1334: CARDIO Progress Notes Date and Time Date of Service 12/18/2019 Time of Evaluation 1010 Subjective Subjective: No Chest Pain, No shortness of breath, No Palpitations Vitals Vitals Vital Signs Date Time Temp Pulse Resp B/P (MAP) Pulse Ox O2 Delivery O2 Flow Rate FiO2 12/18/19 11:07 98.2 69 18 142/64 (90) 90 Room Air 98.2 Weight Weight [ ] Input and Output Intake and Output Intake and Output 12/18/19 06:59 Intake Total 703 ml Output Total 2525 ml Balance -1822 ml Intake Oral 398 ml IV Total 275 ml Blood Product IV Normal Saline Flush 30 ml Output Urine Total 2525 ml Laboratory Labs Laboratory Tests Test 12/17/19 13:37 12/17/19 17:09 12/17/19 19:40 12/17/19 20:56 Potassium Level 5.8 mmol/L (3.5-5.1) 5.2 mmol/L (3.5-5.1) Glucose (Fingerstick) 257 mg/dL (70-99) 191 mg/dL (70-99) Test 12/18/19 03:42 12/18/19 07:18 12/18/19 11:37 White Blood Count 4.3 x10^3/uL (4.0-11.0) Red Blood Count 2.53 x10^6/uL (3.50-5.40) Hemoglobin 8.1 g/dL (12.0-15.5) Hematocrit 23.3 % (36.0-47.0) Mean Corpuscular Volume 92 fL (79-100) Mean Corpuscular Hemoglobin 32 pg (25-35) Mean Corpuscular Hemoglobin Concent 35 g/dL (31-37) Red Cell Distribution Width 15.2 % (11.5-14.5) Platelet Count 140 x10^3/uL (140-400) Sodium Level 139 mmol/L (136-145) Potassium Level 5.5 mmol/L (3.5-5.1) Chloride Level 109 mmol/L (98-107) Carbon Dioxide Level 22 mmol/L (21-32) Anion Gap 8 (6-14) Blood Urea Nitrogen 64 mg/dL (7-20) Creatinine 2.5 mg/dL (0.6-1.0) Estimated GFR (Cockcroft-Gault) 19.7 Glucose Level 157 mg/dL (70-99) Calcium Level 8.0 mg/dL (8.5-10.1) Glucose (Fingerstick) 145 mg/dL (70-99) 194 mg/dL (70-99) Review of Systems Constitutional: yes: alert Ears/Nose/Throat: Yes: no symptom reported Eyes: Yes: no symptom reported Pulmonary: Yes no symptom reported Gastrointestional: Yes: no symptom reported Genitourinary: Yes: no symptom reported Musculoskeletal: Yes: no symptom reported Skin: Yes no symptom reported Psychiatric/Neurological: Yes: no symptom reported Endocrine: Yes: no symptom reported Physical Exam HEENT: Neck Supple W Full Motion Chest: Symmetric LUNGS: Other (faint basilar crackles) Heart: RRR (SR) Abdomen: Soft N/T Extremities: Other (2+ bilateral LE pitting edema) Neurology: alert, oriented, follow commands Assessment Assessment 1. Acute on chronic combined diastolic/systolic CHF: appears compensated 2. Atypical CP: possibly GI 3. Accelerated hypertension;labile episode 4. Ischemic cardiomyopathy; s/p AICD ([place]). LVEF better at 45-50% 5. CAD s/p previous PCI/stents. 6. BRAD on CKD with persistent mild hyperkalemia nephrology following 7. Anemia of chronic disease Hgb at 6.9, post transfusion, future endoscopy per GI 8. Hyperlipidemia; statin 9. Diabetes, II; as per PCP 10. Hx of PE Recommendations 1. Stop entresto,aldactone for now due to significant renal insufficiency and hyperkalemia. No K supplement. Start on hydralazine and Imdur. Continue coreg. 2. Continue with torsemide. Reinforce low sodium diet. 3. Secondary prevention measures. Statin and restart ASA if OK with GI. 4. Discussed CH prevention.HF education. Daily wt 2L FR, HBPM, low sodium diet. . Dietitian consult 5. Follow up in office. on January 21 at 2PM. Arrange for homehealth Justicifation of Admission Dx: Justifications for Admission: Justification of Admission Dx: Yes ZEFERINO GOMEZ MD 12/18/19 8928: CARDIO Progress Notes Assessment Assessment Patient seen and examined. Agree with [employer] SUPERVISOR's assessment and plan. Ac on chr syst HF prob because diuretics were held secondary to renal insuff - better compensated since admission. Agree with holding Entresto and Aldactone secondary to renal insufficiency and hyperkalemia. Continue torsemide. 2D echo showed EF 45-50%. CP atypical. CAD stable BP better controlled Nephrology following for renal insuff IZZY MORENO APRN Dec 18, 2019 13:34 ZEFERINO GOMEZ MD Dec 18, 2019 19:08
--- NOTE | 2019-12-18 13:44 | NUR ---
SS following up with discharge planning. SS reviewed pt chart and discussed with pt RN. Pt is currently on room air. Discharge plan is to home when medically ready. SS will continue to follow for discharge planning.
[2019-12-18] MEDS: ISOSORBIDE MONONITRATE ER 30 MG TAB.ER.24H PO SCH (14:00)
--- NOTE | 2019-12-18 14:34 | PDOC ---
Renal-Progress Notes Subjective Notes Notes NO NEW COMPLAINTS History of Present Illness Hx of present illness STABLE Vitals Vitals Vital Signs Date Time Temp Pulse Resp B/P (MAP) Pulse Ox O2 Delivery O2 Flow Rate FiO2 12/18/19 11:07 98.2 69 18 142/64 (90) 90 Room Air 98.2 Weight Weight [ ] I.O. Intake and Output Intake and Output 12/18/19 07:00 Intake Total 703 ml Output Total 2525 ml Balance -1822 ml Intake Oral 398 ml IV Total 275 ml Blood Product IV Normal Saline Flush 30 ml Output Urine Total 2525 ml Labs Labs Laboratory Tests Test 12/17/19 17:09 12/17/19 19:40 12/17/19 20:56 12/18/19 03:42 Glucose (Fingerstick) 257 mg/dL (70-99) 191 mg/dL (70-99) Potassium Level 5.2 mmol/L (3.5-5.1) 5.5 mmol/L (3.5-5.1) White Blood Count 4.3 x10^3/uL (4.0-11.0) Red Blood Count 2.53 x10^6/uL (3.50-5.40) Hemoglobin 8.1 g/dL (12.0-15.5) Hematocrit 23.3 % (36.0-47.0) Mean Corpuscular Volume 92 fL (79-100) Mean Corpuscular Hemoglobin 32 pg (25-35) Mean Corpuscular Hemoglobin Concent 35 g/dL (31-37) Red Cell Distribution Width 15.2 % (11.5-14.5) Platelet Count 140 x10^3/uL (140-400) Sodium Level 139 mmol/L (136-145) Chloride Level 109 mmol/L (98-107) Carbon Dioxide Level 22 mmol/L (21-32) Anion Gap 8 (6-14) Blood Urea Nitrogen 64 mg/dL (7-20) Creatinine 2.5 mg/dL (0.6-1.0) Estimated GFR (Cockcroft-Gault) 19.7 Glucose Level 157 mg/dL (70-99) Calcium Level 8.0 mg/dL (8.5-10.1) Test 12/18/19 07:18 12/18/19 11:37 Glucose (Fingerstick) 145 mg/dL (70-99) 194 mg/dL (70-99) Review of Systems Constitutional: yes: alert Ears/Nose/Throat: Yes: no symptom reported Eyes: Yes: no symptom reported Pulmonary: Yes no symptom reported Gastrointestional: Yes: no symptom reported Genitourinary: Yes: no symptom reported Musculoskeletal: Yes: no symptom reported Skin: Yes no symptom reported Psychiatric/Neurological: Yes: no symptom reported Endocrine: Yes: no symptom reported Physical Exam General Appearance: no apparent distress Skin: warm Respiratory: bilateral CTA Heart: S1S2 Abdomen: soft, bowel sounds present Genitourinary: bladder flat Extremities: pulses present Neurology: alert, oriented, follow commands Assessment Assessment MP HYPERKALEMIA CKD STAGE 4-CR OF 1.8-2.1 BASELINE IN THE PAST MILD BRAD WITH CR OF 2.5-THIS IS PROB HER NEW BASELIN ANEMIA OF CKD IRON DEFICIENCY ACUTE ON CHRONIC SYSTOLIC CHF HX OF CAD AND PTCA/STENT S/P AICD HX ISCHEMIC CM HX-EF OF 40-45% LAST YEAR DM II HTN PLAN RENAL DIET RESTRICTIONS CARDIOLOGY EVAL AND TX GI EVALUATION S/P IV VENOFER VERY POOR SENSE OF HER PMH HAS CKD DUE TO DM II AND HTN RELATED END ORGAN DAMAGE NEEDS TO SEE RENAL IN FOLLOW UP MAY ALSO NEED TO HAVE YONATHAN STARTED CONT WITH AFTERLOAD REDUCTION STOPPED ALDACTONE MAY NEED TO STOP METOLAZONE CONT ENTRESTO D/W PT IMPORTANCE OF DM II CONTROL AND FL RESTRICTION UPDATED DAUGHTER WILL FOLLOW MARY SANTIAGO MD Dec 18, 2019 14:34
--- NOTE | 2019-12-18 14:54 | NUR ---
Non administered 1400 dose of Imdur, dose given this morning.
[2019-12-18 15:02] VITALS: BP 119/56
--- NOTE | 2019-12-18 15:30 | NUR ---
Wound Care Wound Type/Assessment: see wound assessment. patient has an open abscess to the midline chest, the area was cleaned, measured, pictured and redressed with a hydrocolloid at this time. patient is a current patient of the outpatient wound clinic. Treatment Recommendations/Plan: Recommendations of continuing the treatment of a hydrocolloid, change every 3-4 days. Discharge Recommendations for dressings: Recommendations of continuing the recommended dressings, and patient to f/u in the outpatient wound clinic at discharge.
--- NOTE | 2019-12-18 16:12 | PDOC ---
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 History of dyslipidemia Diabetes mellitus type 2 insulin requiring History of PE Plan Transfuse 1 unit of packed red blood cells Anemia work-up Fecal occult blood test GI consultation Further recommendations will be based on the clinical course Consult cardiology and follow recommendations from the medical economics consultant Recommendations 1. TTE today. Cr at 2.5 and K at 5.6, aldactone and entresto was given, will possibly hold for now. recheck K 2. DC zaroxylyn. Continue torsemide.Addl diuretic after transfusion 3. Secondary prevention measures. Will hold ASA if any obvious bleed. GI consult pending DVT prophylaxis heparin will be placed on hold given anemia History of Present Illness History of Present Illness Patient states she feels well, denies any abdominal pain denies any chest pain denies any shortness of breath. She does admit to a history of dark stools, previously evaluated by GI. She mentions an outpatient evaluation for possible GI malignancy. Discussed observing for 1 more day to monitor hemoglobin levels. Vitals Vitals Vital Signs Date Time Temp Pulse Resp B/P (MAP) Pulse Ox O2 Delivery O2 Flow Rate FiO2 12/18/19 15:47 68 119/56 12/18/19 15:02 98.1 16 95 Room Air 98.1 Physical Exam General: Alert, Oriented X3, Cooperative, No acute distress, moderate distress Heart: Regular rate, Normal S1, Normal S2 Lungs: Clear Abdomen: Normal bowel sounds, No tenderness Extremities: No clubbing Skin: No breakdown, No significant lesion Labs LABS Laboratory Tests Test 12/17/19 17:09 12/17/19 19:40 12/17/19 20:56 12/18/19 03:42 Glucose (Fingerstick) 257 mg/dL (70-99) 191 mg/dL (70-99) Potassium Level 5.2 mmol/L (3.5-5.1) 5.5 mmol/L (3.5-5.1) White Blood Count 4.3 x10^3/uL (4.0-11.0) Red Blood Count 2.53 x10^6/uL (3.50-5.40) Hemoglobin 8.1 g/dL (12.0-15.5) Hematocrit 23.3 % (36.0-47.0) Mean Corpuscular Volume 92 fL (79-100) Mean Corpuscular Hemoglobin 32 pg (25-35) Mean Corpuscular Hemoglobin Concent 35 g/dL (31-37) Red Cell Distribution Width 15.2 % (11.5-14.5) Platelet Count 140 x10^3/uL (140-400) Sodium Level 139 mmol/L (136-145) Chloride Level 109 mmol/L (98-107) Carbon Dioxide Level 22 mmol/L (21-32) Anion Gap 8 (6-14) Blood Urea Nitrogen 64 mg/dL (7-20) Creatinine 2.5 mg/dL (0.6-1.0) Estimated GFR (Cockcroft-Gault) 19.7 Glucose Level 157 mg/dL (70-99) Calcium Level 8.0 mg/dL (8.5-10.1) Test 12/18/19 07:18 12/18/19 11:37 Glucose (Fingerstick) 145 mg/dL (70-99) 194 mg/dL (70-99) Review of Systems Review of Systems Denies abdominal pain, denies chest pain, denies shortness of breath, denies fever. All other systems negative. 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 Will prefer to monitor patient overnight to make sure her hemoglobin stays within a safe range. We will also order PT and OT, as patient would likely be safer with home health upon discharge. Comment Review of Relevant I have reviewed the following items leandra (where applicable) has been applied. Labs Laboratory Tests Test 12/16/19 17:03 12/16/19 18:00 12/16/19 20:39 12/17/19 04:40 Glucose (Fingerstick) 112 mg/dL (70-99) 139 mg/dL (70-99) Urine Collection Type Unknown Urine Color Yellow Urine Clarity Cloudy Urine pH 7.5 (<5.0-8.0) Urine Specific [place] 1.010 (1.000-1.030) Urine Protein >=300 mg/dL (NEG-TRACE) Urine Glucose (UA) Negative mg/dL (NEG) Urine Ketones (Stick) Negative mg/dL (NEG) Urine Blood Small (NEG) Urine Nitrite Negative (NEG) Urine Bilirubin Negative (NEG) Urine Urobilinogen Dipstick 0.2 mg/dL (0.2 mg/dL) Urine Leukocyte Esterase Large (NEG) Urine RBC Occ /HPF (0-2) Urine WBC >40 /HPF (0-4) Urine Squamous Epithelial Cells Few /LPF Urine Bacteria Many /HPF (0-FEW) White Blood Count 4.4 x10^3/uL (4.0-11.0) Red Blood Count 2.17 x10^6/uL (3.50-5.40) Hemoglobin 6.9 g/dL (12.0-15.5) Hematocrit 20.4 % (36.0-47.0) Mean Corpuscular Volume 94 fL (79-100) Mean Corpuscular Hemoglobin 32 pg (25-35) Mean Corpuscular Hemoglobin Concent 34 g/dL (31-37) Red Cell Distribution Width 15.1 % (11.5-14.5) Platelet Count 162 x10^3/uL (140-400) Haptoglobin 175 mg/dL (33-346) Sodium Level 139 mmol/L (136-145) Potassium Level 5.6 mmol/L (3.5-5.1) Chloride Level 112 mmol/L (98-107) Carbon Dioxide Level 20 mmol/L (21-32) Anion Gap 7 (6-14) Blood Urea Nitrogen 65 mg/dL (7-20) Creatinine 2.5 mg/dL (0.6-1.0) Estimated GFR (Cockcroft-Gault) 19.7 Glucose Level 126 mg/dL (70-99) Calcium Level 7.5 mg/dL (8.5-10.1) Phosphorus Level 5.7 mg/dL (2.6-4.7) Iron Level 30 ug/dL (50-170) Total Iron Binding Capacity 186 ug/dL (250-450) Iron Saturation 16 % (15-34) Lactate Dehydrogenase 214 U/L (81-234) Vitamin B12 Level 260 pg/mL (247-911) Test 12/17/19 07:45 12/17/19 12:03 12/17/19 13:37 12/17/19 17:09 Glucose (Fingerstick) 100 mg/dL (70-99) 163 mg/dL (70-99) 257 mg/dL (70-99) Potassium Level 5.8 mmol/L (3.5-5.1) Test 12/17/19 19:40 12/17/19 20:56 12/18/19 03:42 12/18/19 07:18 Potassium Level 5.2 mmol/L (3.5-5.1) 5.5 mmol/L (3.5-5.1) Glucose (Fingerstick) 191 mg/dL (70-99) 145 mg/dL (70-99) White Blood Count 4.3 x10^3/uL (4.0-11.0) Red Blood Count 2.53 x10^6/uL (3.50-5.40) Hemoglobin 8.1 g/dL (12.0-15.5) Hematocrit 23.3 % (36.0-47.0) Mean Corpuscular Volume 92 fL (79-100) Mean Corpuscular Hemoglobin 32 pg (25-35) Mean Corpuscular Hemoglobin Concent 35 g/dL (31-37) Red Cell Distribution Width 15.2 % (11.5-14.5) Platelet Count 140 x10^3/uL (140-400) Sodium Level 139 mmol/L (136-145) Chloride Level 109 mmol/L (98-107) Carbon Dioxide Level 22 mmol/L (21-32) Anion Gap 8 (6-14) Blood Urea Nitrogen 64 mg/dL (7-20) Creatinine 2.5 mg/dL (0.6-1.0) Estimated GFR (Cockcroft-Gault) 19.7 Glucose Level 157 mg/dL (70-99) Calcium Level 8.0 mg/dL (8.5-10.1) Test 12/18/19 11:37 Glucose (Fingerstick) 194 mg/dL (70-99) Laboratory Tests Test 12/17/19 17:09 12/17/19 19:40 12/17/19 20:56 12/18/19 03:42 Glucose (Fingerstick) 257 mg/dL (70-99) 191 mg/dL (70-99) Potassium Level 5.2 mmol/L (3.5-5.1) 5.5 mmol/L (3.5-5.1) White Blood Count 4.3 x10^3/uL (4.0-11.0) Red Blood Count 2.53 x10^6/uL (3.50-5.40) Hemoglobin 8.1 g/dL (12.0-15.5) Hematocrit 23.3 % (36.0-47.0) Mean Corpuscular Volume 92 fL (79-100) Mean Corpuscular Hemoglobin 32 pg (25-35) Mean Corpuscular Hemoglobin Concent 35 g/dL (31-37) Red Cell Distribution Width 15.2 % (11.5-14.5) Platelet Count 140 x10^3/uL (140-400) Sodium Level 139 mmol/L (136-145) Chloride Level 109 mmol/L (98-107) Carbon Dioxide Level 22 mmol/L (21-32) Anion Gap 8 (6-14) Blood Urea Nitrogen 64 mg/dL (7-20) Creatinine 2.5 mg/dL (0.6-1.0) Estimated GFR (Cockcroft-Gault) 19.7 Glucose Level 157 mg/dL (70-99) Calcium Level 8.0 mg/dL (8.5-10.1) Test 12/18/19 07:18 12/18/19 11:37 Glucose (Fingerstick) 145 mg/dL (70-99) 194 mg/dL (70-99) Medications Current Medications Morphine Sulfate (Morphine Sulfate) 5 mg 1X ONCE IV Last administered on 12/16/19at 03:03; Start 12/16/19 at 02:30; Stop 12/16/19 at 02:32; Status DC Furosemide (Lasix) 40 mg 1X ONCE PO Last administered on 12/16/19at 03:01; Start 12/16/19 at 02:30; Stop 12/16/19 at 02:32; Status DC Nitroglycerin (Nitrostat) 0.4 mg STK-MED ONCE SL ; Start 12/16/19 at 07:57; Stop 12/16/19 at 07:57; Status DC Nitroglycerin (Nitrostat) 0.4 mg PRN Q5MIN PRN SL CHEST PAIN Last administered on 8/24/20at 08:33; Start 12/16/19 at 08:15; Stop 12/16/19 at 08:41; Status DC Morphine Sulfate (Morphine Sulfate) 2 mg PRN Q2HR PRN IV PAIN Last administered on 12/16/19 08:25; Start 12/16/19 at 08:15 Aspirin (Aspirin Chewable) 324 mg 1X ONCE PO Last administered on 12/16/19 08:18; Start 12/16/19 at 08:15; Stop 12/16/19 at 08:16; Status DC Aspirin (Ecotrin) 81 mg DAILYWBKFT PO Last administered on 12/18/19 08:43; Start 12/17/19 at 08:00 Ferrous Sulfate (Feosol) 325 mg DAILY08 PO Last administered on 12/18/19 08:43; Start 12/16/19 at 09:00; Stop 12/18/19 at 09:17; Status DC Folic Acid (Folic Acid) 1 mg DAILY PO Last administered on 12/18/19 08:44; Start 12/16/19 at 09:00 Gabapentin (Neurontin) 300 mg TID PO Last administered on 12/18/19 15:46; Start 12/16/19 at 09:00 Pantoprazole Sodium (Protonix) 40 mg DAILYAC PO Last administered on 12/18/19 08:44; Start 12/16/19 at 09:00 Potassium Chloride (Klor-Con) 10 meq BIDWMEALS PO Last administered on 12/17/19 07:58; Start 12/16/19 at 09:00; Stop 12/17/19 at 17:12; Status DC Torsemide (Demadex) 20 mg BID92 PO Last administered on 12/18/19at 15:47; Start 12/16/19 at 09:00 Tramadol HCl (Ultram) 50 mg PRN Q12HR PRN PO Chest wall pain; Start 12/16/19 at 08:15 Atorvastatin Calcium (Lipitor) 80 mg QHS PO Last administered on 12/17/19at 20:30; Start 12/16/19 at 21:00 Carvedilol (Coreg) 12.5 mg BIDWMEALS PO Last administered on 12/18/19 08:44; Start 12/16/19 at 09:00 Ergocalciferol (Vitamin D2) 50,000 unit QSU@0900 PO ; Start 12/22/19 at 09:00 Levothyroxine Sodium (Synthroid) 200 mcg DAILY06 PO Last administered on 12/18/19at 06:05; Start 12/16/19 at 09:00 Metolazone (Zaroxolyn) 5 mg DAILY PO Last administered on 12/17/19at 07:57; Start 12/16/19 at 09:00; Stop 12/17/19 at 17:12; Status DC Sacubitril/ Valsartan (Entresto 49 Mg-51 Mg) 2 tab BID PO Last administered on 12/17/19at 07:57; Start 12/16/19 at 09:00; Stop 12/17/19 at 17:12; Status DC Spironolactone (Aldactone) 50 mg DAILY PO Last administered on 12/17/19at 08:03; Start 12/16/19 at 09:00; Stop 12/17/19 at 13:30; Status DC Nitroglycerin (Nitrostat) 0.4 mg PRN Q5MIN PRN SL CHEST PAIN; Start 12/16/19 at 08:30 Heparin Sodium (Porcine) (Heparin Sodium) 5,000 unit Q8HRS SQ Last administered on 12/18/19at 15:59; Start 12/16/19 at 14:00 Insulin Human Lispro (HumaLOG) 0-5 UNITS TIDWMEALS SQ Last administered on 12/18/19at 12:23; Start 12/16/19 at 17:00 Dextrose (Dextrose 50%-Water Syringe) 12.5 gm PRN Q15MIN PRN IV SEE COMMENTS; Start 12/16/19 at 16:30 Iron Sucrose 500 mg/Sodium Chloride 275 ml @ 78.571 mls/ hr 1X ONCE IV Last administered on 12/17/19at 16:26; Start 12/17/19 at 14:30; Stop 12/17/19 at 17:59; Status DC Furosemide (Lasix) 20 mg 1X ONCE IVP Last administered on 12/17/19at 17:24; Start 12/17/19 at 17:15; Stop 12/17/19 at 17:18; Status DC Hydralazine HCl (Apresoline Inj) 10 mg PRN Q4HRS PRN IVP ELEVATED BP, SEE COMMENTS; Start 12/17/19 at 17:15 Hydralazine HCl (Apresoline Inj) 10 mg 1X ONCE IVP Last administered on 12/18/19at 08:45; Start 12/18/19 at 08:00; Stop 12/18/19 at 08:01; Status DC Isosorbide Mononitrate (Imdur) 30 mg 1X ONCE PO Last administered on 12/18/19at 08:43; Start 12/18/19 at 08:00; Stop 12/18/19 at 08:01; Status DC Cyanocobalamin (Vitamin B-12) 1,000 mcg DAILY IM Last administered on 12/18/19at 10:05; Start 12/18/19 at 10:00 Ferrous Sulfate (Feosol) 325 mg BIDWMEALS PO ; Start 12/18/19 at 09:30 Polyethylene Glycol (miraLAX PACKET) 17 gm PRN DAILY PRN PO CONSTIPATION; Start 12/18/19 at 09:30 Hydralazine HCl (Apresoline) 50 mg TID PO Last administered on 12/18/19at 15:47; Start 12/18/19 at 14:00 Isosorbide Mononitrate (Imdur) 60 mg DAILY PO ; Start 12/18/19 at 14:00 Active Scripts Active Tramadol Hcl 50 Mg Tablet 50 Mg PO PRN Q12HR PRN 6 Days Humalog (Insulin Lispro) 100 Unit/1 Ml Insuln.pen 0 Units SQ TIDACHC 30 Days Lantus Solostar (Insulin Glargine,Hum.rec.anlog) 100 Unit/1 Ml Insuln.pen 12 Unit SQ QHS 30 Days Proair Hfa (Albuterol Sulfate) 8.5 Gm Hfa.aer.ad 2.5 Mg NEB PRN Q6HRS PRN 30 Days Duoneb 0.5-3(2.5) Mg/3 Ml (Albuterol/Ipratropium) 3 Ml Ampul.neb 3 Ml NEB RTQID 30 Days Aspirin Ec (Aspirin) 81 Mg Tablet.dr 81 Mg PO DAILYWBKFT Synthroid (Levothyroxine Sodium) 200 Mcg Tablet 1 Tab PO DAILY Reported Aldactone (Spironolactone) 50 Mg Tablet 1 Tab PO DAILY Voltaren (Diclofenac Sodium) 100 Gm Gel..gram. 1 Gm TP PRN Q4HRS PRN 30 Days apply to affected area(s) Vitamin D2 (Ergocalciferol (Vitamin D2)) 2,000 Unit Tablet 50,000 Unit PO QSU 30 Days Pantoprazole Sodium (Pantoprazole Sodium) 40 Mg Tablet.dr 40 Mg PO DAILYAC Demadex (Torsemide) 20 Mg Tablet 20 Mg PO BID NITROGLYCERIN SubLingual (Nitroglycerin) 0.4 Mg Tab.subl 0.4 Mg SL PRN Q5MIN PRN Ferrous Sulfate 325 Mg Tablet 1 Tab PO DAILY Folic Acid 1 Mg Tablet 1 Tab PO DAILY Colestid (Colestipol Hcl) 1 Gm Tablet 2 Gm PO BID Metolazone 5 Mg Tablet 5 Mg PO DAILY Coreg (Carvedilol) 25 Mg Tablet 12.5 Mg PO BIDWMEALS Entresto 97 mg-103 mg Tablet (Sacubitril/Valsartan) 1 Each Tablet 1 Each PO BID Atorvastatin Calcium 80 Mg Tablet 1 Tab PO QHS Gabapentin (Gabapentin) 300 Mg Capsule 300 Mg PO TID Potassium Chloride 10 Meq Tab.er.prt 1 Tab PO BID Vitals/I & O Vital Sign - Last 24 Hours 12/17/19 12/17/19 12/17/19 12/17/19 17:20 17:24 19:31 19:33 Temp 98.2 97.7 98.2 97.7 Pulse 68 67 68 Resp 16 18 B/P (MAP) 148/72 156/70 155/75 (101) Pulse Ox 94 O2 Delivery Room Air Room Air 12/17/19 12/18/19 12/18/19 12/18/19 22:52 03:06 07:00 08:00 Temp 97.7 98.2 97.8 97.7 98.2 97.8 Pulse 71 72 72 Resp 18 18 18 B/P (MAP) 187/81 (116) 172/73 (106) 173/74 (107) Pulse Ox 91 93 91 O2 Delivery Room Air Room Air Room Air Room Air 12/18/19 12/18/19 12/18/19 12/18/19 08:43 08:44 08:45 11:07 Temp 98.2 98.2 Pulse 72 72 72 69 Resp 18 B/P (MAP) 173/74 173/74 173/74 142/64 (90) Pulse Ox 90 O2 Delivery Room Air 12/18/19 12/18/19 15:02 15:47 Temp 98.1 98.1 Pulse 68 68 Resp 16 B/P (MAP) 119/56 (77) 119/56 Pulse Ox 95 O2 Delivery Room Air Intake and Output 12/17/19 12/17/19 12/18/19 15:00 23:00 07:00 Intake Total 118 ml 585 ml 0 ml Output Total 1475 ml 450 ml 600 ml Balance -1357 ml 135 ml -600 ml Justicifation of Admission Dx: Justifications for Admission: Justification of Admission Dx: Yes RUTH MERCADO MD Dec 18, 2019 16:12
--- NOTE | 2019-12-18 16:21 | NUR ---
SS following up with discharge planning. Referral received for home healthcare. SS met with pt and discussed home healthcare and home healthcare options. Pt undecided at this time and requested that SS return tomorrow. SS will continue to follow for discharge planning.
[2019-12-18 19:37] VITALS: BP 140/65
[2019-12-18] MEDS: ATORVASTATIN CALCIUM 40 MG TABLET. PO SCH (21:15)
[2019-12-18 23:06] VITALS: BP 174/74
[2019-12-19 02:20] VITALS: BP 142/67
[2019-12-19 06:07] LABS: BASO % 1 % (0-3); EOS # 0.2 x10^3/uL (0.0-0.7); EOS % 7 % (0-3); HEMOGLOBIN 7.6 g/dL (12.0-15.5); LYMPH # 0.6 x10^3/uL (1.0-4.8); LYMPH % 16 % (24-48); MEAN CORPUSCULAR HEMOGLOBIN 32 pg (25-35); MEAN CORPUSCULAR HGB CONC 35 g/dL (31-37); MEAN CORPUSCULAR VOLUME 92 fL (79-100); MONO # 0.3 x10^3/uL (0.0-1.1); MONO % 10 % (0-9); NEUT # 2.4 x10^3/uL (1.8-7.7); NEUT % 67 % (31-73); PLATELET COUNT 138 x10^3/uL (140-400); RED BLOOD COUNT 2.39 x10^6/uL (3.50-5.40); WHITE BLOOD COUNT 3.6 x10^3/uL (4.0-11.0)
[2019-12-19] MEDS: LEVOTHYROXINE 100 MCG TABLET PO SCH (06:08)
[2019-12-19 06:48] LABS: CALCIUM 7.6 mg/dL (8.5-10.1); CREATININE 2.3 mg/dL (0.6-1.0); GFR 21.7; POTASSIUM 5.1 mmol/L (3.5-5.1)
[2019-12-19 07:00] VITALS: BP 141/60
[2019-12-19 09:53] LABS: FECAL OB PT NEGATIVE (NEG)
[2019-12-19] MEDS: ISOSORBIDE MONONITRATE ER 30 MG TAB.ER.24H PO SCH (09:55)
[2019-12-19] MEDS: PANTOPRAZOLE 40 MG TABLET.DR. PO SCH (09:56)
[2019-12-19] MEDS: TORSEMIDE 20 MG TABLET. PO SCH ×2 (09:56→13:54)
[2019-12-19] MEDS: FERROUS SULFATE 325 MG TABLET. PO SCH (09:56)
[2019-12-19] MEDS: FOLIC ACID 1 MG TABLET. PO SCH (09:56)
[2019-12-19] MEDS: ASPIRIN ENTERIC COATED 81 MG TABLET.DR. PO SCH (09:56)
[2019-12-19] MEDS: CYANOCOBALAMIN (VITAMIN B-12) 1,000 MCG/ML VIAL IM SCH (09:57)
[2019-12-19] MEDS: CARVEDILOL 12.5 MG TABLET. PO SCH (09:57)
[2019-12-19] MEDS: GABAPENTIN 300 MG CAPSULE. PO SCH ×2 (09:57→14:29)
[2019-12-19] MEDS: INSULIN LISPRO 300 UNITS/3 ML VIAL. SQ SCH ×2 (10:06→13:20)
--- NOTE | 2019-12-19 10:52 | PDOC ---
Date of Service: DATE: 12/19/19 TIME: 10:50 Subjective: Subjective: No complaints. Objective: Vital Signs: Vital Signs Date Time Temp Pulse Resp B/P (MAP) Pulse Ox O2 Delivery O2 Flow Rate FiO2 12/19/19 09:57 141/60 12/19/19 07:00 98.2 80 16 93 Room Air 98.2 Labs: Laboratory Tests Test 12/18/19 11:37 12/18/19 16:39 12/18/19 20:40 12/19/19 05:28 Glucose (Fingerstick) 194 mg/dL 323 mg/dL 201 mg/dL White Blood Count 3.6 x10^3/uL Red Blood Count 2.39 x10^6/uL Hemoglobin 7.6 g/dL Hematocrit 22.0 % Mean Corpuscular Volume 92 fL Mean Corpuscular Hemoglobin 32 pg Mean Corpuscular Hemoglobin Concent 35 g/dL Red Cell Distribution Width 15.0 % Platelet Count 138 x10^3/uL Neutrophils (%) (Auto) 67 % Lymphocytes (%) (Auto) 16 % Monocytes (%) (Auto) 10 % Eosinophils (%) (Auto) 7 % Basophils (%) (Auto) 1 % Neutrophils # (Auto) 2.4 x10^3/uL Lymphocytes # (Auto) 0.6 x10^3/uL Monocytes # (Auto) 0.3 x10^3/uL Eosinophils # (Auto) 0.2 x10^3/uL Basophils # (Auto) 0.0 x10^3/uL Sodium Level 140 mmol/L Potassium Level 5.1 mmol/L Chloride Level 109 mmol/L Carbon Dioxide Level 22 mmol/L Anion Gap 9 Blood Urea Nitrogen 71 mg/dL Creatinine 2.3 mg/dL Estimated GFR (Cockcroft-Gault) 21.7 Glucose Level 227 mg/dL Calcium Level 7.6 mg/dL Test 12/19/19 07:41 12/19/19 09:40 Glucose (Fingerstick) 193 mg/dL Stool Occult Blood Negative PE: GEN: NAD LUNGS: CTAB HEART: RRR ABD: NABS, S/ND/NT NEURO/PSYCH: A & O 3 A/P: CHF, CKD, CAD ?UTI Chronic anemia - ACD/ACD/B12 deficiency - Hemoccult negative -- DC per primary. Continue PPI, iron, B12. Outpt scopes. Justicifation of Admission Dx: Justifications for Admission: Justification of Admission Dx: Yes LUPE CRUZ Dec 19, 2019 10:52
[2019-12-19 11:00] VITALS: BP 120/59
--- NOTE | 2019-12-19 11:39 | NUR ---
SS following up with discharge planning. SS reviewed pt chart and discussed with pt RN. Pt is currently on room air. Pt hemoglobin 7.6. Pt received blood yesterday, 12/18/2019. Pt's stool occult blood negative. PT/OT ordered. Pt requesting to return to home today. Pt declining home healthcare. SS will continue to follow for discharge planning.
--- NOTE | 2019-12-19 11:40 | PDOC ---
Renal-Progress Notes Subjective Notes Notes NO NEW COMPLAINTS History of Present Illness Hx of present illness STABLE Vitals Vitals Vital Signs Date Time Temp Pulse Resp B/P (MAP) Pulse Ox O2 Delivery O2 Flow Rate FiO2 12/19/19 09:57 141/60 12/19/19 07:00 98.2 80 16 93 Room Air 98.2 Weight Weight [ ] I.O. Intake and Output Intake and Output 12/19/19 07:00 Intake Total 1560 ml Output Total 1900 ml Balance -340 ml Intake Oral 1560 ml Output Urine Total 1900 ml # Voids 1 Labs Labs Laboratory Tests Test 12/18/19 16:39 12/18/19 20:40 12/19/19 05:28 12/19/19 07:41 Glucose (Fingerstick) 323 mg/dL (70-99) 201 mg/dL (70-99) 193 mg/dL (70-99) White Blood Count 3.6 x10^3/uL (4.0-11.0) Red Blood Count 2.39 x10^6/uL (3.50-5.40) Hemoglobin 7.6 g/dL (12.0-15.5) Hematocrit 22.0 % (36.0-47.0) Mean Corpuscular Volume 92 fL (79-100) Mean Corpuscular Hemoglobin 32 pg (25-35) Mean Corpuscular Hemoglobin Concent 35 g/dL (31-37) Red Cell Distribution Width 15.0 % (11.5-14.5) Platelet Count 138 x10^3/uL (140-400) Neutrophils (%) (Auto) 67 % (31-73) Lymphocytes (%) (Auto) 16 % (24-48) Monocytes (%) (Auto) 10 % (0-9) Eosinophils (%) (Auto) 7 % (0-3) Basophils (%) (Auto) 1 % (0-3) Neutrophils # (Auto) 2.4 x10^3/uL (1.8-7.7) Lymphocytes # (Auto) 0.6 x10^3/uL (1.0-4.8) Monocytes # (Auto) 0.3 x10^3/uL (0.0-1.1) Eosinophils # (Auto) 0.2 x10^3/uL (0.0-0.7) Basophils # (Auto) 0.0 x10^3/uL (0.0-0.2) Sodium Level 140 mmol/L (136-145) Potassium Level 5.1 mmol/L (3.5-5.1) Chloride Level 109 mmol/L (98-107) Carbon Dioxide Level 22 mmol/L (21-32) Anion Gap 9 (6-14) Blood Urea Nitrogen 71 mg/dL (7-20) Creatinine 2.3 mg/dL (0.6-1.0) Estimated GFR (Cockcroft-Gault) 21.7 Glucose Level 227 mg/dL (70-99) Calcium Level 7.6 mg/dL (8.5-10.1) Test 12/19/19 09:40 Stool Occult Blood Negative (NEG) Review of Systems Constitutional: yes: alert Ears/Nose/Throat: Yes: no symptom reported Eyes: Yes: no symptom reported Pulmonary: Yes no symptom reported Gastrointestional: Yes: no symptom reported Genitourinary: Yes: no symptom reported Musculoskeletal: Yes: no symptom reported Skin: Yes no symptom reported Psychiatric/Neurological: Yes: no symptom reported Endocrine: Yes: no symptom reported Physical Exam General Appearance: no apparent distress Skin: warm Respiratory: bilateral CTA Heart: S1S2 Abdomen: soft, bowel sounds present Genitourinary: bladder flat Extremities: pulses present Neurology: alert, oriented, follow commands Assessment Assessment MP HYPERKALEMIA-RESOLVED CKD STAGE 4-CR OF 1.8-2.1 BASELINE IN THE PAST MILD BRAD WITH CR OF 2.5-THIS IS PROB HER NEW BASELIN ANEMIA OF CKD PANCYTOPENIA IRON DEFICIENCY ACUTE ON CHRONIC SYSTOLIC CHF HX OF CAD AND PTCA/STENT S/P AICD HX ISCHEMIC CM HX-EF OF 40-45% LAST YEAR DM II HTN PLAN RENAL DIET RESTRICTIONS CARDIOLOGY EVAL AND TX GI EVALUATION S/P IV VENOFER VERY POOR SENSE OF HER PMH HAS CKD DUE TO DM II AND HTN RELATED END ORGAN DAMAGE NEEDS TO SEE RENAL IN FOLLOW UP-SET UP MAY ALSO NEED TO HAVE YONATHAN STARTED CONT WITH AFTERLOAD REDUCTION STOPPED ALDACTONE CONT DIURETICS CONT ENTRESTO D/W PT IMPORTANCE OF DM II CONTROL AND FL RESTRICTION CONSIDER HEME/ONC EVALUATION WILL FOLLOW MARY SANTIAGO MD Dec 19, 2019 11:40
--- NOTE | 2019-12-19 13:43 | PDOC ---
IZZY MORENO GRAVEL WEIGHER 12/19/19 1343: CARDIO Progress Notes Date and Time Date of Service 12/19/2019 Time of Evaluation 1240 Subjective Subjective: No Chest Pain, No shortness of breath, No Palpitations Vitals Vitals Vital Signs Date Time Temp Pulse Resp B/P (MAP) Pulse Ox O2 Delivery O2 Flow Rate FiO2 12/19/19 11:00 98.2 73 18 120/59 (79) 94 Room Air 98.2 Weight Weight [ ] Input and Output Intake and Output Intake and Output 12/19/19 07:00 Intake Total 1560 ml Output Total 1900 ml Balance -340 ml Intake Oral 1560 ml Output Urine Total 1900 ml # Voids 1 Laboratory Labs Laboratory Tests Test 12/18/19 16:39 12/18/19 20:40 12/19/19 05:28 12/19/19 07:41 Glucose (Fingerstick) 323 mg/dL (70-99) 201 mg/dL (70-99) 193 mg/dL (70-99) White Blood Count 3.6 x10^3/uL (4.0-11.0) Red Blood Count 2.39 x10^6/uL (3.50-5.40) Hemoglobin 7.6 g/dL (12.0-15.5) Hematocrit 22.0 % (36.0-47.0) Mean Corpuscular Volume 92 fL (79-100) Mean Corpuscular Hemoglobin 32 pg (25-35) Mean Corpuscular Hemoglobin Concent 35 g/dL (31-37) Red Cell Distribution Width 15.0 % (11.5-14.5) Platelet Count 138 x10^3/uL (140-400) Neutrophils (%) (Auto) 67 % (31-73) Lymphocytes (%) (Auto) 16 % (24-48) Monocytes (%) (Auto) 10 % (0-9) Eosinophils (%) (Auto) 7 % (0-3) Basophils (%) (Auto) 1 % (0-3) Neutrophils # (Auto) 2.4 x10^3/uL (1.8-7.7) Lymphocytes # (Auto) 0.6 x10^3/uL (1.0-4.8) Monocytes # (Auto) 0.3 x10^3/uL (0.0-1.1) Eosinophils # (Auto) 0.2 x10^3/uL (0.0-0.7) Basophils # (Auto) 0.0 x10^3/uL (0.0-0.2) Sodium Level 140 mmol/L (136-145) Potassium Level 5.1 mmol/L (3.5-5.1) Chloride Level 109 mmol/L (98-107) Carbon Dioxide Level 22 mmol/L (21-32) Anion Gap 9 (6-14) Blood Urea Nitrogen 71 mg/dL (7-20) Creatinine 2.3 mg/dL (0.6-1.0) Estimated GFR (Cockcroft-Gault) 21.7 Glucose Level 227 mg/dL (70-99) Calcium Level 7.6 mg/dL (8.5-10.1) Test 12/19/19 09:40 12/19/19 11:41 Stool Occult Blood Negative (NEG) Glucose (Fingerstick) 198 mg/dL (70-99) Review of Systems Constitutional: yes: alert Ears/Nose/Throat: Yes: no symptom reported Eyes: Yes: no symptom reported Pulmonary: Yes no symptom reported Gastrointestional: Yes: no symptom reported Genitourinary: Yes: no symptom reported Musculoskeletal: Yes: no symptom reported Skin: Yes no symptom reported Psychiatric/Neurological: Yes: no symptom reported Endocrine: Yes: no symptom reported Physical Exam HEENT: Neck Supple W Full Motion Chest: Symmetric LUNGS: Other (faint basilar crackles) Heart: RRR (SR) Abdomen: Soft N/T Extremities: Other (1+ bilateral LE pitting edema) Neurology: alert, oriented, follow commands Assessment Assessment 1. Acute on chronic combined diastolic/systolic CHF: compensated 2. Atypical CP: possibly GI 3. Accelerated hypertension; now controlled 4. Ischemic cardiomyopathy; s/p AICD ([employer]). LVEF better at 45-50% 5. CAD s/p previous PCI/stents. 6. BRAD on CKD with persistent mild hyperkalemia nephrology following 7. Anemia of chronic disease Hgb at 6.9, post transfusion, future endoscopy per GI 8. Hyperlipidemia; statin 9. Diabetes, II; as per PCP 10. Hx of PE Recommendations 1. Stop entresto,aldactone for now due to significant renal insufficiency and hyperkalemia. No K supplement. Start on hydralazine and Imdur. Continue coreg. 2. Continue with torsemide. Reinforce low sodium diet. 3. Secondary prevention measures. Statin and restart ASA if OK with GI. 4. HF education. Daily wt 2L FR, HBPM, low sodium diet. . Dietitian consult 5. Follow up in office. on January 21 at 2PM. Arrange for homehealth. August DC per cardiac standpoint Justicifation of Admission Dx: Justifications for Admission: Justification of Admission Dx: Yes ZEFERINO GOMEZ MD 12/19/[id number]: CARDIO Progress Notes Assessment Assessment Patient seen and examined. Agree with [employer] SALES REPRESENTATIVE's assessment and plan. Ac on chr syst HF better compensated Agree with holding Entresto and Aldactone secondary to renal insufficiency and hyperkalemia. Continue torsemide. 2D echo showed EF 45-50%. CP atypical. CAD stable BP better controlled Nephrology following for renal insuff Follow up as scheduled IZZY MORENO APRN Dec 19, 2019 13:43 ZEFERINO GOMEZ MD Dec 19, 2019 21:17
--- NOTE | 2019-12-19 14:06 | PDOC ---
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 History of dyslipidemia Diabetes mellitus type 2 insulin requiring History of PE Plan Transfuse 1 unit of packed red blood cells Anemia work-up Fecal occult blood test GI consultation Further recommendations will be based on the clinical course Consult cardiology and follow recommendations from the [facility] fusion consultant Recommendations 1. TTE today. Cr at 2.5 and K at 5.6, aldactone and entresto was given, will possibly hold for now. recheck K 2. DC zaroxylyn. Continue torsemide.Addl diuretic after transfusion 3. Secondary prevention measures. Will hold ASA if any obvious bleed. GI consult pending DVT prophylaxis heparin will be placed on hold given anemia History of Present Illness History of Present Illness Patient evaluated bedside. Discussed her blood results, and need for outpatient endoscopy evaluation. Explained to patient that I would feel more comfortable if she will be discharged home with home health, so her hemoglobin can be monitored on outpatient status. Patient agrees. Vitals Vitals Vital Signs Date Time Temp Pulse Resp B/P (MAP) Pulse Ox O2 Delivery O2 Flow Rate FiO2 12/19/19 13:54 125/58 12/19/19 11:00 98.2 73 18 94 Room Air 98.2 Physical Exam General: Alert, Oriented X3, Cooperative, No acute distress, moderate distress Heart: Regular rate, Normal S1, Normal S2 Lungs: Clear Abdomen: Normal bowel sounds, No tenderness Extremities: No clubbing Skin: No breakdown, No significant lesion Labs LABS Laboratory Tests Test 12/18/19 16:39 12/18/19 20:40 12/19/19 05:28 12/19/19 07:41 Glucose (Fingerstick) 323 mg/dL (70-99) 201 mg/dL (70-99) 193 mg/dL (70-99) White Blood Count 3.6 x10^3/uL (4.0-11.0) Red Blood Count 2.39 x10^6/uL (3.50-5.40) Hemoglobin 7.6 g/dL (12.0-15.5) Hematocrit 22.0 % (36.0-47.0) Mean Corpuscular Volume 92 fL (79-100) Mean Corpuscular Hemoglobin 32 pg (25-35) Mean Corpuscular Hemoglobin Concent 35 g/dL (31-37) Red Cell Distribution Width 15.0 % (11.5-14.5) Platelet Count 138 x10^3/uL (140-400) Neutrophils (%) (Auto) 67 % (31-73) Lymphocytes (%) (Auto) 16 % (24-48) Monocytes (%) (Auto) 10 % (0-9) Eosinophils (%) (Auto) 7 % (0-3) Basophils (%) (Auto) 1 % (0-3) Neutrophils # (Auto) 2.4 x10^3/uL (1.8-7.7) Lymphocytes # (Auto) 0.6 x10^3/uL (1.0-4.8) Monocytes # (Auto) 0.3 x10^3/uL (0.0-1.1) Eosinophils # (Auto) 0.2 x10^3/uL (0.0-0.7) Basophils # (Auto) 0.0 x10^3/uL (0.0-0.2) Sodium Level 140 mmol/L (136-145) Potassium Level 5.1 mmol/L (3.5-5.1) Chloride Level 109 mmol/L (98-107) Carbon Dioxide Level 22 mmol/L (21-32) Anion Gap 9 (6-14) Blood Urea Nitrogen 71 mg/dL (7-20) Creatinine 2.3 mg/dL (0.6-1.0) Estimated GFR (Cockcroft-Gault) 21.7 Glucose Level 227 mg/dL (70-99) Calcium Level 7.6 mg/dL (8.5-10.1) Test 12/19/19 09:40 12/19/19 11:41 Stool Occult Blood Negative (NEG) Glucose (Fingerstick) 198 mg/dL (70-99) Review of Systems Review of Systems Denies abdominal pain, denies nausea, denies vomiting, denies weakness. Assessment and Plan Assessmemt and Plan Acute exacerbation of chronic systolic dysfunction, normocytic anemia with hemoglobin below 7 Plan: Discussed with patient plan to discharge her with home health to monitor her hemoglobin levels at home. Discussed with patient her medication changes including PPI, iron, B12. I again reiterated the need for her to have an outpatient GI work-up to ascertain the cause of her anemia. Greater than 30 minutes was spent in the management of this patient's discharge. Comment Review of Relevant I have reviewed the following items leandra (where applicable) has been applied. Labs Laboratory Tests Test 12/17/19 17:09 12/17/19 19:40 12/17/19 20:56 12/18/19 03:42 Glucose (Fingerstick) 257 mg/dL (70-99) 191 mg/dL (70-99) Potassium Level 5.2 mmol/L (3.5-5.1) 5.5 mmol/L (3.5-5.1) White Blood Count 4.3 x10^3/uL (4.0-11.0) Red Blood Count 2.53 x10^6/uL (3.50-5.40) Hemoglobin 8.1 g/dL (12.0-15.5) Hematocrit 23.3 % (36.0-47.0) Mean Corpuscular Volume 92 fL (79-100) Mean Corpuscular Hemoglobin 32 pg (25-35) Mean Corpuscular Hemoglobin Concent 35 g/dL (31-37) Red Cell Distribution Width 15.2 % (11.5-14.5) Platelet Count 140 x10^3/uL (140-400) Sodium Level 139 mmol/L (136-145) Chloride Level 109 mmol/L (98-107) Carbon Dioxide Level 22 mmol/L (21-32) Anion Gap 8 (6-14) Blood Urea Nitrogen 64 mg/dL (7-20) Creatinine 2.5 mg/dL (0.6-1.0) Estimated GFR (Cockcroft-Gault) 19.7 Glucose Level 157 mg/dL (70-99) Calcium Level 8.0 mg/dL (8.5-10.1) Test 12/18/19 07:18 12/18/19 11:37 12/18/19 16:39 12/18/19 20:40 Glucose (Fingerstick) 145 mg/dL (70-99) 194 mg/dL (70-99) 323 mg/dL (70-99) 201 mg/dL (70-99) Test 12/19/19 05:28 12/19/19 07:41 12/19/19 09:40 12/19/19 11:41 White Blood Count 3.6 x10^3/uL (4.0-11.0) Red Blood Count 2.39 x10^6/uL (3.50-5.40) Hemoglobin 7.6 g/dL (12.0-15.5) Hematocrit 22.0 % (36.0-47.0) Mean Corpuscular Volume 92 fL (79-100) Mean Corpuscular Hemoglobin 32 pg (25-35) Mean Corpuscular Hemoglobin Concent 35 g/dL (31-37) Red Cell Distribution Width 15.0 % (11.5-14.5) Platelet Count 138 x10^3/uL (140-400) Neutrophils (%) (Auto) 67 % (31-73) Lymphocytes (%) (Auto) 16 % (24-48) Monocytes (%) (Auto) 10 % (0-9) Eosinophils (%) (Auto) 7 % (0-3) Basophils (%) (Auto) 1 % (0-3) Neutrophils # (Auto) 2.4 x10^3/uL (1.8-7.7) Lymphocytes # (Auto) 0.6 x10^3/uL (1.0-4.8) Monocytes # (Auto) 0.3 x10^3/uL (0.0-1.1) Eosinophils # (Auto) 0.2 x10^3/uL (0.0-0.7) Basophils # (Auto) 0.0 x10^3/uL (0.0-0.2) Sodium Level 140 mmol/L (136-145) Potassium Level 5.1 mmol/L (3.5-5.1) Chloride Level 109 mmol/L (98-107) Carbon Dioxide Level 22 mmol/L (21-32) Anion Gap 9 (6-14) Blood Urea Nitrogen 71 mg/dL (7-20) Creatinine 2.3 mg/dL (0.6-1.0) Estimated GFR (Cockcroft-Gault) 21.7 Glucose Level 227 mg/dL (70-99) Calcium Level 7.6 mg/dL (8.5-10.1) Glucose (Fingerstick) 193 mg/dL (70-99) 198 mg/dL (70-99) Stool Occult Blood Negative (NEG) Laboratory Tests Test 12/18/19 16:39 12/18/19 20:40 12/19/19 05:28 12/19/19 07:41 Glucose (Fingerstick) 323 mg/dL (70-99) 201 mg/dL (70-99) 193 mg/dL (70-99) White Blood Count 3.6 x10^3/uL (4.0-11.0) Red Blood Count 2.39 x10^6/uL (3.50-5.40) Hemoglobin 7.6 g/dL (12.0-15.5) Hematocrit 22.0 % (36.0-47.0) Mean Corpuscular Volume 92 fL (79-100) Mean Corpuscular Hemoglobin 32 pg (25-35) Mean Corpuscular Hemoglobin Concent 35 g/dL (31-37) Red Cell Distribution Width 15.0 % (11.5-14.5) Platelet Count 138 x10^3/uL (140-400) Neutrophils (%) (Auto) 67 % (31-73) Lymphocytes (%) (Auto) 16 % (24-48) Monocytes (%) (Auto) 10 % (0-9) Eosinophils (%) (Auto) 7 % (0-3) Basophils (%) (Auto) 1 % (0-3) Neutrophils # (Auto) 2.4 x10^3/uL (1.8-7.7) Lymphocytes # (Auto) 0.6 x10^3/uL (1.0-4.8) Monocytes # (Auto) 0.3 x10^3/uL (0.0-1.1) Eosinophils # (Auto) 0.2 x10^3/uL (0.0-0.7) Basophils # (Auto) 0.0 x10^3/uL (0.0-0.2) Sodium Level 140 mmol/L (136-145) Potassium Level 5.1 mmol/L (3.5-5.1) Chloride Level 109 mmol/L (98-107) Carbon Dioxide Level 22 mmol/L (21-32) Anion Gap 9 (6-14) Blood Urea Nitrogen 71 mg/dL (7-20) Creatinine 2.3 mg/dL (0.6-1.0) Estimated GFR (Cockcroft-Gault) 21.7 Glucose Level 227 mg/dL (70-99) Calcium Level 7.6 mg/dL (8.5-10.1) Test 12/19/19 09:40 12/19/19 11:41 Stool Occult Blood Negative (NEG) Glucose (Fingerstick) 198 mg/dL (70-99) Medications Current Medications Morphine Sulfate (Morphine Sulfate) 5 mg 1X ONCE IV Last administered on 12/16/19at 03:03; Start 12/16/19 at 02:30; Stop 12/16/19 at 02:32; Status DC Furosemide (Lasix) 40 mg 1X ONCE PO Last administered on 12/16/19at 03:01; Start 12/16/19 at 02:30; Stop 12/16/19 at 02:32; Status DC Nitroglycerin (Nitrostat) 0.4 mg STK-MED ONCE SL ; Start 12/16/19 at 07:57; Stop 12/16/19 at 07:57; Status DC Nitroglycerin (Nitrostat) 0.4 mg PRN Q5MIN PRN SL CHEST PAIN Last administered on 12/16/19at 08:33; Start 12/16/19 at 08:15; Stop 12/16/19 at 08:41; Status DC Morphine Sulfate (Morphine Sulfate) 2 mg PRN Q2HR PRN IV PAIN Last administered on 12/16/19at 08:25; Start 12/16/19 at 08:15 Aspirin (Aspirin Chewable) 324 mg 1X ONCE PO Last administered on 12/16/19at 08:18; Start 12/16/19 at 08:15; Stop 12/16/19 at 08:16; Status DC Aspirin (Ecotrin) 81 mg DAILYWBKFT PO Last administered on 12/19/19at 09:56; Start 12/17/19 at 08:00 Ferrous Sulfate (Feosol) 325 mg DAILY08 PO Last administered on 12/18/19at 08:43; Start 12/16/19 at 09:00; Stop 12/18/19 at 09:17; Status DC Folic Acid (Folic Acid) 1 mg DAILY PO Last administered on 12/19/19at 09:56; Start 12/16/19 at 09:00 Gabapentin (Neurontin) 300 mg TID PO Last administered on 12/19/19 09:57; Start 12/16/19 at 09:00 Pantoprazole Sodium (Protonix) 40 mg DAILYAC PO Last administered on 12/19/19 09:56; Start 12/16/19 at 09:00 Potassium Chloride (Klor-Con) 10 meq BIDWMEALS PO Last administered on 12/17/19at 07:58; Start 12/16/19 at 09:00; Stop 12/17/19 at 17:12; Status DC Torsemide (Demadex) 20 mg BID92 PO Last administered on 12/19/19at 13:54; Start 12/16/19 at 09:00 Tramadol HCl (Ultram) 50 mg PRN Q12HR PRN PO Chest wall pain; Start 12/16/19 at 08:15 Atorvastatin Calcium (Lipitor) 80 mg QHS PO Last administered on 12/18/19at 21:15; Start 12/16/19 at 21:00 Carvedilol (Coreg) 12.5 mg BIDWMEALS PO Last administered on 12/19/19 09:57; Start 12/16/19 at 09:00 Ergocalciferol (Vitamin D2) 50,000 unit QSU@0900 PO ; Start 12/22/19 at 09:00 Levothyroxine Sodium (Synthroid) 200 mcg DAILY06 PO Last administered on 0at 06:08; Start 12/16/19 at 09:00 Metolazone (Zaroxolyn) 5 mg DAILY PO Last administered on 12/17/19at 07:57; Start 12/16/19 at 09:00; Stop 12/17/19 at 17:12; Status DC Sacubitril/ Valsartan (Entresto 49 Mg-51 Mg) 2 tab BID PO Last administered on 12/17/19 07:57; Start 12/16/19 at 09:00; Stop 12/17/19 at 17:12; Status DC Spironolactone (Aldactone) 50 mg DAILY PO Last administered on 12/17/19at 08:03; Start 12/16/19 at 09:00; Stop 12/17/19 at 13:30; Status DC Nitroglycerin (Nitrostat) 0.4 mg PRN Q5MIN PRN SL CHEST PAIN; Start 12/16/19 at 08:30 Heparin Sodium (Porcine) (Heparin Sodium) 5,000 unit Q8HRS SQ Last administered on 12/18/19at 15:59; Start 12/16/19 at 14:00; Stop 12/18/19 at 17:57; Status DC Insulin Human Lispro (HumaLOG) 0-5 UNITS TIDWMEALS SQ Last administered on 12/19/19at 13:20; Start 12/16/19 at 17:00 Dextrose (Dextrose 50%-Water Syringe) 12.5 gm PRN Q15MIN PRN IV SEE COMMENTS; Start 12/16/19 at 16:30 Iron Sucrose 500 mg/Sodium Chloride 275 ml @ 78.571 mls/ hr 1X ONCE IV Last administered on 12/17/19at 16:26; Start 12/17/19 at 14:30; Stop 12/17/19 at 17:59; Status DC Furosemide (Lasix) 20 mg 1X ONCE IVP Last administered on 12/17/19at 17:24; Start 12/17/19 at 17:15; Stop 12/17/19 at 17:18; Status DC Hydralazine HCl (Apresoline Inj) 10 mg PRN Q4HRS PRN IVP ELEVATED BP, SEE COMMENTS; Start 12/17/19 at 17:15 Hydralazine HCl (Apresoline Inj) 10 mg 1X ONCE IVP Last administered on 12/18/19at 08:45; Start 12/18/19 at 08:00; Stop 12/18/19 at 08:01; Status DC Isosorbide Mononitrate (Imdur) 30 mg 1X ONCE PO Last administered on 12/18/19at 08:43; Start 12/18/19 at 08:00; Stop 12/18/19 at 08:01; Status DC Cyanocobalamin (Vitamin B-12) 1,000 mcg DAILY IM Last administered on 12/19/19at 09:57; Start 12/18/19 at 10:00 Ferrous Sulfate (Feosol) 325 mg BIDWMEALS PO Last administered on 12/19/19at 09:56; Start 12/18/19 at 09:30 Polyethylene Glycol (miraLAX PACKET) 17 gm PRN DAILY PRN PO CONSTIPATION; Start 12/18/19 at 09:30 Hydralazine HCl (Apresoline) 50 mg TID PO Last administered on 12/19/19at 13:54; Start 12/18/19 at 14:00 Isosorbide Mononitrate (Imdur) 60 mg DAILY PO Last administered on 12/19/19at 09:55; Start 12/18/19 at 14:00 Active Scripts Active Tramadol Hcl 50 Mg Tablet 50 Mg PO PRN Q12HR PRN 6 Days Humalog (Insulin Lispro) 100 Unit/1 Ml Insuln.pen 0 Units SQ TIDACHC 30 Days Lantus Solostar (Insulin Glargine,Hum.rec.anlog) 100 Unit/1 Ml Insuln.pen 12 Unit SQ QHS 30 Days Proair Hfa (Albuterol Sulfate) 8.5 Gm Hfa.aer.ad 2.5 Mg NEB PRN Q6HRS PRN 30 Days Duoneb 0.5-3(2.5) Mg/3 Ml (Albuterol/Ipratropium) 3 Ml Ampul.neb 3 Ml NEB RTQID 30 Days Aspirin Ec (Aspirin) 81 Mg Tablet. 81 Mg PO DAILYWBKFT Synthroid (Levothyroxine Sodium) 200 Mcg Tablet 1 Tab PO DAILY Reported Aldactone (Spironolactone) 50 Mg Tablet 1 Tab PO DAILY Voltaren (Diclofenac Sodium) 100 Gm Gel..gram. 1 Gm TP PRN Q4HRS PRN 30 Days apply to affected area(s) Vitamin D2 (Ergocalciferol (Vitamin D2)) 2,000 Unit Tablet 50,000 Unit PO QSU 30 Days Pantoprazole Sodium (Pantoprazole Sodium) 40 Mg Tablet. 40 Mg PO DAILYAC Demadex (Torsemide) 20 Mg Tablet 20 Mg PO BID NITROGLYCERIN SubLingual (Nitroglycerin) 0.4 Mg Tab.subl 0.4 Mg SL PRN Q5MIN PRN Ferrous Sulfate 325 Mg Tablet 1 Tab PO DAILY Folic Acid 1 Mg Tablet 1 Tab PO DAILY Colestid (Colestipol Hcl) 1 Gm Tablet 2 Gm PO BID Metolazone 5 Mg Tablet 5 Mg PO DAILY Coreg (Carvedilol) 25 Mg Tablet 12.5 Mg PO BIDWMEALS Entresto 97 mg-103 mg Tablet (Sacubitril/Valsartan) 1 Each Tablet 1 Each PO BID Atorvastatin Calcium 80 Mg Tablet 1 Tab PO QHS Gabapentin (Gabapentin) 300 Mg Capsule 300 Mg PO TID Potassium Chloride 10 Meq Tab.er.prt 1 Tab PO BID Vitals/I & O Vital Sign - Last 24 Hours 12/18/19 12/18/19 12/18/19 12/18/19 15:02 15:47 17:17 19:37 Temp 98.1 98.2 98.1 98.2 Pulse 68 68 68 75 Resp 16 16 B/P (MAP) 119/56 (77) 119/56 119/56 140/65 (90) Pulse Ox 95 96 O2 Delivery Room Air Room Air 12/18/19 12/18/19 12/18/19 12/19/19 20:00 21:17 23:06 02:20 Temp 98.0 97.9 98.0 97.9 Pulse 76 66 71 Resp 16 16 B/P (MAP) 162/71 174/74 (107) 142/67 (92) Pulse Ox 95 93 O2 Delivery Room Air Room Air Room Air 12/19/19 12/19/19 12/19/19 12/19/19 07:00 08:00 09:55 09:55 Temp 98.2 98.2 Pulse 80 Resp 16 B/P (MAP) 141/60 (87) 141/60 141/60 Pulse Ox 93 O2 Delivery Room Air Room Air 12/19/19 12/19/19 12/19/19 09:57 11:00 13:54 Temp 98.2 98.2 Pulse 73 Resp 18 B/P (MAP) 141/60 120/59 (79) 125/58 Pulse Ox 94 O2 Delivery Room Air Intake and Output 12/18/19 12/18/19 12/19/19 15:00 23:00 07:00 Intake Total 360 ml 800 ml 400 ml Output Total 500 ml 700 ml 700 ml Balance -140 ml 100 ml -300 ml Justicifation of Admission Dx: Justifications for Admission: Justification of Admission Dx: Yes RUTH MERCADO MD Dec 19, 2019 14:06
[2019-12-19] MEDS ORDERED: CYAN100031 PO (14:44)
[2019-12-19] MEDS ORDERED: FERR325T14 PO (14:44)
[2019-12-19] MEDS ORDERED: ISOS30TA4 PO (14:44)
[2019-12-19] MEDS ORDERED: OMEP20TA8 PO (14:44)
[2019-12-19] MEDS ORDERED: HYDR-2869 PO (14:44)
--- NOTE | 2019-12-19 14:59 | PDOC3 ---
Discharge Summary Visit Information Date of Admission: Dec 16, 2019 Date of Discharge: Dec 19, 2019 Final Diagnosis Acute on chronic combined heart failure, anemia of chronic disease, iron deficiency anemia with hemoglobin <7 Brief Hospital Course Allergies Allergies Coded Allergies Type Severity Reaction Last Updated Verified lisinopril Adverse Reaction Intermediate COUGH 02/01/19 Yes Vital Signs Vital Signs Date Time Temp Pulse Resp B/P (MAP) Pulse Ox O2 Delivery O2 Flow Rate FiO2 12/19/19 13:54 125/58 12/19/19 11:00 98.2 73 18 94 Room Air 98.2 Lab Results Laboratory Tests Test 12/17/19 17:09 12/17/19 19:40 12/17/19 20:56 12/18/19 03:42 Glucose (Fingerstick) 257 mg/dL (70-99) 191 mg/dL (70-99) Potassium Level 5.2 mmol/L (3.5-5.1) 5.5 mmol/L (3.5-5.1) White Blood Count 4.3 x10^3/uL (4.0-11.0) Red Blood Count 2.53 x10^6/uL (3.50-5.40) Hemoglobin 8.1 g/dL (12.0-15.5) Hematocrit 23.3 % (36.0-47.0) Mean Corpuscular Volume 92 fL (79-100) Mean Corpuscular Hemoglobin 32 pg (25-35) Mean Corpuscular Hemoglobin Concent 35 g/dL (31-37) Red Cell Distribution Width 15.2 % (11.5-14.5) Platelet Count 140 x10^3/uL (140-400) Sodium Level 139 mmol/L (136-145) Chloride Level 109 mmol/L (98-107) Carbon Dioxide Level 22 mmol/L (21-32) Anion Gap 8 (6-14) Blood Urea Nitrogen 64 mg/dL (7-20) Creatinine 2.5 mg/dL (0.6-1.0) Estimated GFR (Cockcroft-Gault) 19.7 Glucose Level 157 mg/dL (70-99) Calcium Level 8.0 mg/dL (8.5-10.1) Test 12/18/19 07:18 12/18/19 11:37 12/18/19 16:39 12/18/19 20:40 Glucose (Fingerstick) 145 mg/dL (70-99) 194 mg/dL (70-99) 323 mg/dL (70-99) 201 mg/dL (70-99) Test 12/19/19 05:28 12/19/19 07:41 12/19/19 09:40 12/19/19 11:41 White Blood Count 3.6 x10^3/uL (4.0-11.0) Red Blood Count 2.39 x10^6/uL (3.50-5.40) Hemoglobin 7.6 g/dL (12.0-15.5) Hematocrit 22.0 % (36.0-47.0) Mean Corpuscular Volume 92 fL (79-100) Mean Corpuscular Hemoglobin 32 pg (25-35) Mean Corpuscular Hemoglobin Concent 35 g/dL (31-37) Red Cell Distribution Width 15.0 % (11.5-14.5) Platelet Count 138 x10^3/uL (140-400) Neutrophils (%) (Auto) 67 % (31-73) Lymphocytes (%) (Auto) 16 % (24-48) Monocytes (%) (Auto) 10 % (0-9) Eosinophils (%) (Auto) 7 % (0-3) Basophils (%) (Auto) 1 % (0-3) Neutrophils # (Auto) 2.4 x10^3/uL (1.8-7.7) Lymphocytes # (Auto) 0.6 x10^3/uL (1.0-4.8) Monocytes # (Auto) 0.3 x10^3/uL (0.0-1.1) Eosinophils # (Auto) 0.2 x10^3/uL (0.0-0.7) Basophils # (Auto) 0.0 x10^3/uL (0.0-0.2) Sodium Level 140 mmol/L (136-145) Potassium Level 5.1 mmol/L (3.5-5.1) Chloride Level 109 mmol/L (98-107) Carbon Dioxide Level 22 mmol/L (21-32) Anion Gap 9 (6-14) Blood Urea Nitrogen 71 mg/dL (7-20) Creatinine 2.3 mg/dL (0.6-1.0) Estimated GFR (Cockcroft-Gault) 21.7 Glucose Level 227 mg/dL (70-99) Calcium Level 7.6 mg/dL (8.5-10.1) Glucose (Fingerstick) 193 mg/dL (70-99) 198 mg/dL (70-99) Stool Occult Blood Negative (NEG) Laboratory Tests Test 12/18/19 16:39 12/18/19 20:40 12/19/19 05:28 12/19/19 07:41 Glucose (Fingerstick) 323 mg/dL (70-99) 201 mg/dL (70-99) 193 mg/dL (70-99) White Blood Count 3.6 x10^3/uL (4.0-11.0) Red Blood Count 2.39 x10^6/uL (3.50-5.40) Hemoglobin 7.6 g/dL (12.0-15.5) Hematocrit 22.0 % (36.0-47.0) Mean Corpuscular Volume 92 fL (79-100) Mean Corpuscular Hemoglobin 32 pg (25-35) Mean Corpuscular Hemoglobin Concent 35 g/dL (31-37) Red Cell Distribution Width 15.0 % (11.5-14.5) Platelet Count 138 x10^3/uL (140-400) Neutrophils (%) (Auto) 67 % (31-73) Lymphocytes (%) (Auto) 16 % (24-48) Monocytes (%) (Auto) 10 % (0-9) Eosinophils (%) (Auto) 7 % (0-3) Basophils (%) (Auto) 1 % (0-3) Neutrophils # (Auto) 2.4 x10^3/uL (1.8-7.7) Lymphocytes # (Auto) 0.6 x10^3/uL (1.0-4.8) Monocytes # (Auto) 0.3 x10^3/uL (0.0-1.1) Eosinophils # (Auto) 0.2 x10^3/uL (0.0-0.7) Basophils # (Auto) 0.0 x10^3/uL (0.0-0.2) Sodium Level 140 mmol/L (136-145) Potassium Level 5.1 mmol/L (3.5-5.1) Chloride Level 109 mmol/L (98-107) Carbon Dioxide Level 22 mmol/L (21-32) Anion Gap 9 (6-14) Blood Urea Nitrogen 71 mg/dL (7-20) Creatinine 2.3 mg/dL (0.6-1.0) Estimated GFR (Cockcroft-Gault) 21.7 Glucose Level 227 mg/dL (70-99) Calcium Level 7.6 mg/dL (8.5-10.1) Test 12/19/19 09:40 12/19/19 11:41 Stool Occult Blood Negative (NEG) Glucose (Fingerstick) 198 mg/dL (70-99) Brief Hospital Course Ms. Ye is a 59 old female who presented with shortness of breath, leg swelling, epigastric discomfort. Consults were placed to cardiology. Patient was treated with appropriate heart failure regimen. Consults requested GI to evaluate patient's anemia. Her hemoglobin dropped below 7 during the course of her stay and she was transfused packed red blood cells. She was also monitored while inpatient to evaluate for any ongoing GI bleed. She was stable for discharge with home health. Discharge Information Condition at Discharge: Improved Follow Up: Weeks Disposition/Orders: D/C to Home w/ HH Scheduled Aspirin (Aspirin Ec) 81 Mg Tablet., 81 MG PO DAILYWBKFT for cad, #30 Ref 11 Prescribed by: MELODIE VALLES on 06/07/18 1159 Last Action: Continued on 12/16/19811 by HAYDEN MADDOX RN Atorvastatin Calcium (Atorvastatin Calcium) 80 Mg Tablet, 1 TAB PO QHS, #30 Ref 5 (Reported) Entered as Reported by: COLLEEN ROLON on 08/19/16 1154 Last Action: Converted on 12/16/19811 by HAYDEN MADDOX RN Carvedilol (Coreg) 25 Mg Tablet, 12.5 MG PO BIDWMEALS for CARDIAC, (Reported) Entered as Reported by: MORGAN NICHOLSON on 05/25/18 1510 Last Action: Converted on 12/16/19811 by HAYDEN MADDOX RN Colestipol Hcl (Colestid) 1 Gm Tablet, 2 GM PO BID for stomach, (Reported) Entered as Reported by: MORGAN NICHOLSON on 05/25/18 1510 Ergocalciferol (Vitamin D2) (Vitamin D2) 2,000 Unit Tablet, 50,000 UNIT PO QSU for supplement for 30 Days, #750 Ref 0 (Reported) Entered as Reported by: AIMEE DONNELLY on 04/04/19 1730 Last Action: Converted on 12/16/19811 by HAYDEN MADDOX RN Ferrous Sulfate (Ferrous Sulfate) 325 Mg Tablet, 1 TAB PO DAILY for anemia, #30 Ref 3 (Reported) Entered as Reported by: MORGAN NICHOLSON on 05/25/181509 Last Action: Continued on 12/16/19811 by HAYDEN MADDOX RN Folic Acid (Folic Acid) 1 Mg Tablet, 1 TAB PO DAILY for vitamin, #90 Ref 1 (Reported) Entered as Reported by: MORGAN NICHOLSON on 05/25/181509 Last Action: Continued on 12/16/19811 by HAYDEN MADDOX RN Gabapentin (Gabapentin ) 300 Mg Capsule, 300 MG PO TID, (Reported) Entered as Reported by: KJ PALACIO on 03/23/162112 Last Action: Continued on 12/16/19811 by HAYDEN MADDOX RN Insulin Glargine,Hum.rec.anlog (Lantus Solostar) 100 Unit/1 Ml Insuln.pen, 12 UNIT SQ QHS for dm2 for 30 Days, #15 Ref 3 Prescribed by: CLEMENCIA SORIANO MD on 04/06/191211 Last Action: Reviewed on 12/16/19806 by HAYDEN MADDOX RN Insulin Lispro (Humalog) 100 Unit/1 Ml Insuln.pen, 0 UNITS SQ TIDACHC for DM2 for 30 Days, #1 Ref 3 Prescribed by: CLEMENCIA SORIANO MD on 04/06/191211 Last Action: Reviewed on 12/16/19806 by HAYDEN MADDOX RN Ipratropium/Albuterol Sulfate (Duoneb 0.5-3(2.5) Mg/3 Ml) 3 Ml Ampul.neb, 3 ML NEB RTQID for copd for 30 Days, #120 Prescribed by: MELODIE VALLES on 11/29/181916 Levothyroxine Sodium (Synthroid) 200 Mcg Tablet, 1 TAB PO DAILY, #90 Ref 3 Prescribed by: MELODIE VALLES on 09/02/17 0916 Last Action: Converted on 12/16/19811 by HAYDEN MADDOX RN Metolazone (Metolazone) 5 Mg Tablet, 5 MG PO DAILY for bp, #30 Ref 0 (Reported) Entered as Reported by: MORGAN NICHOLSON on 05/25/181509 Last Action: Converted on 12/16/19811 by HAYDEN MADDOX RN Pantoprazole Sodium (Pantoprazole Sodium ) 40 Mg Tablet.dr, 40 MG PO DAILYAC for GERD, (Reported) Entered as Reported by: AIMEE DONNELLY on 04/04/191729 Last Action: Continued on 12/16/19811 by HAYDEN MADDOX RN Potassium Chloride (Potassium Chloride) 10 Meq Tab.er.prt, 1 TAB PO BID for electrolyte replacement, #90 Ref 1 (Reported) Entered as Reported by: ELGIN SALAZAR on 07/04/142024 Last Action: Continued on 12/16/19811 by HAYDEN MADDOX RN Sacubitril/Valsartan (Entresto 97 mg-103 mg Tablet) 1 Each Tablet, 1 EACH PO BID for chf, (Reported) Entered as Reported by: MORGAN NICHOLSON on 05/25/181509 Last Action: Converted on 12/16/19811 by HAYDEN MADDOX RN Spironolactone (Aldactone) 50 Mg Tablet, 1 TAB PO DAILY for HTN, diuretic, #30 Ref 3 (Reported) Entered as Reported by: AIMEE DONNELLY on 04/04/191729 Last Action: Converted on 12/16/19811 by HAYDEN MADDOX RN Torsemide (Demadex) 20 Mg Tablet, 20 MG PO BID for chf, (Reported) Entered as Reported by: MORGAN NICHOLSON on 05/25/18 1631 Last Action: Continued on 12/16/19811 by HAYDEN MADDOX RN Scheduled PRN Albuterol Sulfate (Proair Hfa) 8.5 Gm Hfa.aer.ad, 2.5 MG NEB PRN Q6HRS PRN for SHORTNESS OF BREATH for 30 Days, #1 Prescribed by: MELODIE VALLES on 11/29/181916 Diclofenac Sodium (Voltaren) 100 Gm Gel..gram., 1 GM TP PRN Q4HRS PRN for PAIN for 30 Days, #1 Ref 0 (Reported) apply to affected area(s) Entered as Reported by: AIMEE DONNELLY on 04/04/19 1730 Nitroglycerin (NITROGLYCERIN SubLingual) 0.4 Mg Tab.subl, 0.4 MG SL PRN Q5MIN PRN for CHEST PAIN, (Reported) Entered as Reported by: MORGAN NICHOLSON on 05/25/18 1510 Tramadol Hcl (Tramadol Hcl) 50 Mg Tablet, 50 MG PO PRN Q12HR PRN for Chest wall pain for 6 Days, #12 Prescribed by: CLEMENCIA SORIANO MD on 06/18/19 1055 Last Action: Continued on 12/16/19 0812 by HAYDEN MADDOX RN Justicifation of Admission Dx: Justifications for Admission: Justification of Admission Dx: Yes RUTH MERCADO MD Dec 19, 2019 14:59
[2019-12-19 15:00] VITALS: BP 125/58
--- NOTE | 2019-12-19 15:04 | SNU/HH DC ---
DISCHARGE WITH HOME HEALTH DISCHARGE INFORMATION: Final Diagnosis: Problems Medical Problems: (1) Anemia Status: Chronic (2) Anemia of chronic disease Status: Chronic Condition on Discharge: Stable CODE STATUS: Code Status: Full HOME HEALTH: Face to Face: I certify this patient is under my care and that I, or a nurse practitioner or physician's clinical trials assistant working with me, had a face to face encounter that meets the physician face to face encounter requirements with this patient on 12/19/2019. Medical Complications: CHF, Other (Anemia) RN For Eval/Treatment: Yes Pt Meets Homebound Status: Fatigue w/ amb., Other: (Patient will need regular CBC to monitor her hemoglobin 2-3 times weekly. Please instruct patient to seek medical attention or be seen in the emergency department for hemoglobin <7.) POST DISCHARGE ORDERS: Activity Instructions for Disc: Activity as tolerated Weight Bearing Status after Di: As tolerated DIET AFTER DISCHARGE: ADA Wound/Incision Care: Other, see below CHECKS AFTER DISCHARGE: Checks after discharge: Check blood press - daily, Check blood sugar, ac/hs, Check your Temp as needed, Weigh Yourself Daily Comment: CBC 2-3 times week to monitor hemoglobin TREATMENT/EQUIPMENT ORDERS: Adaptive Equipment Issued: Walker Discharge Respiratory Equipmen: Nebulizer CERTIFICATION STATEMENT: Certification Statement: Certification Statement: Based on the above finding, I certify that this patient is confined to the home and needs intermittent mcfp care, physical therapy and/or speech therapy, or continues to need occupational therapy.~ This patient is under my care, and I have initiated the establishment of the plan of care.~ This patient will be followed by myself or a community physician who will periodically review the plan of care. Home Meds Active Scripts Tramadol Hcl (TRAMADOL HCL) 50 Mg Tablet, 50 MG PO PRN Q12HR PRN for Chest wall pain for 6 Days, #12 EACH Prov:CLEMENCIA SORIANO MD 06/18/19 Insulin Lispro (HUMALOG) 100 Unit/1 Ml Insuln.pen, 0 UNITS SQ TIDACHC for DM2 for 30 Days, #1 EACH 3 Refills Prov:CLEMENCIA SORIANO MD 04/06/19 Insulin Glargine,Hum.rec.anlog (LANTUS SOLOSTAR) 100 Unit/1 Ml Insuln.pen, 12 UNIT SQ QHS for dm2 for 30 Days, #15 ML 3 Refills Prov:CLEMENCIA SORIANO MD 04/06/19 Albuterol Sulfate (Proair Hfa) 8.5 Gm Hfa.aer.ad, 2.5 MG NEB PRN Q6HRS PRN for SHORTNESS OF BREATH for 30 Days, #1 INHALER Prov:MELODIE VALLES MD 11/29/18 Ipratropium/Albuterol Sulfate (DUONEB 0.5-3(2.5) MG/3 ML) 3 Ml Ampul.neb, 3 ML NEB RTQID for copd for 30 Days, #120 EACH Prov:MELODIE VALLES MD 11/29/18 Aspirin (ASPIRIN EC) 81 Mg Tablet., 81 MG PO DAILYWBKFT for cad, #30 MG 11 Refills Prov:MELODIE VALLES MD 06/07/18 Levothyroxine Sodium (SYNTHROID) 200 Mcg Tablet, 1 TAB PO DAILY, #90 TAB 3 Refills Prov:MELODIE VALLES MD 09/02/17 Reported Medications Spironolactone (ALDACTONE) 50 Mg Tablet, 1 TAB PO DAILY for HTN, diuretic, #30 TAB 3 Refills 04/04/19 Diclofenac Sodium (VOLTAREN) 100 Gm Gel..gram., 1 GM TP PRN Q4HRS PRN for PAIN for 30 Days, #1 EACH 0 Refills apply to affected area(s) 04/04/19 Ergocalciferol (Vitamin D2) (VITAMIN D2) 2,000 Unit Tablet, 71685 UNIT PO QSU for supplement for 30 Days, #750 TAB 0 Refills 04/04/19 Pantoprazole Sodium (PANTOPRAZOLE SODIUM ) 40 Mg Tablet.dr, 40 MG PO DAILYAC for GERD, TAB 04/04/19 Torsemide (DEMADEX) 20 Mg Tablet, 20 MG PO BID for chf, TAB 05/25/18 Nitroglycerin (NITROGLYCERIN SubLingual) 0.4 Mg Tab.subl, 0.4 MG SL PRN Q5MIN PRN for CHEST PAIN, BOTTLE 05/25/18 Ferrous Sulfate (FERROUS SULFATE) 325 Mg Tablet, 1 TAB PO DAILY for anemia, #30 TAB 3 Refills 05/25/18 Folic Acid (FOLIC ACID) 1 Mg Tablet, 1 TAB PO DAILY for vitamin, #90 TAB 1 Refill 05/25/18 Colestipol Hcl (COLESTID) 1 Gm Tablet, 2 GM PO BID for stomach, TAB 05/25/18 Metolazone (METOLAZONE) 5 Mg Tablet, 5 MG PO DAILY for bp, #30 TAB 0 Refills 05/25/18 Carvedilol (COREG) 25 Mg Tablet, 12.5 MG PO BIDWMEALS for CARDIAC, TAB 05/25/18 Sacubitril/Valsartan (Entresto 97 mg-103 mg Tablet) 1 Each Tablet, 1 EACH PO BID for chf, TAB 05/25/18 Atorvastatin Calcium (ATORVASTATIN CALCIUM) 80 Mg Tablet, 1 TAB PO QHS, #30 TAB 5 Refills 08/19/16 Gabapentin (GABAPENTIN ) 300 Mg Capsule, 300 MG PO TID, CAP 03/23/16 Potassium Chloride (POTASSIUM CHLORIDE) 10 Meq Tab.er.prt, 1 TAB PO BID for electrolyte replacement, #90 TAB 1 Refill 07/04/14 RUTH MERCADO MD Dec 19, 2019 15:04
--- NOTE | 2019-12-19 15:14 | NUR ---
SS following up with discharge planning. Pt now agreeable to home healthcare. SS met with pt and discussed. Pt reported having no preference of company. SS phoned and faxed discharge orders and referral to [facility], ; fax [phone]. Pt's RN notified.
[2019-12-22] MEDS ORDERED: ERGOCALCIFEROL (VITAMIN D2) 50,000 UNIT CAPSULE. PO SCH (09:00)
== END 2019-12-19 16:30 | disposition home health service (06) | DRG 291 ==
LOC: ER 00:16 → 2 NORTH 04:32 → OBSVTOIN 14:37 → 2 SOUTH 12-19 12:44 → 2 NORTH 12-19 12:53
PROVIDERS: ADMIT Internal Medicine; ATTEND Internal Medicine
PROC: 30233N1 Transfusion of Nonautologous Red Blood Cells into Peripheral Vein, Percutaneous Approach (ICD-10-PCS; principal; 2019-12-17)
DX: I13.0 Hypertensive heart and chronic kidney disease with heart failure and stage 1 through stage 4 chronic kidney disease, or unspecified chronic kidney disease (principal); I50.43 Acute on chronic combined systolic (congestive) and diastolic (congestive) heart failure; N17.9 Acute kidney failure, unspecified; D61.818 Other pancytopenia; N18.4 Chronic kidney disease, stage 4 (severe); M19.90 Unspecified osteoarthritis, unspecified site; E03.9 Hypothyroidism, unspecified; E11.22 Type 2 diabetes mellitus with diabetic chronic kidney disease; E11.42 Type 2 diabetes mellitus with diabetic polyneuropathy; F32.9 Major depressive disorder, single episode, unspecified; F41.9 Anxiety disorder, unspecified; E78.00 Pure hypercholesterolemia, unspecified; E78.5 Hyperlipidemia, unspecified; E87.5 Hyperkalemia; J44.9 Chronic obstructive pulmonary disease, unspecified; I16.0 Hypertensive urgency; I25.10 Atherosclerotic heart disease of native coronary artery without angina pectoris; I25.5 Ischemic cardiomyopathy; K21.9 Gastro-esophageal reflux disease without esophagitis; Z79.4 Long term (current) use of insulin; Z87.891 Personal history of nicotine dependence; Z86.711 Personal history of pulmonary embolism; Z95.5 Presence of coronary angioplasty implant and graft; Z95.810 Presence of automatic (implantable) cardiac defibrillator; Z98.51 Tubal ligation status
CPT/HCPCS: 36415; 71045; 80048; 80053; 81001; 82274; 82607; 82962; 83010; 83540; 83550; 83615; 83880; 84100; 84132; 84484; 85025; 85027; 86140; 86850; 86880; 86900; 86901; 86920; 93005; 93306; 96374; 99285; G0378; G0379; J0360; J1644; J1756; J1815; J1940; J2270; J3420; J7050; P9016; J7030

== ENCOUNTER 2020-02-08 17:26 | Inpatient (IN) | payer MEDICARE, OTHER ==
[~2020-02-08] VITALS: Ht 152.4 cm; Wt 79.5 kg
[~2020-02-08 17:26] MED LIST changes: +CYAN100031 PO; +HYDR-2869 PO; +ISOS30TA4 PO; +OMEP20TA8 PO
[2020-02-08 19:06] LABS: BASO % 1 % (0-3); EOS # 0.2 x10^3/uL (0.0-0.7); EOS % 3 % (0-3); HEMATOCRIT 25.3 % (36.0-47.0); HEMOGLOBIN 8.5 g/dL (12.0-15.5); LYMPH # 0.6 x10^3/uL (1.0-4.8); LYMPH % 11 % (24-48); MEAN CORPUSCULAR HEMOGLOBIN 32 pg (25-35); MEAN CORPUSCULAR HGB CONC 34 g/dL (31-37); MEAN CORPUSCULAR VOLUME 95 fL (79-100); MONO # 0.3 x10^3/uL (0.0-1.1); MONO % 6 % (0-9); NEUT # 4.7 x10^3/uL (1.8-7.7); NEUT % 80 % (31-73); PLATELET COUNT 130 x10^3/uL (140-400); RED BLOOD COUNT 2.66 x10^6/uL (3.50-5.40); RED CELL DISTRIBUTION WIDTH 16.4 % (11.5-14.5); WHITE BLOOD COUNT 5.8 x10^3/uL (4.0-11.0)
--- NOTE | 2020-02-08 19:07 | PHYS DOC ---
Past Medical History Past Medical History: Anxiety, CAD, CHF, Depression, Diabetes-Type II, High Cholesterol, Hypertension, Hypothyroid, Other Additional Past Medical Histor: cardiomyopathy, PACER/ DEFIB Past Surgical History: Angioplasty, , Pacemaker, Tubal ligation, Other Additional Past Surgical Histo: heart stents Smoking Status: Former Smoker Alcohol Use: None Drug Use: None General Adult EDM: Chief Complaint: CHEST PAIN HPI: HPI: 59-year-old female past medical history hypertension diabetes hyperlipidemia presents with a chief complaint of chest pain associated with shortness of breath and cough. Patient's cough is without sputum production. She denies any fever chills or myalgias. Patient's chest pain is substernal she describes it as tight with a pressure. Patient states has been constant since onset. Patient denies any alleviating or exacerbating factors. On exam patient's has expiratory wheezes in the upper lung cooper. Review of Systems: Review of Systems: Review of systems: Constitutional symptoms- No fever, no chills. Eyes- No Discharge, No Visual Loss Respiratory symptoms-positive shortness of breath positive cough Cardiovascular Systems; positive chest pain no palpitations Gastrointestinal symptoms: NO abdominal pain, no nausea, no vomiting or diarrhea. Genitourinary symptoms: No dysuria. Musculoskeletal symptoms: No back pain No extremity pain. Positive lower extremity swelling NEUROLOGICAL Symptoms: No headache, no generalized weakness; No focal Weakness Heart Score: HEART Score for Chest Pain: HEART Score for Chest Pain Response (Comments) Value History Slighlty/Non-Suspicious 0 ECG Nonspecific Repolarizatio 1 Age >45 - < 65 1 Risk Factors >3 Risk Factors or Hx CAD 2 Total 4 Risk Factors: Risk Factors: DM, Current or recent (<one month) smoker, HTN, HLP, family history of CAD, obesity. Risk Scores: Score 0 - 3: 2.5% MACE over next 6 weeks - Discharge Home Score 4 - 6: 20.3% MACE over next 6 weeks - Admit for Clinical Observation Score 7 - 10: 72.7% MACE over next 6 weeks - Early Invasive Strategies Allergies: Allergies: Allergies Coded Allergies Type Severity Reaction Last Updated Verified lisinopril Adverse Reaction Intermediate COUGH 02/07/20 Yes Physical Exam: PE: Constitutional: Well developed, well nourished, no acute distress, non-toxic appearance. [] HENT: Normocephalic, atraumatic, bilateral external ears normal, oropharynx moist, no oral exudates, nose normal. [] Eyes: PERRLA, EOMI, conjunctiva normal, no discharge. [] Neck: Normal range of motion, no tenderness, supple, no stridor. [] Cardiovascular:Heart rate regular rhythm, no murmur [] Lungs & Thorax: Bilateral breath sounds clear to auscultation [] Abdomen: Bowel sounds normal, soft, no tenderness, no masses, no pulsatile masses. [] Skin: Warm, dry, no erythema, no rash. [] Back: No tenderness, no CVA tenderness. [] Extremities: No tenderness, no cyanosis, no clubbing, ROM intact, no edema. [] Neurologic: Alert and oriented X 3, normal motor function, normal sensory function, no focal deficits noted. [] Psychologic: Affect normal, judgement normal, mood normal. [] Current Patient Data: Vital Signs: Vital Signs Date Time Temp Pulse Resp B/P (MAP) Pulse Ox O2 Delivery O2 Flow Rate FiO2 02/08/20 18:00 66 18 153/74 (100) 93 Room Air 02/08/20 17:30 98.9 98.9 EKG: EKG: [] EKG performed at 1736 heart rate [address] elevation no ST depression no acute CO Radiology/Procedures: Radiology/Procedures: [] Impression: FINDINGS: Pacer with leads terminating the right atrium and ventricle. Heart is enlarged. Pulmonary vessels are within normal limits. Hazy opacities at lung bases bilaterally. No pleural effusion. IMPRESSION: Findings likely related to mild pulmonary edema. Electronically signed by: Nydia Mcdonough MD (02/08/2020 8:04 PM) [id number] Course & Med Decision Making: Course & Med Decision Making Pertinent Labs and Imaging studies reviewed. (See chart for details) [] Patient was evaluated for chief complaint. Patient BNP greatly elevated. Patient troponin mildly elevated repeat troponin pending. Chest x-ray cardiomegaly with pulmonary vascular congestion. Patient was treated with aspirin Lasix 40 mg and fentanyl for her pain. Patient admitted to the hospitalist for further evaluation and treatment. Dragon Disclaimer: Dragon Disclaimer: This electronic medical record was generated, in whole or in part, using a voice recognition dictation system. Departure Departure Impression: Primary Impression: Chest pain Additional Impressions: Congestive heart failure (CHF) Acute on chronic congestive heart failure CKD (chronic kidney disease) Disposition: 09 ADMITTED INPT THIS HOSP Admitting Physician: HIMS Condition: STABLE Referrals: MELODIE VALLES MD (PCP) Scripts Naproxen (NAPROSYN) 500 Mg Tablet 500 MG PO BID for 14 Days, #28 TAB Prov: OMID CALL DO 02/08/20 OMID CALL DO Feb 08, 2020 19:07
[2020-02-08 19:15] LABS: CALCIUM 8.7 mg/dL (8.5-10.1); CREATININE 2.6 mg/dL (0.6-1.0); GFR 18.8; POTASSIUM 4.7 mmol/L (3.5-5.1)
[2020-02-08 19:21] LABS: ALBUMIN 2.7 g/dL (3.4-5.0); ALBUMIN/GLOBULIN RATIO 0.8 (1.0-1.7); TOTAL BILIRUBIN 0.2 mg/dL (0.2-1.0)
[2020-02-08] MEDS ORDERED: NAPR-683 PO (19:41)
[2020-02-08] MEDS ORDERED: IPRATRPIUM/ALBUTEROL 0.5/2.5MG 3 ML NEBU. NEB ONE (20:00)
--- NOTE | 2020-02-08 20:07 | RAD ---
Exam: Chest one view INDICATION: Chest pain TECHNIQUE: Frontal view of the chest Comparisons: 12/16/2019 FINDINGS: Pacer with leads terminating the right atrium and ventricle. Heart is enlarged. Pulmonary vessels are within normal limits. Hazy opacities at lung bases bilaterally. No pleural effusion. IMPRESSION: Findings likely related to mild pulmonary edema. Electronically signed by: Nydia Mcdonough MD (02/08/2020 8:04 PM) [id number]
[2020-02-08] MEDS ORDERED: FUROSEMIDE 40 MG/4 ML VIAL. IVP ONE (20:45)
[2020-02-08] MEDS ORDERED: fentaNYL PF VIAL 100 MCG/2 ML VIAL IV PRN (21:15)
[2020-02-08] MEDS ORDERED: ONDANSETRON PF 4 MG/2 ML VIAL. IV PRN (21:15)
[2020-02-08] MEDS ORDERED: fentaNYL PF VIAL 100 MCG/2 ML VIAL IVP ONE (21:30)
[2020-02-08] MEDS ORDERED: ASPIRIN CHEWABLE 81 MG TABLET. PO ONE (21:30)
[2020-02-08] MEDS ORDERED: cefTRIAXone IV Push 1 GM VIAL. IVP ONE (21:45)
[2020-02-08] MEDS ORDERED: AZITHRMYCN 500MG IVPB FOR OMNI 250 ML IV ONE (22:00)
[2020-02-09 02:00] VITALS: BP 153/67
[2020-02-09] MEDS ORDERED: FERR-36 PO (05:52)
[2020-02-09] MEDS ORDERED: SACU1TAB4 PO (05:52)
[2020-02-09] MEDS ORDERED: NPH,100V5 SQ (05:52)
[2020-02-09] MEDS ORDERED: CARV25TA2 PO (05:52)
[2020-02-09] MEDS ORDERED: TIZA4TAB2 PO (05:52)
[2020-02-09 07:00] VITALS: BP 139/63
[2020-02-09] MEDS ORDERED: ONDANSETRON PF 4 MG/2 ML VIAL. IV PRN (08:15)
[2020-02-09] MEDS ORDERED: tiZANidine 4 MG TABLET. PO PRN (08:15)
[2020-02-09] MEDS ORDERED: traMADol 50 MG TABLET PO PRN (08:15)
[2020-02-09] MEDS ORDERED: ALBUTEROL SULFATE 2.5 MG/3 ML NEBU. NEB PRN (08:15)
[2020-02-09] MEDS: INSULIN LISPRO 300 UNITS/3 ML VIAL. SQ SCH ×4 (08:15→20:55)
[2020-02-09] MEDS ORDERED: DEXTROSE 50% 25 GM / 50ML DISP.SYRIN. IV PRN (08:15)
[2020-02-09] MEDS ORDERED: NITROGLYCERIN SUBLINGUAL 0.4 MG BOTTLE OF 25. SL PRN (08:15)
--- NOTE | 2020-02-09 08:20 | PDOC1 ---
History and Physical Date of Admission Date of Admission DATE: 02/09/20 TIME: 08:02 Identification/Chief Complaint Chief Complaint Shortness of breath Source Source: Patient History of Present Illness History of Present Illness Ms Ye is a 58 yo female [place]-speaking only w/ PMHx CKD, CAD (with 2 prior RCA stents and 07/15/16 - PCI of the LCx and LAD with implantation of drug eluting stents), DM2, HLD, ex-smoker, HTN, chronic systolic CHF s/p AICD who presented to ED secondary to shortness of breath, chest pain with associated cough via EMS. She notes chest pain as a substernal tight pressure. It is worse with exertion not worse with taking a deep breath. Constant and worse with cough. No recent sick contacts, but has had runny nose white sputum no blood and dry cough. No fever that she knows of she says she is compliant with her medications of note she had a cardiac cath that showed no new stenosis back in March 2019. Aspirin and nitroglycerin by paramedics helped a bit. Still with a little chest pain even after treatments. Still requiring O2 after initial lasix dosing. Labs were significant for Na 143, K 4.7, Cr 2.6, BUN 75, glucose 288, BNP 65501 (baseline around 7565). Initial troponin 0.026. Albumin 2.7. WBC 5.8, Hb 8.5. EKG shows a sinus rhythm with a rate of [address] depressions in the inferior leads that looks similar to prior EKG in our system. CXR - pulmonary edema, IV Lasix was given. Was given antibiotics per ED and admitted for further treatment of her chest pain. Past Medical History Cardiovascular: CAD, CHF, HTN, Hyperlipidemia, Other Pulmonary: COPD CENTRAL NERVOUS SYSTEM: Periperal neuropathy GI: No pertinent hx Heme/Onc: Anemia NOS Hepatobiliary: No pertinent hx Psych: Anxiety, Depression Rheumatologic: No pertinent hx Infectious disease: No pertinent hx Renal/: Chronic renal insuff Endocrine: Diabetes, Hypothyroidism Past Surgical History Past Surgical History: Pacemaker, Cataract Removal, Other Family History Family History: Other Social History Smoke: No ALCOHOL: none Drugs: None Current Problem List Problem List Problems Medical Problems: (1) Acute on chronic congestive heart failure Status: Acute (2) Chest pain Status: Acute (3) CKD (chronic kidney disease) Status: Chronic (4) Congestive heart failure (CHF) Status: Acute (5) Ribs, multiple fractures Status: Acute Current Medications Current Medications Current Medications Albuterol/ Ipratropium (Duoneb) 3 ml 1X ONCE NEB Last administered on 02/08/20at 20:00; Start 02/08/20 at 20:00; Stop 02/08/20 at 20:06; Status DC Furosemide (Lasix) 40 mg 1X ONCE IVP Last administered on 02/08/20at 21:38; Start 02/08/20 at 20:45; Stop 02/08/20 at 20:49; Status DC Ondansetron HCl (Zofran) 4 mg PRN Q8HRS PRN IV NAUSEA/VOMITING Last administered on 02/08/20at 21:48; Start 02/08/20 at 21:15; Stop 02/09/20 at 21:14 Fentanyl Citrate (Fentanyl 2ml Vial) 50 mcg PRN Q1HR PRN IV PAIN; Start 02/08/20 at 21:15; Stop 02/09/20 at 21:14 Fentanyl Citrate (Fentanyl 2ml Vial) 25 mcg 1X ONCE IVP Last administered on 02/08/20at 21:51; Start 02/08/20 at 21:30; Stop 02/08/20 at 21:34; Status DC Aspirin (Aspirin Chewable) 324 mg 1X ONCE PO Last administered on 02/08/20at 21:58; Start 02/08/20 at 21:30; Stop 02/08/20 at 21:34; Status DC Ceftriaxone Sodium (Rocephin) 1 gm 1X ONCE IVP ; Start 02/08/20 at 21:45; Stop 02/08/20 at 21:43; Status DC Azithromycin 250 ml @ 250 mls/hr 1X ONCE IV ; Start 02/08/20 at 22:00; Stop 02/08/20 at 21:43; Status DC Influenza Virus Vaccine Quadrival (Fluzone Quad Syringe) 0.5 ml ONCE ONCE VAX IM ; Start 02/10/20 at 09:00; Stop 02/10/20 at 09:01 Active Scripts Active Naprosyn (Naproxen) 500 Mg Tablet 500 Mg PO BID 14 Days B-12 (Cyanocobalamin (Vitamin B-12)) 1,000 Mcg Tablet.er 1,000 Mcg PO DAILY Omeprazole 20 Mg Tablet.dr 1 Tab PO DAILY Isosorbide Mononitrate Er (Isosorbide Mononitrate) 30 Mg Tab.er.24h 60 Mg PO DAILY Hydralazine Hcl 50 Mg Tablet 50 Mg PO TID Ferrous Sulfate 325 Mg Tablet 1 Tab PO TID 30 Days Tramadol Hcl 50 Mg Tablet 50 Mg PO PRN Q12HR PRN 6 Days Humalog (Insulin Lispro) 100 Unit/1 Ml Insuln.pen 0 Units SQ TIDACHC 30 Days Lantus Solostar (Insulin Glargine,Hum.rec.anlog) 100 Unit/1 Ml Insuln.pen 12 Unit SQ QHS 30 Days Proair Hfa (Albuterol Sulfate) 8.5 Gm Hfa.aer.ad 2.5 Mg NEB PRN Q6HRS PRN 30 Days Duoneb 0.5-3(2.5) Mg/3 Ml (Albuterol/Ipratropium) 3 Ml Ampul.neb 3 Ml NEB RTQID 30 Days Aspirin Ec (Aspirin) 81 Mg Tablet.dr 81 Mg PO DAILYWBKFT Synthroid (Levothyroxine Sodium) 200 Mcg Tablet 1 Tab PO DAILY Reported Entresto 97 mg-103 mg Tablet (Sacubitril/Valsartan) 1 Each Tablet 1 Tab PO BID Iron (Ferrous Sulfate) 325 Mg Tablet 1 Tab PO DAILY Carvedilol 25 Mg Tablet 1 Tab PO BID Novolin N (Nph, Human Insulin Isophane) Unknown Strength Vial Unknown Dose SQ UD Tizanidine Hcl 4 Mg Tablet 1 Tab PO TID PRN Vitamin D2 (Ergocalciferol (Vitamin D2)) 2,000 Unit Tablet 50,000 Unit PO QSU 30 Days Demadex (Torsemide) 20 Mg Tablet 20 Mg PO BID NITROGLYCERIN SubLingual (Nitroglycerin) 0.4 Mg Tab.subl 0.4 Mg SL PRN Q5MIN PRN Folic Acid 1 Mg Tablet 1 Tab PO DAILY Colestid (Colestipol Hcl) 1 Gm Tablet 2 Gm PO BID Metolazone 5 Mg Tablet 5 Mg PO DAILY Atorvastatin Calcium 80 Mg Tablet 1 Tab PO QHS Gabapentin (Gabapentin) 300 Mg Capsule 300 Mg PO TID Potassium Chloride 10 Meq Tab.er.prt 1 Tab PO BID Allergies Allergies: Coded Allergies: lisinopril (Verified Adverse Reaction, Intermediate, COUGH, 02/07/20) caused cough ROS General: YES: Fatigue, Malaise; No: Chills, Night Sweats, Appetite, Other PSYCHOLOGICAL ROS: YES: Anxiety; No: Behavioral Disorder, Concentration difficultie, Decreased libido, Depression, Disorientation, Hallucinations, Hostility, Irritablity, Memory difficulties, Mood Swings, Obsessive thoughts, Physical abuse, Sexual abuse, Sleep disturbances, Suicidal ideation, Other Eyes: Yes Itchy Eyes; No Blurry vision, No Decreased vision, No Double vision, No Dry eyes, No Excessive tearing, No Eye Pain, No Loss of vision, No Photophobia, No Scotomata, No Uses contacts, No Uses glasses, No Other HEENT: YES: Nasal congestion, Nasal discharge, Sneezing; No: Heacaches, Visual Changes, Hearing change, Oral lesions, Sinus pain, Sore Throat, Epistaxis, Snoring, Tinnitus, Vertigo, Vocal changes, Other ALLERGY AND IMMUNOLOGY: No: Hives, Insect Bite Sensitivity, Itchy/Watery Eyes, Nasal Congestion, Post Nasal Drip, Seasonal Allergies, Other Hematological and Lymphatic: No: Bleeding Problems, Blood Clots, Blood Transfusions, Brusing, Night Sweats, Pallor, Swollen Lymph Nodes, Other ENDOCRINE: YES: Malaise/lethargy; No: Breast Changes, Galactorrhea, Hair Pattern Changes, Hot Flashes, Mood Swings, Palpitations, Polydipsia/polyuria, Skin Changes, Temperature Intolerance, Unexpected Weight Changes, Other Respiratory: YES: Cough, Pleuritic Pain, Shortness of breath, SOB with excertion, Tachypnea, Wheezing; No: Hemoptysis, Orthopnea, Sputum Changes, Stridor, Other Cardiovascular: yes Chest Pain, yes Paroxysmal Noc. Dyspnea, yes Edema; No Palpitations, No Orthopnea, No Lt Headedness, No Other Gastrointestinal: No Nausea, No Vomiting, No Abdominal Pain, No Diarrhea, No Constipation, No Melena, No Hematochezia, No Other Genitourinary: No Dysuria, No Frequency, No Incontinence, No Hematuria, No Retention, No Discharge, No Urgency, No Pain, No Flank Pain, No Other, No , No , No , No , No , No , No Musculoskeletal: No Gait Disturbance, No Joint Pain, No Joint Stiffness, No Joint Swelling, No Muscle Pain, No Muscular Weakness, No Pain In:, No Swelling In:, No Other Neurological: No Behavorial Changes, No Bowel/Bladder ControlChng, No Confusion, No Dizziness, No Gait Disturbance, No Headaches, No Impaired Coord/balance, No Memory Loss, No Numbness/Tingling, No Seizures, No Speech Problems, No Tremors, No Visual Changes, No Weakness, No Other Skin: No Dry Skin, No Eczema, No Hair Changes, No Lumps, No Mole Changes, No Mottling, No Nail Changes, No Pruritus, No Rash, No Skin Lesion Changes, No Other, No Acne Physical Exam General: Alert, Oriented X3, Cooperative, moderate distress HEENT: Atraumatic, PERRLA, EOMI, Mucous membr. moist/pink Lungs: Other (Bibasilar crackles) Heart: S1S2, RRR, no thrills, no rubs, no gallops, no murmurs Abdomen: Normal bowel sounds, Soft, No tenderness, No hepatosplenomegaly, No masses Rectal Exam: not examined Extremities: No clubbing, No cyanosis, Normal pulses, No tenderness/swelling, Other (1+ edema) Skin: No rashes, No breakdown, No significant lesion Neuro: Normal gait, Normal speech, Strength at 5/5 X4 ext, Normal tone, Sensation intact, Cranial nerves 3-12 NL, Reflexes 2+ Psych/Mental Status: Mental status NL, Mood NL Vitals Vitals Vital Signs Date Time Temp Pulse Resp B/P (MAP) Pulse Ox O2 Delivery O2 Flow Rate FiO2 02/09/20 03:52 Nasal Cannula 2.0 02/09/20 02:00 97.9 64 21 153/67 (95) 99 97.9 Labs Labs Laboratory Tests Test 02/08/20 17:45 02/09/20 00:10 02/09/20 05:50 02/09/20 07:03 White Blood Count 5.8 x10^3/uL (4.0-11.0) Red Blood Count 2.66 x10^6/uL (3.50-5.40) Hemoglobin 8.5 g/dL (12.0-15.5) Hematocrit 25.3 % (36.0-47.0) Mean Corpuscular Volume 95 fL (79-100) Mean Corpuscular Hemoglobin 32 pg (25-35) Mean Corpuscular Hemoglobin Concent 34 g/dL (31-37) Red Cell Distribution Width 16.4 % (11.5-14.5) Platelet Count 130 x10^3/uL (140-400) Neutrophils (%) (Auto) 80 % (31-73) Lymphocytes (%) (Auto) 11 % (24-48) Monocytes (%) (Auto) 6 % (0-9) Eosinophils (%) (Auto) 3 % (0-3) Basophils (%) (Auto) 1 % (0-3) Neutrophils # (Auto) 4.7 x10^3/uL (1.8-7.7) Lymphocytes # (Auto) 0.6 x10^3/uL (1.0-4.8) Monocytes # (Auto) 0.3 x10^3/uL (0.0-1.1) Eosinophils # (Auto) 0.2 x10^3/uL (0.0-0.7) Basophils # (Auto) 0.0 x10^3/uL (0.0-0.2) Sodium Level 143 mmol/L (136-145) Potassium Level 4.7 mmol/L (3.5-5.1) Chloride Level 108 mmol/L (98-107) Carbon Dioxide Level 26 mmol/L (21-32) Anion Gap 9 (6-14) Blood Urea Nitrogen 75 mg/dL (7-20) Creatinine 2.6 mg/dL (0.6-1.0) Estimated GFR (Cockcroft-Gault) 18.8 BUN/Creatinine Ratio 29 (6-20) Glucose Level 288 mg/dL (70-99) Calcium Level 8.7 mg/dL (8.5-10.1) Total Bilirubin 0.2 mg/dL (0.2-1.0) Aspartate Amino Transf (AST/SGOT) 30 U/L (15-37) Alanine Aminotransferase (ALT/SGPT) 84 U/L (14-59) Alkaline Phosphatase 227 U/L (46-116) Troponin I Quantitative 0.026 ng/mL (0.000-0.055) < 0.017 ng/mL (0.000-0.055) < 0.017 ng/mL (0.000-0.055) CO-Zan-N-Type Natriuretic Peptide 52256 pg/mL (0-124) Total Protein 6.0 g/dL (6.4-8.2) Albumin 2.7 g/dL (3.4-5.0) Albumin/Globulin Ratio 0.8 (1.0-1.7) Glucose (Fingerstick) 103 mg/dL (70-99) Laboratory Tests Test 02/08/20 17:45 02/09/20 00:10 02/09/20 05:50 02/09/20 07:03 White Blood Count 5.8 x10^3/uL (4.0-11.0) Red Blood Count 2.66 x10^6/uL (3.50-5.40) Hemoglobin 8.5 g/dL (12.0-15.5) Hematocrit 25.3 % (36.0-47.0) Mean Corpuscular Volume 95 fL (79-100) Mean Corpuscular Hemoglobin 32 pg (25-35) Mean Corpuscular Hemoglobin Concent 34 g/dL (31-37) Red Cell Distribution Width 16.4 % (11.5-14.5) Platelet Count 130 x10^3/uL (140-400) Neutrophils (%) (Auto) 80 % (31-73) Lymphocytes (%) (Auto) 11 % (24-48) Monocytes (%) (Auto) 6 % (0-9) Eosinophils (%) (Auto) 3 % (0-3) Basophils (%) (Auto) 1 % (0-3) Neutrophils # (Auto) 4.7 x10^3/uL (1.8-7.7) Lymphocytes # (Auto) 0.6 x10^3/uL (1.0-4.8) Monocytes # (Auto) 0.3 x10^3/uL (0.0-1.1) Eosinophils # (Auto) 0.2 x10^3/uL (0.0-0.7) Basophils # (Auto) 0.0 x10^3/uL (0.0-0.2) Sodium Level 143 mmol/L (136-145) Potassium Level 4.7 mmol/L (3.5-5.1) Chloride Level 108 mmol/L (98-107) Carbon Dioxide Level 26 mmol/L (21-32) Anion Gap 9 (6-14) Blood Urea Nitrogen 75 mg/dL (7-20) Creatinine 2.6 mg/dL (0.6-1.0) Estimated GFR (Cockcroft-Gault) 18.8 BUN/Creatinine Ratio 29 (6-20) Glucose Level 288 mg/dL (70-99) Calcium Level 8.7 mg/dL (8.5-10.1) Total Bilirubin 0.2 mg/dL (0.2-1.0) Aspartate Amino Transf (AST/SGOT) 30 U/L (15-37) Alanine Aminotransferase (ALT/SGPT) 84 U/L (14-59) Alkaline Phosphatase 227 U/L (46-116) Troponin I Quantitative 0.026 ng/mL (0.000-0.055) < 0.017 ng/mL (0.000-0.055) < 0.017 ng/mL (0.000-0.055) TM-Ikm-L-Type Natriuretic Peptide 75842 pg/mL (0-124) Total Protein 6.0 g/dL (6.4-8.2) Albumin 2.7 g/dL (3.4-5.0) Albumin/Globulin Ratio 0.8 (1.0-1.7) Glucose (Fingerstick) 103 mg/dL (70-99) Images Images CXR: Pacer with leads terminating the right atrium and ventricle. Heart is enlarged. Pulmonary vessels are within normal limits. Hazy opacities at lung bases bilaterally. No pleural effusion. IMPRESSION: Findings likely related to mild pulmonary edema. VTE Prophylaxis Ordered VTE Prophylaxis Devices: Yes VTE Pharmacological Prophylaxi: Yes Assessment/Plan Assessment/Plan A/P: Chest pain - unstable anginal symptoms - cath results negative last year at this time. Mildly elevated troponin, will trend as she does have CKD. Cardiology consulted. nitroglycerin paste, fentanyl, tramadol. This seems to be costochondritis Chronic combined systolic and diastolic heart failure - clinically appears decompensated. On entresto, torsemide, aldactone, BB, statin, ASA at home. IV lasix, consult cardiology, maintain telemetry CKD stage 3 - Her Cr is a little above her baseline per last visit 2.6 now, was 2.3 Severe protein calorie malnutrition - will have dry cleaning manager to see Anemia of chronic disease - monitor, transfuse if drops under 7 Type 2 diabetes - with hyperglycemia (A1C was 10.2 in november 2018, 10.5 6 months ago, then 7.8 last visit) home meds, SSI. Lantus 10u and high sliding scale Falls at home - could have PT evaluated gait Headache - negative CT head and neck Hypothyroidism, continue supplement, checked TSH 3 months ago, was 40, now is 5. Ischemic cardiomyopathy; s/p AICD ([employer]). LVEF 40-45% per echo 11/2018 CAD s/p previous PCI/stents. Hyperlipidemia; statin FEN - Cardiac diet PPX - heparin FULL CODE Dispo - inpatient 2 midnights. Justifications for Admission Other Justification CLEMENCIA SORIANO MD Feb 09, 2020 08:20
[2020-02-09] MEDS ORDERED: PANTOPRAZOLE 40 MG TABLET.DR. PO SCH (09:00)
[2020-02-09] MEDS: ASPIRIN ENTERIC COATED 81 MG TABLET.DR. PO SCH (09:16)
[2020-02-09] MEDS: ISOSORBIDE MONONITRATE ER 30 MG TAB.ER.24H PO SCH (09:16)
[2020-02-09] MEDS: LEVOTHYROXINE 100 MCG TABLET PO SCH (09:16)
[2020-02-09] MEDS: FUROSEMIDE 40 MG/4 ML VIAL. IVP SCH ×2 (09:16→14:56)
[2020-02-09] MEDS: FOLIC ACID 1 MG TABLET. PO SCH (09:17)
[2020-02-09] MEDS: CARVEDILOL 12.5 MG TABLET. PO SCH ×2 (09:17→17:23)
[2020-02-09] MEDS: CYANOCOBALAMIN (VITAMIN B-12) 1,000 MCG TABLET. PO SCH (09:17)
[2020-02-09] MEDS: PANTOPRAZOLE 40 MG TABLET.DR. PO SCH (09:17)
[2020-02-09] MEDS: HEPARIN for SUB-Q USE 5,000 UNIT/ML VIAL. SQ SCH ×3 (09:18→20:56)
[2020-02-09 11:12] VITALS: BP 107/51
--- NOTE | 2020-02-09 12:21 | PDOC2 ---
CONSULT Date of Consult Date of Consult DATE: 02/09/20 TIME: 12:21 Reason for Consult Reason for Consult: Congestive heart failure and chest pain Referring Physician Referring Physician: Dr. Martinez Identification/Chief Complaint Chief Complaint Chest pain and shortness of breath Source Source: Chart review, Patient History of Present Illness Reason for Visit: 59-year-old female, well-known to our practice with history of coronary artery disease and ischemic cardiomyopathy with recurrent admissions for CHF presented with 2 to 3-day history of progressive shortness of breath associated with retrosternal chest tightness. She denied any palpitations or syncope. She claimed compliance with fluid/salt intake and medications. Past Medical History Cardiovascular: CAD, CHF, HTN, Hyperlipidemia, Other Pulmonary: COPD CENTRAL NERVOUS SYSTEM: Periperal neuropathy GI: No pertinent hx Heme/Onc: Anemia NOS Hepatobiliary: No pertinent hx Psych: Anxiety, Depression Rheumatologic: No pertinent hx Infectious disease: No pertinent hx Renal/: Chronic renal insuff Endocrine: Diabetes, Hypothyroidism Past Surgical History Past Surgical History: Pacemaker, Cataract Removal, Other Family History Family History: Other Social History ALCOHOL: none Drugs: None Lives: with Family Current Problem List Problem List Problems Medical Problems: (1) Acute on chronic congestive heart failure Status: Acute (2) Chest pain Status: Acute (3) CKD (chronic kidney disease) Status: Chronic (4) Congestive heart failure (CHF) Status: Acute (5) Ribs, multiple fractures Status: Acute Current Medications Current Medications Current Medications Albuterol/ Ipratropium (Duoneb) 3 ml 1X ONCE NEB Last administered on 02/08/20at 20:00; Start 02/08/20 at 20:00; Stop 02/08/20 at 20:06; Status DC Furosemide (Lasix) 40 mg 1X ONCE IVP Last administered on 02/08/20at 21:38; Start 02/08/20 at 20:45; Stop 02/08/20 at 20:49; Status DC Ondansetron HCl (Zofran) 4 mg PRN Q8HRS PRN IV NAUSEA/VOMITING Last admini stered on 02/08/20at 21:48; Start 02/08/20 at 21:15; Stop 02/09/20 at 08:06; Status DC Fentanyl Citrate (Fentanyl 2ml Vial) 50 mcg PRN Q1HR PRN IV PAIN; Start 02/08/20 at 21:15; Stop 02/09/20 at 21:14 Fentanyl Citrate (Fentanyl 2ml Vial) 25 mcg 1X ONCE IVP Last administered on 02/08/20at 21:51; Start 02/08/20 at 21:30; Stop 02/08/20 at 21:34; Status DC Aspirin (Aspirin Chewable) 324 mg 1X ONCE PO Last administered on 02/08/20at 21:58; Start 02/08/20 at 21:30; Stop 02/08/20 at 21:34; Status DC Ceftriaxone Sodium (Rocephin) 1 gm 1X ONCE IVP ; Start 02/08/20 at 21:45; Stop 02/08/20 at 21:43; Status DC Azithromycin 250 ml @ 250 mls/hr 1X ONCE IV ; Start 02/08/20 at 22:00; Stop 02/08/20 at 21:43; Status DC Influenza Virus Vaccine Quadrival (Fluzone Quad 2582-2006 Syringe) 0.5 ml ONCE ONCE VAX IM ; Start 02/10/20 at 09:00; Stop 02/10/20 at 09:01 Ondansetron HCl (Zofran) 4 mg PRN Q4HRS PRN IV NAUSEA/VOMITING; Start 02/09/20 at 08:15 Furosemide (Lasix) 40 mg BID92 IVP Last administered on 02/09/20at 09:16; Start 02/09/20 at 09:00 Albuterol Sulfate (Ventolin Neb Soln) 2.5 mg PRN Q6HRS PRN NEB SHORTNESS OF BREATH; Start 02/09/20 at 08:15 Aspirin (Ecotrin) 81 mg DAILYWBKFT PO Last administered on 02/09/20at 09:16; Start 02/09/20 at 09:00 Folic Acid (Folic Acid) 1 mg DAILY PO Last administered on 02/09/20at 09:17; Start 02/09/20 at 09:00 Hydralazine HCl (Apresoline) 50 mg TID PO Last administered on 02/09/20at 09:16; Start 02/09/20 at 09:00 Isosorbide Mononitrate (Imdur) 60 mg DAILY PO Last administered on 02/09/20at 09:16; Start 02/09/20 at 09:00 Nitroglycerin (Nitrostat) 0.4 mg PRN Q5MIN PRN SL CHEST PAIN; Start 02/09/20 at 08:15 Tizanidine HCl (Zanaflex) 4 mg PRN TID PRN PO MUSCLE SPASMS; Start 02/09/20 at 08:15 Tramadol HCl (Ultram) 50 mg PRN Q12HR PRN PO Chest wall pain; Start 02/09/20 at 08:15 Atorvastatin Calcium (Lipitor) 80 mg QHS PO ; Start 02/09/20 at 21:00 Carvedilol (Coreg) 25 mg BIDWMEALS PO Last administered on 02/09/20at 09:17; Start 02/09/20 at 09:00 Cyanocobalamin (Vitamin B-12) 1,000 mcg DAILY PO Last administered on 02/09/20at 09:17; Start 02/09/20 at 09:00 Insulin Glargine (Lantus Syringe) 12 unit QHS SQ ; Start 02/09/20 at 21:00 Levothyroxine Sodium (Synthroid) 200 mcg DAILY06 PO Last administered on 02/09/20at 09:16; Start 02/09/20 at 09:00 Pantoprazole Sodium (Protonix) 40 mg DAILYAC PO ; Start 02/09/20 at 09:00; Stop 02/09/20 at 08:32; Status DC Insulin Human Lispro (HumaLOG) 0-9 UNITS TIDWMEALHC SQ ; Start 02/09/20 at 08:15 Dextrose (Dextrose 50%-Water Syringe) 12.5 gm PRN Q15MIN PRN IV SEE COMMENTS; Start 02/09/20 at 08:15 Heparin Sodium (Porcine) (Heparin Sodium) 5,000 unit Q8HRS SQ Last administered on 02/09/20at 09:18; Start 02/09/20 at 09:00 Pantoprazole Sodium (Protonix) 40 mg DAILYAC PO Last administered on 02/09/20at 09:17; Start 02/09/20 at 09:00 Active Scripts Active Naprosyn (Naproxen) 500 Mg Tablet 500 Mg PO BID 14 Days B-12 (Cyanocobalamin (Vitamin B-12)) 1,000 Mcg Tablet.er 1,000 Mcg PO DAILY Omeprazole 20 Mg Tablet.dr 1 Tab PO DAILY Isosorbide Mononitrate Er (Isosorbide Mononitrate) 30 Mg Tab.er.24h 60 Mg PO DAILY Hydralazine Hcl 50 Mg Tablet 50 Mg PO TID Ferrous Sulfate 325 Mg Tablet 1 Tab PO TID 30 Days Tramadol Hcl 50 Mg Tablet 50 Mg PO PRN Q12HR PRN 6 Days Humalog (Insulin Lispro) 100 Unit/1 Ml Insuln.pen 0 Units SQ TIDACHC 30 Days Lantus Solostar (Insulin Glargine,Hum.rec.anlog) 100 Unit/1 Ml Insuln.pen 12 Unit SQ QHS 30 Days Proair Hfa (Albuterol Sulfate) 8.5 Gm Hfa.aer.ad 2.5 Mg NEB PRN Q6HRS PRN 30 Days Duoneb 0.5-3(2.5) Mg/3 Ml (Albuterol/Ipratropium) 3 Ml Ampul.neb 3 Ml NEB RTQID 30 Days Aspirin Ec (Aspirin) 81 Mg Tablet.dr 81 Mg PO DAILYWBKFT Synthroid (Levothyroxine Sodium) 200 Mcg Tablet 1 Tab PO DAILY Reported Entresto 97 mg-103 mg Tablet (Sacubitril/Valsartan) 1 Each Tablet 1 Tab PO BID Iron (Ferrous Sulfate) 325 Mg Tablet 1 Tab PO DAILY Carvedilol 25 Mg Tablet 1 Tab PO BID Novolin N (Nph, Human Insulin Isophane) Unknown Strength Vial Unknown Dose SQ UD Tizanidine Hcl 4 Mg Tablet 1 Tab PO TID PRN Vitamin D2 (Ergocalciferol (Vitamin D2)) 2,000 Unit Tablet 50,000 Unit PO QSU 30 Days Demadex (Torsemide) 20 Mg Tablet 20 Mg PO BID NITROGLYCERIN SubLingual (Nitroglycerin) 0.4 Mg Tab.subl 0.4 Mg SL PRN Q5MIN PRN Folic Acid 1 Mg Tablet 1 Tab PO DAILY Colestid (Colestipol Hcl) 1 Gm Tablet 2 Gm PO BID Metolazone 5 Mg Tablet 5 Mg PO DAILY Atorvastatin Calcium 80 Mg Tablet 1 Tab PO QHS Gabapentin (Gabapentin) 300 Mg Capsule 300 Mg PO TID Potassium Chloride 10 Meq Tab.er.prt 1 Tab PO BID Allergies Allergies: Coded Allergies: lisinopril (Verified Adverse Reaction, Intermediate, COUGH, 02/07/20) caused cough ROS PSYCHOLOGICAL ROS: No: Hallucinations Eyes: No Loss of vision HEENT: No: Epistaxis Respiratory: YES: Cough, Shortness of breath Cardiovascular: yes Chest Pain Gastrointestinal: No Vomiting Genitourinary: No Hematuria Neurological: No Seizures Skin: No Rash Physical Exam General: Alert, mild distress HEENT: Atraumatic Lungs: Other (Bilateral basal crepitations) Heart: Regular rate Abdomen: Soft Extremities: Other (Trace edema) Psych/Mental Status: Mood NL Vitals VITALS Vital Signs Date Time Temp Pulse Resp B/P (MAP) Pulse Ox O2 Delivery O2 Flow Rate FiO2 02/09/20 11:12 98.4 63 16 107/51 (69) 98 Nasal Cannula 2.0 98.4 Labs Labs Laboratory Tests Test 02/08/20 17:45 02/09/20 00:10 02/09/20 05:50 02/09/20 07:03 White Blood Count 5.8 x10^3/uL (4.0-11.0) Red Blood Count 2.66 x10^6/uL (3.50-5.40) Hemoglobin 8.5 g/dL (12.0-15.5) Hematocrit 25.3 % (36.0-47.0) Mean Corpuscular Volume 95 fL (79-100) Mean Corpuscular Hemoglobin 32 pg (25-35) Mean Corpuscular Hemoglobin Concent 34 g/dL (31-37) Red Cell Distribution Width 16.4 % (11.5-14.5) Platelet Count 130 x10^3/uL (140-400) Neutrophils (%) (Auto) 80 % (31-73) Lymphocytes (%) (Auto) 11 % (24-48) Monocytes (%) (Auto) 6 % (0-9) Eosinophils (%) (Auto) 3 % (0-3) Basophils (%) (Auto) 1 % (0-3) Neutrophils # (Auto) 4.7 x10^3/uL (1.8-7.7) Lymphocytes # (Auto) 0.6 x10^3/uL (1.0-4.8) Monocytes # (Auto) 0.3 x10^3/uL (0.0-1.1) Eosinophils # (Auto) 0.2 x10^3/uL (0.0-0.7) Basophils # (Auto) 0.0 x10^3/uL (0.0-0.2) Sodium Level 143 mmol/L (136-145) Potassium Level 4.7 mmol/L (3.5-5.1) Chloride Level 108 mmol/L (98-107) Carbon Dioxide Level 26 mmol/L (21-32) Anion Gap 9 (6-14) Blood Urea Nitrogen 75 mg/dL (7-20) Creatinine 2.6 mg/dL (0.6-1.0) Estimated GFR (Cockcroft-Gault) 18.8 BUN/Creatinine Ratio 29 (6-20) Glucose Level 288 mg/dL (70-99) Calcium Level 8.7 mg/dL (8.5-10.1) Iron Level 124 ug/dL (50-170) Total Iron Binding Capacity 240 ug/dL (250-450) Iron Saturation 52 % (15-34) Total Bilirubin 0.2 mg/dL (0.2-1.0) Aspartate Amino Transf (AST/SGOT) 30 U/L (15-37) Alanine Aminotransferase (ALT/SGPT) 84 U/L (14-59) Alkaline Phosphatase 227 U/L (46-116) Troponin I Quantitative 0.026 ng/mL (0.000-0.055) < 0.017 ng/mL (0.000-0.055) < 0.017 ng/mL (0.000-0.055) YP-Lfk-J-Type Natriuretic Peptide 52827 pg/mL (0-124) Total Protein 6.0 g/dL (6.4-8.2) Albumin 2.7 g/dL (3.4-5.0) Albumin/Globulin Ratio 0.8 (1.0-1.7) Procalcitonin 0.11 ng/mL (0.00-0.10) Glucose (Fingerstick) 103 mg/dL (70-99) Test 02/09/20 11:33 Glucose (Fingerstick) 154 mg/dL (70-99) Laboratory Tests Test 02/08/20 17:45 02/09/20 00:10 02/09/20 05:50 02/09/20 07:03 White Blood Count 5.8 x10^3/uL (4.0-11.0) Red Blood Count 2.66 x10^6/uL (3.50-5.40) Hemoglobin 8.5 g/dL (12.0-15.5) Hematocrit 25.3 % (36.0-47.0) Mean Corpuscular Volume 95 fL (79-100) Mean Corpuscular Hemoglobin 32 pg (25-35) Mean Corpuscular Hemoglobin Concent 34 g/dL (31-37) Red Cell Distribution Width 16.4 % (11.5-14.5) Platelet Count 130 x10^3/uL (140-400) Neutrophils (%) (Auto) 80 % (31-73) Lymphocytes (%) (Auto) 11 % (24-48) Monocytes (%) (Auto) 6 % (0-9) Eosinophils (%) (Auto) 3 % (0-3) Basophils (%) (Auto) 1 % (0-3) Neutrophils # (Auto) 4.7 x10^3/uL (1.8-7.7) Lymphocytes # (Auto) 0.6 x10^3/uL (1.0-4.8) Monocytes # (Auto) 0.3 x10^3/uL (0.0-1.1) Eosinophils # (Auto) 0.2 x10^3/uL (0.0-0.7) Basophils # (Auto) 0.0 x10^3/uL (0.0-0.2) Sodium Level 143 mmol/L (136-145) Potassium Level 4.7 mmol/L (3.5-5.1) Chloride Level 108 mmol/L (98-107) Carbon Dioxide Level 26 mmol/L (21-32) Anion Gap 9 (6-14) Blood Urea Nitrogen 75 mg/dL (7-20) Creatinine 2.6 mg/dL (0.6-1.0) Estimated GFR (Cockcroft-Gault) 18.8 BUN/Creatinine Ratio 29 (6-20) Glucose Level 288 mg/dL (70-99) Calcium Level 8.7 mg/dL (8.5-10.1) Iron Level 124 ug/dL (50-170) Total Iron Binding Capacity 240 ug/dL (250-450) Iron Saturation 52 % (15-34) Total Bilirubin 0.2 mg/dL (0.2-1.0) Aspartate Amino Transf (AST/SGOT) 30 U/L (15-37) Alanine Aminotransferase (ALT/SGPT) 84 U/L (14-59) Alkaline Phosphatase 227 U/L (46-116) Troponin I Quantitative 0.026 ng/mL (0.000-0.055) < 0.017 ng/mL (0.000-0.055) < 0.017 ng/mL (0.000-0.055) ZJ-Ame-O-Type Natriuretic Peptide 71237 pg/mL (0-124) Total Protein 6.0 g/dL (6.4-8.2) Albumin 2.7 g/dL (3.4-5.0) Albumin/Globulin Ratio 0.8 (1.0-1.7) Procalcitonin 0.11 ng/mL (0.00-0.10) Glucose (Fingerstick) 103 mg/dL (70-99) Test 02/09/20 11:33 Glucose (Fingerstick) 154 mg/dL (70-99) Assessment/Plan Assessment/Plan 1. Acute on chronic combined systolic and diastolic heart failure. Recent 2D echo showed LVEF 45 to 50%. She was recently evaluated in our office for edema and scheduled for outpatient venous reflux study. Symptoms improving with diuresis. 2. Chest pain with mixed features in a patient with known history of coronary disease s/p PCI/NIGEL to RCA/LCx/LAD. Myocardial infarction has been ruled out. Recent cardiac catheterization in March 2019 showed patent stents without any lesions needing intervention. She continues to have chest pain, will consider ischemic evaluation as an outpatient. 3. Ischemic cardiomyopathy s/p AICD implantation. Recent device check showed normal function with adequate battery life and without any VT/VF recorded. 4. Hypertension: Controlled 5. Hyperlipidemia: Continue statin therapy. 6. Diabetes mellitus type 2: Treat per IM 7. CKD 4: Consider nephrology consultation Thank you for your consult. ZEFERINO GOMEZ MD Feb 09, 2020 12:21
[2020-02-09] MEDS: DOXYCYCLINE HYCLATE 100 MG TABLET PO SCH ×2 (14:56→20:48)
[2020-02-09 15:00] VITALS: BP 123/52
[2020-02-09 19:51] VITALS: BP 129/55
[2020-02-09] MEDS: ATORVASTATIN CALCIUM 40 MG TABLET. PO SCH (20:47)
[2020-02-09] MEDS: NYSTATIN TOPICAL POWDER 15GM BOTTLE. TP SCH (20:48)
[2020-02-09] MEDS ORDERED: INSULIN GLARGINE SYRINGE. SQ SCH (21:00)
[2020-02-09 22:50] VITALS: BP 114/48
[2020-02-10] VITALS (7 sets, daily range): BP systolic 114–143; BP diastolic 46–86
[2020-02-10 05:33] LABS: BASO % 1 % (0-3); EOS # 0.2 x10^3/uL (0.0-0.7); EOS % 5 % (0-3); HEMATOCRIT 22.9 % (36.0-47.0); HEMOGLOBIN 7.6 g/dL (12.0-15.5); LYMPH # 0.8 x10^3/uL (1.0-4.8); LYMPH % 25 % (24-48); MEAN CORPUSCULAR HEMOGLOBIN 32 pg (25-35); MEAN CORPUSCULAR HGB CONC 33 g/dL (31-37); MEAN CORPUSCULAR VOLUME 95 fL (79-100); MONO # 0.2 x10^3/uL (0.0-1.1); MONO % 8 % (0-9); NEUT % 62 % (31-73); PLATELET COUNT 108 x10^3/uL (140-400); RED BLOOD COUNT 2.41 x10^6/uL (3.50-5.40); RED CELL DISTRIBUTION WIDTH 16.5 % (11.5-14.5); WHITE BLOOD COUNT 3.2 x10^3/uL (4.0-11.0)
[2020-02-10 05:42] LABS: CALCIUM 7.8 mg/dL (8.5-10.1); CREATININE 2.7 mg/dL (0.6-1.0); POTASSIUM 5.5 mmol/L (3.5-5.1)
[2020-02-10] MEDS: LEVOTHYROXINE 100 MCG TABLET PO SCH (05:42)
[2020-02-10] MEDS: HEPARIN for SUB-Q USE 5,000 UNIT/ML VIAL. SQ SCH ×3 (05:45→22:06)
[2020-02-10] MEDS: INSULIN LISPRO 300 UNITS/3 ML VIAL. SQ SCH ×4 (08:00→21:00)
--- NOTE | 2020-02-10 08:25 | PDOC ---
[employer] PROGRESS NOTE Date of Service DOS: DATE: 02/10/20 TIME: 08:23 Chief Complaint Chief Complaint A/P: Chest pain - unstable anginal symptoms - cath results negative last year at this time. Mildly elevated troponin, will trend as she does have CKD. Cardiology consulted. nitroglycerin paste, fentanyl, tramadol. This seems to be costochondritis Chronic combined systolic and diastolic heart failure - clinically appears deco mpensated. On entresto, torsemide, aldactone, BB, statin, ASA at home. IV lasix, consult cardiology, maintain telemetry CKD stage 3 - Her Cr is a little above her baseline per last visit 2.6 now, was 2.3 Severe protein calorie malnutrition - will have blue split trimmer to see Anemia of chronic disease - monitor, transfuse if drops under 7 Type 2 diabetes - with hyperglycemia (A1C was 10.2 in november 2018, 10.5 6 months ago, then 7.8 last visit) home meds, SSI. Lantus 10u and high sliding scale Falls at home - could have PT evaluated gait Headache - negative CT head and neck Hypothyroidism, continue supplement, checked TSH 3 months ago, was 40, now is 5. Ischemic cardiomyopathy; s/p AICD ([employer]). LVEF 40-45% per echo 11/2018 CAD s/p previous PCI/stents. Hyperlipidemia; statin FEN - Cardiac diet PPX - heparin FULL CODE Dispo - inpatient 2 midnights. History of Present Illness History of Present Illness Ms Ye is a 58 yo female Chinese-speaking only w/ PMHx CKD, CAD (with 2 prior RCA stents and 07/15/16 - PCI of the LCx and LAD with implantation of drug eluting stents), DM2, HLD, ex-smoker, HTN, chronic systolic CHF s/p AICD who presented to ED secondary to shortness of breath, chest pain with associated cough via EMS. She notes chest pain as a substernal tight pressure. It is worse with exertion not worse with taking a deep breath. Constant and worse with cough. No recent sick contacts, but has had runny nose white sputum no blood and dry cough. No fever that she knows of she says she is compliant with her medications of note she had a cardiac cath that showed no new stenosis back in March 2019. Aspirin and nitroglycerin by paramedics helped a bit. Still with a little chest pain even after treatments. Still requiring O2 after initial lasix dosing. Labs were significant for Na 143, K 4.7, Cr 2.6, BUN 75, glucose 288, BNP 84162 (baseline around 7565). Initial troponin 0.026. Albumin 2.7. WBC 5.8, Hb 8.5. EKG shows a sinus rhythm with a rate of [address] depressions in the inferior leads that looks similar to prior EKG in our system. CXR - pulmonary edema, IV Lasix was given. Was given antibiotics per ED and admitted for further treatment of her chest pain. Afebrile. Hypoglycemic to 41 this morning. Labs with K 5.5, BUN 71, Cr 2.7. Pancytopenic Plan: Consult nephrology Lasix held by cardiology for Cr increase Adjust basal insulin for hypoglycemia in light of CKD likely needs less glargine coverage Follow CMP and CBC Vitals/I&O Vitals/I&O: Vital Signs Date Time Temp Pulse Resp B/P (MAP) Pulse Ox O2 Delivery O2 Flow Rate FiO2 02/10/20 07:07 97.8 81 16 136/60 (85) 96 Nasal Cannula 2.0 97.8 I & O 02/09/20 02/09/20 02/10/20 15:00 23:00 07:00 Intake Total 360 ml 720 ml 500 ml Output Total 200 ml 775 ml 300 ml Balance 160 ml -55 ml 200 ml Physical Exam General: Alert, Oriented X3, Cooperative, moderate distress Heart: Regular rate Lungs: Clear Abdomen: Normal bowel sounds, Soft, No tenderness, No hepatosplenomegaly, No masses Extremities: No clubbing, No cyanosis, Normal pulses, No tenderness/swelling, Other (1+ edema) Skin: No rashes, No breakdown, No significant lesion Labs Labs: Laboratory Tests Test 02/09/20 11:33 02/09/20 12:35 02/09/20 16:33 02/09/20 20:15 Glucose (Fingerstick) 154 mg/dL (70-99) 136 mg/dL (70-99) 258 mg/dL (70-99) Troponin I Quantitative 0.022 ng/mL (0.000-0.055) Test 02/10/20 04:40 02/10/20 07:11 02/10/20 07:59 White Blood Count 3.2 x10^3/uL (4.0-11.0) Red Blood Count 2.41 x10^6/uL (3.50-5.40) Hemoglobin 7.6 g/dL (12.0-15.5) Hematocrit 22.9 % (36.0-47.0) Mean Corpuscular Volume 95 fL (79-100) Mean Corpuscular Hemoglobin 32 pg (25-35) Mean Corpuscular Hemoglobin Concent 33 g/dL (31-37) Red Cell Distribution Width 16.5 % (11.5-14.5) Platelet Count 108 x10^3/uL (140-400) Neutrophils (%) (Auto) 62 % (31-73) Lymphocytes (%) (Auto) 25 % (24-48) Monocytes (%) (Auto) 8 % (0-9) Eosinophils (%) (Auto) 5 % (0-3) Basophils (%) (Auto) 1 % (0-3) Neutrophils # (Auto) 2.0 x10^3/uL (1.8-7.7) Lymphocytes # (Auto) 0.8 x10^3/uL (1.0-4.8) Monocytes # (Auto) 0.2 x10^3/uL (0.0-1.1) Eosinophils # (Auto) 0.2 x10^3/uL (0.0-0.7) Basophils # (Auto) 0.0 x10^3/uL (0.0-0.2) Sodium Level 144 mmol/L (136-145) Potassium Level 5.5 mmol/L (3.5-5.1) Chloride Level 113 mmol/L (98-107) Carbon Dioxide Level 24 mmol/L (21-32) Anion Gap 7 (6-14) Blood Urea Nitrogen 71 mg/dL (7-20) Creatinine 2.7 mg/dL (0.6-1.0) Estimated GFR (Cockcroft-Gault) 18.0 Glucose Level 56 mg/dL (70-99) Calcium Level 7.8 mg/dL (8.5-10.1) Glucose (Fingerstick) 41 mg/dL (70-99) 107 mg/dL (70-99) Assessment and Plan Assessmemt and Plan Problems Medical Problems: (1) Acute on chronic congestive heart failure Status: Acute (2) Chest pain Status: Acute (3) CKD (chronic kidney disease) Status: Chronic (4) Congestive heart failure (CHF) Status: Acute (5) Ribs, multiple fractures Status: Acute Comment Review of Relevant I have reviewed the following items leandra (where applicable) has been applied. Medications: Current Medications Medications (Trade) Dose Ordered Sig/Carlos Route PRN Reason Start Time Stop Time Status Last Admin Dose Admin Furosemide (Lasix) 40 mg BID92 IVP 02/09/20 09:00 02/09/20 14:56 Aspirin (Ecotrin) 81 mg DAILYWBKFT PO 02/09/20 09:00 02/09/20 09:16 Folic Acid (Folic Acid) 1 mg DAILY PO 02/09/20 09:00 02/09/20 09:17 Hydralazine HCl (Apresoline) 50 mg TID PO 02/09/20 09:00 02/09/20 20:48 Isosorbide Mononitrate (Imdur) 60 mg DAILY PO 02/09/20 09:00 02/09/20 09:16 Atorvastatin Calcium (Lipitor) 80 mg QHS PO 02/09/20 21:00 02/09/20 20:47 Carvedilol (Coreg) 25 mg BIDWMEALS PO 02/09/20 09:00 02/09/20 17:23 Cyanocobalamin (Vitamin B-12) 1,000 mcg DAILY PO 02/09/20 09:00 02/09/20 09:17 Insulin Glargine (Lantus Syringe) 12 unit QHS SQ 02/09/20 21:00 02/09/20 20:55 Levothyroxine Sodium (Synthroid) 200 mcg DAILY06 PO 02/09/20 09:00 02/10/20 05:42 Heparin Sodium (Porcine) (Heparin Sodium) 5,000 unit Q8HRS SQ 02/09/20 09:00 02/10/20 05:45 Pantoprazole Sodium (Protonix) 40 mg DAILYAC PO 02/09/20 09:00 02/09/20 09:17 Doxycycline Hyclate (Vibra-Tab) 100 mg BID PO 02/09/20 15:00 02/09/20 20:48 Nystatin (Nystop) 1 nas BID TP 02/09/20 21:00 02/09/20 20:48 Justifications for Admission Other Justification CLEMENCIA OSRIANO MD Feb 10, 2020 08:25
[2020-02-10] MEDS ORDERED: FLU VACC QS 2020-21(6MOS+)/PF 0.5 ML SYRINGE. VAX IM ONE (09:00)
[2020-02-10] MEDS: FUROSEMIDE 40 MG/4 ML VIAL. IVP SCH (09:00)
[2020-02-10] MEDS: NYSTATIN TOPICAL POWDER 15GM BOTTLE. TP SCH ×2 (09:16→21:01)
[2020-02-10] MEDS: CYANOCOBALAMIN (VITAMIN B-12) 1,000 MCG TABLET. PO SCH (09:17)
[2020-02-10] MEDS: ISOSORBIDE MONONITRATE ER 30 MG TAB.ER.24H PO SCH (09:17)
[2020-02-10] MEDS: DOXYCYCLINE HYCLATE 100 MG TABLET PO SCH ×2 (09:18→21:14)
[2020-02-10] MEDS: PANTOPRAZOLE 40 MG TABLET.DR. PO SCH (09:18)
[2020-02-10] MEDS: FOLIC ACID 1 MG TABLET. PO SCH (09:18)
[2020-02-10] MEDS: CARVEDILOL 12.5 MG TABLET. PO SCH ×2 (09:18→17:45)
[2020-02-10] MEDS: ASPIRIN ENTERIC COATED 81 MG TABLET.DR. PO SCH (09:19)
--- NOTE | 2020-02-10 10:46 | NUR ---
RN Note: Per Dr. March, hold IV lasix due to creatinine of 2.7. Cardiology [employer]NA[employer] notified.
--- NOTE | 2020-02-10 13:58 | PDOC2 ---
CONSULT Date of Consult Date of Consult DATE: 02/10/20 TIME: 13:10 Reason for Consult Reason for Consult: BRAD on CKD Identification/Chief Complaint Chief Complaint Currently denies any complaints Source Source: Chart review, Patient History of Present Illness Reason for Visit: Pt is a 58 yo female w/ PMHx CKD, CAD (with 2 prior RCA stents and 07/15/16 - PCI of the LCx and LAD with implantation of drug eluting stents), DM2 , ex- smoker, HTN, chronic systolic CHF s/p AICD who presented to ED secondary to shortness of breath, chest pain with associated cough via EMS. She notes chest pain as a substernal tight pressure. It was worse with exertion and with cough. No recent sick contacts. No fever , No chills . Denies any urinary complaints, good uop. Denies any N/V/D, abdominal pain. Denies use of NSAID's . She was seen as Post Hosp visit in our office by HOSE INSPECTOR on 01/14/2020 . She reports compliance with meds, including Torsemide and Metolazone. She checks her weight daily with increase only by 2-3 lbs . Currently she is on IV Lasix BID She had a cardiac cath with no new stenosis in March 2019. Past Medical History Cardiovascular: CAD, CHF, HTN, Hyperlipidemia, Other Pulmonary: COPD CENTRAL NERVOUS SYSTEM: Periperal neuropathy GI: No pertinent hx Heme/Onc: Anemia NOS Hepatobiliary: No pertinent hx Psych: Anxiety, Depression Rheumatologic: No pertinent hx Infectious disease: No pertinent hx Renal/: Chronic renal insuff Endocrine: Diabetes, Hypothyroidism Past Surgical History Past Surgical History: Pacemaker, Cataract Removal, Other Family History Family History: Other Social History No ALCOHOL: none Drugs: None Lives: with Family Current Problem List Problem List Problems Medical Problems: (1) Acute on chronic congestive heart failure Status: Acute (2) Chest pain Status: Acute (3) CKD (chronic kidney disease) Status: Chronic (4) Congestive heart failure (CHF) Status: Acute (5) Ribs, multiple fractures Status: Acute Current Medications Current Medications Current Medications Albuterol/ Ipratropium (Duoneb) 3 ml 1X ONCE NEB Last administered on 02/08/20at 20:00; Start 02/08/20 at 20:00; Stop 02/08/20 at 20:06; Status DC Furosemide (Lasix) 40 mg 1X ONCE IVP Last administered on 02/08/20at 21:38; Start 02/08/20 at 20:45; Stop 02/08/20 at 20:49; Status DC Ondansetron HCl (Zofran) 4 mg PRN Q8HRS PRN IV NAUSEA/VOMITING Last administered on 02/08/20at 21:48; Start 02/08/20 at 21:15; Stop 02/09/20 at 08:06; Status DC Fentanyl Citrate (Fentanyl 2ml Vial) 50 mcg PRN Q1HR PRN IV PAIN; Start 02/08/20 at 21:15; Stop 02/09/20 at 21:14; Status DC Fentanyl Citrate (Fentanyl 2ml Vial) 25 mcg 1X ONCE IVP Last administered on 02/08/20at 21:51; Start 02/08/20 at 21:30; Stop 02/08/20 at 21:34; Status DC Aspirin (Aspirin Chewable) 324 mg 1X ONCE PO Last administered on 02/08/20at 21:58; Start 02/08/20 at 21:30; Stop 02/08/20 at 21:34; Status DC Ceftriaxone Sodium (Rocephin) 1 gm 1X ONCE IVP ; Start 02/08/20 at 21:45; Stop 02/08/20 at 21:43; Status DC Azithromycin 250 ml @ 250 mls/hr 1X ONCE IV ; Start 02/08/20 at 22:00; Stop 02/08/20 at 21:43; Status DC Influenza Virus Vaccine Quadrival (Fluzone Quad 1321-4360 Syringe) 0.5 ml ONCE ONCE VAX IM Last administered on 02/10/20at 12:15; Start 02/10/20 at 09:00; Stop 02/10/20 at 09:01; Status DC Ondansetron HCl (Zofran) 4 mg PRN Q4HRS PRN IV NAUSEA/VOMITING; Start 02/09/20 at 08:15 Furosemide (Lasix) 40 mg BID92 IVP Last administered on 02/09/20at 14:56; Start 02/09/20 at 09:00 Albuterol Sulfate (Ventolin Neb Soln) 2.5 mg PRN Q6HRS PRN NEB SHORTNESS OF BREATH; Start 02/09/20 at 08:15 Aspirin (Ecotrin) 81 mg DAILYWBKFT PO Last administered on 02/10/20at 09:19; Start 02/09/20 at 09:00 Folic Acid (Folic Acid) 1 mg DAILY PO Last administered on 02/10/20at 09:18; Start 02/09/20 at 09:00 Hydralazine HCl (Apresoline) 50 mg TID PO Last administered on 02/10/20at 09:19; Start 02/09/20 at 09:00 Isosorbide Mononitrate (Imdur) 60 mg DAILY PO Last administered on 02/10/20at 09:17; Start 02/09/20 at 09:00 Nitroglycerin (Nitrostat) 0.4 mg PRN Q5MIN PRN SL CHEST PAIN; Start 02/09/20 at 08:15 Tizanidine HCl (Zanaflex) 4 mg PRN TID PRN PO MUSCLE SPASMS; Start 02/09/20 at 08:15 Tramadol HCl (Ultram) 50 mg PRN Q12HR PRN PO Chest wall pain Last administered on 02/09/20at 20:48; Start 02/09/20 at 08:15 Atorvastatin Calcium (Lipitor) 80 mg QHS PO Last administered on 02/09/20at 20:47; Start 02/09/20 at 21:00 Carvedilol (Coreg) 25 mg BIDWMEALS PO Last administered on 02/10/20at 09:18; Start 02/09/20 at 09:00 Cyanocobalamin (Vitamin B-12) 1,000 mcg DAILY PO Last administered on 02/10/20at 09:17; Start 02/09/20 at 09:00 Insulin Glargine (Lantus Syringe) 12 unit QHS SQ Last administered on 02/09/20at 20:55; Start 02/09/20 at 21:00; Stop 02/10/20 at 08:22; Status DC Levothyroxine Sodium (Synthroid) 200 mcg DAILY06 PO Last administered on 02/10/20at 05:42; Start 02/09/20 at 09:00 Pantoprazole Sodium (Protonix) 40 mg DAILYAC PO ; Start 02/09/20 at 09:00; Stop 02/09/20 at 08:32; Status DC Insulin Human Lispro (HumaLOG) 0-9 UNITS TIDWMEALHC SQ Last administered on 02/09/20at 20:55; Start 02/09/20 at 08:15 Dextrose (Dextrose 50%-Water Syringe) 12.5 gm PRN Q15MIN PRN IV SEE COMMENTS Last administered on 02/10/20at 07:16; Start 02/09/20 at 08:15 Heparin Sodium (Porcine) (Heparin Sodium) 5,000 unit Q8HRS SQ Last administered on 02/10/20at 05:45; Start 02/09/20 at 09:00 Pantoprazole Sodium (Protonix) 40 mg DAILYAC PO Last administered on 02/10/20at 09:18; Start 02/09/20 at 09:00 Doxycycline Hyclate (Vibra-Tab) 100 mg BID PO Last administered on 02/10/20at 09:18; Start 02/09/20 at 15:00 Nystatin (Nystop) 1 nas BID TP Last administered on 02/10/20at 09:16; Start 02/09/20 at 21:00 Insulin Glargine (Lantus Syringe) 6 unit QHS SQ ; Start 02/10/20 at 21:00 Active Scripts Active Naprosyn (Naproxen) 500 Mg Tablet 500 Mg PO BID 14 Days B-12 (Cyanocobalamin (Vitamin B-12)) 1,000 Mcg Tablet.er 1,000 Mcg PO DAILY Omeprazole 20 Mg Tablet.dr 1 Tab PO DAILY Isosorbide Mononitrate Er (Isosorbide Mononitrate) 30 Mg Tab.er.24h 60 Mg PO DAILY Hydralazine Hcl 50 Mg Tablet 50 Mg PO TID Ferrous Sulfate 325 Mg Tablet 1 Tab PO TID 30 Days Tramadol Hcl 50 Mg Tablet 50 Mg PO PRN Q12HR PRN 6 Days Humalog (Insulin Lispro) 100 Unit/1 Ml Insuln.pen 0 Units SQ TIDACHC 30 Days Lantus Solostar (Insulin Glargine,Hum.rec.anlog) 100 Unit/1 Ml Insuln.pen 12 Unit SQ QHS 30 Days Proair Hfa (Albuterol Sulfate) 8.5 Gm Hfa.aer.ad 2.5 Mg NEB PRN Q6HRS PRN 30 Days Duoneb 0.5-3(2.5) Mg/3 Ml (Albuterol/Ipratropium) 3 Ml Ampul.neb 3 Ml NEB RTQID 30 Days Aspirin Ec (Aspirin) 81 Mg Tablet.dr 81 Mg PO DAILYWBKFT Synthroid (Levothyroxine Sodium) 200 Mcg Tablet 1 Tab PO DAILY Reported Entresto 97 mg-103 mg Tablet (Sacubitril/Valsartan) 1 Each Tablet 1 Tab PO BID Iron (Ferrous Sulfate) 325 Mg Tablet 1 Tab PO DAILY Carvedilol 25 Mg Tablet 1 Tab PO BID Novolin N (Nph, Human Insulin Isophane) Unknown Strength Vial Unknown Dose SQ UD Tizanidine Hcl 4 Mg Tablet 1 Tab PO TID PRN Vitamin D2 (Ergocalciferol (Vitamin D2)) 2,000 Unit Tablet 50,000 Unit PO QSU 30 Days Demadex (Torsemide) 20 Mg Tablet 20 Mg PO BID NITROGLYCERIN SubLingual (Nitroglycerin) 0.4 Mg Tab.subl 0.4 Mg SL PRN Q5MIN PRN Folic Acid 1 Mg Tablet 1 Tab PO DAILY Colestid (Colestipol Hcl) 1 Gm Tablet 2 Gm PO BID Metolazone 5 Mg Tablet 5 Mg PO DAILY Atorvastatin Calcium 80 Mg Tablet 1 Tab PO QHS Gabapentin (Gabapentin) 300 Mg Capsule 300 Mg PO TID Potassium Chloride 10 Meq Tab.er.prt 1 Tab PO BID Allergies Allergies: Coded Allergies: lisinopril (Verified Adverse Reaction, Intermediate, COUGH, 02/07/20) caused cough ROS Review of System As per HPI, rest of the ROS is negative Physical Exam Physical Exam General: NAD HEENT: Mucous membr. moist/pink Neck Supple Lungs: CTA, Non labored , On RA Heart: S1S2, RRR, Abdomen: Soft, No tenderness, No hepatosplenomegaly, Extremities: No clubbing, No cyanosis,swelling trace Skin: No rashes, No breakdown, No significant lesion Neuro: grossly normal Psych/Mental Status: Mental status NL, Mood NL No mahmood, No CVA or sp tenderness Vital Signs Vital Signs Date Time Temp Pulse Resp B/P (MAP) Pulse Ox O2 Delivery O2 Flow Rate FiO2 02/10/20 10:13 98.0 65 20 118/59 (78) 97 Nasal Cannula 2.0 98.0 Assessment & Plan BRAD on CKD- Non Oliguric , Cardiorenal CxR reported mild pulm edema, weight up 2-3 lbs per patient Home meds- Torsemide and metolazone, Currently no uremic symptoms and signs, no emergent indication for HD, discussed with patient Supportive care, I/O, avoid Nephrotoxins, daily standing weight Hx of BRAD during her recent Hospitalization in Nov 2019 with Cr 2.5 CKD stage 3/4- basline Cr 1.7-2.0 suspect sec to DM/HTN nephrosclerosis Cr 2.3 prior to appt in Dec, follows with our office US in 2018- RK 11.5 cm , Left kidney measures 11.0 cm uwyn-my-ggen . Right extra renal pelvis or mild hydronephrosis.. Bladder is unremarkable. The ureteral jets are both seen. Acute on chronic combined systolic and diastolic heart failure. Recent 2D echo showed LVEF 45 to 50%. On IV diuresis per cardiology Chest pain - history of CAD s/p PCI/NIGEL to RCA/LCx/LAD [place] ruled out Recent cardiac catheterization in March 2019 showed patent stents without any lesions needing intervention. Ischemic cardiomyopathy s/p AICD implantation Hypertension: Controlled Diabetes mellitus type 2 - She has Hx of Diabetic Retinopathy , receives injection Labs Labs Laboratory Tests Test 02/08/20 17:45 02/09/20 00:10 02/09/20 05:50 02/09/20 07:03 White Blood Count 5.8 x10^3/uL (4.0-11.0) Red Blood Count 2.66 x10^6/uL (3.50-5.40) Hemoglobin 8.5 g/dL (12.0-15.5) Hematocrit 25.3 % (36.0-47.0) Mean Corpuscular Volume 95 fL (79-100) Mean Corpuscular Hemoglobin 32 pg (25-35) Mean Corpuscular Hemoglobin Concent 34 g/dL (31-37) Red Cell Distribution Width 16.4 % (11.5-14.5) Platelet Count 130 x10^3/uL (140-400) Neutrophils (%) (Auto) 80 % (31-73) Lymphocytes (%) (Auto) 11 % (24-48) Monocytes (%) (Auto) 6 % (0-9) Eosinophils (%) (Auto) 3 % (0-3) Basophils (%) (Auto) 1 % (0-3) Neutrophils # (Auto) 4.7 x10^3/uL (1.8-7.7) Lymphocytes # (Auto) 0.6 x10^3/uL (1.0-4.8) Monocytes # (Auto) 0.3 x10^3/uL (0.0-1.1) Eosinophils # (Auto) 0.2 x10^3/uL (0.0-0.7) Basophils # (Auto) 0.0 x10^3/uL (0.0-0.2) Sodium Level 143 mmol/L (136-145) Potassium Level 4.7 mmol/L (3.5-5.1) Chloride Level 108 mmol/L (98-107) Carbon Dioxide Level 26 mmol/L (21-32) Anion Gap 9 (6-14) Blood Urea Nitrogen 75 mg/dL (7-20) Creatinine 2.6 mg/dL (0.6-1.0) Estimated GFR (Cockcroft-Gault) 18.8 BUN/Creatinine Ratio 29 (6-20) Glucose Level 288 mg/dL (70-99) Calcium Level 8.7 mg/dL (8.5-10.1) Iron Level 124 ug/dL (50-170) Total Iron Binding Capacity 240 ug/dL (250-450) Iron Saturation 52 % (15-34) Total Bilirubin 0.2 mg/dL (0.2-1.0) Aspartate Amino Transf (AST/SGOT) 30 U/L (15-37) Alanine Aminotransferase (ALT/SGPT) 84 U/L (14-59) Alkaline Phosphatase 227 U/L (46-116) Troponin I Quantitative 0.026 ng/mL (0.000-0.055) < 0.017 ng/mL (0.000-0.055) < 0.017 ng/mL (0.000-0.055) KM-Cic-V-Type Natriuretic Peptide 44118 pg/mL (0-124) Total Protein 6.0 g/dL (6.4-8.2) Albumin 2.7 g/dL (3.4-5.0) Albumin/Globulin Ratio 0.8 (1.0-1.7) Procalcitonin 0.11 ng/mL (0.00-0.10) Glucose (Fingerstick) 103 mg/dL (70-99) Test 02/09/20 11:33 02/09/20 12:35 02/09/20 16:33 02/09/20 20:15 Glucose (Fingerstick) 154 mg/dL (70-99) 136 mg/dL (70-99) 258 mg/dL (70-99) Troponin I Quantitative 0.022 ng/mL (0.000-0.055) Test 02/10/20 04:40 02/10/20 07:11 02/10/20 07:59 02/10/20 11:09 White Blood Count 3.2 x10^3/uL (4.0-11.0) Red Blood Count 2.41 x10^6/uL (3.50-5.40) Hemoglobin 7.6 g/dL (12.0-15.5) Hematocrit 22.9 % (36.0-47.0) Mean Corpuscular Volume 95 fL (79-100) Mean Corpuscular Hemoglobin 32 pg (25-35) Mean Corpuscular Hemoglobin Concent 33 g/dL (31-37) Red Cell Distribution Width 16.5 % (11.5-14.5) Platelet Count 108 x10^3/uL (140-400) Neutrophils (%) (Auto) 62 % (31-73) Lymphocytes (%) (Auto) 25 % (24-48) Monocytes (%) (Auto) 8 % (0-9) Eosinophils (%) (Auto) 5 % (0-3) Basophils (%) (Auto) 1 % (0-3) Neutrophils # (Auto) 2.0 x10^3/uL (1.8-7.7) Lymphocytes # (Auto) 0.8 x10^3/uL (1.0-4.8) Monocytes # (Auto) 0.2 x10^3/uL (0.0-1.1) Eosinophils # (Auto) 0.2 x10^3/uL (0.0-0.7) Basophils # (Auto) 0.0 x10^3/uL (0.0-0.2) Sodium Level 144 mmol/L (136-145) Potassium Level 5.5 mmol/L (3.5-5.1) Chloride Level 113 mmol/L (98-107) Carbon Dioxide Level 24 mmol/L (21-32) Anion Gap 7 (6-14) Blood Urea Nitrogen 71 mg/dL (7-20) Creatinine 2.7 mg/dL (0.6-1.0) Estimated GFR (Cockcroft-Gault) 18.0 Glucose Level 56 mg/dL (70-99) Calcium Level 7.8 mg/dL (8.5-10.1) Glucose (Fingerstick) 41 mg/dL (70-99) 107 mg/dL (70-99) 97 mg/dL (70-99) Laboratory Tests Test 02/09/20 16:33 02/09/20 20:15 02/10/20 04:40 02/10/20 07:11 Glucose (Fingerstick) 136 mg/dL (70-99) 258 mg/dL (70-99) 41 mg/dL (70-99) White Blood Count 3.2 x10^3/uL (4.0-11.0) Red Blood Count 2.41 x10^6/uL (3.50-5.40) Hemoglobin 7.6 g/dL (12.0-15.5) Hematocrit 22.9 % (36.0-47.0) Mean Corpuscular Volume 95 fL (79-100) Mean Corpuscular Hemoglobin 32 pg (25-35) Mean Corpuscular Hemoglobin Concent 33 g/dL (31-37) Red Cell Distribution Width 16.5 % (11.5-14.5) Platelet Count 108 x10^3/uL (140-400) Neutrophils (%) (Auto) 62 % (31-73) Lymphocytes (%) (Auto) 25 % (24-48) Monocytes (%) (Auto) 8 % (0-9) Eosinophils (%) (Auto) 5 % (0-3) Basophils (%) (Auto) 1 % (0-3) Neutrophils # (Auto) 2.0 x10^3/uL (1.8-7.7) Lymphocytes # (Auto) 0.8 x10^3/uL (1.0-4.8) Monocytes # (Auto) 0.2 x10^3/uL (0.0-1.1) Eosinophils # (Auto) 0.2 x10^3/uL (0.0-0.7) Basophils # (Auto) 0.0 x10^3/uL (0.0-0.2) Sodium Level 144 mmol/L (136-145) Potassium Level 5.5 mmol/L (3.5-5.1) Chloride Level 113 mmol/L (98-107) Carbon Dioxide Level 24 mmol/L (21-32) Anion Gap 7 (6-14) Blood Urea Nitrogen 71 mg/dL (7-20) Creatinine 2.7 mg/dL (0.6-1.0) Estimated GFR (Cockcroft-Gault) 18.0 Glucose Level 56 mg/dL (70-99) Calcium Level 7.8 mg/dL (8.5-10.1) Test 02/10/20 07:59 02/10/20 11:09 Glucose (Fingerstick) 107 mg/dL (70-99) 97 mg/dL (70-99) Review All relevant outside records, renal labs, imaging studies, telemetry/EKG's were reviewed. Images Images EKG shows a sinus rhythm with a rate of [address]ressions in the inferior leads that looks similar to prior EKG in our system. CXR -mild pulmonary edema JOSE EDUARDO MEJIA MD Feb 10, 2020 13:58
--- NOTE | 2020-02-10 14:32 | PDOC ---
COLLEEN MAURER EMISSION SPECIALIST 02/10/20 1432: CARDIO Progress Notes Date and Time Date of Service 02/10/20 Time of Evaluation 1210 Vitals Vitals Vital Signs Date Time Temp Pulse Resp B/P (MAP) Pulse Ox O2 Delivery O2 Flow Rate FiO2 02/10/20 10:13 98.0 65 20 118/59 (78) 97 Nasal Cannula 2.0 98.0 Weight Weight [ ] Input and Output Intake and Output Intake and Output 02/10/20 07:00 Intake Total 1580 ml Output Total 1275 ml Balance 305 ml Intake Oral 1580 ml Output Urine Total 1275 ml Laboratory Labs Laboratory Tests Test 02/09/20 16:33 02/09/20 20:15 02/10/20 04:40 02/10/20 07:11 Glucose (Fingerstick) 136 mg/dL (70-99) 258 mg/dL (70-99) 41 mg/dL (70-99) White Blood Count 3.2 x10^3/uL (4.0-11.0) Red Blood Count 2.41 x10^6/uL (3.50-5.40) Hemoglobin 7.6 g/dL (12.0-15.5) Hematocrit 22.9 % (36.0-47.0) Mean Corpuscular Volume 95 fL (79-100) Mean Corpuscular Hemoglobin 32 pg (25-35) Mean Corpuscular Hemoglobin Concent 33 g/dL (31-37) Red Cell Distribution Width 16.5 % (11.5-14.5) Platelet Count 108 x10^3/uL (140-400) Neutrophils (%) (Auto) 62 % (31-73) Lymphocytes (%) (Auto) 25 % (24-48) Monocytes (%) (Auto) 8 % (0-9) Eosinophils (%) (Auto) 5 % (0-3) Basophils (%) (Auto) 1 % (0-3) Neutrophils # (Auto) 2.0 x10^3/uL (1.8-7.7) Lymphocytes # (Auto) 0.8 x10^3/uL (1.0-4.8) Monocytes # (Auto) 0.2 x10^3/uL (0.0-1.1) Eosinophils # (Auto) 0.2 x10^3/uL (0.0-0.7) Basophils # (Auto) 0.0 x10^3/uL (0.0-0.2) Sodium Level 144 mmol/L (136-145) Potassium Level 5.5 mmol/L (3.5-5.1) Chloride Level 113 mmol/L (98-107) Carbon Dioxide Level 24 mmol/L (21-32) Anion Gap 7 (6-14) Blood Urea Nitrogen 71 mg/dL (7-20) Creatinine 2.7 mg/dL (0.6-1.0) Estimated GFR (Cockcroft-Gault) 18.0 Glucose Level 56 mg/dL (70-99) Calcium Level 7.8 mg/dL (8.5-10.1) Test 02/10/20 07:59 02/10/20 11:09 Glucose (Fingerstick) 107 mg/dL (70-99) 97 mg/dL (70-99) Physical Exam HEENT: Neck Supple W Full Motion Chest: Symmetric LUNGS: Clear to Auscultation Heart: S1S2, RRR Abdomen: Soft N/T Extremities: No Edema Neurology: alert, oriented, follow commands Assessment Assessment 1. Acute on chronic combined diastolic/systolic CHF: improved with diuresis 2. Chest pain, mixed features. AMI ruled out. 3. CAD s/p PCI/NIGEL to RCA/LCx/LAD. Recent cardiac catheterization in March 2019 showed patent stents without any lesions needing intervention. 3. Accelerated hypertension; now controlled 4. Ischemic cardiomyopathy; s/p AICD ([employer]). LVEF better at 45-50%. Recent device check showed normal function with adequate battery life and without any VT/VF recorded. 5. CAD s/p previous PCI/stents. 6. BRAD on CKD; as per nephrology 7. Anemia of chronic disease Hgb at 6.9, post transfusion, future endoscopy per GI 8. Hyperlipidemia; statin 9. Diabetes, II; as per IM 10. Hx of PE Recommendations Hold Lasix with ^ Cr Avoid nephrotoxins Continue coreg Secondary prevention measures. Discused 2Gm Na diet. 2000cc FR and daily weights Consider outpatient ischemic evaluation if chest pain recurrent Justicifation of Admission Dx: Justifications for Admission: Justification of Admission Dx: Yes ZEFERINO GOMEZ MD 02/10/20 2002: CARDIO Progress Notes Assessment Assessment Patient seen and examined. Agree with PBX MECHANIC's assessment and plan. Ac on chr combined syst/diast HF better compensated BP better controlled CP resolved, CAD clinically stable. Consider ischemic evaluation as outpatient COLLEEN MAURER APRN Feb 10, 2020 14:32 ZEFERINO GOMEZ MD Feb 10, 2020 20:02
--- NOTE | 2020-02-10 15:37 | NUR ---
SS following for discharge planning. SS reviewed pt chart and discussed with pt RN. Pt is from home and is currently requiring oxygen. Nephrology consulted. Pt had previous services with [facility], ; fax [phone]. SS will continue to follow for discharge planning.
[2020-02-10] MEDS ORDERED: INSULIN GLARGINE SYRINGE. SQ SCH (21:00)
[2020-02-10] MEDS: ATORVASTATIN CALCIUM 40 MG TABLET. PO SCH (21:05)
[2020-02-11 03:37] VITALS: BP 153/61
[2020-02-11 03:48] LABS: BASO % 1 % (0-3); EOS # 0.2 x10^3/uL (0.0-0.7); EOS % 5 % (0-3); HEMATOCRIT 23.1 % (36.0-47.0); HEMOGLOBIN 7.6 g/dL (12.0-15.5); LYMPH # 0.7 x10^3/uL (1.0-4.8); LYMPH % 20 % (24-48); MEAN CORPUSCULAR HEMOGLOBIN 31 pg (25-35); MEAN CORPUSCULAR HGB CONC 33 g/dL (31-37); MEAN CORPUSCULAR VOLUME 95 fL (79-100); MONO # 0.3 x10^3/uL (0.0-1.1); MONO % 8 % (0-9); NEUT # 2.4 x10^3/uL (1.8-7.7); NEUT % 67 % (31-73); PLATELET COUNT 110 x10^3/uL (140-400); RED BLOOD COUNT 2.43 x10^6/uL (3.50-5.40); RED CELL DISTRIBUTION WIDTH 16.2 % (11.5-14.5); WHITE BLOOD COUNT 3.6 x10^3/uL (4.0-11.0)
[2020-02-11 04:16] LABS: ALBUMIN 2.4 g/dL (3.4-5.0); ALBUMIN/GLOBULIN RATIO 0.9 (1.0-1.7); CALCIUM 7.6 mg/dL (8.5-10.1); CREATININE 2.5 mg/dL (0.6-1.0); GFR 19.7; POTASSIUM 4.8 mmol/L (3.5-5.1); TOTAL BILIRUBIN 0.2 mg/dL (0.2-1.0)
[2020-02-11] MEDS: LEVOTHYROXINE 100 MCG TABLET PO SCH (05:52)
[2020-02-11] MEDS: HEPARIN for SUB-Q USE 5,000 UNIT/ML VIAL. SQ SCH (05:56)
[2020-02-11 07:00] VITALS: BP 163/58
--- NOTE | 2020-02-11 07:33 | EKG ---
[facility] [address] [place] [address] Test Date: 2020-02-08 Test Time: 17:36:28 Pat Name: ALEXANDRE GONZALES Department: Room: Gender: F Film Writer: : 1960 Requested By: OMID CALL Order Number: [id number] Reading MD: Measurements Intervals [place] Rate: 68 P: 90 VA: 138 QRS: 28 QRSD: 90 T: -7 QT: 412 QTc: 438 Interpretive Statements SINUS RHYTHM T ABNORMALITY IN INFERIOR LEADS ABNORMAL ECG RI6.01 No previous ECG available for comparison
[2020-02-11] MEDS: INSULIN LISPRO 300 UNITS/3 ML VIAL. SQ SCH ×2 (07:46→12:10)
--- NOTE | 2020-02-11 08:19 | PDOC ---
[employer] PROGRESS NOTE Date of Service DOS: DATE: 02/11/20 TIME: 08:19 Chief Complaint Chief Complaint A/P: Chest pain - unstable anginal symptoms - cath results negative last year at this time. Mildly elevated troponin, will trend as she does have CKD. Cardiology consulted. nitroglycerin paste, fentanyl, tramadol. This seems to be costochondritis Chronic combined systolic and diastolic heart failure - clinically appears deco mpensated. On entresto, torsemide, aldactone, BB, statin, ASA at home. 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 Lantus 10u and high sliding scale Falls at home - could have PT evaluated gait Headache - negative CT head and neck Hypothyroidism, continue supplement, checked TSH 3 months ago, was 40, now is 5. Ischemic cardiomyopathy; s/p AICD ([employer]). LVEF 40-45% per echo 11/2018 CAD s/p previous PCI/stents. Hyperlipidemia; statin FEN - Cardiac diet PPX - heparin FULL CODE Dispo - inpatient 2 midnights. History of Present Illness History of Present Illness Ms Ye is a 58 yo female [place]ut-speaking only w/ PMHx CKD, CAD (with 2 prior RCA stents and 07/15/16 - PCI of the LCx and LAD with implantation of drug eluting stents), DM2, HLD, ex-smoker, HTN, chronic systolic CHF s/p AICD who presented to ED secondary to shortness of breath, chest pain with associated cough via EMS. She notes chest pain as a substernal tight pressure. It is worse with exertion not worse with taking a deep breath. Constant and worse with cough. No recent sick contacts, but has had runny nose white sputum no blood and dry cough. No fever that she knows of she says she is compliant with her medications of note she had a cardiac cath that showed no new stenosis back in March 2019. Aspirin and nitroglycerin by paramedics helped a bit. Still with a little chest pain even after treatments. Still requiring O2 after initial lasix dosing. Labs were significant for Na 143, K 4.7, Cr 2.6, BUN 75, glucose 288, BNP 01420 (baseline around 7565). Initial troponin 0.026. Albumin 2.7. WBC 5.8, Hb 8.5. EKG shows a sinus rhythm with a rate of [address] depressions in the inferior leads that looks similar to prior EKG in our system. CXR - pulmonary edema, IV Lasix was given. Was given antibiotics per ED and admitted for further treatment of her chest pain. 02/09: Afebrile. Hypoglycemic to 41 this morning. Labs with K 5.5, BUN 71, Cr 2.7. Pancytopenic Ambulating with walker , denies any CP or SOB. Normoglycemic with insulin adjustment. Afebrile. Has cardiology and nephrology f/u and home health, no complaints, ready for home. Plan: F/u outpatient labs Ischemic cardiac w/u outpatient F/u cards and nephrology outpatient Vitals/I&O Vitals/I&O: Vital Signs Date Time Temp Pulse Resp B/P (MAP) Pulse Ox O2 Delivery O2 Flow Rate FiO2 02/11/20 03:37 98.0 70 16 153/61 (91) 93 Room Air 98.0 02/10/20 14:29 2.0 I & O 02/10/20 02/10/20 02/11/20 15:00 23:00 07:00 Intake Total 540 ml 420 ml 300 ml Output Total 600 ml 600 ml 650 ml Balance -60 ml -180 ml -350 ml Physical Exam General: Alert, Oriented X3, Cooperative, moderate distress Heart: Regular rate Lungs: Clear Abdomen: Normal bowel sounds, Soft, No tenderness, No hepatosplenomegaly, No masses Extremities: No clubbing, No cyanosis, Normal pulses, No tenderness/swelling, Other (1+ edema) Skin: No rashes, No breakdown, No significant lesion Labs Labs: Laboratory Tests Test 02/10/20 11:09 02/10/20 16:40 02/10/20 20:18 02/11/20 03:15 Glucose (Fingerstick) 97 mg/dL (70-99) 165 mg/dL (70-99) 175 mg/dL (70-99) White Blood Count 3.6 x10^3/uL (4.0-11.0) Red Blood Count 2.43 x10^6/uL (3.50-5.40) Hemoglobin 7.6 g/dL (12.0-15.5) Hematocrit 23.1 % (36.0-47.0) Mean Corpuscular Volume 95 fL (79-100) Mean Corpuscular Hemoglobin 31 pg (25-35) Mean Corpuscular Hemoglobin Concent 33 g/dL (31-37) Red Cell Distribution Width 16.2 % (11.5-14.5) Platelet Count 110 x10^3/uL (140-400) Neutrophils (%) (Auto) 67 % (31-73) Lymphocytes (%) (Auto) 20 % (24-48) Monocytes (%) (Auto) 8 % (0-9) Eosinophils (%) (Auto) 5 % (0-3) Basophils (%) (Auto) 1 % (0-3) Neutrophils # (Auto) 2.4 x10^3/uL (1.8-7.7) Lymphocytes # (Auto) 0.7 x10^3/uL (1.0-4.8) Monocytes # (Auto) 0.3 x10^3/uL (0.0-1.1) Eosinophils # (Auto) 0.2 x10^3/uL (0.0-0.7) Basophils # (Auto) 0.0 x10^3/uL (0.0-0.2) Sodium Level 143 mmol/L (136-145) Potassium Level 4.8 mmol/L (3.5-5.1) Chloride Level 111 mmol/L (98-107) Carbon Dioxide Level 21 mmol/L (21-32) Anion Gap 11 (6-14) Blood Urea Nitrogen 67 mg/dL (7-20) Creatinine 2.5 mg/dL (0.6-1.0) Estimated GFR (Cockcroft-Gault) 19.7 BUN/Creatinine Ratio 27 (6-20) Glucose Level 136 mg/dL (70-99) Calcium Level 7.6 mg/dL (8.5-10.1) Total Bilirubin 0.2 mg/dL (0.2-1.0) Aspartate Amino Transf (AST/SGOT) 29 U/L (15-37) Alanine Aminotransferase (ALT/SGPT) 62 U/L (14-59) Alkaline Phosphatase 212 U/L (46-116) Total Protein 5.0 g/dL (6.4-8.2) Albumin 2.4 g/dL (3.4-5.0) Albumin/Globulin Ratio 0.9 (1.0-1.7) Test 02/11/20 06:33 02/11/20 07:42 Glucose (Fingerstick) 121 mg/dL (70-99) 148 mg/dL (70-99) Assessment and Plan Assessmemt and Plan Problems Medical Problems: (1) Acute on chronic congestive heart failure Status: Acute (2) Chest pain Status: Acute (3) CKD (chronic kidney disease) Status: Chronic (4) Congestive heart failure (CHF) Status: Acute (5) Ribs, multiple fractures Status: Acute Comment Review of Relevant I have reviewed the following items leandra (where applicable) has been applied. Medications: Current Medications Medications (Trade) Dose Ordered Sig/Carlos Route PRN Reason Start Time Stop Time Status Last Admin Dose Admin Influenza Virus Vaccine Quadrival (Fluzone Quad Syringe) 0.5 ml ONCE ONCE VAX IM 02/10/20 09:00 02/10/20 09:01 DC 02/10/20 12:15 Insulin Glargine (Lantus Syringe) 6 unit QHS SQ 02/10/20 21:00 02/10/20 21:11 Justifications for Admission Other Justification CLEMENCIA SORIANO MD Feb 11, 2020 08:19
[2020-02-11] MEDS: ASPIRIN ENTERIC COATED 81 MG TABLET.DR. PO SCH (08:30)
[2020-02-11] MEDS: PANTOPRAZOLE 40 MG TABLET.DR. PO SCH (08:30)
[2020-02-11] MEDS: DOXYCYCLINE HYCLATE 100 MG TABLET PO SCH (08:30)
[2020-02-11] MEDS: CYANOCOBALAMIN (VITAMIN B-12) 1,000 MCG TABLET. PO SCH (08:30)
[2020-02-11] MEDS: ISOSORBIDE MONONITRATE ER 30 MG TAB.ER.24H PO SCH (08:30)
[2020-02-11] MEDS: FOLIC ACID 1 MG TABLET. PO SCH (08:30)
[2020-02-11] MEDS: CARVEDILOL 12.5 MG TABLET. PO SCH (08:31)
[2020-02-11] MEDS: NYSTATIN TOPICAL POWDER 15GM BOTTLE. TP SCH (08:33)
--- NOTE | 2020-02-11 09:23 | PDOC ---
DATE OF SERVICE DATE: 02/11/20 TIME: 09:22 SUBJECTIVE ROS Ambulating with walker , denies any CP or SOB OBJECTIVE Vital Signs Vital Signs Date Time Temp Pulse Resp B/P (MAP) Pulse Ox O2 Delivery O2 Flow Rate FiO2 02/11/20 08:31 69 163/58 02/11/20 07:00 97.8 18 94 Room Air 97.8 02/10/20 14:29 2.0 I & 0 Intake and Output 02/11/20 07:00 Intake Total 1260 ml Output Total 1850 ml Balance -590 ml Intake Oral 1260 ml Output Urine Total 1850 ml PHYSICAL EXAM Physical Exam General: NAD HEENT: Mucous membr. moist/pink Neck Supple Lungs: CTA, Non labored , On RA Heart: S1S2, RRR, Abdomen: Soft, No tenderness, No hepatosplenomegaly, Extremities: No clubbing, No cyanosis,swelling trace Skin: No rashes, No breakdown, No significant lesion Neuro: grossly normal Psych/Mental Status: Mental status NL, Mood NL No mahmood, No CVA or sp tenderness Vital Signs DIAGNOSIS/ASSESSMENT Assessment & Plan BRAD on CKD- Non Oliguric , Cardiorenal CxR reported mild pulm edema, weight up 2-3 lbs per patient , stable renal function, not back to baseline Supportive care avoid Nephrotoxins, daily standing weight Hx of BRAD during her recent Hospitalization in Nov 2019 with Cr 2.5 CKD stage 3/4- basline Cr 1.7-2.0 suspect sec to DM/HTN nephrosclerosis Cr 2.3 prior to appt in Dec, follows with our office US in 2018- RK 11.5 cm , Left kidney measures 11.0 cm [id number] . Right extra renal pelvis or mild hydronephrosis.. Bladder is unremarkable. The ur eteral jets are both seen. Acute on chronic combined systolic and diastolic heart failure. Recent 2D echo showed LVEF 45 to 50%. On IV diuresis per cardiology Chest pain - history of CAD s/p PCI/NIGEL to RCA/LCx/LAD PA ruled out Recent cardiac catheterization in March 2019 showed patent stents without any lesions needing intervention. Ischemic cardiomyopathy s/p AICD implantation Hypertension: Controlled Diabetes mellitus type 2 - She has Hx of Diabetic Retinopathy , receives injection COMMENT/RELEVANT DATA Meds Current Medications Medications (Trade) Dose Ordered Sig/Carlos Start Time Stop Time Status Last Admin Dose Admin Albuterol Sulfate (Ventolin Neb Soln) 2.5 mg PRN Q6HRS PRN 02/09/20 08:15 Albuterol/ Ipratropium (Duoneb) 3 ml 1X ONCE 02/08/20 20:00 02/08/20 20:06 DC 02/08/20 20:00 3 ML Aspirin (Aspirin Chewable) 324 mg 1X ONCE 02/08/20 21:30 02/08/20 21:34 DC 02/08/20 21:58 324 MG Aspirin (Ecotrin) 81 mg [id number] 02/09/20 09:00 02/11/20 08:30 81 MG Atorvastatin Calcium (Lipitor) 80 mg QHS 02/09/20 21:00 02/10/20 21:05 80 MG Azithromycin 250 ml @ 250 mls/hr 1X ONCE 02/08/20 22:00 02/08/20 21:43 DC Carvedilol (Coreg) 25 mg BIDWMEALS 02/09/20 09:00 02/11/20 08:31 25 MG Ceftriaxone Sodium (Rocephin) 1 gm 1X ONCE 02/08/20 21:45 02/08/20 21:43 DC Cyanocobalamin (Vitamin B-12) 1,000 mcg DAILY 02/09/20 09:00 02/11/20 08:30 1,000 MCG Dextrose (Dextrose 50%-Water Syringe) 12.5 gm PRN Q15MIN PRN 02/09/20 08:15 02/10/20 07:16 50 GM Doxycycline Hyclate (Vibra-Tab) 100 mg BID 02/09/20 15:00 02/11/20 08:30 100 MG Fentanyl Citrate (Fentanyl 2ml Vial) 25 mcg 1X ONCE 02/08/20 21:30 02/08/20 21:34 DC 02/08/20 21:51 25 MCG Folic Acid (Folic Acid) 1 mg DAILY 02/09/20 09:00 02/11/20 08:30 1 MG Furosemide (Lasix) 40 mg [id number] 02/09/20 09:00 02/10/20 14:19 DC 02/09/20 14:56 40 MG Heparin Sodium (Porcine) (Heparin Sodium) 5,000 unit Q8HRS 02/09/20 09:00 02/11/20 05:56 5,000 UNIT Hydralazine HCl (Apresoline) 50 mg TID 02/09/20 09:00 02/11/20 08:30 50 MG Influenza Virus Vaccine Quadrival (Fluzone Quad Syringe) 0.5 ml ONCE ONCE 02/10/20 09:00 02/10/20 09:01 DC 02/10/20 12:15 0.5 ML Insulin Glargine (Lantus Syringe) 6 unit QHS 02/10/20 21:00 02/10/20 21:11 6 UNIT Insulin Human Lispro (HumaLOG) 0-9 UNITS [id number] 02/09/20 08:15 02/10/20 17:47 4 UNITS Isosorbide Mononitrate (Imdur) 60 mg DAILY 02/09/20 09:00 02/11/20 08:30 60 MG Levothyroxine Sodium (Synthroid) 200 mcg DAILY06 02/09/20 09:00 02/11/20 05:52 200 MCG Nitroglycerin (Nitrostat) 0.4 mg PRN Q5MIN PRN 02/09/20 08:15 Nystatin (Nystop) 1 nas BID 02/09/20 21:00 02/11/20 08:33 1 NAS Ondansetron HCl (Zofran) 4 mg PRN Q4HRS PRN 02/09/20 08:15 Pantoprazole Sodium (Protonix) 40 mg DAILYAC 02/09/20 09:00 02/11/20 08:30 40 MG Tizanidine HCl (Zanaflex) 4 mg PRN TID PRN 02/09/20 08:15 Tramadol HCl (Ultram) 50 mg PRN Q12HR PRN 02/09/20 08:15 02/09/20 20:48 50 MG Lab Laboratory Tests Test 02/10/20 11:09 02/10/20 16:40 02/10/20 20:18 02/11/20 03:15 Glucose (Fingerstick) 97 mg/dL (70-99) 165 mg/dL (70-99) 175 mg/dL (70-99) White Blood Count 3.6 x10^3/uL (4.0-11.0) Red Blood Count 2.43 x10^6/uL (3.50-5.40) Hemoglobin 7.6 g/dL (12.0-15.5) Hematocrit 23.1 % (36.0-47.0) Mean Corpuscular Volume 95 fL (79-100) Mean Corpuscular Hemoglobin 31 pg (25-35) Mean Corpuscular Hemoglobin Concent 33 g/dL (31-37) Red Cell Distribution Width 16.2 % (11.5-14.5) Platelet Count 110 x10^3/uL (140-400) Neutrophils (%) (Auto) 67 % (31-73) Lymphocytes (%) (Auto) 20 % (24-48) Monocytes (%) (Auto) 8 % (0-9) Eosinophils (%) (Auto) 5 % (0-3) Basophils (%) (Auto) 1 % (0-3) Neutrophils # (Auto) 2.4 x10^3/uL (1.8-7.7) Lymphocytes # (Auto) 0.7 x10^3/uL (1.0-4.8) Monocytes # (Auto) 0.3 x10^3/uL (0.0-1.1) Eosinophils # (Auto) 0.2 x10^3/uL (0.0-0.7) Basophils # (Auto) 0.0 x10^3/uL (0.0-0.2) Sodium Level 143 mmol/L (136-145) Potassium Level 4.8 mmol/L (3.5-5.1) Chloride Level 111 mmol/L (98-107) Carbon Dioxide Level 21 mmol/L (21-32) Anion Gap 11 (6-14) Blood Urea Nitrogen 67 mg/dL (7-20) Creatinine 2.5 mg/dL (0.6-1.0) Estimated GFR (Cockcroft-Gault) 19.7 BUN/Creatinine Ratio 27 (6-20) Glucose Level 136 mg/dL (70-99) Calcium Level 7.6 mg/dL (8.5-10.1) Total Bilirubin 0.2 mg/dL (0.2-1.0) Aspartate Amino Transf (AST/SGOT) 29 U/L (15-37) Alanine Aminotransferase (ALT/SGPT) 62 U/L (14-59) Alkaline Phosphatase 212 U/L (46-116) Total Protein 5.0 g/dL (6.4-8.2) Albumin 2.4 g/dL (3.4-5.0) Albumin/Globulin Ratio 0.9 (1.0-1.7) Test 02/11/20 06:33 02/11/20 07:42 Glucose (Fingerstick) 121 mg/dL (70-99) 148 mg/dL (70-99) Results All relevant outside records, renal labs, imaging studies, telemetry/EKG's were reviewed. Justicifation of Admission Dx: Justifications for Admission: Justification of Admission Dx: Yes JOSE EDUARDO MEJIA MD Feb 11, 2020 09:23
[2020-02-11 10:57] VITALS: BP 141/57
--- NOTE | 2020-02-11 11:49 | PDOC3 ---
Discharge Summary Visit Information Date of Admission: Feb 08, 2020 Date of Discharge: Feb 11, 2020 Admitting Diagnosis: Acute CHF Final Diagnosis Problems Medical Problems: (1) Acute on chronic congestive heart failure Status: Acute (2) Chest pain Status: Acute (3) CKD (chronic kidney disease) Status: Chronic (4) Congestive heart failure (CHF) Status: Acute (5) Ribs, multiple fractures Status: Acute Brief Hospital Course Allergies Allergies Coded Allergies Type Severity Reaction Last Updated Verified lisinopril Adverse Reaction Intermediate COUGH 02/07/20 Yes Vital Signs Vital Signs Date Time Temp Pulse Resp B/P (MAP) Pulse Ox O2 Delivery O2 Flow Rate FiO2 02/11/20 10:57 97.6 66 18 141/57 (85) 96 Room Air 97.6 02/10/20 14:29 2.0 Lab Results Laboratory Tests Test 02/09/20 12:35 02/09/20 16:33 02/09/20 20:15 02/10/20 04:40 Troponin I Quantitative 0.022 ng/mL (0.000-0.055) Glucose (Fingerstick) 136 mg/dL (70-99) 258 mg/dL (70-99) White Blood Count 3.2 x10^3/uL (4.0-11.0) Red Blood Count 2.41 x10^6/uL (3.50-5.40) Hemoglobin 7.6 g/dL (12.0-15.5) Hematocrit 22.9 % (36.0-47.0) Mean Corpuscular Volume 95 fL (79-100) Mean Corpuscular Hemoglobin 32 pg (25-35) Mean Corpuscular Hemoglobin Concent 33 g/dL (31-37) Red Cell Distribution Width 16.5 % (11.5-14.5) Platelet Count 108 x10^3/uL (140-400) Neutrophils (%) (Auto) 62 % (31-73) Lymphocytes (%) (Auto) 25 % (24-48) Monocytes (%) (Auto) 8 % (0-9) Eosinophils (%) (Auto) 5 % (0-3) Basophils (%) (Auto) 1 % (0-3) Neutrophils # (Auto) 2.0 x10^3/uL (1.8-7.7) Lymphocytes # (Auto) 0.8 x10^3/uL (1.0-4.8) Monocytes # (Auto) 0.2 x10^3/uL (0.0-1.1) Eosinophils # (Auto) 0.2 x10^3/uL (0.0-0.7) Basophils # (Auto) 0.0 x10^3/uL (0.0-0.2) Sodium Level 144 mmol/L (136-145) Potassium Level 5.5 mmol/L (3.5-5.1) Chloride Level 113 mmol/L (98-107) Carbon Dioxide Level 24 mmol/L (21-32) Anion Gap 7 (6-14) Blood Urea Nitrogen 71 mg/dL (7-20) Creatinine 2.7 mg/dL (0.6-1.0) Estimated GFR (Cockcroft-Gault) 18.0 Glucose Level 56 mg/dL (70-99) Calcium Level 7.8 mg/dL (8.5-10.1) Test 02/10/20 07:11 02/10/20 07:59 02/10/20 11:09 02/10/20 16:40 Glucose (Fingerstick) 41 mg/dL (70-99) 107 mg/dL (70-99) 97 mg/dL (70-99) 165 mg/dL (70-99) Test 02/10/20 20:18 02/11/20 03:15 02/11/20 06:33 02/11/20 07:42 Glucose (Fingerstick) 175 mg/dL (70-99) 121 mg/dL (70-99) 148 mg/dL (70-99) White Blood Count 3.6 x10^3/uL (4.0-11.0) Red Blood Count 2.43 x10^6/uL (3.50-5.40) Hemoglobin 7.6 g/dL (12.0-15.5) Hematocrit 23.1 % (36.0-47.0) Mean Corpuscular Volume 95 fL (79-100) Mean Corpuscular Hemoglobin 31 pg (25-35) Mean Corpuscular Hemoglobin Concent 33 g/dL (31-37) Red Cell Distribution Width 16.2 % (11.5-14.5) Platelet Count 110 x10^3/uL (140-400) Neutrophils (%) (Auto) 67 % (31-73) Lymphocytes (%) (Auto) 20 % (24-48) Monocytes (%) (Auto) 8 % (0-9) Eosinophils (%) (Auto) 5 % (0-3) Basophils (%) (Auto) 1 % (0-3) Neutrophils # (Auto) 2.4 x10^3/uL (1.8-7.7) Lymphocytes # (Auto) 0.7 x10^3/uL (1.0-4.8) Monocytes # (Auto) 0.3 x10^3/uL (0.0-1.1) Eosinophils # (Auto) 0.2 x10^3/uL (0.0-0.7) Basophils # (Auto) 0.0 x10^3/uL (0.0-0.2) Sodium Level 143 mmol/L (136-145) Potassium Level 4.8 mmol/L (3.5-5.1) Chloride Level 111 mmol/L (98-107) Carbon Dioxide Level 21 mmol/L (21-32) Anion Gap 11 (6-14) Blood Urea Nitrogen 67 mg/dL (7-20) Creatinine 2.5 mg/dL (0.6-1.0) Estimated GFR (Cockcroft-Gault) 19.7 BUN/Creatinine Ratio 27 (6-20) Glucose Level 136 mg/dL (70-99) Calcium Level 7.6 mg/dL (8.5-10.1) Total Bilirubin 0.2 mg/dL (0.2-1.0) Aspartate Amino Transf (AST/SGOT) 29 U/L (15-37) Alanine Aminotransferase (ALT/SGPT) 62 U/L (14-59) Alkaline Phosphatase 212 U/L (46-116) Total Protein 5.0 g/dL (6.4-8.2) Albumin 2.4 g/dL (3.4-5.0) Albumin/Globulin Ratio 0.9 (1.0-1.7) Laboratory Tests Test 02/10/20 16:40 02/10/20 20:18 02/11/20 03:15 02/11/20 06:33 Glucose (Fingerstick) 165 mg/dL (70-99) 175 mg/dL (70-99) 121 mg/dL (70-99) White Blood Count 3.6 x10^3/uL (4.0-11.0) Red Blood Count 2.43 x10^6/uL (3.50-5.40) Hemoglobin 7.6 g/dL (12.0-15.5) Hematocrit 23.1 % (36.0-47.0) Mean Corpuscular Volume 95 fL (79-100) Mean Corpuscular Hemoglobin 31 pg (25-35) Mean Corpuscular Hemoglobin Concent 33 g/dL (31-37) Red Cell Distribution Width 16.2 % (11.5-14.5) Platelet Count 110 x10^3/uL (140-400) Neutrophils (%) (Auto) 67 % (31-73) Lymphocytes (%) (Auto) 20 % (24-48) Monocytes (%) (Auto) 8 % (0-9) Eosinophils (%) (Auto) 5 % (0-3) Basophils (%) (Auto) 1 % (0-3) Neutrophils # (Auto) 2.4 x10^3/uL (1.8-7.7) Lymphocytes # (Auto) 0.7 x10^3/uL (1.0-4.8) Monocytes # (Auto) 0.3 x10^3/uL (0.0-1.1) Eosinophils # (Auto) 0.2 x10^3/uL (0.0-0.7) Basophils # (Auto) 0.0 x10^3/uL (0.0-0.2) Sodium Level 143 mmol/L (136-145) Potassium Level 4.8 mmol/L (3.5-5.1) Chloride Level 111 mmol/L (98-107) Carbon Dioxide Level 21 mmol/L (21-32) Anion Gap 11 (6-14) Blood Urea Nitrogen 67 mg/dL (7-20) Creatinine 2.5 mg/dL (0.6-1.0) Estimated GFR (Cockcroft-Gault) 19.7 BUN/Creatinine Ratio 27 (6-20) Glucose Level 136 mg/dL (70-99) Calcium Level 7.6 mg/dL (8.5-10.1) Total Bilirubin 0.2 mg/dL (0.2-1.0) Aspartate Amino Transf (AST/SGOT) 29 U/L (15-37) Alanine Aminotransferase (ALT/SGPT) 62 U/L (14-59) Alkaline Phosphatase 212 U/L (46-116) Total Protein 5.0 g/dL (6.4-8.2) Albumin 2.4 g/dL (3.4-5.0) Albumin/Globulin Ratio 0.9 (1.0-1.7) Test 02/11/20 07:42 Glucose (Fingerstick) 148 mg/dL (70-99) Brief Hospital Course Ms Ye is a 58 yo female Burkinan-speaking only w/ PMHx CKD, CAD (with 2 prior RCA stents and 07/15/16 - PCI of the LCx and LAD with implantation of drug eluting stents), DM2, HLD, ex-smoker, HTN, chronic systolic CHF s/p AICD who presented to ED secondary to shortness of breath, chest pain with associated cough via EMS. She notes chest pain as a substernal tight pressure. It is worse with exertion not worse with taking a deep breath. Constant and worse with cough. No recent sick contacts, but has had runny nose white sputum no blood and dry cough. No fever that she knows of she says she is compliant with her medications of note she had a cardiac cath that showed no new stenosis back in March 2019. Aspirin and nitroglycerin by paramedics helped a bit. Still with a little chest pain even after treatments. Still requiring O2 after initial lasix dosing. Labs were significant for Na 143, K 4.7, Cr 2.6, BUN 75, glucose 288, BNP 23424 (baseline around 7565). Initial troponin 0.026. Albumin 2.7. WBC 5.8, Hb 8.5. EKG shows a sinus rhythm with a rate of [address] depressions in the inferior leads that looks similar to prior EKG in our system. CXR - pulmonary edema, IV Lasix was given. Was given antibiotics per ED and admitted for further treatment of her chest pain. 02/09: Afebrile. Hypoglycemic to 41 this morning. Labs with K 5.5, BUN 71, Cr 2.7. Pancytopenic Ambulating with walker , denies any CP or SOB. Normoglycemic with insulin adjustment. Afebrile. Has cardiology and nephrology f/u and home health, no complaints, ready for home. Problem list: Chest pain - unstable anginal symptoms - cath results negative last year at this time. Mildly elevated troponin, will trend as she does have CKD. Cardiology consulted. nitroglycerin paste, fentanyl, tramadol. This seems to be costochondritis Chronic combined systolic and diastolic heart failure - clinically appears d ecompensated. On entresto, torsemide, aldactone, BB, statin, ASA at home. IV lasix, consult cardiology, maintain telemetry CKD stage 3 - Her Cr is a little above her baseline per last visit 2.6 now, was 2.3 Severe protein calorie malnutrition - will have environmental scientists to see Anemia of chronic disease - monitor, transfuse if drops under 7 Type 2 diabetes - with hyperglycemia (A1C was 10.2 in november 2018, 10.5 6 months ago, then 7.8 last visit) home meds, SSI. Lantus 10u and high sliding scale Falls at home - could have PT evaluated gait Headache - negative CT head and neck Hypothyroidism, continue supplement, checked TSH 3 months ago, was 40, now is 5. Ischemic cardiomyopathy; s/p AICD ([employer]). LVEF 40-45% per echo 11/2018 CAD s/p previous PCI/stents. Hyperlipidemia; statin Plan: F/u outpatient labs Ischemic cardiac w/u outpatient F/u cards and nephrology outpatient Greater than 30 minutes spent on d/c home with home health Discharge Information Condition at Discharge: Improved Follow Up: Weeks Disposition/Orders: D/C to Home w/ HH Scheduled Aspirin (Aspirin Ec) 81 Mg Tablet., 81 MG PO DAILYWBK for cad, #30 Ref 11 Prescribed by: MELODIE VALLES on 06/07/18 1159 Last Action: Continued on 02/09/20809 by CLEMENCIA SORIANO MD Atorvastatin Calcium (Atorvastatin Calcium) 80 Mg Tablet, 1 TAB PO QHS, #30 Ref 5 (Reported) Entered as Reported by: COLLEEN ROLON on 08/19/16 1154 Last Action: Converted on 02/09/20809 by CLEMENCIA SORIANO MD Carvedilol (Carvedilol) 25 Mg Tablet, 1 TAB PO BID for htn, (Reported) Entered as Reported by: DAYAMI SÁNCHEZ RN on 02/09/20 0559 Last Action: Converted on 02/09/20809 by CLEMENCIA SORIANO MD Colestipol Hcl (Colestid) 1 Gm Tablet, 2 GM PO BID for stomach, (Reported) Entered as Reported by: MORGAN NICHOLSON on 05/25/181509 Cyanocobalamin (Vitamin B-12) (B-12) 1,000 Mcg Tablet.er, 1,000 MCG PO DAILY for Vitamin B12 deficiency, #30 Ref 2 Prescribed by: RUTH MERCADO MD on 12/19/191443 Last Action: Converted on 02/09/20809 by CLEMENCIA SORIANO MD Ergocalciferol (Vitamin D2) (Vitamin D2) 2,000 Unit Tablet, 50,000 UNIT PO QSU for supplement for 30 Days, #750 Ref 0 (Reported) Entered as Reported by: AIMEE DONNELLY on 04/04/191729 Last Action: Reviewed on 02/09/20551 by DAYAMI SÁNCHEZ RN Ferrous Sulfate (Ferrous Sulfate) 325 Mg Tablet, 1 TAB PO TID for anemia for 30 Days, #90 Ref 3 Prescribed by: RUTH MERCADO MD on 12/19/191443 Last Action: Reviewed on 02/09/20551 by DAYAMI SÁNCHEZ RN Ferrous Sulfate (Iron) 325 Mg Tablet, 1 TAB PO DAILY for anemia, (Reported) Entered as Reported by: DAYAMI SÁNCHEZ RN on 02/09/20551 Last Action: New Order on 02/09/20551 by DAYAMI SÁNCHEZ RN Folic Acid (Folic Acid) 1 Mg Tablet, 1 TAB PO DAILY for vitamin, #90 Ref 1 (Reported) Entered as Reported by: MORGAN NICHOLSON on 05/25/181509 Last Action: Continued on 02/09/20809 by CLEMENCIA SORIANO MD Gabapentin (Gabapentin ) 300 Mg Capsule, 300 MG PO TID, (Reported) Entered as Reported by: KJ PALACIO on 03/23/162112 Hydralazine Hcl (Hydralazine Hcl) 50 Mg Tablet, 50 MG PO TID for Hypertension, #90 Ref 2 Prescribed by: RUTH MERCADO MD on 12/19/191443 Last Action: Continued on 02/09/20809 by CLEMENCIA SORIANO MD Insulin Glargine,Hum.rec.anlog (Lantus Solostar) 100 Unit/1 Ml Insuln.pen, 12 UNIT SQ QHS for dm2 for 30 Days, #15 Ref 3 Prescribed by: CLEMENCIA SORIANO MD on 04/06/192 Last Action: Converted on 02/09/20809 by CLEMENCIA SORIANO MD Insulin Lispro (Humalog) 100 Unit/1 Ml Insuln.pen, 0 UNITS SQ TIDACHC for DM2 for 30 Days, #1 Ref 3 Prescribed by: CLEMENCIA SORIANO MD on 04/06/19 1212 Ipratropium/Albuterol Sulfate (Duoneb 0.5-3(2.5) Mg/3 Ml) 3 Ml Ampul.neb, 3 ML NEB RTQID for copd for 30 Days, #120 Prescribed by: MELODIE VALLES on 11/29/18 1917 Isosorbide Mononitrate (Isosorbide Mononitrate Er) 30 Mg Tab.er.24h, 60 MG PO DAILY for Angina, #30 Ref 2 Prescribed by: RUTH MERCADO MD on 12/19/19 1444 Last Action: Continued on 02/09/20809 by CLEMENCIA SORIANO MD Levothyroxine Sodium (Synthroid) 200 Mcg Tablet, 1 TAB PO DAILY, #90 Ref 3 Prescribed by: MELODIE VALLES on 09/02/17 0916 Last Action: Converted on 02/09/20809 by CLEMENCIA SORIANO MD Metolazone (Metolazone) 5 Mg Tablet, 5 MG PO DAILY for bp, #30 Ref 0 (Reported) Entered as Reported by: MORGAN NICHOLSON on 05/25/18 1510 Naproxen (Naprosyn) 500 Mg Tablet, 500 MG PO BID for 14 Days, #28 Prescribed by: OMID CALL D.O. on 02/08/201940 Last Action: HELD on 02/09/20809 by CLEMENCIA SORIANO MD Nph, Human Insulin Isophane (Novolin N) Unknown Strength Vial, Unknown Dose SQ UD for DM, (Reported) Entered as Reported by: DAYAMI SÁNCHEZ RN on 02/09/20551 Last Action: New Order on 02/09/20551 by DAYAMI SÁNCHEZ RN Omeprazole (Omeprazole) 20 Mg Tablet.dr, 1 TAB PO DAILY for GI prophylaxis, #30 Ref 1 Prescribed by: RUTH MERCADO MD on 12/19/19 1444 Last Action: Converted on 02/09/20809 by CLEMENCIA SORIANO MD Potassium Chloride (Potassium Chloride) 10 Meq Tab.er.prt, 1 TAB PO BID for electrolyte replacement, #90 Ref 1 (Reported) Entered as Reported by: ELGIN SALAZAR on 07/04/142024 Last Action: Reviewed on 02/09/20551 by DAYAMI SÁNCHEZ RN Sacubitril/Valsartan (Entresto 97 mg-103 mg Tablet) 1 Each Tablet, 1 TAB PO BID for HF, (Reported) Entered as Reported by: DAYAMI SÁNCHEZ RN on 02/09/20551 Last Action: New Order on 02/09/20551 by DAYAMI SÁNCHEZ RN Torsemide (Demadex) 20 Mg Tablet, 20 MG PO BID for chf, (Reported) Entered as Reported by: MORGAN NICHOLSON on 05/25/18 1631 Last Action: Reviewed on 02/09/20551 by DAYAMI SÁNCHEZ RN Scheduled PRN Albuterol Sulfate (Proair Hfa) 8.5 Gm Hfa.aer.ad, 2.5 MG NEB PRN Q6HRS PRN for SHORTNESS OF BREATH for 30 Days, #1 Prescribed by: MELODIE VALLES on 11/29/181916 Last Action: Continued on 02/09/20809 by CLEMENCIA SORIANO MD Nitroglycerin (NITROGLYCERIN SubLingual) 0.4 Mg Tab.subl, 0.4 MG SL PRN Q5MIN PRN for CHEST PAIN, (Reported) Entered as Reported by: MORGAN NICHOLSON on 05/25/18 1510 Last Action: Continued on 02/09/20809 by CLEMENCIA SORIANO MD Tizanidine Hcl (Tizanidine Hcl) 4 Mg Tablet, 1 TAB PO TID PRN for MUSCLE SPASMS, (Reported) Entered as Reported by: DAYAMI SÁNCHEZ RN on 02/09/20551 Last Action: Continued on 02/09/20809 by CLEMENCIA SORIANO MD Tramadol Hcl (Tramadol Hcl) 50 Mg Tablet, 50 MG PO PRN Q12HR PRN for Chest wall pain for 6 Days, #12 Prescribed by: CLEMENCIA SORIANO MD on 06/18/19 1055 Last Action: Continued on 02/09/20 0810 by CLEMENCIA SORIANO MD Discontinued Medications Carvedilol (Coreg) 25 Mg Tablet, 12.5 MG PO BIDWMEALS for CARDIAC, (Reported) Entered as Reported by: MORGAN NICHOLSON on 05/25/18 1510 Last Action: Discontinued on 02/09/20 0552 by DAYAMI SÁNCHEZ RN Justicifation of Admission Dx: Justifications for Admission: Justification of Admission Dx: Yes CLEMENCIA SORIANO MD Feb 11, 2020 11:49
--- NOTE | 2020-02-11 11:54 | PDOC ---
IZZY MORENO POWER HOUSE CONTROL ROOM OPERATOR 02/11/20 1154: CARDIO Progress Notes Date and Time Date of Service 02/11/2020 Time of Evaluation 1120 Subjective Subjective: No Chest Pain, No shortness of breath, No Palpitations Vitals Vitals Vital Signs Date Time Temp Pulse Resp B/P (MAP) Pulse Ox O2 Delivery O2 Flow Rate FiO2 02/11/20 10:57 97.6 66 18 141/57 (85) 96 Room Air 97.6 02/10/20 14:29 2.0 Weight Weight [ ] Input and Output Intake and Output Intake and Output 02/11/20 07:00 Intake Total 1260 ml Output Total 1850 ml Balance -590 ml Intake Oral 1260 ml Output Urine Total 1850 ml Laboratory Labs Laboratory Tests Test 02/10/20 16:40 02/10/20 20:18 02/11/20 03:15 02/11/20 06:33 Glucose (Fingerstick) 165 mg/dL (70-99) 175 mg/dL (70-99) 121 mg/dL (70-99) White Blood Count 3.6 x10^3/uL (4.0-11.0) Red Blood Count 2.43 x10^6/uL (3.50-5.40) Hemoglobin 7.6 g/dL (12.0-15.5) Hematocrit 23.1 % (36.0-47.0) Mean Corpuscular Volume 95 fL (79-100) Mean Corpuscular Hemoglobin 31 pg (25-35) Mean Corpuscular Hemoglobin Concent 33 g/dL (31-37) Red Cell Distribution Width 16.2 % (11.5-14.5) Platelet Count 110 x10^3/uL (140-400) Neutrophils (%) (Auto) 67 % (31-73) Lymphocytes (%) (Auto) 20 % (24-48) Monocytes (%) (Auto) 8 % (0-9) Eosinophils (%) (Auto) 5 % (0-3) Basophils (%) (Auto) 1 % (0-3) Neutrophils # (Auto) 2.4 x10^3/uL (1.8-7.7) Lymphocytes # (Auto) 0.7 x10^3/uL (1.0-4.8) Monocytes # (Auto) 0.3 x10^3/uL (0.0-1.1) Eosinophils # (Auto) 0.2 x10^3/uL (0.0-0.7) Basophils # (Auto) 0.0 x10^3/uL (0.0-0.2) Sodium Level 143 mmol/L (136-145) Potassium Level 4.8 mmol/L (3.5-5.1) Chloride Level 111 mmol/L (98-107) Carbon Dioxide Level 21 mmol/L (21-32) Anion Gap 11 (6-14) Blood Urea Nitrogen 67 mg/dL (7-20) Creatinine 2.5 mg/dL (0.6-1.0) Estimated GFR (Cockcroft-Gault) 19.7 BUN/Creatinine Ratio 27 (6-20) Glucose Level 136 mg/dL (70-99) Calcium Level 7.6 mg/dL (8.5-10.1) Total Bilirubin 0.2 mg/dL (0.2-1.0) Aspartate Amino Transf (AST/SGOT) 29 U/L (15-37) Alanine Aminotransferase (ALT/SGPT) 62 U/L (14-59) Alkaline Phosphatase 212 U/L (46-116) Total Protein 5.0 g/dL (6.4-8.2) Albumin 2.4 g/dL (3.4-5.0) Albumin/Globulin Ratio 0.9 (1.0-1.7) Test 02/11/20 07:42 Glucose (Fingerstick) 148 mg/dL (70-99) Physical Exam HEENT: Neck Supple W Full Motion Chest: Symmetric LUNGS: Clear to Auscultation Heart: S1S2, RRR (SR) Abdomen: Soft N/T Extremities: No Edema Neurology: alert, oriented, follow commands Assessment Assessment 1. Acute on chronic combined diastolic/systolic CHF: now compensated 2. Chest pain, mixed features. AMI ruled out. 3. CAD s/p PCI/NIGEL to RCA/LCx/LAD. Recent cardiac catheterization in March 2019 showed patent stents without any lesions needing intervention. 3. Accelerated hypertension; now controlled 4. Ischemic cardiomyopathy; s/p AICD ([employer]). LVEF better at 45-50%. Recent device check showed normal function with adequate battery life and without any VT/VF recorded. 5. CAD s/p previous PCI/stents. 6. 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 Anemia of chronic disease future endoscopy per GI 8. Hyperlipidemia; statin 9. Diabetes, II; as per IM 10. Hx of PE Recommendations Holding lasix, Resume when OK with nephrology Avoid nephrotoxins Continue coreg Secondary prevention measures. Discused 2Gm Na diet. 2000cc FR and daily weights Consider outpatient ischemic evaluation if chest pain recurrent. Follow up in office. Justicifation of Admission Dx: Justifications for Admission: Justification of Admission Dx: Yes ZEFERINO GOMEZ MD 02/11/20 1903: CARDIO Progress Notes Assessment Assessment Patient seen and examined. Agree with QUALITY ASSURANCE MANAGER's assessment and plan. Ac on chr combined syst/diast HF better compensated BP better controlled CP resolved, CAD clinically stable. Consider ischemic evaluation as outpatient IZZY MORENO APRN Feb 11, 2020 11:54 ZEFERINO GOEMZ MD Feb 11, 2020 19:03
[2020-02-11] MEDS ORDERED: INSU100I13 SQ (11:58)
[2020-02-11] MEDS ORDERED: DOXY100T PO (11:58)
--- NOTE | 2020-02-11 12:04 | SNU/HH DC ---
DISCHARGE WITH HOME HEALTH DISCHARGE INFORMATION: Discharge Date: Feb 11, 2020 Final Diagnosis: Problems Medical Problems: (1) Acute on chronic congestive heart failure Status: Acute (2) Chest pain Status: Acute (3) CKD (chronic kidney disease) Status: Chronic (4) Congestive heart failure (CHF) Status: Acute (5) Ribs, multiple fractures Status: Acute Condition on Discharge: Stable CODE STATUS: Code Status: Full HOME HEALTH: Face to Face: I certify this patient is under my care and that I, or a nurse practitioner or physician's political science research assistant working with me, had a face to face encounter that meets the physician face to face encounter requirements with this patient on 02/11/2020. Medical Complications: CHF, COPD, DM Senior Living For: Admin/Educate Injections, Assess Cardiopulm Status, Diabetic Care, Medication Management RN For Eval/Treatment: Yes Physical Therapy For: Evalulation/Treatment Occupational Therapy For: Evaluation/Treatment ALTERATIONS WORKROOM CLERK For: Community Resources Pt Meets Homebound Status: Limited distance walking POST DISCHARGE ORDERS: Activity Instructions for Disc: Activity as tolerated Weight Bearing Status after Di: No restrictions DIET AFTER DISCHARGE: ADA Wound/Incision Care: Other, see below CHECKS AFTER DISCHARGE: Checks after discharge: Check blood press - daily, Check blood sugar, ac/hs, Check your Temp as needed, Weigh Yourself Daily FOLLOW-UP: Follow up with: Cardiology Follow Up With: Nephrology TREATMENT/EQUIPMENT ORDERS: Adaptive Equipment Issued: Walker Discharge Respiratory Equipmen: Nebulizer CERTIFICATION STATEMENT: Certification Statement: Certification Statement: Based on the above finding, I certify that this patient is confined to the home and needs intermittent prison care, physical therapy and/or speech therapy, or continues to need occupational therapy.~ This patient is under my care, and I have initiated the establishment of the plan of care.~ This patient will be followed by myself or a community physician who will periodically review the plan of care. Home Meds Active Scripts Doxycycline Hyclate (DOXYCYCLINE HYCLATE) 100 Mg Tablet, 100 MG PO BID for Bronchitis for 5 Days, #10 TAB Prov:CLEMENCIA SORIANO MD 02/11/20 Insulin Glargine,Hum.rec.anlog (LANTUS SOLOSTAR) 100 Unit/1 Ml Insuln.pen, 6 UNIT SQ QHS for dm2 for 30 Days, #15 ML 3 Refills Prov:CLEMENCIA SORIANO MD 02/11/20 Cyanocobalamin (Vitamin B-12) (B-12) 1,000 Mcg Tablet.er, 1000 MCG PO DAILY for Vitamin B12 deficiency, #30 TAB.SR 2 Refills Prov:RUTH MERCADO MD 12/19/19 Omeprazole (OMEPRAZOLE) 20 Mg Tablet.dr, 1 TAB PO DAILY for GI prophylaxis, #30 TAB 1 Refill Prov:RUTH MERCADO MD 12/19/19 Isosorbide Mononitrate (ISOSORBIDE MONONITRATE ER) 30 Mg Tab.er.24h, 60 MG PO DAILY for Angina, #30 TAB.SR 2 Refills Prov:RUTH MERCADO MD 12/19/19 Hydralazine Hcl (HYDRALAZINE HCL) 50 Mg Tablet, 50 MG PO TID for Hypertension, #90 TAB 2 Refills Prov:RUTH MERCADO MD 12/19/19 Tramadol Hcl (TRAMADOL HCL) 50 Mg Tablet, 50 MG PO PRN Q12HR PRN for Chest wall pain for 6 Days, #12 EACH Prov:CLEMENCIA SORIANO MD 06/18/19 Insulin Lispro (HUMALOG) 100 Unit/1 Ml Insuln.pen, 0 UNITS SQ TIDACHC for DM2 for 30 Days, #1 EACH 3 Refills Prov:CLEMENCIA SORIANO MD 04/06/19 Albuterol Sulfate (Proair Hfa) 8.5 Gm Hfa.aer.ad, 2.5 MG NEB PRN Q6HRS PRN for SHORTNESS OF BREATH for 30 Days, #1 INHALER Prov:MELODIE VALLES MD 11/29/18 Ipratropium/Albuterol Sulfate (DUONEB 0.5-3(2.5) MG/3 ML) 3 Ml Ampul.neb, 3 ML NEB RTQID for copd for 30 Days, #120 EACH Prov:MELODIE VALLES MD 11/29/18 Aspirin (ASPIRIN EC) 81 Mg Tablet.dr, 81 MG PO DAILYWBKFT for cad, #30 MG 11 Refills Prov:MELODIE VALLES MD 06/07/18 Levothyroxine Sodium (SYNTHROID) 200 Mcg Tablet, 1 TAB PO DAILY, #90 TAB 3 Refills Prov:MELODIE VALLES MD 09/02/17 Reported Medications Ferrous Sulfate (IRON) 325 Mg Tablet, 1 TAB PO DAILY for anemia 02/09/20 Carvedilol (CARVEDILOL) 25 Mg Tablet, 1 TAB PO BID for htn 02/09/20 Tizanidine Hcl (TIZANIDINE HCL) 4 Mg Tablet, 1 TAB PO TID PRN for MUSCLE SPASMS 02/09/20 Ergocalciferol (Vitamin D2) (VITAMIN D2) 2,000 Unit Tablet, 03495 UNIT PO QSU for supplement for 30 Days, #750 TAB 0 Refills 04/04/19 Torsemide (DEMADEX) 20 Mg Tablet, 20 MG PO BID for chf, TAB 05/25/18 Nitroglycerin (NITROGLYCERIN SubLingual) 0.4 Mg Tab.subl, 0.4 MG SL PRN Q5MIN PRN for CHEST PAIN, BOTTLE 05/25/18 Folic Acid (FOLIC ACID) 1 Mg Tablet, 1 TAB PO DAILY for vitamin, #90 TAB 1 Refill 05/25/18 Colestipol Hcl (COLESTID) 1 Gm Tablet, 2 GM PO BID for stomach, TAB 05/25/18 Atorvastatin Calcium (ATORVASTATIN CALCIUM) 80 Mg Tablet, 1 TAB PO QHS, #30 TAB 5 Refills 08/19/16 Potassium Chloride (POTASSIUM CHLORIDE) 10 Meq Tab.er.prt, 1 TAB PO BID for janis ctrolyte replacement, #90 TAB 1 Refill 07/04/14 Discontinued Reported Medications Sacubitril/Valsartan (Entresto 97 mg-103 mg Tablet) 1 Each Tablet, 1 TAB PO BID for HF 02/09/20 Nph, Human Insulin Isophane (NOVOLIN N) Unknown Strength Vial, SQ UD for DM 02/09/20 Metolazone (METOLAZONE) 5 Mg Tablet, 5 MG PO DAILY for bp, #30 TAB 0 Refills 05/25/18 Gabapentin (GABAPENTIN ) 300 Mg Capsule, 300 MG PO TID, CAP 03/23/16 Carvedilol (COREG) 25 Mg Tablet, 12.5 MG PO BIDWMEALS for CARDIAC, TAB 05/25/18 Discontinued Scripts Naproxen (NAPROSYN) 500 Mg Tablet, 500 MG PO BID for 14 Days, #28 TAB Prov:OMID CALL DO 02/08/20 Ferrous Sulfate (FERROUS SULFATE) 325 Mg Tablet, 1 TAB PO TID for anemia for 30 Days, #90 TAB 3 Refills Prov:RUTH MERCADO MD 12/19/19 CLEMENCIA SORIANO MD Feb 11, 2020 12:04
--- NOTE | 2020-02-11 12:19 | NUR ---
SS following up with discharge planning. SS reviewed pt chart and discussed with pt RN. Pt is currently on room air. Discharge orders received for home healthcare. Pt was previously on services with [facility], ; fax [phone]. SS met with pt and discussed home healthcare and pt wanting to resume with [facility]. SS phoned and faxed discharge orders and referral to [facility]. Pt's RN notified.
--- NOTE | 2020-02-11 13:00 | NUR ---
Discharge Note: [facility] [place] Discharge instructions and discharge home medications reviewed with Patient and a copy given. All questions have been answered and understanding verbalized. The following instructions and handouts were given: ki lantus Patient discharged to home with home health via wheelchair.
== END 2020-02-11 13:00 | disposition home health service (06) | DRG 205 ==
LOC: ER 17:26 → ED HOLD 21:07 → 2 NORTH 22:28
PROVIDERS: ADMIT Internal Medicine; ATTEND Internal Medicine
DX: M94.0 Chondrocostal junction syndrome [Tietze] (principal); I50.43 Acute on chronic combined systolic (congestive) and diastolic (congestive) heart failure; E43 Unspecified severe protein-calorie malnutrition; I13.0 Hypertensive heart and chronic kidney disease with heart failure and stage 1 through stage 4 chronic kidney disease, or unspecified chronic kidney disease; N17.9 Acute kidney failure, unspecified; S22.49XA Multiple fractures of ribs, unspecified side, initial encounter for closed fracture; D61.818 Other pancytopenia; N18.4 Chronic kidney disease, stage 4 (severe); D63.8 Anemia in other chronic diseases classified elsewhere; E03.9 Hypothyroidism, unspecified; E11.22 Type 2 diabetes mellitus with diabetic chronic kidney disease; E11.649 Type 2 diabetes mellitus with hypoglycemia without coma; E78.00 Pure hypercholesterolemia, unspecified; E78.5 Hyperlipidemia, unspecified; E87.5 Hyperkalemia; I25.10 Atherosclerotic heart disease of native coronary artery without angina pectoris; I25.5 Ischemic cardiomyopathy; J44.9 Chronic obstructive pulmonary disease, unspecified; W18.30XA Fall on same level, unspecified, initial encounter; Z86.711 Personal history of pulmonary embolism; Z87.891 Personal history of nicotine dependence; Z95.5 Presence of coronary angioplasty implant and graft; Z95.810 Presence of automatic (implantable) cardiac defibrillator; Z68.34 Body mass index [BMI] 34.0-34.9, adult; Y93.89 Activity, other specified; Y99.8 Other external cause status; Y92.009 Unspecified place in unspecified non-institutional (private) residence as the place of occurrence of the external cause
CPT/HCPCS: 36415; 71045; 80048; 80053; 82962; 83540; 83550; 83880; 84145; 84484; 85025; 90471; 90686; 93005; 94640; 96374; 96375; 99285; J1644; J1815; J1940; J2405; J3010; G0378

== ENCOUNTER → 2020-03-23 | Outpatient (CLI) | payer MEDICARE, OTHER ==
[2020-03-06 13:07] VITALS: BP 135/62
[~2020-03-23] MED LIST changes: +CARV25TA2 PO; -CLIN300C8 PO; +CLIN300C9 PO; +DOXY100T PO; +FERR-36 PO; +NAPR-683 PO; +NPH,100V5 SQ; +TIZA4TAB2 PO
[2020-03-23 14:17] LABS: ALBUMIN 2.7 g/dL (3.4-5.0); CALCIUM 8.2 mg/dL (8.5-10.1); CREATININE 2.7 mg/dL (0.6-1.0); PHOSPHORUS 4.5 mg/dL (2.6-4.7); POTASSIUM 5.5 mmol/L (3.5-5.1)
== END ==
LOC: LAB 13:05
PROVIDERS: ATTEND Nurse Practitioner Adult Health
DX: I12.9 Hypertensive chronic kidney disease with stage 1 through stage 4 chronic kidney disease, or unspecified chronic kidney disease (principal); E11.22 Type 2 diabetes mellitus with diabetic chronic kidney disease; N18.4 Chronic kidney disease, stage 4 (severe); N17.9 Acute kidney failure, unspecified; E11.21 Type 2 diabetes mellitus with diabetic nephropathy; E87.5 Hyperkalemia; D63.1 Anemia in chronic kidney disease; I50.20 Unspecified systolic (congestive) heart failure; Z79.4 Long term (current) use of insulin; Z68.30 Body mass index [BMI] 30.0-30.9, adult
CPT/HCPCS: 36415; 80069

== ENCOUNTER → 2020-03-31 | Outpatient (CLI) | payer MEDICARE, OTHER ==
[2020-03-24 11:11] VITALS: BP 181/76
--- NOTE | 2020-03-31 08:46 | RAD ---
MR#: [id number] Date of Study: 03/31/2020 Ordering Physician: ZEFERINO GOMEZ, Referring Physician: ZEFERINO GOMEZ, Tech: Alistair Benoit MBA, RDMS, RVT, RDCS, RTR APPROVED REPORT Patient Location : OUT-PATIENT Indications Lower Extremity Edema : Bilateral Findings Grayscale images of the bilateral saphenofemoral junctions are grossly unremarkable. The right great saphenous vein measures 5.5 mm and the left great saphenous vein measures 6 mm. Both the bilateral greater and lesser saphenous veins did not show any evidence of reflux. Critical Notification Critical Value: No <Conclusion> 1. Negative for reflux of the bilateral greater and lesser saphenous veins Signed by : Moisés Marquez, Electronically Approved : 03/31/2020 08:45:42
== END ==
LOC: US 09:23
PROVIDERS: ATTEND Internal Medicine Cardiovascular Disease
DX: R60.0 Localized edema (principal)
CPT/HCPCS: 93970